=== PATIENT | female | born 1970 | race Caucasian/White ===

== ENCOUNTER 2020-07-15 14:12 | Outpatient (REF) | payer MEDICAID, SELFPAY ==
--- NOTE | ~2020-07-15 | MM_ITS ---
EXAMINATION: MM SCREENING DIGITAL BREAST TOMOSYNTHESIS, BILATERAL CLINICAL INFORMATION: Screening. Asymptomatic. The lifetime risk of breast cancer based on the Tyrer-Cuzick Model is 8%. COMPARISON: Mammography: 07/10/2019, 05/16/2018, 05/11/2017 TECHNIQUE: Digital breast tomosynthesis is performed in both the craniocaudal and mediolateral oblique views along with computer-aided detection (CAD). Synthesized 2D images are generated from the tomosynthesis. FINDINGS: There are scattered areas of fibroglandular density (ACR BI-RADS breast composition Category b). There are no significant masses, abnormal calcifications, or other abnormalities. Again, there is biopsy clip marker upper outer quadrant left breast and some stable calcifications mid upper outer quadrant right breast. The axilla and skin contours are unremarkable. MM/MM tomosynthesis screening BI IMPRESSION: No mammographic evidence of malignancy. No significant changes from prior studies. ASSESSMENT: BI-RADS 2: Benign RECOMMENDATION: Routine annual mammography screening. This patient's information was entered into a reminder system with a target due date for their next mammogram.
== END 2020-07-15 14:13 | disposition home or self-care (01) ==
LOC: HO.MAMMO 14:12
PROVIDERS: PCP Pediatrics; Visit Provider Pediatrics
DX: Z12.31 Encounter for screening mammogram for malignant neoplasm of breast (principal)
CPT/HCPCS: 77063; 77067

== ENCOUNTER 2021-01-08 15:49 | Emergency (ER) | payer MEDICAID, SELFPAY ==
--- NOTE | ~2021-01-08 | CT_ITS ---
EXAMINATION: CT ABDOMEN AND PELVIS WITHOUT CONTRAST CLINICAL INFORMATION: Back and abdominal pain COMPARISON: 09/13/2012 TECHNIQUE: Multidetector volumetric imaging was performed from the superior aspect of the liver through the pubic symphysis. Sagittal and coronal reformatted images were obtained on the technologist's workstation. This CT examination was performed using dose optimization techniques as appropriate, variously including the following: *Automated exposure control *Adjustment of mA and/or kV according to patient size (this includes techniques or standardized protocols for targeted exams where dose is matched to indication/reason for exam; i.e. extremities or head) *Use of iterative reconstruction technique DLP: 650 mGy-cm FINDINGS: LUNG BASES: The visualized lung bases are unremarkable. LIVER, GALLBLADDER, AND BILIARY TREE: Changes of diffuse hepatic steatosis. No discrete lesion on this nonenhanced study. Liver appears moderately enlarged. No biliary dilatation. Gallbladder is contracted with stones. No acute inflammatory changes. PANCREAS: Unremarkable. SPLEEN: Appears to be surgically absent or severely atrophic. ADRENAL GLANDS: Unremarkable. KIDNEYS AND URETERS: The kidneys are normal in size, shape, and attenuation. No hydronephrosis, hydroureter, or calculi seen. No perinephric stranding. BLADDER: Unremarkable. GASTROINTESTINAL TRACT: The small and large bowel are notable for scattered diverticula without acute inflammatory changes.. The appendix is unremarkable. ABDOMINAL WALL: No significant hernia is appreciated. LYMPH NODES: Normal. VASCULAR: Unremarkable. PELVIC VISCERA: Prominent uterus with poor delineation of tissue planes. Recommend elective ultrasound to exclude any endometrial lesion. OSSEOUS STRUCTURES: Unremarkable. CT/CT abdomen pelvis wo con IMPRESSION: 1. No aneurysm or evidence for any obstructive uropathy. 2. Prominent uterus which should be further assessed electively for any endometrial or myometrial abnormality. 3. Hepatomegaly changes of hepatic steatosis. 4. Contracted gallbladder with stones. No acute inflammatory changes.
[2021-01-08 16:22] VITALS: BP 116/55; PULSE 73; RESP 18; TEMP 36.6; O2SAT 97; BMI 33.6
--- NOTE | 2021-01-08 17:17 | ED_ITS ---
HPI - Back Pain/Injury General Chief Complaint: Back Pain/Injury Stated Complaint: back pain Time Seen by Provider: 01/08/21 17:05 Source: patient Mode of arrival: ambulatory Limitations: no limitations History of Present Illness HPI Narrative: This is a 50-year-old obese female who presents to the emergency department from home with 1 day of lower back pain, localized to the left lower back. She states this pain came about when she was bending over to put a lid on a trash can. She denies any heavy lifting this week, and today. She states this is not the 1st time that something like this happened to her. However today, she is having increased pain with ambulation. She states that the pain is constant and severe in nature at 10/10 and it does not radiate. She denies chest, shortness breath, changes in bowel habits, fevers, chills, nausea, vomiting, diarrhea, changes in urination. She denies any trauma to the area. Past medical history significant for ITP, and fibromyalgia. MD elicited complaint: back pain (Left lower back) Pertinent past history: prior back pain Onset (ago): day(s) (1) Timing: constant Severity: severe Pain scale (0-10): 10 Similar Symptoms Previously: Yes Quality: sharp Location: left lower back Radiation: none Exacerbating factors: movement and walking Relieving factors: none Context: bending Associated symptoms: denies other symptoms Treatments prior to arrival: NSAIDS (Without relief) Work related injury: No Related Data Home Medications Medication Instructions Recorded Confirmed ibuprofen 800 mg tablet 1 tab PO TID 09/07/20 09/07/20 Previous Rx's Medication Instructions Recorded acetaminophen 325 mg tablet 650 mg PO Q6H PRN #10 tab 01/08/21 (Tylenol) cyclobenzaprine 10 mg tablet 10 mg PO Q8H #10 tab 01/08/21 oxycodone 5 mg tablet 5 mg PO BID PRN #10 tab 01/08/21 Allergies Allergy/AdvReac Type Severity Reaction Status Date / Time melatonin [MELATONIN] Allergy Unknown FACIAL Unverified 01/09/20 17:00 REDNESS & EDEMA ASPERGILLUS Allergy Unknown HIVES Uncoded 01/09/20 17:00 Review of Systems Review of Systems: Constitutional : No trauma, No Weight loss, No Fever, No Chills, ENT/Mouth : No Hearing loss, No Ear Pain, No Nasal Congestion, No Sinus Pain, No Hoarseness, No sore throat, No Rhinorrhea, No Swallowing Difficulty Cardiovascular : No Chest Pain, No SOB Respiratory : No Cough, No Dyspnea Gastrointestinal : No Nausea, No Vomiting, No Diarrhea, No abdominal Pain, No Hematochezia, No Melena Genitourinary : No Dysuria, No Urinary Frequency, No Hematuria, No Urinary or Bowel Incontinence/retention Musculoskeletal : + Back pain, No neck pain, No joint stiffness, No joint swelling Skin : No Skin Lesions, No rash or signs of infection Neuro : No Weakness, No radiation, No Numbness, No Paresthesias, No headache, no loss of bowel or bladder incontinence, no saddle anesthesia Denies history of IV drug usage. Yes all other systems are reviewed and are negative [facility] Past Medical History Attestation statement: The following information was validated with the patient. Family History Family History Father Tonsillar cancer Hypertension Paternal Grandmother Hypertension Social History Social History Alcohol intake: never Advance Directives: No Advance Directives Information Provided: No Physical Exam Vital Signs: Vital Signs: Last Vital Signs Temp 97.9 F 01/08/21 16:22 Pulse 73 01/08/21 16:22 Resp 18 01/08/21 16:22 BP 116/55 L 01/08/21 16:22 Pulse Ox 97 01/08/21 16:22 Body Mass Index 33.6 vital signs have been reviewed as normal and appeared to be correct. Blood pressure mildly hypertensive 116/55. Heart rate normal. Respiration rate normal. Temperature normal. Oxygen saturation normal. Appearance: Alert. Oriented X3. No acute distress. Head: Normal external exam. Normocephalic. Atraumatic. Neck: Normal inspection. Neck supple. FROM. No adenopathy. Thyroid Normal. No meningeal signs. No neck mass noted. CVS: Normal heart rate and rhythm. Heart sound normal. No murmurs noted. Pulses normal throughout. Respiratory: No respiratory distress. Painless inspiration. Breath sounds normal. No wheezes/rales/rhonchi noted. Chest nontender. No accessory muscle usage noted or decreased air movement noted. Abdomen: Soft and nontender. Bowel sounds normal in all 4 quadrants. No distention noted. No organomegaly noted. No visible injury noted. Back: No CVA tenderness. + limited range of motion due to pain, No obvious deformities, or edema. + Mild para-spinal muscular tenderness from lumbar region to coccyx particularly on the left-hand side. Full ROM lower extremities. 5/5 strength hip extension/flexion, abduction, adduction. Mild Lumbar pain with hip flexion against resistance. Straight leg raise test negative on right; Straight leg raise test positive on left; Reflexes normal ankle and knee bilaterally; EHL motor strength normal bilaterally. No rashes/lesion/induration/fluctuance or signs infection noted. Skin: Skin warm and dry. Normal skin color. Normal skin turgor. No rashes/lesions/lacerations noted. Extremities: No lower extremity edema. Extremities exhibit normal range of motion. Extremities nontender. Neuro: Oriented X 3. No motor deficit. No sensory deficit. Reflexes normal. Patient has a normal steady gait. Course Course Course Narrative: This is a 50-year-old female who presents to the emergency department with atraumatic lower back pain that came on earlier today. She denies any trauma to the area, or heavy lifting. She states the pain is constant, and severe 10/10 and does not radiate. She states she has had similar episodes in the past which have resolved on her own. She has no past history of recurrent UTIs. She denies chest pain, shortness of breath, weakness, numbness, tingling, bowel/bladder incontinence. Past medical history is significant for ITP and fibromyalgia. On physical examination the patient is visibly uncomfortable, there is pain to palpation of the paraspinous muscles particularly on the left-hand side lower lumbar spine to the coccyx. Range of motion is limited due to pain, however, patient is able to ambulate with assistance but appears uncomfortable. Positive straight leg raise on the left-hand side, negative straight leg raise on the right. Physical examination and palpation of the abdomen to the lower quadrants caused exquisite pain. Pt c likely muscular pain, but could be herniated disc. Neuro exam shows no deficits. Not c/w AAA/epidural abscess/dissection.No high risk Hx (Incont, fever, immunosupp, recent surgery/LP, coag, signif trauma, wt loss, puls mass, hx/o Ca, TB, or IVDU) to warrant MRI today. Not c/w Pyelo/UTI/kidney stone/spinal fx. Not cauda equina syndrome. Due to the patient history and Physical examination a CT of the abdomen and pelvis has been ordered. Patient also being given 5 mg of Valium and 5 mg of oxycodone will re-evaluate. Reevaluation(s) Reevaluation #1: - CT scan of abdomen and pelvis without IV contrast revealed chronic changes no acute processes were noted. Therefore patient most likely muscular pain. Will DC home with symptomatic treatment instructions return if any new or worsening symptoms to follow up with primary care provider. Patient understands agrees with this plan. Time: 18:54 MDM - Back Pain/Injury Medical Records Attestation: I reviewed the patient's medical records. Lab Data Attestation: I reviewed the patient's lab results. Imaging Data CT of the abdomen and pelvis : Attestation: I personally reviewed and interpreted this imaging study as follows: Radiologist's impression: FINDINGS: LUNG BASES: The visualized lung bases are unremarkable.? LIVER, GALLBLADDER, AND BILIARY TREE: Changes of diffuse hepatic steatosis. No discrete lesion on this nonenhanced study. Liver appears moderately enlarged. No biliary dilatation. Gallbladder is contracted with stones. No acute inflammatory changes.? PANCREAS: Unremarkable.? SPLEEN: Appears to be surgically absent or severely atrophic.? ADRENAL GLANDS: Unremarkable.? KIDNEYS AND URETERS: The kidneys are normal in size, shape, and attenuation. No hydronephrosis, hydroureter, or calculi seen. No perinephric stranding. ? BLADDER: Unremarkable.? GASTROINTESTINAL TRACT: The small and large bowel are notable for scattered diverticula without acute inflammatory changes.. The appendix is unremarkable.? ABDOMINAL WALL: No significant hernia is appreciated.? LYMPH NODES: Normal. VASCULAR: Unremarkable. PELVIC VISCERA: Prominent uterus with poor delineation of tissue planes. Recommend elective ultrasound to exclude any endometrial lesion.? OSSEOUS STRUCTURES: Unremarkable.? CT/CT abdomen pelvis wo con IMPRESSION: ? 1. No aneurysm or evidence for any obstructive uropathy. 2. Prominent uterus which should be further assessed electively for any endometrial or myometrial abnormality. 3. Hepatomegaly changes of hepatic steatosis. 4. Contracted gallbladder with stones. No acute inflammatory changes. Discharge Plan Discharge Clinical Impression: Strain of lumbar region, Abdominal pain Patient Disposition: Home, Self-Care Instructions: Acute Low Back Pain (ED), Abdominal Pain (ED) Additional Instructions: Take all medications as prescribed Return to the emergency department with new or worsening symptoms or if he develops weakness, paresthesias, urinary or bowel incontinence, fevers or chills. Follow-up with your primary care provider Prescriptions: New cyclobenzaprine 10 mg tablet 10 mg PO Q8H Qty: 10 RF: 0 acetaminophen [Tylenol] 325 mg tablet 650 mg PO Q6H PRN (Reason: fever or pain) Qty: 10 RF: 0 oxycodone 5 mg tablet 5 mg PO BID PRN (Reason: pain) Qty: 10 RF: 0 No Action ibuprofen 800 mg tablet 1 tab PO TID RF: 0 Referrals: Aaron Riley MD [Primary Care Provider] - 2 days Print Language: English
[2021-01-08] MEDS: Lidocaine 4 % Patch ADH..PATCH 1 PATCH TRANSDERMA (17:40)
[2021-01-08] MEDS: diazePAM 5 MG TABLET PO (17:40)
[2021-01-08] MEDS: oxyCODONE HCl Immed Release 5 MG TABLET PO (17:40)
== END 2021-01-08 19:10 | disposition home or self-care (01) ==
PROVIDERS: Emergency Provider Emergency Medicine; PCP Internal Medicine
DX: S39.012A Strain of muscle, fascia and tendon of lower back, initial encounter (principal); R10.9 Unspecified abdominal pain; X58.XXXA Exposure to other specified factors, initial encounter; Y93.9 Activity, unspecified; Y92.9 Unspecified place or not applicable; Y99.9 Unspecified external cause status; Z79.899 Other long term (current) drug therapy
CPT/HCPCS: 74176; 99284

== ENCOUNTER 2021-07-20 15:50 | Outpatient (REF) | payer MEDICAID, SELFPAY ==
--- NOTE | ~2021-07-20 | MM_ITS ---
EXAMINATION: MM SCREENING DIGITAL BREAST TOMOSYNTHESIS, BILATERAL CLINICAL INFORMATION: Screening. Asymptomatic. The lifetime risk of breast cancer based on the Tyrer-Cuzick Model is 8%. COMPARISON: Mammography: 07/15/2020, 07/10/2019, 05/16/2018, 05/11/2017 TECHNIQUE: Digital breast tomosynthesis is performed in both the craniocaudal and mediolateral oblique views along with computer-aided detection (CAD). Synthesized 2D images are generated from the tomosynthesis. FINDINGS: There are scattered areas of fibroglandular density (ACR BI-RADS breast composition Category b). Parenchymal pattern is similar to prior exams. There is no interval mass or architectural abnormality or developing density. There is a biopsy clip marker posterior upper outer left breast. There are stable bilateral fine probable vascular calcifications in the bilateral upper outer quadrant similar to prior exams. The bilateral axilla and skin contours are unremarkable. MM/MM tomosynthesis screening BI IMPRESSION: No significant changes from prior studies. ASSESSMENT: BI-RADS 2: Benign RECOMMENDATION: Routine annual mammography screening. This patient's information was entered into a reminder system with a target due date for their next mammogram.
== END 2021-07-20 15:51 | disposition home or self-care (01) ==
LOC: HO.MAMMO 15:50
PROVIDERS: PCP Internal Medicine; Visit Provider Internal Medicine
DX: Z12.31 Encounter for screening mammogram for malignant neoplasm of breast (principal)
CPT/HCPCS: 77063; 77067

== ENCOUNTER 2022-08-22 15:26 | Outpatient (REF) | payer MEDICAID, SELFPAY ==
--- NOTE | ~2022-08-22 | MM_ITS ---
EXAMINATION: MM SCREENING DIGITAL BREAST TOMOSYNTHESIS, BILATERAL CLINICAL INFORMATION: Screening. Asymptomatic. The lifetime risk of breast cancer based on the Tyrer-Cuzick Model is 9%. COMPARISON: Mammography: 07/20/2021, 07/15/2020, 07/10/2019, 05/16/2018 TECHNIQUE: Digital breast tomosynthesis is performed in both the craniocaudal and mediolateral oblique views along with computer-aided detection (CAD). Synthesized 2D images are generated from the tomosynthesis. FINDINGS: There are scattered areas of fibroglandular density (ACR BI-RADS breast composition Category b). There is inhomogeneous fibronodular parenchymal pattern with scattered small waxing and waning nodularity similar to prior studies. There is no significant mass or architectural abnormality or developing density. There is a biopsy clip marker and upper outer left breast. Calcifications bilateral outer breasts again seen. No interval significant calcifications. The axilla and skin contours are similar to prior studies. No significant changes. MM/MM tomosynthesis screening BI IMPRESSION: No mammographic evidence of malignancy. ASSESSMENT: BI-RADS 2: Benign RECOMMENDATION: Routine annual mammography screening. This patient's information was entered into a reminder system with a target due date for their next mammogram.
== END 2022-08-22 15:27 | disposition home or self-care (01) ==
LOC: HO.MAMMO 15:26
PROVIDERS: PCP Internal Medicine; Visit Provider Internal Medicine
DX: Z12.31 Encounter for screening mammogram for malignant neoplasm of breast (principal)
CPT/HCPCS: 77063; 77067

== ENCOUNTER 2023-05-15 16:27 | Outpatient (REF) | payer MEDICAID, SELFPAY ==
[2023-05-15 20:04] LABS: Influenza A PCR NEGATIVE (Negative); Influenza B PCR NEGATIVE (Negative); Resp Syncy Virus RNA Qual PCR NEGATIVE (Negative); SARS COV2 PCR INHOUSE NEGATIVE (Negative)
== END 2023-05-15 16:28 | disposition home or self-care (01) ==
LOC: HO.CHCLNP 16:27
PROVIDERS: Visit Provider Registered Nurse
DX: B34.9 Viral infection, unspecified (principal); Z11.52 Encounter for screening for COVID-19
CPT/HCPCS: 0241U

== ENCOUNTER 2023-05-25 15:26 | Outpatient (REF) | payer MEDICAID, SELFPAY ==
--- NOTE | ~2023-05-25 | XR_ITS ---
EXAMINATION: XR SINUSES CLINICAL INFORMATION: Sinus congestion and pain of one month's duration, refractory to antibiotic therapy. COMPARISON: None available. TECHNIQUE: Main, Dela Cruz, lateral, and SMV views of the paranasal sinuses are submitted. FINDINGS: The paranasal sinuses are well aerated. There is partial opacification of the frontal sinuses. The left maxillary sinus appears opacified. There is mucosal thickening of the right maxillary sinus. The ethmoid and sphenoid sinuses show some mucosal thickening. No fracture or bone erosion is seen. The nasal septum appears midline. XR/XR sinus min 3V IMPRESSION: There is pansinusitis, most pronounced of the left maxillary sinus, which appears largely opacified.
== END 2023-05-25 15:27 | disposition home or self-care (01) ==
LOC: HO.XRAY 15:26
PROVIDERS: PCP Internal Medicine; Visit Provider Internal Medicine
DX: J32.9 Chronic sinusitis, unspecified (principal)
CPT/HCPCS: 70220

== ENCOUNTER 2023-08-28 15:20 | Outpatient (REF) | payer MEDICAID, SELFPAY ==
--- NOTE | ~2023-08-28 | MM_ITS ---
EXAMINATION: MM SCREENING DIGITAL BREAST TOMOSYNTHESIS, BILATERAL CLINICAL INFORMATION: Screening. Asymptomatic. The patient has a history of bilateral breast reduction. COMPARISON: Mammography: This study is compared with prior exams dating back to 2018. TECHNIQUE: Digital breast tomosynthesis is performed in both the craniocaudal and mediolateral oblique views along with computer-aided detection (CAD). Synthesized 2D images are generated from the tomosynthesis. FINDINGS: There are scattered areas of fibroglandular density (ACR BI-RADS breast composition Category b). There are no significant masses, abnormal calcifications, or other abnormalities. There is a biopsy tissue marker in the upper outer quadrant left breast. MM/MM tomosynthesis screening BI IMPRESSION: No mammographic evidence of malignancy. ASSESSMENT: BI-RADS BI-RADS 2 - Benign Findings RECOMMENDATION: Routine annual mammography screening. 1 year F/U This examination should not preclude the clinical evaluation of a suspicious palpable abnormality. This patient's information was entered into a reminder system with a target due date for their next mammogram.
== END 2023-08-28 15:21 | disposition home or self-care (01) ==
LOC: HO.MAMMO 15:20
PROVIDERS: PCP Internal Medicine; Visit Provider Internal Medicine
DX: Z12.31 Encounter for screening mammogram for malignant neoplasm of breast (principal)
CPT/HCPCS: 77063; 77067

== ENCOUNTER → 2023-08-28 15:30 | Outpatient (BNV) | payer MEDICAID, SELFPAY | PROVIDERS: PCP Internal Medicine; Visit Provider Radiology Diagnostic Radiology | DX: Z12.31 Encounter for screening mammogram for malignant neoplasm of breast (principal) | CPT/HCPCS: 77063; 77067 ==

== ENCOUNTER 2023-08-31 15:03 | Outpatient (REF) | payer MEDICAID, SELFPAY ==
[2023-08-31 18:15] LABS: Alanine Aminotransferase 19 U/L (0-31); Albumin Level 4.3 g/dL (3.5-5.0); Alkaline Phosphatase 108 U/L (39-117); Anion Gap 15 (12-20); Aspartate Amino Transferase 18 U/L (5-31); Bilirubin Total 0.8 mg/dL (0.0-1.0); Blood Urea Nitrogen 13 mg/dL (9-16); Calcium 9.6 mg/dL (8.4-10.2); Carbon Dioxide 24 mmol/L (22-29); Chloride 106 mmol/L (96-108); Estimated Glomerular Filt Rate > 60; Glucose Random 88 mg/dL (60-115); Potassium 3.5 mmol/L (3.3-5.1); Sodium 141 mmol/L (135-145); Total Protein 8.6 g/dL (6.5-8.0)
[2023-08-31 18:27] LABS: Basophils Absolute Auto 0.1 X10*3/uL (0.0-0.2); Basophils Percent Auto 0.7 % (0-2); Imm Gran Abs Auto 0.06 X10*3/uL (0.00-0.03); Imm Gran Pct Auto 0.4 % (0.0-0.4); MANUAL DIFF FLAG SCAN; SCAN SMEAR FLAG 1
[2023-08-31 18:28] LABS: Eosinophils Absolute Auto 0.3 X10*3/uL (0.0-0.4); Lymphocytes Absolute Auto 5.4 X10*3/uL (1.2-4.9); Lymphocytes Percent Auto 37.8 % (20-40); Mean Corpuscular HGB Conc 32.6 g/dl (31.0-35.0); Mean Corpuscular Hemoglobin 27.9 pg (27.0-33.0); Mean Corpuscular Volume 85.7 fL (80.0-98.0); Monocytes Absolute Auto 0.8 X10*3/uL (0.1-1.2); Monocytes Percent Auto 5.5 % (2-11); Neutrophils Absolute Auto 7.6 x10*3/uL (2.0-8.3); Neutrophils Percent Auto 53.6 % (45-73); PLT CLUMP 1; Red Blood Count 5.02 X10*6/uL (4.20-5.50)
[2023-08-31 18:32] LABS: TSH reflex Free T4 1.76 uIU/mL (0.32-4.0)
[2023-08-31 18:54] LABS: PLT ABN DIST 1; White Blood Count 14.2 X10*3/uL (4.8-10.8)
[2023-08-31 18:55] LABS: Platelet Count 44 X10*3/uL (160-400)
[2023-08-31 18:56] LABS: SLIDE REVIEW VERIFIED
== END 2023-08-31 15:04 | disposition home or self-care (01) ==
LOC: HO.CHCLDS 15:03
PROVIDERS: Visit Provider Internal Medicine
DX: F32.89 Other specified depressive episodes (principal); M79.7 Fibromyalgia; D69.3 Immune thrombocytopenic purpura
CPT/HCPCS: 36415; 80053; 84443; 85025

== ENCOUNTER → 2023-10-02 09:20 | Outpatient (BNV) | payer MEDICAID, SELFPAY | PROVIDERS: PCP Internal Medicine; Referring Provider Internal Medicine; Visit Provider Internal Medicine Medical Oncology | DX: D69.3 Immune thrombocytopenic purpura (principal) | CPT/HCPCS: 99213 ==

== ENCOUNTER → 2023-12-21 14:45 | Outpatient (RCR) | payer MEDICAID, SELFPAY ==
--- NOTE | 2020-09-07 13:54 | P.PNHO_ITS ---
Medical Summary - Medical Summary Date of Service: 09/07/20 Chief complaint: Follow-up for ITP. Medical Summary: DIAGNOSIS: Idiopathic Thrombocytopenic Purpura. 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 Steroids were subsequently tapered. Interval History Interval history: This is a pleasant 50 year old lady, here for a follow up visit, after a long hiatus. She has not been doing too well. She tells me that she has been feeling really tired. She feels as if her skin is burning. Even her muscles feel fatigued. Her whole body hurts. He knows to some of the effects after she took the Richard and Richard vaccine. That was a month ago. She got concerned about blood clots. She denies any easy bruising nor systemic bleeding. She denies fevers chills nor night sweats. No abdominal pain, nausea vomiting heartburn indigestion. Her bowels are moving without any gross blood in it. She enjoys a good appetite. Her weight has gone up. Her spirits are down. Rest of the review of systems is unremarkable. Previous history: Back in July,, she was seen in the E.R for migraine H.A. She has a history of fibromyalgia, she takes Motrin as needed. Her energy level has improvd, significantly. She is physically very active. She has started exercising. She walks and runs and attends [employer] classes. She is watching her diet. She is trying to lose weight. Review of Systems - Constitutional Reports no additional constitutional complaints, Reports lack of energy, Reports malaise, Reports weight gain - Eyes Reports no additional eye complaints - ENT Reports no additional ear, nose, mouth, and throat complaints - Cardiovascular Reports no additional cardiovascular complaints - Respiratory Reports no additional respiratory complaints - Gastrointestinal Reports no additional gastrointestinal complaints - Genitourinary Reports no additional female genitourinary complaints - Musculoskeletal Reports no additional musculoskeletal complaints - Integumentary/Breasts Skin/Breast: Reports no additional skin complaints - Neurologic Reports no additional neurologic complaints - Psychiatric Reports no additional psychiatric complaints - Endocrine Reports no additional endocrine complaints - Hematologic/Lymphatic Reports no additional hematologic/lymphatic complaints - Allergic/Immunologic Reports no additional allergic/immunologic complaints [facility] Family History: Family History (Last Updated 09/07/20 @ 14:07 by Melissa Vargas) Father Tonsillar cancer Hypertension Paternal Grandmother Hypertension Social History: Social History (Last Updated 09/07/20 @ 14:05 by Melissa Vargas) Alcohol History: Alcohol intake: never Alcohol History Details: Alcohol intake frequency: does not drink Tobacco History: Smoking Status: Never smoker Substance Use History: Use of substances other than those prescribed or required for medical reasons : No Oncology Screenings - ECOG Performance Status ECOG Performance Status: 1 Home Medications and Allergies Home Medications Medication Instructions Recorded Confirmed Type ibuprofen 1 tab PO TID 09/07/20 09/07/20 History Allergies Allergy/AdvReac Type Severity Reaction Status Date / Time melatonin [MELATONIN] Allergy Unknown FACIAL Unverified 01/09/20 17:00 REDNESS & EDEMA ASPERGILLUS Allergy Unknown HIVES Uncoded 01/09/20 17:00 Exam - Constitutional Present: no acute distress - Routine HEENT Exam Head: Present: normal inspection Eye: Present: normal appearance ENT: Present: mucous membranes moist - Routine Neck Exam Present: full ROM - Routine Respiratory Exam Present: CTAB - Routine Cardiovascular Exam Cardiovascular: Present: RRR, S1, S2 - Routine Abdominal Exam Present: soft, nontender - Routine Rectal Exam Patient deferred: digital exam - Routine Extremities Exam Present: nontender - Routine Back/Spine/Pelvis Exam Back/Spine: Present: full ROM - Routine Skin Exam Present: intact - Routine Neurological Exam Present: alert, oriented X3 - Routine Psychiatric Exam Present: normal affect Data - Labs CBC & Chem 7: 09/07/20 14:18 09/07/20 14:18 Progress Note: A/P (1) Chronic ITP (idiopathic thrombocytopenia) Status: Acute Assessment and plan: 50 year-old lady with history of Idiopathic Thrombocytopenic Purpura. Status post laparoscopic splenectomy in September of 2012. After the steroids were tapered off, she remained in remission. She was last seen here in December 2017. Her CBC from November of last year revealed WBC 15.4, HGB 13.8, HCT 43.2, and PLT 167. She has some other complaints, including: Fatigue joint pains and body aches. These indicate possible fibromyalgia or rheumatological disorder versus arthritis. PLAN: She follows with change control specialist, Dr. Negrita Neal from Rheumatology upstairs. She will follow-up with her. Her platelet count is low at 104 today. Not sure what her trend has been lately. Will follow it in a month. She will return then for a followup visit. She will call for any questions or problems prior to that time. Thank you, Walt Levy MD cc: Dr. Aaron Riley M.D. Dr. Tatiana MD - Time Spent With Patient Total time spent is greater than 50% in coordination of care (as documented) at patient's floor/unit and/or counseling patient: 25 - 35 minutes
[2020-09-07 14:03] VITALS: BP 121/62; PULSE 84; RESP 12; TEMP 36.8; O2SAT 93
[2020-09-07 14:22] LABS: MANUAL DIFF FLAG NO
[2020-09-07 14:34] LABS: Basophils Percent Auto 0.3 % (0-2); Eosinophils Absolute Auto 0.3 X10*3/uL (0.0-0.4); Eosinophils Percent Auto 2.7 % (0-4); Hemoglobin 12.6 g/dl (12.0-16.0); Imm Gran Abs Auto 0.04 X10*3/uL (0.00-0.03); Imm Gran Pct Auto 0.3 % (0.0-0.4); Lymphocytes Absolute Auto 4.1 X10*3/uL (1.2-4.9); Lymphocytes Percent Auto 35.6 % (20-40); Mean Corpuscular HGB Conc 31.5 g/dl (31.0-35.0); Mean Corpuscular Hemoglobin 27.1 pg (27.0-33.0); Monocytes Absolute Auto 0.6 X10*3/uL (0.1-1.2); Monocytes Percent Auto 4.9 % (2-11); Neutrophils Absolute Auto 6.5 X10*3/uL (2.0-8.3); Neutrophils Percent Auto 56.2 % (45-73); Platelet Count 104 X10*3/uL (160-400); Red Blood Count 4.65 X10*6/uL (4.20-5.50); Red Cell Distribution Width 15.3 % (11.0-16.0); White Blood Count 11.5 X10*3/uL (4.8-10.8)
[2020-09-07 15:12] LABS: Alanine Aminotransferase 25 U/L (0-31); Albumin Level 4.1 g/dL (3.5-5.0); Alkaline Phosphatase 107 U/L (39-117); Anion Gap 13 (12-20); Aspartate Amino Transferase 18 U/L (5-31); Blood Urea Nitrogen 12 mg/dL (9-16); Calcium 8.8 mg/dL (8.4-10.2); Carbon Dioxide 23 mmol/L (22-29); Chloride 112 mmol/L (96-108); Estimated Glomerular Filt Rate > 60; Glucose Random 114 mg/dL (60-115); Potassium 3.5 mmol/L (3.3-5.1); Sodium 144 mmol/L (135-145); Total Protein 7.2 g/dL (6.5-8.0)
--- NOTE | 2020-09-07 15:42 | MHC.HEMONCMA ---
Pt present to f/u on thrombocytopenia. History reviewed, labs drawn and pt to return in a yr.
== END | disposition home or self-care (01) ==
LOC: HO.ONC 09-07 13:47
PROVIDERS: PCP Internal Medicine; Visit Provider Internal Medicine Medical Oncology
DX: D69.3 Immune thrombocytopenic purpura (principal); Z90.81 Acquired absence of spleen
CPT/HCPCS: 36415; 80053; 85025; 99214

== ENCOUNTER 2024-01-02 13:28 | Outpatient (REF) | payer MEDICAID, SELFPAY ==
--- NOTE | ~2024-01-02 | XR_ITS ---
EXAMINATION: XR CHEST CLINICAL INFORMATION: Patient states cough for about 2 months COMPARISON: 11/21/2018 TECHNIQUE: 2 views of the chest were obtained. FINDINGS: There is no gross pneumothorax. Heart size is normal. Mild degenerative changes in the thoracic spine. No pleural effusion. No focal consolidation. Mild degenerative changes in the thoracic spine. XR/XR chest 2V IMPRESSION: No evidence of pneumonia. Electronically signed by: uAdrey Hollins MD 01/17/2024 01:07 PM EDT
== END 2024-01-02 13:29 | disposition home or self-care (01) ==
LOC: HO.XRAY 13:28
PROVIDERS: PCP Internal Medicine; Visit Provider Internal Medicine
DX: R05.2 Subacute cough (principal)
CPT/HCPCS: 71046

== ENCOUNTER 2024-05-27 11:09 | Outpatient (REF) | payer OTHER, SELFPAY ==
--- NOTE | ~2024-05-27 | XR_ITS ---
EXAMINATION: XR CHEST 2 VIEWS HISTORY: one month of cough, CHOPRA and weight loss COMPARISON: Comparison is made with the prior examination dated 01/02/2024. FINDINGS: PA and lateral views of the chest are submitted. The lungs are expanded and clear. There is no pleural effusion, pneumothorax, or pulmonary vascular congestion. The heart is normal in size. There is mild degenerative disc disease of the spine. XR/XR chest 2V IMPRESSION: No acute cardiopulmonary abnormality. Electronically signed by: Jered Silva MD 05/27/2024 12:34 PM JUAN C
--- OUTSIDE RECORDS SUMMARY | 2024-05-27 12:21 | XMS_ITS | Encounter Summary ---
Author Organization [employer] Address [address] [place] [address] [place] [address] Care Team Providers Care Pinion Staker Name Role Phone Aaron Riley MD Primary Care Provider [phone] Reason for Visit * Reason Onset Date Comments Nurse Triage 05/24/2024 Encounter Details Date Type Department Care Team ([facility] st Contact Info) Description 05/24/2024 Telephone [facility] [address] [place] [address] Aaron Riley MD [address] [place] [address] Nurse Triage Social History Tobacco Use Types Packs/Day Years Used Date Smoking Tobacco: Never Smokeless Tobacco: Never Depression Answer Date Recorded Patient Health Questionnaire-9 Score 21 10/03/2023 Patient Health Questionnaire-9 Score 21 10/03/2023 Last PHQ-9: Questionnaire Data Not on file 0 10/03/2023 Housing Stability Answer Date Recorded What is your housing situation today? I have deb marks 08/23/[address] you li ve. Do you have problems with any of the following? None of the above 08/23/2023 Food Insecurity Answer Date Recorded Within the past 12 months, y ou worried that your food would run out before you got money to buy more: Never True 08/23/2023 Within the past 12 months,th e food you bought just didn't last and you didn't have enough money to get more: Never True 04/2023 Transportation Answer Date Recorded In the past 12 months, has l ack of transportation kept you from medical appts, meetings, work or from getting things needed for daily living? No 08/23/2023 Utilities Answer Date Recorded In the past 12 months, has t he electric, gas, oil or water company threatened to shut off services in your home? No 08/23/2023 Depression Answer Date Recorded Patient Health Questionnaire-2 Score 6 10/03/2023 Comments No Sex and Gender Information Value Date Recorded Sex Assigned at Female 02/21/2022 10:21 AM EDT Legal Sex Female 10:21 AM EDT Gender Identity Choose not to disclose 10:21 AM EDT Sexual Orientation Choose not to disclose 2021 10:21 AM EDT documented as of this encounter Miscellaneous Notes * Telephone Encounter - Myriam Ashby LPN - 05/24/2024 11:32 AM EST Triage call returned to patient who reports feeling sick for all of April. Has now 3-4 days of cough congestion headache and weakness. Has been taking OTC Ibuprofen and headache improves and then returns. No fever at this time. Has no ear pain or sore throat. Has reported dizziness with standing or sitting for long periods of time and feels better when laying down. Fluid intake good and encouraged at time of call. Disposition reviewed and patient in agreement with plan. No PCP or Team appts available. Provided [facility] hours for tomorrow morning, Patient agrees to come to [facility] tomorrow morning. Reviewed with patient home care recommendations, reasons to call back and symptoms that require im mediate evaluation in UC or ER. Patient verbalized understanding and agrees. Multiple (2) protocols were used on this call. Disposition for Call: See in Office or Video Visit Today or Tomorrow Protocol Used: Common Cold (Adult) Protocol-Based Disposition: See in Office or Video Visit Today or Tomorrow Video visit not offered Positive Triage Question: * Patient wants to be seen * All higher-acuity triage questions were negative Care Advice Discussed: * Reasons To Call Back - Fever lasts over 3 days - Runny nose lasts over 10 days - You become short of breath - You become worse Protocol Used: Dizziness (Adult) Protocol-Based Disposition: See in Office or Video Visit within 3 Days Positive Triage Question: * Mild dizziness (e.g., walking normally) and has NOT been evaluated by physician for this (Exception: Dizziness caused by heat exposure, sudden standing, or poor fluid intake.) * All higher-acuity triage questions were negative Care Advice Discussed: * Drink Fluids * Lie Down and Rest * Reasons To Call Back - You pass out (faint) or are too weak to stand - You become worse * Telephone Encounter - Brittany Morton - 05/24/2024 11:04 AM EST Symptoms: Dizziness, Chest Congestion Outcome: Schedule an urgent appointment (within 4 hours) or talk to a nurse or provider soon Reason: Started within the past 3 days The caller accepted this outcome. Contact pt at [phone] (denied housing director) documented in this encounter Plan of Treatment Not on file documented as of this encounter Visit Diagnoses Not on filedocumented in this encounter Additional Health Concerns Assessment Noted Time PHQ-9 Depression Total Score: 21 024 1:11 PM EDT documented as of this encounter Care Teams Pinion Staker Relationship Specialty Start Date End Date Aaron Riley MD [address] [place] [id number] PCP - General Internal Medicine 04/24/18 documented as of this encounter
--- OUTSIDE RECORDS SUMMARY | 2024-05-27 12:21 | XMS_ITS | Continuity of Care Document ---
Author Organization [place] - [facility], [facility] Address [address] [place] [phone] Care Team Providers Care Device Sales Consultant Name Role Phone EDER DINH Primary Care Provider Assessment No assessment recorded. Plan of Treatment Reminders Order Date Submit Date Provider Last Modified By Organization Details Last Modified Time Details Appointments Establish ed 15 2024 08:30A M LUCINDA ROD MD Not available Not available Not available Lab None recorded. Referral None recorded. Procedures None recorded. Surgeries None recorded. Imaging XR, sinuses, paranasal , 3 or more view 2024 025 [email or web address] 4 [facility], [address] [place] [address], [phone], 04/29/2024 13:27:40 Medication Orders doxycycli ne hyclate 100 mg tablet 2024 025 [facility] #[id number], [address] [place], [address], 04/29/2024 13:24:54 fluticaso ne propionat e 50 mcg/actua tion nasal spray,raegan pension 2024 025 [facility] #[id number], [address] [place], [address], 04/29/2024 13:24:55 Patient TargetsNo targets recorded. Patient InstructionsNo instructions recorded. Reason for Referral None Reported. Results Created Date Observation Date Name Description Value Unit Range Abnormal Flag Note LastModifiedBy Organization Detail LastModifiedTime 04/29/19 25 XR, sinus es, paran koby, 3 or more view No observ ation record ed. [email or web address] [facility] [address], [phone], 04/29/2024 13:26:24 Result Notes None recorded. Problems Name Problem SNOMED Code Status Onset Date Resolution Date Notes Provider Name and Address Organization Details Recorded Time Chronic left maxillary sinusitis 8914875945873 9101 Active 2023 LUCINDA ROD MD [address] [facility], [facility] [place], [place], [address], [facility] - [facility] 4 14:01:22 Secondary immune deficiency disorder 09788202 Active 2023 LUCINDA ROD MD [address] [place] [address], [place], [phone], [facility] - [facility] [place] 4 14:04:03 Chronic sinusitis 37895009 Active 2023 LUCINDA ROD MD [address] [address], [place], [phone], [facility] - [facility] [place] 4 14:50:19 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 LUCINDA ROD MD [address] [facility],[place] [address], [place], [address], [facility] - [facility] [place] 4 14:50:44 Immunodefic iency disorder 973334124 Active 2023 LUCINDA ROD MD [address] [facility],[place] [address], [place], [address], [facility] - [facility] 4 14:51:05 Chronic rhinitis 14343193 Active 2024 LUCINDA ROD MD [address] [facility], [address] [facility] [place], [place], [address], [facility] - [facility] [place] 5 13:24:33 Problem Notes None recorded. Procedures Surgical History Date Name Laterality Status Provider Name and Address Organization Details Recorded Time 5 JMSNasal/Sinus Endoscopy completed LUCINDA SPANGLER MD [address] [place] [address], [phone], [facility] 04/29/2024 13:25:10 4 JMSNasal/Sinus Endoscopy completed LUCINDA SPANGLER MD [address] [place] [address], [phone], [facility] 09/08/2023 14:50:15 7 dilation and curettage of uterus completed LUCINAD SPANGLER MD [address] [place] [address], [phone], [facility] 09/08/2023 16:09:45 Removal of spleen total completed LUCINDA SPANGLER MD [address] [place] [address], [phone], [facility] 09/08/2023 16:07:25 Imaging Results Imaging Date Name Status LastModified by Organiz ation Details LastModified Time 04/29/2024 XR, sinuses, paranasal, 3 or more view completed [email or web address] [address], [address], 04/29/2024 13:26:24 Procedure Notes None recorded. Medical Equipment None Reported. Medications Name Sig Start Date Stop Date Status Note LastModified by Organization Details LastModified Time ibuprofen 800 mg tablet TAKE 1 TABLET BY MOUTH 3 TIMES DAILY. active Not Available Not Available No t Available fluconazole 150 mg tablet TAKE 1 TABLET BY MOUTH ONCE PER WEEK FOR 2 WEEKS active Not Available Not Available Not Available metronidazol e 0.75 % (37.5 mg/5 gram) vaginal gel INSERT ONE APPLICATORF UL NIGHTLY X 5 NIGHTS. active Not Available Not Available Not Available hydrocortiso ne 2.5 % topical cream with perineal applicator INSERT RECTALLY EVERY MORNING & AT BEDTIME NEEDED FOR HEMORRHOIDS active Not Available Not Available Not Available benzonatate 100 mg capsule TAKE 1 CAPSULE BY MOUTH IF NEEDED EVERY MORNING, AT NOON, & AT BEDTIME FOR COUGH UP TO 7 DAYS active Not Available Not Available No t Available econazole nitrate 1 % topical cream APPLY TOPICALLY ONCE PER DAY. active Not Available Not Available No t Available sertraline 25 mg tablet TAKE 1 TABLET BY MOUTH EVERY DAY IN THE MORNING active Not Available Not Available No t Available lisinopril 5 mg tablet TAKE 1 TABLET (5 MG) BY MOUTH ONCE PER DAY. active Not Available Not Available No t Available lisinopril 10 mg-hydrochlo rothiazide 12.5 mg tablet TAKE 1 TABLET BY MOUTH EVERY DAY active Not Available Not Available No t Available estradiol 0.01% (0.1 mg/gram) vaginal cream INSERT 1 GRAM INTO VAGINA IN THE MORNING X14 DAYS, THEN TWICE WEEKLY THEREAFTER ONGOING active Not Available Not Available No t Available levofloxacin 750 mg tablet TAKE 1 TABLET BY MOUTH EVERY MORNING FOR 7 DAYS active Not Available Not Available No t Available fluticasone propionate 50 mcg/actuatio n nasal spray,suspen marco [place] 2 sprays twice a day by intranasal route for 30 days. 2024 active Not Available Not Available Not Avai lable doxycycline hyclate 100 mg tablet Take 1 tablet twice a day by oral route for 20 days. active Not Available Not Available No t Available amoxicillin 875 mg-potassium clavulanate 125 mg tablet TAKE 1 TABLET BY MOUTH TWICE A DAY FOR 7 DAYS active Not Available Not Available No t Available duloxetine 20 mg capsule,pravin yed release TAKE 1 CAPSULE BY MOUTH TWICE A DAY *DO NOT CRUSH CHEW* active Not Available Not Available No t Available duloxetine 60 mg capsule,pravin yed release TAKE 1 CAPSULE (60 MG) BY MOUTH ONCE PER DAY. DO NOT CRUSH OR CHEW. active Not Available Not Available No t Available blood pressure test kit-large cuff USE TO check blood pressure EVERY DAY active Not Available Not Available No t Available Vitals None Recorded Social History Question Answer Notes LastModified by Organizat ion Details LastModified Time Tobacco Smoking Status Never Smoker Axel vera [place] - [facility] 09/08/2023 15:07:06 What Is Your Level Of Alcohol Consumption? None [email or web address] Information not available 09/08/2023 Do You Use Any Illicit Or Recreational Drugs? No [email or web address] Information not available 09/08/2023 Do You Or Have You Ever Used Any Other Forms Of Tobacco Or Nicotine? No Information not available 09/08/2023 Sex: Unknown Functional Status None recorded. Mental Status None recorded. Family History Nothing Reported. Medical History Condition Response Bleeding Disorder Y Gynecological HistoryNo gynecological history recorded. Obstetrics History GPAL:G 0 P 0 0 0 0 Past Encounters Encounter ID Performer Location Encounter Start Date Encounter Closed Date Diagnosis/Indication Diagnosis SNOMED-CT Code Diagnosis ICD10 Code Diagnosis Note [id number] LUCINDA CEBALLOS MD [facility] [address] [phone] 04/29/2024 13:01:15 04/29/2024 13:27:40 Chronic sinusitis 36139456 J32.9 Patient with history of ITP status post splenectom y presented with more than 6 months of foul-smell ing nasal discharge from the left nasal cavity. Previously , there was evidence of bulging of the left lateral nasal wall in the middle meatus. Although she still has sinus symptoms, her sinus imaging shows significan t improvemen t the right side is now clear and the left side has only mild left ethmoid and moderate maxillary sinus thickening with aeration of the sinus.Ther e is a retention cyst in the floor the left maxillary sinus. At this point I am hopeful we can improve her symptoms without surgery. I have suggested saline nasal wash twice daily followed by fluticason e nasal spray 2 sprays each nostril twice daily and another course of doxycyclin e. 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 Chronic rhinitis 4398654 6 J31.0 Health Concerns Section Related Observation LastModified by Organization Detai ls LastModified Time None Recorded Concern Status LastModified by Organization Details LastModified Time None Recorded Payers Encounter Date Sequence Insurance Name Policy Number Policy Morales Covered Member ID Morales Member ID Guarantor Name 04/29/2024 1 [facility] (MEDICAID HMO) [id number] Liz López [id number] Liz López Notes Date Note Type Note Provider Name and Address Organization Details Recorded Time 04/29/2024 text/html 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 When I last saw her over the summer her platelet count was 58,000. She reports having a normal platelet count recently in [place]. Unfortunately I do not have access to their system. She notes persistent congestion and pressure especially in the frontal region. She is followed by Dr. Walt LevyPrevious CT scan showed maxillary sinus disease with hypoplastic frontal sinusesDeclines liquor establishment manager and is able to discuss everything in [place] LUCINDA SPANGLER MD [address] [place] [address], [phone], [facility] - [facility] 04/29/2024 13:26:38 OBGyn Episode No OBEpisode recorded.
--- OUTSIDE RECORDS SUMMARY | 2024-05-27 12:21 | XMS_ITS | Clinical Summary ---
Author Organization [employer] Address [address] [place] [address] 7 [place] [address] Care Team Providers Care Supervisor Title Name Role Phone Aaron Riley MD Primary Care Provider [phone] Allergies Active Allergy Reactions Criticality Noted Date Comments Melatonin 08/27/2012 Other Reaction(s): edema of the face Medications * This document contains information received from the source organization and may not represent a complete record from that organization. estradiol (Estrace) 0.1 MG/GM vaginal cream Insert 1 g into the vagina in the morning. 1g vaginally x 14d, then twice weekly thereafter ongoing 42.5 g 2 09/28/19 23 Active metroNIDAZOLE (Metrogel) 0.75 % vaginal gel Insert one applicatorful nightly x 5 nights. 70 g 09/30/19 23 Active hydrocortisone (Anusol-HC) 2.5 % rectal creamIndications:H emorrhoids, unspecified hemorrhoid type Insert into the rectum if needed in the morning and at bedtime for hemorrhoids. 28 g 1 05/15/19 24 Active sertraline (Zoloft) 25 MG tabletIndications: Other depression Take 1 tablet (25 mg) by mouth in the morning. 30 tablet 11 05/25/19 24 Active fluticasone (Flonase) 50 MCG/ACT nasal sprayIndications:A cute bacterial rhinosinusitis ADMINISTER 1-2 SPRAYS INTO EACH NOSTRIL IF NEEDED IN THE MORNING AND AT BEDTIME FOR RHINITIS (NASAL CONGESTION). SHAKE GENTLY. BEFORE FIRST USE, PRIME PUMP. AFTER USE, CLEAN TIP AND REPLACE CAP. 48 mL 11 04/16/ 025 Active Blood Pressure kitIndications:Maryan vated BP without diagnosis of hypertension TO check the BP daily 1 kit 10/17/19 Active econazole nitrate 1 % creamIndications:I ntertrigo Apply topically Once per day. 30 g 01/02/20 24 025 Active lisinopril-hydroCH LOROthiazide 10-12.5 MG tabletIndications: Primary hypertension Take 1 tablet by mouth Once per day. 30 tablet 03/26/20 025 Active DULoxetine (Cymbalta) [address] capsuleIndications :Fibromyalgia Take 1 capsule (60 mg) by mouth Once per day. Do not crush or chew. 30 capsule 03/26/20 025 Active doxycycline (Vibra-Tabs) 100 MG tablet Take 1 tablet twice a day by oral route for 20 days. 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 Backache 10/19/2011 Female infertility 10/19/2011 Encounters Date Type Department Care Team Description 05/25/2024 11:20 AM EST Office Visit [facility] [address] [place] [address] [phone] Name, MD Russell Weight loss (Primary Dx); Subacute cough 05/25/2024 Travel 05/24/2024 Telephone [facility] [address] [place] [address] Aaron Riley MD Nurse Triage 05/07/2024 Telephone [facility] [address], [place] [phone] Aaron Riley MD No Show 03/26/2024 2:00 PM EST Office Visit [facility] [address], [place] [phone] Aaron Riley MD Primary hypertension (Primary Dx); Fibromyalgia 03/26/2024 Travel from Last 3 Months Immunizations Name Administration Dates Next Due Influenza Injectable Quadriv alant Preservative Free IIV4 MDCK 03/29/2022,02/19/2020 Influenza injectable quadriv alent IIV4 with preservative 03/23/2018,02/22/2017 Influenza injectable quadriv alent preservative free 02/15/2023,02/22/2021,06/30/2016 Antonia SARS-CoV-2 Vaccination 08/01/2020 Moderna Covid-19 Vaccine 12+ 02/22/2021 Pfizer Covid-19 Vaccine 12+ 07/12/2023 Tdap 06/30/2016 Social History Tobacco Use Types Packs/Day Years Used Date Smoking Tobacco: Never Smokeless Tobacco: Never Tobacco Cessation:Counseling Given: Not Answered Depression Answer Date Recorded Patient Health Questionnaire-9 [...] not to disclose 2021 10:21 AM EDT Last Filed Vital Signs Vital Sign Reading Time Taken Comments Blood Pressure 108/62 05/25/2024 10:43 AM EST Pulse 78 05/25/2024 10:43 AM EST Temperature 35.6 ??C (96 ??F) 05/25/2024 10: 43 AM EST Respiratory Rate 18 05/25/2024 10:4 3 AM EST Oxygen Saturation 98% 05/25/2024 10: 43 AM EST Inhaled Oxygen Concentration - - Weight 77.9 kg (171 lb 12.8 oz) 025 10:43 AM EST Height 157.5 cm (5' 2 ) 03/26/2024 2:11 PM EST Body Mass Index 31.42 03/26/2024 2:11 PM EST Plan of Treatment Health Maintenance Due Date Last Done Comments CT Colonography 1968 Colonoscopy 1968 Colorectal Cancer Screening 1968 FIT DNA/Cologuard 1968 FIT 1968 FOBT 1968 HIV Screening 1968 Lipid Panel 1968 Sigmoidoscopy 1968 Alcohol/Substance Use Screening 1980 Hepatitis C Screening 1986 Hepatitis B Vaccines (1 of 3 - 19+ 3-dose series) 07/02/1987 Pneumococcal Vaccine: 50+ Years (1 of 2 - PCV) 07/02/1987 Zoster Vaccines (1 of 2) 07/02/1987 HPV/Cotest 1998 Cervical Cancer Screening 12/16/2023 Pap Smear 12/16/2023 12/15/2020 COVID-19 Vaccine ( season) 2023 07/12/2023, 02/22/2021, 08/01/2020 Depression Monitoring (PHQ-9) 04/03/2024 10/03/2023, 10/03/2023 SDOH Screening 08/22/2024 08/23/2023 Depression Screening 10/02/2024 10/03/2023, 10/03/19 Tobacco Screening 03/26/2025 03/26/2024 Diabetes: Hemoglobin A1C 05/25/2025 05/25/2024 Mammogram 08/27/2025 08/28/2023, 05/0 04/2022, 07/20/2021, Additional history exists DTaP/Tdap/Td Vaccines (2 - Td or Tdap) 06/30/2026 06/30/2016 RSV Patients and Patients Aged 60 years or older (1 - 1-dose 75+ series) 07/02/2043 Influenza Vaccine Completed 01/23/2024, , 03/29/2022, Additional history exists HIB Vaccines Aged Out No longer eligi ble based on patient's age to complete this topic HPV Vaccines Aged Out No longer eligi ble based on patient's age to complete this topic Hepatitis A Vaccines Aged Out No long er eligible based on patient's age to complete this topic IPV Vaccines Aged Out No longer eligi ble based on patient's age to complete this topic Meningococcal Vaccine Aged Out No mera timothy eligible based on patient's age to complete this topic RSV under 20 months Aged Out No longe r eligible based on patient's age to complete this topic Rotavirus Vaccines Aged Out No longer eligible based on patient's age to complete this topic Procedures Procedure Name Priority Date/Time Associated Diagnosis Comments POCT GLYCATED HEMOGLOBIN, TOTAL Routine 05/25/2024 11:38 AM EST Weight loss POCT GLUCOSE Routine 05/25/2024 11:37 AM EST Weight loss BI MAMMOGRAM SCREENING TOMOSYNTHESIS BILATERAL Routine 08/28/2023 3:58 PM EDT PAP SMEAR Routine 12/15/2020 12:00 AM EDT from Last 3 Months or Most Recently Relevant to Health Maintenance Results * (ABNORMAL) POCT HGB A1C (05/25/2024 11:38 AM EST) Hemoglobin A1C 6.2(A) 4.0 - 6.0 % QC Media Lot # [id number] Lot# Expiration Date [id number] Swab 05/25/2024 11:3 8 AM EST Russellandrew River MD POINT OF CARE TEST ENTER/EDIT OR DERABLES Final Result * POCT Glucose (05/25/2024 11:37 AM EST) Glucose Blood, POC 108 60 - 200 mg/dL QC Media Lot # [id number] Lot# Expiration Date 025 Blood Capillary blood specimen / Unknown 05/25/2024 11:37 AM EST us Russell Name POINT OF CARE TEST ENTER/EDIT OR DERABLES Final Result * BI Mammogram Screening Tomosynthesis Bilateral (08/28/2023 3:58 PM EDT) Anatomical Region Laterality Modality Breast Bilateral Mammography 08/28/2023 3:58 PM EDT Narrative 09/28/2023 12:01 AM EDT ? [facility] ? [address] ?[place] [address] ? Mammography Report ? Signed ? Patient: Rene,Liz ?MR#: [id number] ?? 24 ? : 1970 ?Acct:[id number] ? Age/Sex: 53 / F ?ADM Date: 08/28/23 ? Loc: HO.MAMMO ? Attending Dr: Aaron Riley MD ? Ordering Physician: Aaron Riley MD ?Results: 2 ?? Benign Findings ? Date of Service: 08/28/23 ?Follow Up: 1 Year From Orig ?? inal Mammogram ? Procedure(s): MM tomosynthesis screening BI ?? Accession Number(s): [id number] ? cc: Aaron Riley MD ? EXAMINATION: ?? MM SCREENING DIGITAL BREAST TOMOSYNTHESIS, BILATERAL ? CLINICAL INFORMATION: ? Screening. Asymptomatic. ? The patient has a history of bilateral breast reduction. ? COMPARISON: ?? Mammography: This study is compared with prior exams dating back to ?? 2017. ? TECHNIQUE: ?? Digital breast tomosynthesis is performed in both the craniocaudal and ?? mediolateral oblique views along with computer-aided detection (CAD). ?? Synthesized 2D images are generated from the tomosynthesis. ? FINDINGS: ?? There are scattered areas of fibroglandular density (ACR BI-RADS breast ?? composition Category b). ? There are no significant masses, abnormal calcifications, or other ?? abnormalities. ? There is a biopsy tissue marker in the upper outer quadrant left ?? breast. ? MM/MM tomosynthesis screening BI ?? IMPRESSION: ?? No mammographic evidence of malignancy. ? ASSESSMENT: ? BI-RADS BI-RADS 2 - Benign Findings ? RECOMMENDATION: ?? Routine annual mammography screening. ? 1 year F/U ? This examination should not preclude the clinical evaluation of a ?? suspicious palpable abnormality. ? This patient's information was entered into a reminder system with a ?? target due date for their next mammogram. ? Dictated By: ?Anastasia Goddard MD ? Signed By: ?<Electronically signed by Anastasia Goddard MD in OV> ? 09/27/237 ? DD/ 1558 ? TD/TT: ? Investment Banking Associate: ? Procedure Note Estiven Olmos - 09/28/2023 Y[facility] [address] [place], [place] [address] Mammography Report Signed Patient: Belkis óLpezAnai#: [id number] 24 : 1970Acct:[id number] Age/Sex: 53 / FADM Date: 08/28/23 Loc: HO.MAMMO Attending Dr: Aaron Riley MD Ordering Physician: Aaron Riley MDResults: 2 Benign Findings Date of Service: 08/28/23Follow Up: 1 Year From Orig inal Mammogram Procedure(s): MM tomosynthesis screening BI Accession Number(s): [id number] cc: Araon Riley MD EXAMINATION: MM SCREENING DIGITAL BREAST TOMOSYNTHESIS, BILATERAL CLINICAL INFORMATION: Screening. Asymptomatic. The patient has a history of bilateral breast reduction. COMPARISON: Mammography: This study is compared with prior exams dating back to 2018. TECHNIQUE: Digital breast tomosynthesis is performed in both the craniocaudal and mediolateral oblique views along with computer-aided detection (CAD). Synthesized 2D images are generated from the tomosynthesis. FINDINGS: There are scattered areas of fibroglandular density (ACR BI-RADS breast composition Category b). There are no significant masses, abnormal calcifications, or other abnormalities. There is a biopsy tissue marker in the upper outer quadrant left breast. MM/MM tomosynthesis screening BI IMPRESSION: No mammographic evidence of malignancy. ASSESSMENT: BI-RADS BI-RADS 2 - Benign Findings RECOMMENDATION: Routine annual mammography screening. 1 year F/U This examination should not preclude the clinical evaluation of a suspicious palpable abnormality. This patient's information was entered into a reminder system with a target due date for their next mammogram. Dictated By: Anastasia Goddard MD Signed By: <Electronically signed by Anastasia Goddard MD in OV> 09/27/23 8080 DD/ 1558 TD/TT: Investment Banking Associate: us Aaron Riley MD IMG BI PROCEDURES Edited Re sult - Final * Pap Smear (12/15/2020 12:00 AM EDT) Swab us Historical Provider LAB CYTOLOGY ORDERABLES F inal Result [facility] [address] [place], [place] [phone] from Last 3 Months or Most Recently Relevant to Health Maintenance Insurance [facility] Address: [address] [address] Care Teams Supervisor Title Relationship Specialty Start Date End Date Aaron Riley MD [address] [place] [id number] PCP - General Internal Medicine 04/24/18
--- OUTSIDE RECORDS SUMMARY | 2024-05-27 12:21 | XMS_ITS | Encounter Summary ---
Author Organization [employer] Address [address] [place] [address] [facility] [place] [address] Care Team Providers Care Telephonic Rn Name Role Phone Aaron Riley MD Primary Care Provider [phone] Reason for Referral * Consultation (Urgent) - Closed Specialty Diagnoses / Procedures Referred By Contac t Referred To Contact Hematology and Oncology Diagnoses Immune thrombocytopenic purpura (CMS/HCC) Aaorn Riley MD [address] [place] [address] Phone: tel: fax: Walt Levy MD [address] [place] [address] Phone: tel:[phone] fax:[phone] Referral ID Status Reason Start Date Expiration Date V isits Requested Visits Authorized [id number] Closed Specialty Services Required 09/01/2023 08/31/2024 1 1 Encounter Details Date Type Department Care Team (Late st Contact Info) Description 09/01/2023 Orders Only [facility] [address] [place], [place] [phone] Aaron Riley MD [address] [place], [place] [phone] Immune thrombocytopenic purpura (CMS/HCC) (Primary Dx) Social History Tobacco Use Types Packs/Day Years Used Date Smoking Tobacco: Never Smokeless Tobacco: Never Depression Answer Date Recorded Patient Health Questionnaire-9 Score 14 08/30/2023 Patient Health Questionnaire-9 Score 14 08/30/2023 Last PHQ-9: Questionnaire Data Not on file 0 08/30/2023 Housing Stability Answer Date Recorded What is [...] Date Recorded Patient Health Questionnaire-2 Score 6 08/30/2023 Comments No Sex and Gender Information Value Date Recorded Sex Assigned at Female 02/21/2022 10:21 AM EDT Legal Sex Female 10:21 AM EDT Gender Identity Choose not to disclose 10:21 AM EDT Sexual Orientation Choose not to disclose 2021 10:21 AM EDT documented as of this encounter Plan of Treatment Scheduled Referrals Name Type Priority Associated Diagnoses Orde r Schedule Referral to Hematology / Oncology Outpatient Referral Urgent Immune thrombocytopenic purpura (CMS/HCC) Expected: 09/01/2023 (Approximate), Expires: 08/31/2024 documented as of this encounter Visit Diagnoses Diagnosis Immune thrombocytopenic purpura (CMS/HCC)- Primary Immune thrombocytopenic purpura documented in this encounter Additional Health Concerns Assessment Noted Time PHQ-9 Depression Total Score: 14 024 10:24 AM EDT documented as of this encounter Care Teams Telephonic Rn Relationship Specialty Start Date End Date Aaron Riley MD [address] [place] [address] [phone] PCP - General Internal Medicine 04/24/18 documented as of this encounter
--- OUTSIDE RECORDS SUMMARY | 2024-05-27 12:21 | XMS_ITS | Encounter Summary ---
Author Organization [employer] Address [address] [place] [address] Care Team Providers Care Tool Engine Lathe Set Up Operator Name Role Phone Aaron Riley MD Primary Care Provider [phone] Reason for Visit * Reason Onset Date Comments No Show 05/07/2024 Encounter Details Date Type Department Care Team ([facility] st Contact Info) Description 05/07/2024 Telephone [facility] [address] [place] [address] Aaron Riley MD [address] [place] [address] No Show Social History Tobacco Use Types Packs/Day Years [...] encounter Miscellaneous Notes * Telephone Encounter - Lucio Carpenter RN - 05/07/2024 4:45 PM EST Pt to f/u PRN. * Telephone Encounter - Adide Daigle - 05/07/2024 4:25 PM EST 05/07/24 no show for bp documented in this encounter Plan of Treatment Not on file documented as of this encounter Visit Diagnoses Not on filedocumented in this encounter Additional Health Concerns Assessment Noted Time PHQ-9 Depression Total Score: 21 024 1:11 PM EDT documented as of this encounter Care Teams Tool Engine Lathe Set Up Operator Relationship Specialty Start Date End Date Aaron Riley MD [address] [place] [phone] PCP - General Internal Medicine 04/24/18 documented as of this encounter
--- OUTSIDE RECORDS SUMMARY | 2024-05-27 12:21 | XMS_ITS | Encounter Summary ---
Author Organization [employer] Address [address] [facility] 7t [place] [address] Care Team Providers Care Head Grinder Name Role Phone Aaron Riley MD Primary Care Provider [phone] Reason for Visit * Reason Comments Generalized Body Aches Encounter Details Date Type Department Care Team ([facility] st Contact Info) Description 05/25/2024 11:20 AM EST Office Visit [facility] [address] [place] [address] [phone] NameRussell MD [address] [place] [address] [phone] Weight loss (Primary Dx); Subacute cough Social History Tobacco Use Types Packs/Day Years [...] AM EDT documented as of this encounter Last Filed Vital Signs Vital Sign Reading [...] 12.8 oz) 025 10:43 AM EST Height - - Body Mass Index 31.42 03/26/2024 2:11 PM EST documented in this encounter Progress Notes * Russell River MD - 05/25/2024 11:20 AM EST Subjective Patient ID: Liz López is a 53 y.o. adult who presents for Generalized Body Aches. Patient comes with her . She tells me for the past month she is tired, she has CHOPRA, anorexia, doris loss, dry mouth and tremulousness, occasional headaches and cough No wheezing. No smoking, no history of asthma She tells me she is getting doxy prescribed by ENT for chronic sinusitis and she feels her symptomsmight be related to the use of doxy Review of Systems Constitutional: Positive for fatigue and unexpected weight change. HENT: Negative for sinus pain. Respiratory: Positive for cough and shortness of breath. Cardiovascular: Negative for chest pain, palpitations and leg swelling. Gastrointestinal: Negative for abdominal pain. Hematological: Negative for adenopathy. Visit Vitals BP 108/62 Pulse 78 Temp 96 ??F (35.6 ??C) (Temporal) Resp 18 Wt 171 lb 12.8 oz (77.9 kg) SpO2 98% BMI 31.42 kg/m?? OB Status Postmenopausal Smoking Status Never BSA 1.85 m?? Objective Physical Exam Constitutional: Appearance: Normal appearance. Cardiovascular: Rate and Rhythm: Normal rate and regular rhythm. Heart sounds: No murmur heard. Pulmonary: Effort: Pulmonary effort is normal. No respiratory distress. Breath sounds: No wheezing, rhonchi or rales. Abdominal: Palpations: Abdomen is soft. Tenderness: There is no abdominal tenderness. Musculoskeletal: Right lower leg: No edema. Left lower leg: No edema. Neurological: Mental Status: Liz is alert. Latest Reference Range & Units 05/25/24 11:37 05/25/24 11:38 Glucose Blood, POC 60 - 200 mg/dL 108 Hemoglobin A1c 4.0 - 6.0 % 6.2 ! QC Media Lot # [id number] !: Data is abnormal Assessment/Plan Diagnoses and all orders for this visit: Weight loss Comments: HbA1c is not consistent with DM Exam is unremarkable I will add TSH to her labs She is recommended to go for the blood work ordered by her PCP and and chest X-ray She is asked to follow up with PCP Orders: - POCT Glucose - POCT HGB A1C - TSH W/Reflex to FT4; Future Subacute cough - XR Chest 2 Views; Future documented in this encounter Plan of Treatment Scheduled Orders Name Type Priority Associated Diagnoses Orde r Schedule TSH W/Reflex to FT4 Lab Routine Weight loss Expected: 05/25/2024 (Approximate), Expires: 05/25/2025 XR Chest 2 Views Imaging Routine Subacute cough Expected: 05/25/2024, Expires: 05/25/2025 documented as of this encounter Procedures Procedure Name Priority Date/Time Associated Diagnosis Comments POCT GLYCATED HEMOGLOBIN, TOTAL Routine 05/25/2024 11:38 AM EST Weight loss POCT GLUCOSE Routine 05/25/2024 11:37 AM EST Weight loss documented in this encounter Results * (ABNORMAL) POCT HGB A1C (05/25/2024 11:38 AM EST) Hemoglobin A1C 6.2(A) 4.0 - 6.0 % QC Media Lot # [id number] Lot# Expiration Date 8330,972 Swab 05/25/2024 11:3 8 AM EST us Russell River MD POINT OF CARE TEST ENTER/EDIT OR DERABLES Final Result * POCT Glucose (05/25/2024 11:37 AM EST) Glucose Blood, POC 108 60 - 200 mg/dL QC Media Lot # [id number] Lot# Expiration Date ,025 Blood Capillary blood specimen / Unknown 05/25/2024 11:37 AM EST us Russell River MD POINT OF CARE TEST ENTER/EDIT OR DERABLES Final Result documented in this encounter Visit Diagnoses Diagnosis Weight loss- Primary Loss of weight Subacute cough documented in this encounter Additional Health Concerns Assessment Noted Time PHQ-9 Depression Total Score: 21 024 1:11 PM EDT documented as of this encounter Care Teams Head Grinder Relationship Specialty Start Date End Date Aaron Riley MD [address] [place] [phone] PCP - General Internal Medicine 04/24/18 documented as of this encounter
--- OUTSIDE RECORDS SUMMARY | 2024-05-27 12:21 | XMS_ITS | Encounter Summary ---
Author Organization [employer] Address [address] [facility] 7t [place] [address] Care Team Providers Care Music Writer Name Role Phone Aaron Riley MD Primary Care Provider [phone] Encounter Details Date Type Department Care Team (Latest Contact Info) Description 05/25/2024 Travel Social History Tobacco Use Types Packs/Day Years [...] as of this encounter Plan of Treatment Not on file documented as of this encounter Visit Diagnoses Not on filedocumented in this encounter Additional Health Concerns Assessment Noted Time PHQ-9 Depression Total Score: 21 024 1:11 PM EDT documented as of this encounter Care Teams Music Writer Relationship Specialty Start Date End Date Aaron Riley MD [address] [place] [phone] PCP - General Internal Medicine 04/24/18 documented as of this encounter
--- OUTSIDE RECORDS SUMMARY | 2024-05-27 12:22 | XMS_ITS | Data Portability ---
Author Organization [place] - [facility], Allergy Address [address] [facility] [address] [place] [address] Care Team Providers Care Field Manager Name Role Phone EDER DINH Primary Care Provider Assessment No assessment recorded. Plan of Treatment Reminders Order Date Submit Date Provider Last Modified By Organization Details Last Modified Time Details Appointments Establ ished 15 2024 08:30A M LUCINDA ROD MD Not available Not available Not available Lab CBC w/ auto diff 2023 024 RAJ [facility], [address] [facility], [address], [place], [address], 12/07/2023 03:18:39 Referral None record ed. Procedures None record ed. Surgeries endosc opy, nasal/ sinus, w/ maxill jacoby antros stephanie & tissue remova l (SURG) 2023 024 [email or web address] Not available 12/06/2023 14:47:02 nasal/ sinus endosc opy, surgic al with ethmoi dectom y, total, includ ing spheno idotom y, with remova l of tissue from the spheno id sinus (SURG) 2023 024 [email or web address] Not available 12/06/2023 14:47:02 stereo tactic comput er-ass isted naviga tion (SURG) 2023 024 [email or web address] Not available 12/06/2023 14:47:02 endosc opy, nasal and sinus (SURG) 2023 024 [email or web address] Not available 12/06/2023 14:47:[address], sinuse s, w/o contra st 2023 024 [email or web address] [facility] Of [facility], [address] [place] [address], [address], 12/06/2023 14:37:36 XR, sinuse s, parana jasvir, 3 or more view 2024 025 [email or web address] [facility] Of [facility], [address] [place] [address], [address], 04/29/2024 13:27:40 Medication Orders doxycy scruggs hyclat e 100 mg tablet 2024 025 [facility]/Pharmacy #[id number], [address] [place] [address], [address], 04/29/2024 13:24:54 flutic asone propio matthew 50 mcg/ac tuatio n nasal spray, suspen marco 2024 025 [facility]/Pharmacy #[id number], [facility] [place], [address], 04/29/2024 13:24:55 Patient TargetsNo targets recorded. Patient InstructionsNo instructions recorded. Reason for Referral None Reported. Results Created Date Observation Date Name Description Value Unit Range Abnormal Flag Note LastModifiedBy Organization Detail LastModifiedTime 09/08/19 24 09/14/2023 PNEUM OCOCC AL AB (23 SEROT YPE) pneumo Ab type 1* 3.7 ug/mL >1.3 Not Available [facility] [address] [place], [address], 09/14/2023 00:47:32 09/08/19 24 09/14/2023 PNEUM OCOCC AL AB (23 SEROT YPE) pneumo Ab type 3* 0.5 ug/mL >1.3 below low normal Not Available [facility] [address] [place], [address], 09/14/2023 00:47:32 09/08/19 24 09/14/2023 PNEUM OCOCC AL AB (23 SEROT YPE) pneumo Ab type 4* 1.0 ug/mL >1.3 below low normal Not Available [facility] [place] [address] [place], [address], 09/14/2023 00:47:32 09/08/19 24 09/14/2023 PNEUM OCOCC AL AB (23 SEROT YPE) pneumo Ab type 8* 4.6 ug/mL >1.3 Not Available [facility] [place] [address] [place], [address], 09/14/2023 00:47:32 09/08/19 24 09/14/2023 PNEUM OCOCC AL AB (23 SEROT YPE) pneumo Ab type 9 (9N)* 2.2 ug/mL >1.3 Not Available [facility] [place], [address], 09/14/2023 00:47:32 09/08/19 24 09/14/2023 PNEUM OCOCC AL AB (23 SEROT YPE) pneumo Ab type 12 (12F)* <0.1 ug/mL >1.3 below low normal Not Available [facility] [place] [address] [place], [address], 09/14/2023 00:47:32 09/08/19 24 09/14/2023 PNEUM OCOCC AL AB (23 SEROT YPE) pneumo Ab type 14* 12.0 ug/mL >1.3 Not Available [facility] [address] [place], [address], 09/14/2023 00:47:32 09/08/19 24 09/14/2023 PNEUM OCOCC AL AB (23 SEROT YPE) pneumo Ab type 17 (17F)* 5.3 ug/mL >1.3 Not Available [facility] [place], [address], 09/14/2023 00:47:32 09/08/19 24 09/14/2023 PNEUM OCOCC AL AB (23 SEROT YPE) pneumo Ab type 19 (19F)* 3.0 ug/mL >1.3 Not Available [facility] [place], [address], 09/14/2023 00:47:32 09/08/19 24 09/14/2023 PNEUM OCOCC AL AB (23 SEROT YPE) pneumo Ab type 2* 10.8 ug/mL >1.3 Not Available [facility] [place], [address], 09/14/2023 00:47:32 09/08/19 24 09/14/2023 PNEUM OCOCC AL AB (23 SEROT YPE) pneumo Ab type 20* 3.0 ug/mL >1.3 Not Available [facility] [place], [address], 09/14/2023 00:47:32 09/08/19 24 09/14/2023 PNEUM OCOCC AL AB (23 SEROT YPE) pneumo Ab type 22 (22F)* 1.7 ug/mL >1.3 Not Available [facility] [place], [address], 09/14/2023 00:47:32 09/08/19 24 09/14/2023 PNEUM OCOCC AL AB (23 SEROT YPE) pneumo Ab type 23 (23F)* 3.6 ug/mL >1.3 Not Available [facility] [place], [address], 09/14/2023 00:47:32 09/08/19 24 09/14/2023 PNEUM OCOCC AL AB (23 SEROT YPE) pneumo Ab type 26 (6B)* 1.9 ug/mL >1.3 Not Available [facility] [address] [place] [address] [place], [address], 09/14/2023 00:47:32 09/08/19 24 09/14/2023 PNEUM OCOCC AL AB (23 SEROT YPE) pneumo Ab type 34 (10A)* 8.3 ug/mL >1.3 Not Available [facility] [address] [place], [address], 09/14/2023 00:47:32 09/08/19 24 09/14/2023 PNEUM OCOCC AL AB (23 SEROT YPE) pneumo Ab type 43 (11A)* 2.9 ug/mL >1.3 Not Available [facility] [address] [place], [address], 09/14/2023 00:47:32 09/08/19 24 09/14/2023 PNEUM OCOCC AL AB (23 SEROT YPE) pneumo Ab type 5* 0.6 ug/mL >1.3 below low normal Not Available [facility] [address] [place], [address], 09/14/2023 00:47:32 09/08/19 24 09/14/2023 PNEUM OCOCC AL AB (23 SEROT YPE) pneumo Ab type 51 (7F)* 4.2 ug/mL >1.3 Not Available [facility] [address] [place], [address], 09/14/2023 00:47:32 09/08/19 24 09/14/2023 PNEUM OCOCC AL AB (23 SEROT YPE) pneumo Ab type 54 (15B)* 5.9 ug/mL >1.3 Not Available [facility] [address] [place], [address], 09/14/2023 00:47:32 09/08/19 24 09/14/2023 PNEUM OCOCC AL AB (23 SEROT YPE) pneumo Ab type 56 (18C)* 2.3 ug/mL >1.3 Not Available [facility] [address] [place], [address], 09/14/2023 00:47:32 09/08/19 24 09/14/2023 PNEUM OCOCC AL AB (23 SEROT YPE) pneumo Ab type 57 (19A)* 5.1 ug/mL >1.3 Not Available [facility] [address] [place], [address], 09/14/2023 00:47:32 09/08/19 24 09/14/2023 PNEUM OCOCC AL AB (23 SEROT YPE) pneumo Ab type 68 (9V)* 1.6 ug/mL >1.3 Not Available [facility] [address] [place], [address], 09/14/2023 00:47:32 09/08/19 24 09/14/2023 PNEUM OCOCC AL AB (23 SEROT YPE) pneumo Ab type 70 (33F)* 2.0 ug/mL >1.3 *This test was neftali aparicio and its perfo rmanc e louie cteri stics deter mined by [employer] [facility]. It has not been clear ed or appro desiree by the U.S. Food and Drug Admin istra tion. FLAG Inter preta tion: A = Abnor mal, H = High, L = Low Not Available [facility] [address] [place], [address], 09/14/2023 00:47:32 12/06/19 24 12/07/2023 CBC WITH DIFFE RENTI AL/PL ATELE T WBC 14.5 x10e3 /uL 3.4-10 .8 above high normal Not Available [facility] ([facility]) [address], [place], [address], 12/07/2023 03:18:36 12/06/19 24 12/07/2023 CBC WITH DIFFE RENTI AL/PL ATELE T RBC 4.54 x10e6 /uL 3.77-5 .28 normal Not Available [facility] ([facility]) [address] [place], [address], 12/07/2023 03:18:36 12/06/19 24 12/07/2023 CBC WITH DIFFE RENTI AL/PL ATELE T hemoglobin 12.9 g/dL 11.1-1 5.9 normal Not Available [facility] ([facility]) [address] [place], [address], 12/07/2023 03:18:36 12/06/1912/07/2023 CBC WITH DIFFE RENTI AL/PL ATELE T hematocrit 39.6 % 34.0-4 6.6 normal Not Available [facility] ([facility]) [address] [place], [address], 12/07/2023 03:18:36 12/06/19 24 12/07/2023 CBC WITH DIFFE RENTI AL/PL ATELE T MCV 87 fL 79-97 normal Not Available [facility] ([facility]) [address] [place], [address], 12/07/2023 03:18:36 12/06/19 24 12/07/2023 CBC WITH DIFFE RENTI AL/PL ATELE T MCH 28.4 pg 26.6-3 3.0 normal Not Available [facility] ([facility]) [address] [place], [address], 12/07/2023 03:18:36 12/06/1912/07/2023 CBC WITH DIFFE RENTI AL/PL ATELE T MCHC 32.6 g/dL 31.5-3 5.7 normal Not Available [facility] ([facility]) [address] [place], [address], 12/07/2023 03:18:36 08/14/12/07/2023 CBC WITH DIFFE RENTI AL/PL ATELE T RDW 13.3 % 11.7-1 5.4 Not Available [facility] ([facility]) [address], [place], [address], 12/07/2023 03:18:36 12/06/19 24 12/07/2023 CBC WITH DIFFE RENTI AL/PL ATELE T platelets 58 x10e3 /uL 150-45 0 alert low Not Available [facility] ([facility]) [address], [place], [address], 12/07/2023 03:18:36 12/06/19 24 12/07/2023 CBC WITH DIFFE RENTI AL/PL ATELE T neutrophils 55 % not estab. normal Not Available [facility] ([facility]) [address], [place], [address], 12/07/2023 03:18:36 12/06/19 24 12/07/2023 CBC WITH DIFFE RENTI AL/PL ATELE T lymphs 35 % not estab. normal Not Available [facility] ([facility]) [address], [place], [address], 12/07/2023 03:18:36 12/06/19 24 12/07/2023 CBC WITH DIFFE RENTI AL/PL ATELE T monocytes 6 % not estab. normal Not Available [facility] ([facility]) [address], [place], [address], 12/07/2023 03:18:36 12/06/19 24 12/07/2023 CBC WITH DIFFE RENTI AL/PL ATELE T eos 2 % not estab. normal Not Available [facility] ([facility]) [address], [place], [address], 12/07/2023 03:18:36 12/06/19 24 12/07/2023 CBC WITH DIFFE RENTI AL/PL ATELE T basos 1 % not estab. normal Not Available [facility] ([facility]) [address], [place], [address], 12/07/2023 03:18:36 12/06/19 24 12/07/2023 CBC WITH DIFFE RENTI AL/PL ATELE T immature cells OVERHEAD FOREMAN Not Available [facility] ([facility]) [address], [place], [address], 12/07/2023 03:18:36 12/06/19 24 12/07/2023 CBC WITH DIFFE RENTI AL/PL ATELE T neutrophils (absolute) 8.0 x10e3 /uL 1.4-7. 0 above high normal Not Available [facility] ([facility]) [address], [place], [address], 12/07/2023 03:18:36 12/06/19 24 12/07/2023 CBC WITH DIFFE RENTI AL/PL ATELE T lymphs (absolute) 5.1 x10e3 /uL 0.7-3. 1 above high normal Not Available [facility] ([facility]) [address] [place], [address], 12/07/2023 03:18:36 12/06/19 24 12/07/2023 CBC WITH DIFFE RENTI AL/PL ATELE T monocytes(ab solute) 0.9 x10e3 /uL 0.1-0. 9 normal Not Available [facility] ([facility]) [address] [place], [address], 12/07/2023 03:18:36 12/06/19 24 12/07/2023 CBC WITH DIFFE RENTI AL/PL ATELE T eos (absolute) 0.3 x10e3 /uL 0.0-0. 4 normal Not Available [facility] ([facility]) [address], [place], [address], 12/07/2023 03:18:36 12/06/19 24 12/07/2023 CBC WITH DIFFE RENTI AL/PL ATELE T baso (absolute) 0.1 x10e3 /uL 0.0-0. 2 normal Not Available [facility] ([facility]) [address], [place], [address], 12/07/2023 03:18:36 12/06/19 24 12/07/2023 CBC WITH DIFFE RENTI AL/PL ATELE T immature granulocytes 1 % not estab. Not Available [facility] ([facility]) [address], [place], [address], 12/07/2023 03:18:36 12/06/19 24 12/07/2023 CBC WITH DIFFE RENTI AL/PL ATELE T immature grans (abs) 0.1 x10e3 /uL 0.0-0. 1 Not Available [facility] ([facility]) [address], [place], [address], 12/07/2023 03:18:36 12/06/19 24 12/07/2023 CBC WITH DIFFE RENTI AL/PL ATELE T NRBC OVERHEAD FOREMAN Not Available [facility] ([facility]) [address], [place], [address], 12/07/2023 03:18:36 12/06/19 24 12/07/2023 CBC WITH DIFFE RENTI AL/PL ATELE T hematology comments: Note: Verif ied by micro aubreyi c gaili philipp n. Not Available [facility] ([facility]) [address], [place], [address], 12/07/2023 03:18:36 12/06/19 CT, sinus es, w/o contr ast No observ ation record ed. arcadio En[facility] Of [address], [place], [address], 12/06/2023 14:37:32 12/07/19 24 12/06/2023 CT, sinus es, w/o contr ast No observ ation [facility] ed. [facility] [address] [address], [place], [address], 12/08/2023 08:26:47 04/29/19 25 XR, sinus es, paran koby, 3 or more view No observ ation record ed. [facility] [address] [place], [address], 04/29/2024 13:26:24 Result Notes None recorded. Problems Name Problem SNOMED Code Status Onset Date Resolution Date Notes Provider Name and Address Organization Details Recorded Time Chronic left maxillary sinusitis 6986177294398 9101 Active 2023 LUCINDA ROD MD [address] [address], [facility] [place], [address], [facility] - [facility] 4 14:01:22 Secondary immune deficiency disorder 34641596 Active 2023 LUCINDA ROD MD [address] [address], [facility] [place], [address], [place] [facility] [place] 4 14:04:03 Chronic sinusitis 35315546 Active 2023 LUCINDA ROD MD [address] [address], [facility] [place], [address], [place] [facility] [place] 4 14:50:19 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 Procedures Surgical History Date Name Laterality Status Provider Name and Address Organization Details Recorded Time 5 JMSNasal/Sinus Endoscopy completed LUCINDA SPANGLER MD [address] [place] [address], [address], [facility] - [facility] 04/29/2024 13:25:10 4 JMSNasal/Sinus Endoscopy completed LUCINDA SPANGLER MD [address] [place] [address], [address], [facility] - [facility] 09/08/2023 14:50:15 7 dilation and curettage of uterus completed LUCINDA SPANGLER MD [address] [place] [address], [address], [facility] - [facility] 09/08/2023 16:09:45 Removal of spleen total completed LUCINDA SPANGLER MD [address] [place] [address], [address], [facility] 09/08/2023 16:07:25 Imaging Results Imaging Date Name Status LastModified by Organiz ation Details LastModified Time 12/06/2023 CT, sinuses, w/o contrast [facility] [address], [address], 12/06/2023 14:37:32 12/06/2023 CT, sinuses, w/o contrast completed [email or web address] [address], [address], 12/08/2023 08:26:47 04/29/2024 XR, sinuses, paranasal, 3 or more view completed arcadio [facility] Of [address], [address], 04/29/2024 13:26:24 Procedure Notes None recorded. Medical [...] propionate 50 mcg/actuatio n nasal spray,suspen marco [place] 2 sprays twice a day by intranasal [...] vera [place] - [facility] 09/08/2023 15:07:06 What Is Your Level Of Alcohol Consumption? None [email or web address] Information not available 09/08/2023 Do You Use Any Illicit Or Recreational Drugs? No [email or web address] Information not available 09/08/2023 Do You Or Have You Ever Used Any Other Forms Of Tobacco Or Nicotine? No [email or web address] Information not available 09/08/2023 Sex: Unknown Functional Status None recorded. Mental Status None recorded. Family History Nothing Reported. Medical History Condition Response Bleeding Disorder Y Gynecological HistoryNo gynecological history recorded. Obstetrics History GPAL:G 0 P 0 0 0 0 Past Encounters Encounter ID Performer Location Encounter Start Date Encounter Closed Date Diagnosis/Indication Diagnosis SNOMED-CT Code Diagnosis ICD10 Code Diagnosis Note [id number] LUCINDA CEBALLOS MD [facility] [address] [address] 09/08/2023 14:01:25 09/08/2023 16:43:49 Chronic sinusitis 85125269 J32.9 Patient with history of ITP status post splenectom y presents with more than 6 months of foul-smell ing nasal discharge from the left nasal cavity. There is evidence of bulging of the left lateral nasal wall in the middle meatus. 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 She likely has low pneumococc al titers although she was vaccinated before her splenectom y. 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 There is evidence of bulging of the left lateral nasal wall in the middle meatus. She has persistent sinusitis on CT scan. Pneumococc al titers were adequate for most of the serotypes. We will check a CBC to verify that her platelet count is normal. I have suggested endoscopic drainage if she has had difficulty tolerating the antibiotic s. She did take the doxycyclin e for at least 3 weeks. Given the multitude of sinuses involved I think endoscopic drainage would be helpful. I gave her a sinus surgery brochure in [place]i. All questions answeredco ntinue flonase and saline spray Please contact my architect in training, Melony, at [phone] to schedule the procedure. The risks and benefits of endoscopic sinus surgery were discussed with the patient, including: bleeding, infection, anosmia (loss of sense of smell), epiphora (tearing), double vision, loss of vision, CSF leak, continued nasal obstructio n, brain injury, septal perforatio n and continued sinus infections . The patient's questions regarding surgery were discussed in detail and their concerns were addressed. The patient provided verbal informed consent and surgery will be scheduled in the near future. Immune thrombocytopenia 4176602 D69.3 Immunodefi ciency disorder 866093273 D84.9 [id number] LUCINDA CEBALLOS MD [facility] [address] [place] [address] 04/29/2024 13:01:15 04/29/2024 13:27:40 Chronic sinusitis 24441011 J32.9 Patient with history of ITP status [...] another course of doxycyclin e. Immune thrombocytopenia 1414119 D69.3 Chronic rhinitis 5334106 6 J31.0 Health Concerns Section Related Observation LastModified by Organization Detai ls LastModified Time None Recorded Concern Status LastModified by Organization Details LastModified Time None Recorded Advance Directives Directive None Recorded Payers Encounter Date Sequence Insurance Name Policy Number Policy Morales Covered Member ID Morales Member ID Guarantor Name 09/08/2023 1 [place] [facility] [place] [facility] (MEDICAID) Liz Rene [id number] Liz Rene 12/06/2023 1 [place] [facility] Liz Rene [id number] Liz Rene 04/29/2024 1 [facility] - [facility] NET PLAN (MEDICAID HMO) [id number] Liz Rene [id number] Liz Rene Notes Date Note Type Note Provider Name and Address Organization Details Recorded Time 09/08/2023 text/html Patient with his tory of splenectomy for ITP presents with greater than 6 months of left nasal congestion, sinus pressure and colored nasal discharge. She reports having a dental implant in the left maxillary region approximately 1 year ago. She had been treated with Flonase and Augmentin several months ago. She initially improved but then symptoms recurred. She notes green foul-smelling nasal discharge when bending over. Recent laboratory studies showed an elevated white count and a decreased platelet count of 44,000. LUCINDA SPANGLER MD [address] [place] [address], [place], [address], [facility] - [facility] 09/08/2023 16:10:21 12/06/2023 text/html Patient seen in follow-up for chronic sinusitis. No more pain. Still having PND last visit Patient with history of ITP status post splenectomy presents with more than 6 months of foul-smelling nasal discharge from the left nasal cavity. There is evidence of bulging of the left lateral nasal wall in the middle meatus. I suspect she has an odontogenic infection having undergone dental implant approximately 1 year ago. She likely has low pneumococcal titers although she was vaccinated before her splenectomy. I have suggested 3 weeks of doxycycline, pneumococcal titers and a CT of the sinuses in 6 to 8 weeks LUCINDA SPANGLER MD [address] [facility] [address], [place], [address], [place] - [facility] 12/06/2023 15:06:12 04/29/2024 text/html 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 When I last saw her over the summer her platelet count was 58,000. She reports having a normal platelet count recently in [place]. Unfortunately I do not have access to their system. She notes persistent congestion and pressure especially in the frontal region. She is followed by Dr. Walt LevyPrevious CT scan showed maxillary sinus disease with hypoplastic frontal sinusesDeclines credit consultant and is able to discuss everything in Italian LUCINDA SPANGLER MD [address] [facility] [address], [place], [address], [place] - [facility] 04/29/2024 13:26:38 OBGyn Episode No OBEpisode recorded.
--- OUTSIDE RECORDS SUMMARY | 2024-05-27 12:22 | XMS_ITS | Encounter Summary ---
Author Organization [employer] Address [address] [place] [address] [place] [address] Care Team Providers Care Maintenance Of Way Supervisor Name Role Phone Aaron Riley MD Primary Care Provider [phone]- [phone] Reason for Visit * Reason Onset Date Comments Nurse Triage 12/28/2022 Encounter Details Date Type Department Care Team (Late st Contact Info) Description 12/28/2022 Telephone [facility] MED & PEDS [address] [place] [address] Aaron Riley MD [address] [place] [address] Nurse Triage Social History Tobacco Use Types Packs/Day Years Used Date Smoking Tobacco: Never Smokeless Tobacco: Never Comments No Sex and Gender Information Value Date Recorded Sex Assigned at Female 02/21/2022 10:21 AM EDT Legal Sex Female 10:21 AM EDT Gender Identity Choose not to disclose 10:21 AM EDT Sexual Orientation Choose not to disclose 2021 10:21 AM EDT documented as of this encounter Miscellaneous Notes * Telephone Encounter - Loren Lr RN - 12/28/2022 1:53 PM EDT Triage call with [place] [employer] [id number] Pt reports a few days ago, bent down to garbage pick up man a beach chair and immediately had low back pain. Ptreports that ibuprofen does help this pain. Pt reports that yesterday Pt remained in bed due to thepain and had a hard time walking. Today pain is better and is able to do more of the normal activities but, it still hurts. Pt reports some numbness in toes of left foot. Apt with PCP 12/30/22 @ 345pm. Protocol Used: Back Pain (Adult) Protocol-Based Disposition: See in Office or Video Visit within 3 Days Video visit not offered Positive Triage Questions: * Moderate back pain (e.g., interferes with normal activities) and present > 3 days * Patient wants to be seen * All higher-acuity triage questions were negative Care Advice Discussed: * Reassurance and Education - Back Pain * Cold or Heat * Sleep * Activity * Pain Medicines * Pain Medicines - Extra Notes and Warnings * Reasons To Call Back - Fever occurs - Numbness or weakness occurs, or bowel/bladder problems - Pain begins to shoot into the leg - Pain persists over 2 weeks - Pain becomes worse - You become worse * Telephone Encounter - Kashmir Chase - 12/28/2022 11:54 AM EDT Symptom: Back Pain - Not From Injury Outcome: Transfer to a nurse or provider NOW! Reason: Age over 30: sudden AND severe upper back pain The caller accepted this outcome Please contact pt at [phone] Armenian Speaker documented in this encounter Plan of Treatment Not on file documented as of this encounter Visit Diagnoses Not on filedocumented in this encounter Care Teams Maintenance Of Way Supervisor Relationship Specialty Start Date End Date Aaron Riley MD [address] [place] [address] PCP - General Internal Medicine 04/24/18 documented as of this encounter
--- OUTSIDE RECORDS SUMMARY | 2024-05-27 12:22 | XMS_ITS | Encounter Summary ---
Author Organization [employer] Address [address] [place] [address] Care Team Providers Care Wet Process Technician Name Role Phone Aaron Riley MD Primary Care Provider [phone]- [phone] Reason for Visit * Reason Onset Date Comments Nurse Triage 01/10/2024 Encounter Details Date Type Department Care Team (Late st Contact Info) Description 01/10/2024 Telephone [facility] CHC MED & PEDS [address] [place] [address] Aaron Riley MD [address] [place] [address] Nurse Triage Social History Tobacco Use Types [...] Telephone Encounter - Myriam Ashby LPN - 01/10/2024 9:46 AM EDT Triage call returned to patient with [employer] Specialist [id number] Patient reports another small lesion / lump on pubic area and that she would like to see MD as this is presenting. Patient seen and cream ordered for condition last week and patient reports no improvement. No fever and no draining pus.No extreme pain and reports that this is very small at time of call. Disposition reviewed and Patien t in agreement with plan. Unable to come to [facility] this afternoon. Advised to call back later in the day today or early tomorrow morning for early SDC in [facility] availability. Patient verbalized understanding and in agreement with plan. Patient inquiring about duration of FMLA intermittent leave. Documenton file does not indicate duration of time covered as in how many months.Team tasked to follow withpatient and update document as needed. Patient aware and can be reached at listed number. Protocol Used: Skin Lump or Localized Swelling (Adult) Protocol-Based Disposition: See in Office or Video Visit within 3 Days Positive Triage Question: * Patient wants to be seen * All higher-acuity triage questions were negative Care Advice Discussed: * Reasons To Call Back - Fever occurs - Spreading redness occurs - Swelling becomes painful - Swelling lasts over 1 week - You become worse * Telephone Encounter - Cat Garcia - 01/10/2024 9:08 AM EDT Symptoms: Skin Lump Outcome: Schedule an appointment to be seen within 3 days Reason: Caller denied all higher acuity questions The caller accepted this outcome. documented in this encounter Plan of Treatment Not on file documented as of this encounter Visit Diagnoses Not on filedocumented in this encounter Additional Health Concerns Assessment Noted Time PHQ-9 Depression Total Score: 21 024 1:11 PM EDT documented as of this encounter Care Teams Wet Process Technician Relationship Specialty Start Date End Date Aaron Riley MD [address] [place] [address] PCP - General Internal Medicine 04/24/18 documented as of this encounter
[2024-05-27 13:52] LABS: Basophils Absolute Auto 0.1 X10*3/uL (0.0-0.2); Basophils Percent Auto 0.6 % (0-2); Eosinophils Absolute Auto 0.3 X10*3/uL (0.0-0.4); Hematocrit 40.2 % (37.0-47.0); Hemoglobin 12.9 g/dl (12.0-16.0); Imm Gran Abs Auto 0.02 X10*3/uL (0.00-0.03); Imm Gran Pct Auto 0.2 % (0.0-0.4); Lymphocytes Absolute Auto 3.4 X10*3/uL (1.2-4.9); Lymphocytes Percent Auto 39.1 % (20-40); MANUAL DIFF FLAG SCAN; Mean Corpuscular HGB Conc 32.1 g/dl (31.0-35.0); Mean Corpuscular Hemoglobin 25.9 pg (27.0-33.0); Mean Corpuscular Volume 80.7 fL (80.0-98.0); Monocytes Absolute Auto 0.8 X10*3/uL (0.1-1.2); Monocytes Percent Auto 9.2 % (2-11); Neutrophils Absolute Auto 4.2 x10*3/uL (2.0-8.3); Neutrophils Percent Auto 47.9 % (45-73); PLT CLUMP 1; Red Blood Count 4.98 X10*6/uL (4.20-5.50); SCAN SMEAR FLAG 1; White Blood Count 8.8 X10*3/uL (4.8-10.8)
[2024-05-27 14:25] LABS: Platelet Count 42 X10*3/uL (160-400)
[2024-05-27 15:24] LABS: SLIDE REVIEW VERIFIED
[2024-05-27 15:44] LABS: Alanine Aminotransferase 23 U/L (0-31); Albumin Level 3.9 g/dL (3.5-5.0); Alkaline Phosphatase 105 U/L (39-117); Anion Gap 12 (12-20); Aspartate Amino Transferase 24 U/L (5-31); Bilirubin Total 1.2 mg/dL (0.0-1.0); Blood Urea Nitrogen 18 mg/dL (9-16); Calcium 10.2 mg/dL (8.4-10.2); Carbon Dioxide 25 mmol/L (22-29); Chloride 109 mmol/L (96-108); Estimated Glomerular Filt Rate > 60; Glucose Random 106 mg/dL (60-115); Potassium 3.5 mmol/L (3.3-5.1); Sodium 142 mmol/L (135-145); Total Protein 8.5 g/dL (6.5-8.0)
== END 2024-05-27 11:10 | disposition home or self-care (01) ==
LOC: HO.HHCL 11:09
PROVIDERS: Visit Provider Internal Medicine Medical Oncology
DX: R05.2 Subacute cough (principal); D69.3 Immune thrombocytopenic purpura
CPT/HCPCS: 36415; 71046; 80053; 85025

== ENCOUNTER → 2024-05-27 11:26 | Outpatient (BNV) | payer OTHER, SELFPAY | PROVIDERS: Visit Provider Radiology Diagnostic Radiology | DX: R05.2 Subacute cough (principal); R63.4 Abnormal weight loss | CPT/HCPCS: 71046 ==

== ENCOUNTER 2024-05-28 14:59 | Outpatient (REF) | payer OTHER, SELFPAY ==
--- OUTSIDE RECORDS SUMMARY | 2024-05-28 15:02 | XMS_ITS | Encounter Summary ---
Author Organization [employer] Address [address] [place] [address] [place] [address] Care Team Providers Care Retail Assistant Manager Name Role Phone Aaron Riley MD Primary Care Provider [phone] Reason for Visit * Reason Onset Date Comments Nurse Triage 05/24/2024 Encounter Details Date Type Department Care Team ([facility] st Contact Info) Description 05/24/2024 Telephone [facility] CHC MED & PEDS [address] [place] [address] Aaron Riley MD [address] [place] [address] Nurse Triage Social History Tobacco Use Types [...] No PCP or Team appts available. Provided [facility] hours for tomorrow morning, Patient agrees to come to [facility] tomorrow morning. Reviewed with patient home [...] caller accepted this outcome. Contact pt at [phone] (denied court interpreter) documented in this encounter Plan of Treatment Not on file documented as of this encounter Visit Diagnoses Not on filedocumented in this encounter Additional Health Concerns Assessment Noted Time PHQ-9 Depression Total Score: 21 024 1:11 PM EDT documented as of this encounter Care Teams Retail Assistant Manager Relationship Specialty Start Date End Date Aaron Riley MD [address] [place] [address] PCP - General Internal Medicine 04/24/18 documented as of this encounter
--- OUTSIDE RECORDS SUMMARY | 2024-05-28 15:02 | XMS_ITS | Encounter Summary ---
Author Organization [employer] Address [address] [facility] [address] [place] [address] Care Team Providers Care Signaler Name Role Phone Aaron Riley MD Primary Care Provider [phone] Reason for Visit * Reason Comments Generalized Body Aches Encounter Details Date Type Department Care Team ([facility] st Contact Info) Description 05/25/2024 11:20 AM EST Office Visit [facility] [address] [place] [address] [phone] NameRussell MD [address] [place] [address] [phone] Weight loss (Primary Dx); Subacute cough Social [...] 6.2 ! QC Media Lot # [id number] !: Data is abnormal Assessment/Plan Diagnoses and [...] Weight loss Expected: 05/25/2024 (Approximate), Expires: 05/25/2025 documented as of this encounter Procedures Procedure Name Priority Date/Time Associated Diagnosis Comments XR CHEST 2 VIEWS Routine 05/27/2024 11:2 6 AM EST Subacute cough POCT GLYCATED HEMOGLOBIN, TOTAL Routine 05/25/2024 11:38 AM EST Weight loss POCT GLUCOSE Routine 05/25/2024 11:37 AM EST Weight loss documented in this encounter Results * XR Chest 2 Views (05/27/2024 11:26 AM EST) Anatomical Region Laterality Modality Chest Radiographic Domi ging 05/27/2024 11:2 6 AM EST Narrative 05/27/2024 12:37 PM EST ? [facility] ?[address] ?[place] [address] ?XRay Report ? Signed ? Patient: Rene,Liz ?MR#: [id number] ?? 24 ? : 1970 ?Acct:[id number] ? Age/Sex: 53 / F ?ADM Date: 05/27/24 ? Loc: HO.HHCL ? Attending Dr: Walt Levy MD ? Ordering Physician: Russell River MD ?? Date of Service: 05/27/24 ?? Procedure(s): XR chest 2V ?? Accession Number(s): [id number] ? cc: Russell River MD ? EXAMINATION: ??XR CHEST 2 VIEWS ? HISTORY: one month of cough, CHOPRA and weight loss ? COMPARISON: Comparison is made with the prior examination dated ?? 01/02/2024. ? FINDINGS: ??PA and lateral views of the chest are submitted. The lungs ?? are expanded and clear. ??There is no pleural effusion, pneumothorax, or ?? pulmonary vascular congestion. ??The heart is normal in size. ??There is ?? mild degenerative disc disease of the spine. ? XR/XR chest 2V ?? IMPRESSION: ?? No acute cardiopulmonary abnormality. ? Electronically signed by: ??Jered Silva MD ??05/27/2024 12:34 PM EST ?? RP ? Dictated By: ?Jered Silva MD ? Signed By: ?<Electronically signed by Jered Silva MD in OV> ?05/27/24 1234 ? DD/ 1126 ? TD/TT: 05/27/24 1155 ? Wood Handler: ? Procedure Note Estiven Olmos - 05/27/[address] [place] [address] XRay Report Signed Patient: Marycarmen López#: [id number] 24 : 1970Acct:[id number] Age/Sex: 53 / FADM Date: 05/27/24 Loc: HO.CL Attending Dr: Walt Levy MD Ordering Physician: Russell River MD Date of Service: 05/27/24 Procedure(s): XR chest 2V Accession Number(s): [id number] cc: Russell River MD EXAMINATION: XR CHEST 2 VIEWS HISTORY: one month of cough, CHOPRA and weight loss COMPARISON: Comparison is made with the prior examination dated 01/02/2024. FINDINGS: PA and lateral views of the chest are submitted. The lungs are expanded and clear. There is no pleural effusion, pneumothorax, or pulmonary vascular congestion. The heart is normal in size. There is mild degenerative disc disease of the spine. XR/XR chest 2V IMPRESSION: No acute cardiopulmonary abnormality. Electronically signed by: Jered Silva MD 05/27/2024 12:34 PM EST Dictated By: Jered Silva MD Signed By: <Electronically signed by Jered Silva MD in OV> 05/27/24 1234 DD/ 1126 TD/TT: 05/27/24 1155 Wood Handler: us Russell River MD IMG XR PROCEDURES Final Result * (ABNORMAL) POCT HGB A1C (05/25/2024 11:38 AM EST) Hemoglobin A1C 6.2(A) 4.0 - 6.0 % QC Media Lot # [id number] Lot# Expiration Date ,026 Swab 05/25/2024 11:3 8 AM EST us Russell River MD POINT OF CARE TEST ENTER/EDIT OR DERABLES Final Result * POCT Glucose (05/25/2024 11:37 AM EST) Glucose Blood, POC 108 60 - 200 mg/dL QC Media Lot # [id number] Lot# Expiration Date ,025 Blood Capillary blood specimen / Unknown 05/25/2024 11:37 AM EST Russell River MD POINT OF CARE TEST ENTER/EDIT OR DERABLES Final Result documented in this encounter Visit Diagnoses Diagnosis Weight loss- Primary Loss of weight Subacute cough documented in this encounter Additional Health Concerns Assessment Noted Time PHQ-9 Depression Total Score: 21 024 1:11 PM EDT documented as of this encounter Care Teams Signaler Relationship Specialty Start Date End Date Aaron Riley MD [address] [place] [address] PCP - General Internal Medicine 04/24/18 documented as of this encounter
--- OUTSIDE RECORDS SUMMARY | 2024-05-28 15:02 | XMS_ITS | Continuity of Care Document ---
Author Organization [place] [facility], [facility] Address [address] [place] [phone] Care Team Providers Care Chemical Dependency Nurse Name Role Phone EDER DINH Primary Care [...] view 2024 025 [email or web address] 4 [facility], [address] [place] [address], [phone], 04/29/2024 13:27:40 Medication Orders doxycycli ne hyclate 100 mg tablet 2024 025 [facility]/Ph[facility]acy #[id number], [address] [place], [address], 04/29/2024 13:24:54 fluticaso ne propionat e 50 mcg/actua tion nasal spray,raegan pension 2024 025 [facility]/Ph[facility] #[id number], [address] [place], [address], 04/29/2024 13:24:55 Patient TargetsNo targets recorded. Patient InstructionsNo instructions recorded. Reason for Referral None Reported. Results Created Date Observation Date Name Description Value Unit Range Abnormal Flag Note LastModifiedBy Organization Detail LastModifiedTime 04/29/19 25 XR, sinus es, paran koby, 3 or more view No observ ation record ed. [email or web address] [facility] Of [address], [address], 04/29/2024 13:26:24 Result Notes None recorded. Problems Name Problem SNOMED Code Status Onset Date Resolution Date Notes Provider Name and Address Organization Details Recorded Time Chronic left maxillary sinusitis 1472597748989 9101 Active 2023 LUCINDA ROD MD [address] [facility], [facility], [place], [address], [facility] - [facility] 4 14:01:22 Secondary immune deficiency disorder 25930767 Active 2023 LUCINDA ROD MD [address] [place] [address], [place], [address], [facility] - [facility] [place] 4 14:04:03 Chronic sinusitis 24853319 Active 2023 LUCINDA ROD MD [address] [address], [place], [address], [facility] - [facility] [place] 4 14:50:19 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 2023 LUCINDA ROD MD [address] [facility],[place] [address], [place], [address], [facility] - [facility] [place] 4 14:50:44 Immunodefic iency disorder 369527097 Active 2023 LUCINDA ROD MD [address] [facility],[place] [address], [place], [address], [facility] - [facility] 4 14:51:05 Chronic rhinitis 66305461 Active 2024 LUCINDA ROD MD [address] [facility], [facility], [place], [address], [facility] - [facility] [place] 5 13:24:33 Problem Notes None recorded. Procedures Surgical History Date Name Laterality Status Provider Name and Address Organization Details Recorded Time 5 JMSNasal/Sinus Endoscopy completed LUCINDA SPANGLER MD [address] [place] [address], [phone], [facility] 04/29/2024 13:25:10 4 JMSNasal/Sinus Endoscopy completed LUCINDA SPANGLER MD [address] [place] [address], [phone], [facility] 09/08/2023 14:50:15 7 dilation and curettage of uterus completed LUCINDA SPANGLER MD [address] [place] [address], [phone], [facility] 09/08/2023 16:09:45 Removal of spleen total completed LUCINDA SPANGLER MD [address] [place] [address], [phone], [facility] 09/08/2023 16:07:25 Imaging Results Imaging Date Name Status LastModified by Organiz ation Details LastModified Time 04/29/2024 XR, sinuses, paranasal, 3 or more view completed arcadio [facility] Of [address], [address], 04/29/2024 13:26:24 Procedure Notes None recorded. Medical [...] propionate 50 mcg/actuatio n nasal spray,suspen marco [place] 2 sprays twice a day by intranasal [...] vera [place] - [facility] 09/08/2023 15:07:06 What Is Your Level Of Alcohol Consumption? None [email or web address] Information not available 09/08/2023 Do You Use Any Illicit Or Recreational Drugs? No [email or web address] Information not available 09/08/2023 Do You Or Have You Ever Used Any Other Forms Of Tobacco Or Nicotine? No [email or web address] Information not available 09/08/2023 Sex: Unknown Functional Status None recorded. Mental Status None recorded. Family History Nothing Reported. Medical History Condition Response Bleeding Disorder Y Gynecological HistoryNo gynecological history recorded. Obstetrics History GPAL:G 0 P 0 0 0 0 Past Encounters Encounter ID Performer Location Encounter Start Date Encounter Closed Date Diagnosis/Indication Diagnosis SNOMED-CT Code Diagnosis ICD10 Code Diagnosis Note [id number] LUCINDA CEBALLOS MD [facility] [address] [address] 04/29/2024 13:01:15 04/29/2024 13:27:40 Chronic sinusitis 51336368 J32.9 Patient with history of ITP status [...] another course of doxycyclin e. Immune thrombocytopenia 2441388 D69.3 Chronic rhinitis 7656200 6 J31.0 Health Concerns Section Related Observation LastModified by Organization Detai ls LastModified Time None Recorded Concern Status LastModified by Organization Details LastModified Time None Recorded Payers Encounter Date Sequence Insurance Name Policy Number Policy Morales Covered Member ID Morales Member ID Guarantor Name 04/29/2024 1 [facility] NET PLAN (MEDICAID HMO) [id number] Liz López [id number] Liz López Notes Date Note Type Note Provider Name and Address Organization Details Recorded Time 04/29/2024 text/html 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 When I last saw her over the summer her platelet count was 58,000. She reports having a normal platelet count recently in [place]. Unfortunately I do not have access to their system. She notes persistent congestion and pressure especially in the frontal region. She is followed by Dr. Walt LevyPrevious CT scan showed maxillary sinus disease with hypoplastic frontal sinusesDeclines clinical project coordinator and is able to discuss everything in [place] LUCINDA SPANGLER MD [address] [place] [address], [phone], [facility] - [facility] 04/29/2024 13:26:38 OBGyn Episode No OBEpisode recorded.
--- OUTSIDE RECORDS SUMMARY | 2024-05-28 15:02 | XMS_ITS | Clinical Summary ---
Author Organization [employer] Address [address] [place] [address] 7 [place] [address] Care Team Providers Care Patient Registrar Name Role Phone Aaron Riley MD Primary Care Provider +1- [phone] Allergies Active Allergy Reactions Criticality Noted Date [...] Encounters Date Type Department Care Team Description 05/28/2024 Telephone [facility] MED & PEDS [address] [place] [address] Aaron Riley MD Results 05/25/2024 11:20 AM EST Office Visit [facility] [address] [place] [address] Name, MD Russell Weight loss (Primary Dx); Subacute cough 05/25/2024 Travel 05/24/2024 Telephone [facility] MED & PEDS [address] [place] [address] Aaron Riley MD Nurse Triage 05/07/2024 Telephone [facility] MED & PEDS [address] [place] [address] Aaron Riley MD No Show 03/26/2024 2:00 PM EST Office Visit [facility] MED & PEDS [address] [place] [address] Aaron Riley MD Primary hypertension (Primary Dx); [...] Recently Relevant to Health Maintenance Results * XR Chest 2 Views (05/27/2024 11:26 AM EST) Anatomical Region Laterality Modality Chest Radiographic Domi ging 05/27/2024 11:2 6 AM EST Narrative 05/27/2024 12:37 PM EST ? [facility] ?[address] ?[place] [address] ?XRay Report ? Signed ? Patient: Rene,Liz ?MR#: [id number] ?? 24 ? : 1970 ?Acct:[id number] ? Age/Sex: 53 / F ?ADM Date: 05/27/24 ? Loc: HO.HHCL ? Attending Dr: Walt Levy MD ? Ordering Physician: Russell River MD ?? Date of Service: 05/27/24 ?? Procedure(s): XR chest 2V ?? Accession Number(s): [id number] ? cc: Russell River MD ? EXAMINATION: [...] DD/ 1126 ? TD/TT: 05/27/24 1155 ? Foreign Exchange Position Clerk: ? Procedure Note Nickolas, Image - 05/27/[address] [address] XRay Report Signed Patient: Marycarmen López#: [id number] 24 : 1970Acct:[id number] Age/Sex: 53 / FADM Date: 05/27/24 Loc: HO.HHCL Attending Dr: Walt Levy MD Ordering Physician: Russell River MD Date of Service: 05/27/24 Procedure(s): XR chest 2V Accession Number(s): [id number] cc: Russell River MD EXAMINATION: XR CHEST [...] 05/27/24 1234 DD/ 1126 TD/TT: 05/27/24 1155 Foreign Exchange Position Clerk: us Russell River MD IMG XR PROCEDURES Final Result * (ABNORMAL) POCT HGB A1C (05/25/2024 11:38 AM EST) Hemoglobin A1C 6.2(A) 4.0 - 6.0 % QC Media Lot # [id number] Lot# Expiration Date 8, Swab 05/25/2024 11:3 8 AM EST us Russell River MD POINT OF CARE TEST ENTER/EDIT OR DERABLES Final Result * POCT Glucose (05/25/2024 11:37 AM EST) Glucose Blood, POC 108 60 - 200 mg/dL QC Media Lot # [id number] Lot# Expiration Date 6,025 Blood Capillary blood specimen / Unknown 05/25/2024 11:37 AM EST us Russell River MD POINT OF CARE TEST ENTER/EDIT OR DERABLES Final Result * BI Mammogram Screening Tomosynthesis Bilateral (08/28/2023 3:58 PM EDT) Anatomical Region Laterality Modality Breast Bilateral Mammography 08/28/2023 3:58 PM EDT Narrative 09/28/2023 12:01 AM EDT ? [facility] ? [address] ?[place] [address] ? Mammography Report ? Signed ? Patient: Rene,Liz ?MR#: [id number] ?? 24 ? : 1970 ?Acct:[id number] ? Age/Sex: 53 / F ?ADM Date: 08/28/23 ? Loc: HO.MAMMO ? Attending Dr: Aaron Riley MD ? Ordering Physician: Aaron Riley MD ?Results: 2 ?? Benign Findings ? Date of Service: 08/28/23 ?Follow Up: 1 Year From Orig ?? inal Mammogram ? Procedure(s): MM tomosynthesis screening BI ?? Accession Number(s): [id number] ? cc: Aaron Riley MD ? EXAMINATION: [...] by Anastasia Goddard MD in OV> ? 06/05/24 2357 ? DD/ 1558 ? TD/TT: ? Foreign Exchange Position Clerk: ? Procedure Note Estiven Olmos - 09/28/2023 [place] [facility] [address] [place] [address] Mammography Report Signed Patient: Marycarmen López#: [id number] : 1970Acct:[id number] Age/Sex: 53 / FADM Date: 08/28/23 Loc: HO.ZOEYO Attending Dr: Aaron Riley MD Ordering Physician: Aaron Riley MDResults: 2 Benign Findings Date of Service: 08/28/23Follow Up: 1 Year From Orig inal Mammogram Procedure(s): MM tomosynthesis screening BI Accession Number(s): [id number] cc: Aaron Riley MD EXAMINATION: MM SCREENING DIGITAL BREAST [...] by Anastasia Goddard MD in OV> 09/27/23 6398 DD/ 1558 TD/TT: Foreign Exchange Position Clerk: us Aaron Riley MD IMG BI PROCEDURES Edited Re sult - Final * Pap Smear (12/15/2020 12:00 AM EDT) Swab us Historical Provider LAB CYTOLOGY ORDERABLES F inal Result [facility] [address] [place] [address] from Last 3 Months or Most Recently Relevant to Health Maintenance Insurance [facility] Care Teams Patient Registrar Relationship Specialty Start Date End Date Aaron Riley MD [address] [place] [address] PCP - General Internal Medicine 04/24/18
--- OUTSIDE RECORDS SUMMARY | 2024-05-28 15:02 | XMS_ITS | Data Portability ---
Author Organization [place] - [facility], Allergy Address [address] [facility] [address] [place] [address] Care Team Providers Care Return To Service Inspector Name Role Phone EDER DINH Primary Care Provider Assessment No assessment recorded. Plan of Treatment Reminders Order Date Submit Date Provider Last Modified By Organization Details Last Modified Time Details Appointments Establ ished 15 2024 08:30A M LUCINDA ROD MD Not available Not available Not available Lab CBC w/ auto diff 2023 024 RAJ [facility], [address] [facility], [address], [place], [address], 12/07/2023 03:18:39 Referral None record ed. Procedures [...] contra st 2023 024 arcadio [facility], [address] [place] [address], [address], 12/06/2023 14:37:36 XR, sinuse s, parana jasvir, 3 or more view 2024 025 [facility], [address] [place] [address], [address], 04/29/2024 13:27:40 Medication Orders doxycy scruggs hyclat e 100 mg tablet 2024 025 [facility] #[id number], [address] [place] [address], [address], 04/29/2024 13:24:54 flutic asone propio matthew 50 mcg/ac tuatio n nasal spray, suspen marco 2024 025 [facility] #[id number], [facility] [place], [address], 04/29/2024 13:24:55 Patient TargetsNo targets recorded. Patient InstructionsNo instructions recorded. Reason for Referral None Reported. Results Created Date Observation Date Name Description Value Unit Range Abnormal Flag Note LastModifiedBy Organization Detail LastModifiedTime 09/08/19 24 09/14/2023 PNEUM OCOCC AL AB (23 SEROT YPE) pneumo Ab type 1* 3.7 ug/mL >1.3 Not Available [facility] [address] [place], [address], 09/14/2023 00:47:32 09/08/19 24 09/14/2023 PNEUM OCOCC AL AB (23 SEROT YPE) pneumo Ab type 3* 0.5 ug/mL >1.3 below low normal Not Available [facility] [address] [place], [address], 09/14/2023 00:47:32 09/08/19 24 09/14/2023 PNEUM OCOCC AL AB (23 SEROT YPE) pneumo Ab type 4* 1.0 ug/mL >1.3 below low normal Not Available [facility] [address] [place], [address], 09/14/2023 00:47:32 09/08/19 24 09/14/2023 PNEUM OCOCC AL AB (23 SEROT YPE) pneumo Ab type 8* 4.6 ug/mL >1.3 Not Available [facility] [address] [place], [address], 09/14/2023 00:47:32 09/08/19 24 09/14/2023 PNEUM OCOCC AL AB (23 SEROT YPE) pneumo Ab type 9 (9N)* 2.2 ug/mL >1.3 Not Available [facility] [address] [place], [address], 09/14/2023 00:47:32 09/08/19 24 09/14/2023 PNEUM OCOCC AL AB (23 SEROT YPE) pneumo Ab type 12 (12F)* <0.1 ug/mL >1.3 below low normal Not Available [facility] [place], [address], 09/14/2023 00:47:32 09/08/19 24 09/14/2023 PNEUM OCOCC AL AB (23 SEROT YPE) pneumo Ab type 14* 12.0 ug/mL >1.3 Not Available [facility] [address] [place], [address], 09/14/2023 00:47:32 09/08/19 24 09/14/2023 PNEUM OCOCC AL AB (23 SEROT YPE) pneumo Ab type 17 (17F)* 5.3 ug/mL >1.3 Not Available [facility] [address] [place], [address], 09/14/2023 00:47:32 09/08/19 24 09/14/2023 PNEUM OCOCC AL AB (23 SEROT YPE) pneumo Ab type 19 (19F)* 3.0 ug/mL >1.3 Not Available [facility] [place], [address], 09/14/2023 00:47:32 09/08/19 24 09/14/2023 PNEUM OCOCC AL AB (23 SEROT YPE) pneumo Ab type 2* 10.8 ug/mL >1.3 Not Available [facility] [place], [address], 09/14/2023 00:47:32 09/08/19 24 09/14/2023 PNEUM OCOCC AL AB (23 SEROT YPE) pneumo Ab type 20* 3.0 ug/mL >1.3 Not Available [facility] [place], [address], 09/14/2023 00:47:32 09/08/19 24 09/14/2023 PNEUM OCOCC AL AB (23 SEROT YPE) pneumo Ab type 22 (22F)* 1.7 ug/mL >1.3 Not Available [facility] [address] [place], [address], 09/14/2023 00:47:32 09/08/19 24 09/14/2023 PNEUM OCOCC AL AB (23 SEROT YPE) pneumo Ab type 23 (23F)* 3.6 ug/mL >1.3 Not Available [facility] [place], [address], 09/14/2023 00:47:32 09/08/19 24 09/14/2023 PNEUM OCOCC AL AB (23 SEROT YPE) pneumo Ab type 26 (6B)* 1.9 ug/mL >1.3 Not Available [facility] [address] [place] [address] [place], [address], 09/14/2023 00:47:32 09/08/19 24 09/14/2023 PNEUM OCOCC AL AB (23 SEROT YPE) pneumo Ab type 34 (10A)* 8.3 ug/mL >1.3 Not Available [facility] [address] [place], [address], 09/14/2023 00:47:32 09/08/19 24 09/14/2023 PNEUM OCOCC AL AB (23 SEROT YPE) pneumo Ab type 43 (11A)* 2.9 ug/mL >1.3 Not Available [facility] [address] [place], [address], 09/14/2023 00:47:32 09/08/19 24 09/14/2023 PNEUM OCOCC AL AB (23 SEROT YPE) pneumo Ab type 5* 0.6 ug/mL >1.3 below low normal Not Available [facility] [address] [place], [address], 09/14/2023 00:47:32 09/08/19 24 09/14/2023 PNEUM OCOCC AL AB (23 SEROT YPE) pneumo Ab type 51 (7F)* 4.2 ug/mL >1.3 Not Available [facility] [address] [place], [address], 09/14/2023 00:47:32 09/08/19 24 09/14/2023 PNEUM OCOCC AL AB (23 SEROT YPE) pneumo Ab type 54 (15B)* 5.9 ug/mL >1.3 Not Available [facility] [address] [place], [address], 09/14/2023 00:47:32 09/08/19 24 09/14/2023 PNEUM OCOCC AL AB (23 SEROT YPE) pneumo Ab type 56 (18C)* 2.3 ug/mL >1.3 Not Available [facility] [address] [place], [address], 09/14/2023 00:47:32 09/08/19 24 09/14/2023 PNEUM OCOCC AL AB (23 SEROT YPE) pneumo Ab type 57 (19A)* 5.1 ug/mL >1.3 Not Available [facility] [address] [place], [address], 09/14/2023 00:47:32 09/08/19 24 09/14/2023 PNEUM OCOCC AL AB (23 SEROT YPE) pneumo Ab type 68 (9V)* 1.6 ug/mL >1.3 Not Available [facility] [address] [place], [address], 09/14/2023 00:47:32 09/08/19 24 09/14/2023 PNEUM OCOCC [...] Laboratories [address] [place], [address], 09/14/2023 00:47:32 12/06/19 24 12/07/2023 CBC WITH DIFFE RENTI AL/PL ATELE T WBC 14.5 x10e3 /uL 3.4-10 .8 above high normal Not Available [facility] ([facility]) [address] [facility], [place], [address], 12/07/2023 03:18:36 12/06/19 24 12/07/2023 CBC WITH DIFFE RENTI AL/PL ATELE T RBC 4.54 x10e6 /uL 3.77-5 .28 normal Not Available [facility] ([facility]) [address] [place], [address], 12/07/2023 03:18:36 12/06/19 24 12/07/2023 CBC WITH DIFFE RENTI AL/PL ATELE T hemoglobin 12.9 g/dL 11.1-1 5.9 normal Not Available [facility] ([facility]) [address] [place], [address], 12/07/2023 03:18:36 12/06/1912/07/2023 CBC WITH DIFFE RENTI AL/PL ATELE T hematocrit 39.6 % 34.0-4 6.6 normal Not Available [facility] ([facility]) [address] [place], [address], 12/07/2023 03:18:36 12/06/19 24 12/07/2023 CBC WITH DIFFE RENTI AL/PL ATELE T MCV 87 fL 79-97 normal Not Available [facility] ([facility]) [address] [place], [address], 12/07/2023 03:18:36 12/06/19 24 12/07/2023 CBC WITH DIFFE RENTI AL/PL ATELE T MCH 28.4 pg 26.6-3 3.0 normal Not Available [facility] ([facility]) [address] [place], [address], 12/07/2023 03:18:36 12/06/1912/07/2023 CBC WITH DIFFE RENTI AL/PL ATELE T MCHC 32.6 g/dL 31.5-3 5.7 normal Not Available [facility] ([facility]) [address] [place], [address], 12/07/2023 03:18:36 08/14/12/07/2023 CBC WITH DIFFE RENTI AL/PL ATELE T RDW 13.3 % 11.7-1 5.4 Not Available [facility] ([facility]) [address] [facility], [place], [address], 12/07/2023 03:18:36 12/06/19 24 12/07/2023 CBC WITH DIFFE RENTI AL/PL ATELE T platelets 58 x10e3 /uL 150-45 0 alert low Not Available [facility] ([facility]) [address] [facility], [place], [address], 12/07/2023 03:18:36 12/06/19 24 12/07/2023 CBC WITH DIFFE RENTI AL/PL ATELE T neutrophils 55 % not estab. normal Not Available [facility] ([facility]) [address] [facility], [place], [address], 12/07/2023 03:18:36 12/06/19 24 12/07/2023 CBC WITH DIFFE RENTI AL/PL ATELE T lymphs 35 % not estab. normal Not Available [facility] ([facility]) [address] [facility], [place], [address], 12/07/2023 03:18:36 12/06/19 24 12/07/2023 CBC WITH DIFFE RENTI AL/PL ATELE T monocytes 6 % not estab. normal Not Available [facility] ([facility]) [address] [facility], [place], [address], 12/07/2023 03:18:36 12/06/19 24 12/07/2023 CBC WITH DIFFE RENTI AL/PL ATELE T eos 2 % not estab. normal Not Available [facility] ([facility]) [address] [facility], [place], [address], 12/07/2023 03:18:36 12/06/19 24 12/07/2023 CBC WITH DIFFE RENTI AL/PL ATELE T basos 1 % not estab. normal Not Available [facility] ([facility]) [address] [facility], [place], [address], 12/07/2023 03:18:36 12/06/19 24 12/07/2023 CBC WITH DIFFE RENTI AL/PL ATELE T immature cells TENTMAKER Not Available [facility] ([facility]) [address] [facility], [place], [address], 12/07/2023 03:18:36 12/06/19 24 12/07/2023 CBC WITH DIFFE RENTI AL/PL ATELE T neutrophils (absolute) 8.0 x10e3 /uL 1.4-7. 0 above high normal Not Available [facility] ([facility]) [address] [facility], [place], [address], 12/07/2023 03:18:36 12/06/19 24 12/07/2023 CBC WITH DIFFE RENTI AL/PL ATELE T lymphs (absolute) 5.1 x10e3 /uL 0.7-3. 1 above high normal Not Available [facility] ([facility]) [address] [place], [address], 12/07/2023 03:18:36 12/06/19 24 12/07/2023 CBC WITH DIFFE RENTI AL/PL ATELE T monocytes(ab solute) 0.9 x10e3 /uL 0.1-0. 9 normal Not Available [facility] ([facility]) [address] [place], [address], 12/07/2023 03:18:36 12/06/19 24 12/07/2023 CBC WITH DIFFE RENTI AL/PL ATELE T eos (absolute) 0.3 x10e3 /uL 0.0-0. 4 normal Not Available [facility] ([facility]) [address] [facility], [place], [address], 12/07/2023 03:18:36 12/06/19 24 12/07/2023 CBC WITH DIFFE RENTI AL/PL ATELE T baso (absolute) 0.1 x10e3 /uL 0.0-0. 2 normal Not Available [facility] ([facility]) [address] [facility], [place], [address], 12/07/2023 03:18:36 12/06/19 24 12/07/2023 CBC WITH DIFFE RENTI AL/PL ATELE T immature granulocytes 1 % not estab. Not Available [facility] ([facility]) [address] [facility], [place], [address], 12/07/2023 03:18:36 12/06/19 24 12/07/2023 CBC WITH DIFFE RENTI AL/PL ATELE T immature grans (abs) 0.1 x10e3 /uL 0.0-0. 1 Not Available [facility] ([facility]) [address] [facility], [place], [address], 12/07/2023 03:18:36 12/06/19 24 12/07/2023 CBC WITH DIFFE RENTI AL/PL ATELE T NRBC TENTMAKER Not Available [facility] ([facility]) [address] [facility], [place], [address], 12/07/2023 03:18:36 12/06/19 24 12/07/2023 CBC WITH DIFFE RENTI AL/PL ATELE T hematology comments: Note: Verif ied by micro aubreyi c gaili philipp n. Not Available [facility] ([facility]) [address] [facility], [place], [address], 12/07/2023 03:18:36 12/06/19 CT, sinus es, w/o contr ast No observ ation record ed. arcadio [facility] Of [address], [place], [address], 12/06/2023 14:37:32 12/07/19 24 12/06/2023 CT, sinus es, w/o contr ast No observ ation record ed. [facility] [address] [address], [place], [address], 12/08/2023 08:26:47 04/29/19 25 XR, sinus es, paran koby, 3 or more view No observ ation record ed. [facility] [place] [facility] [address] [place], [address], 04/29/2024 13:26:24 Result Notes None recorded. Problems Name Problem SNOMED Code Status Onset Date Resolution Date Notes Provider Name and Address Organization Details Recorded Time Chronic left maxillary sinusitis 8203151123615 9101 Active 2023 LUCINDA ROD MD [address] [address], [place], [address], [facility] - [facility] 4 14:01:22 Secondary immune deficiency disorder 39101718 Active 2023 LUCINDA ROD MD [address] [address], [place], [address], [place] [facility] [place] 4 14:04:03 Chronic sinusitis 68067709 Active 2023 LUCINDA ROD MD [address] [address], [place], [address], [place] [facility] [place] 4 14:50:19 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 Procedures Surgical History Date Name Laterality Status Provider Name and Address Organization Details Recorded Time 5 JMSNasal/Sinus Endoscopy completed LUCINDA SPANGLER MD [address] [place] [address], [address], [facility] - [facility] 04/29/2024 13:25:10 4 JMSNasal/Sinus Endoscopy completed LUCINDA SPANGLER MD [address] [place] [address], [address], [facility] - [facility] 09/08/2023 14:50:15 7 dilation and curettage of uterus completed LUCINDA SPANGLER MD [address] [place] [address], [address], [facility] - [facility] 09/08/2023 16:09:45 Removal of spleen total completed LUCINDA SPANGLER MD [address] [place] [address], [address], [facility] 09/08/2023 16:07:25 Imaging Results Imaging Date Name Status LastModified by Organiz ation Details LastModified Time 12/06/2023 CT, sinuses, w/o contrast completed [facility] Of [address], [address], 12/06/2023 14:37:32 12/06/2023 CT, sinuses, w/o contrast completed [facility] [place] [facility] Of [address], [address], 12/08/2023 08:26:47 04/29/2024 XR, sinuses, paranasal, 3 or more view completed arcadio [facility] Of [address], [address], 04/29/2024 13:26:24 Procedure Notes None recorded. Medical [...] propionate 50 mcg/actuatio n nasal spray,suspen marco [place] 2 sprays twice a day by intranasal [...] vera [place] - [facility] 09/08/2023 15:07:06 What Is Your Level Of Alcohol Consumption? None [email or web address] Information not available 09/08/2023 Do You Use Any Illicit Or Recreational Drugs? No [email or web address] Information not available 09/08/2023 Do You Or Have You Ever Used Any Other Forms Of Tobacco Or Nicotine? No [email or web address] Information not available 09/08/2023 Sex: Unknown Functional [...] Note 717 LUCINDA CEBALLOS MD [facility] [address] [address] 09/08/2023 14:01:25 09/08/2023 16:43:49 Chronic sinusitis 28250980 J32.9 Patient with history of ITP status [...] in 6 to 8 weeks Immune thrombocytopenia 0505679 D69.3 Immunodefi ciency disorder 333857945 D84.9 34494 LUCINDA CEBALLOS MD [facility] [address] [place] [address] 12/06/2023 13:51:06 12/06/2023 14:39:48 Chronic sinusitis 92630761 J32.9 Patient with history of ITP status [...] gave her a sinus surgery brochure in Hungarian. All questions answeredco ntinue flonase and saline spray Please contact my surgical training specialist, Melony, at to schedule the procedure. The risks and [...] scheduled in the near future. Immune thrombocytopenia 0117138 D69.3 Immunodefi ciency disorder 181160382 D84.9 70188 LUCINDA CEBALLOS MD [facility] [address] [place] [address] 04/29/2024 13:01:15 04/29/2024 13:27:40 Chronic sinusitis 16675216 J32.9 Patient with history of ITP status [...] another course of doxycyclin e. Immune thrombocytopenia 5536334 D69.3 Chronic rhinitis 5442355 6 J31.0 Health Concerns Section Related Observation LastModified by Organization Detai ls LastModified Time None Recorded Concern Status LastModified by Organization Details LastModified Time None Recorded Advance Directives Directive None Recorded Payers Encounter Date Sequence Insurance Name Policy Number Policy Morales Covered Member ID Morales Member ID Guarantor Name 09/08/2023 1 [place] [facility]ICA[facility] Liz Rene [id number] Liz Rene 12/06/2023 1 [place] [facility] Liz Rene [id number] Liz Rene 04/29/2024 1 [facility] - HEALTH NET PLAN (MEDICAID HMO) [id number] Liz Rene [id number] Liz Rene Notes Date Note Type Note [...] platelet count of 44,000. LUCINDA SPANGLER MD [address] [place] [address], [place], [address], [facility] - [facility] 09/08/2023 16:10:21 12/06/2023 text/html Patient seen [...] to 8 weeks LUCINDA SPANGLER MD [address] [facility],[address] [address], [place], [address], [place] - [facility] 12/06/2023 15:06:12 04/29/2024 text/html 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 When I last saw her over the summer her platelet count was 58,000. She reports having a normal platelet count recently in [place]. Unfortunately I do not have access to their system. She notes persistent congestion and pressure especially in the frontal region. She is followed by Dr. Walt LevyPrevious CT scan showed maxillary sinus disease with hypoplastic frontal sinusesDeclines equipment operator warehouse and is able to discuss everything in Turkish LUCINDA SPANGLER MD [address] [facility] [address], [place], [address], [place] - [facility] 04/29/2024 13:26:38 OBGyn Episode No OBEpisode recorded.
--- OUTSIDE RECORDS SUMMARY | 2024-05-28 15:02 | XMS_ITS | Encounter Summary ---
Author Organization [email or web address] Address [address] [place] [address] Care Team Providers Care Belt Cutter Name Role Phone Aaron Riley MD Primary Care Provider [phone] Reason for Visit * Reason Onset Date Comments No Show 05/07/2024 Encounter Details Date Type Department Care Team ([facility] st Contact Info) Description 05/07/2024 Telephone [facility] [address] [place] [address] Aaron Riley MD [address] [place] [address] No Show Social History Tobacco Use Types [...] to f/u PRN. * Telephone Encounter - Addie Daigle - 05/07/2024 4:25 PM EST 05/07/24 no show for bp documented in this encounter Plan of Treatment Not on file documented as of this encounter Visit Diagnoses Not on filedocumented in this encounter Additional Health Concerns Assessment Noted Time PHQ-9 Depression Total Score: 21 024 1:11 PM EDT documented as of this encounter Care Teams Belt Cutter Relationship Specialty Start Date End Date Aaron Riley MD [address] [place] [address] PCP - General Internal Medicine 04/24/18 documented as of this encounter
--- OUTSIDE RECORDS SUMMARY | 2024-05-28 15:02 | XMS_ITS | Encounter Summary ---
Author Organization [employer] Address [address] [place] [address] [facility] [place] [address] Care Team Providers Care Field Radio Technician Name Role Phone Aaron Riley MD Primary Care Provider [phone] Reason for Referral * Consultation (Urgent) - Closed Specialty Diagnoses / Procedures Referred By Contac t Referred To Contact Hematology and Oncology Diagnoses Immune thrombocytopenic purpura (CMS/HCC) Aaron Riley MD [address] [place] [address] Phone: tel: fax: Walt Levy MD [address] [place] [address] Phone: tel:[phone] fax: Referral ID Status Reason Start Date Expiration Date V isits Requested Visits Authorized [id number] Closed Specialty Services Required 09/01/2023 08/31/2024 1 1 Encounter Details Date Type Department Care Team (Late st Contact Info) Description 09/01/2023 Orders Only [facility] [address] [place], [place] [phone] Aaron Riley MD [address] [place], [place] [phone] Immune thrombocytopenic purpura (CMS/HCC) (Primary Dx) Social [...] documented as of this encounter Care Teams Field Radio Technician Relationship Specialty Start Date End Date Aaron Riley MD [address] [place] [phone] PCP - General Internal Medicine 04/24/18 documented as of this encounter
--- OUTSIDE RECORDS SUMMARY | 2024-05-28 15:02 | XMS_ITS | Encounter Summary ---
Author Organization [employer] Address [address] [facility] 7t [place] [address] Care Team Providers Care Poultry Vaccinator Name Role Phone Aaron Riley MD Primary Care Provider [phone] Encounter Details Date Type Department Care Team [...] documented as of this encounter Care Teams Poultry Vaccinator Relationship Specialty Start Date End Date Aaron Riley MD [address] [place] [address] PCP - General Internal Medicine 04/24/18 documented as of this encounter
--- OUTSIDE RECORDS SUMMARY | 2024-05-28 15:03 | XMS_ITS | Encounter Summary ---
Author Organization [employer] Address [address] [place] [address] Care Team Providers Care Supervisor Riprap Placing Name Role Phone Aaron Riley MD Primary Care Provider [phone] Reason for Visit * Reason Onset Date Comments Nurse Triage 01/10/2024 Encounter Details Date Type Department Care Team (Late st Contact Info) Description 01/10/[address] [facility] [address] [place] [address] Aaron Riley MD [address] [place] [address] Nurse Triage Social History Tobacco Use Types [...] EDT Triage call returned to patient with Brackney Sawmill Relief Worker [id number] Patient reports another small lesion / lump [...] documented as of this encounter Care Teams Supervisor Riprap Placing Relationship Specialty Start Date End Date Aaron Riley MD [address] [place] [address] PCP - General Internal Medicine 04/24/18 documented as of this encounter
--- OUTSIDE RECORDS SUMMARY | 2024-05-28 15:03 | XMS_ITS | Encounter Summary ---
Author Organization [employer] Address [address] [place] [address] [place] [address] Care Team Providers Care Manager User Interface Name Role Phone Aaron Riley MD Primary Care Provider [phone] Reason for Visit * Reason Onset Date Comments Nurse Triage 12/28/2022 Encounter Details Date Type Department Care Team (Late st Contact Info) Description 12/28/2022 Telephone [facility] MED & PEDS [address] [place] [address] Aaron Riley MD [address] [place] [address] Nurse Triage Social History Tobacco Use Types [...] 12/28/2022 1:53 PM EDT Triage call with [place] Scraper Operator ID [id number] Pt reports a few days ago, bent down to curing pickling packer a beach chair and immediately had low [...] accepted this outcome Please contact pt at [phone] Macedonian Speaker documented in this encounter Plan of Treatment Not on file documented as of this encounter Visit Diagnoses Not on filedocumented in this encounter Care Teams Manager User Interface Relationship Specialty Start Date End Date Aaron Riley MD [address] [place] [id number] PCP - General Internal Medicine 04/24/18 documented as of this encounter
--- OUTSIDE RECORDS SUMMARY | 2024-05-28 15:03 | XMS_ITS | Encounter Summary ---
Author Organization [employer] Address [address] [place] [address] Care Team Providers Care Inspector Heating And Refrigeration Name Role Phone Aaron Riley MD Primary Care Provider [phone] Reason for Visit * Reason Onset Date Comments Results 05/28/2024 Encounter Details Date Type Department Care Team ([facility] st Contact Info) Description 05/28/2024 Telephone [facility] CHC MED & PEDS [address] [place], [place] [phone] Aaron Riley MD [address] [place] [address] Results Social History Tobacco Use Types Packs/Day Years [...] encounter Miscellaneous Notes * Telephone Encounter - Tanna Mcrae RN - 05/28/2024 12:12 PM EST T/C to pt via BLS Hazardous Materials Tanker Driver #[id number] to advise CXR wnl and lab for tsh still needs to be collected.No answer, v/m left to return call to Blue team nurses. * Telephone Encounter - Jair Frias - 05/28/2024 11:40 AM EST Pt returning call * Telephone Encounter - Tanna Mcrae RN - 05/28/2024 11:14 AM EST CXR wnl, Tsh has yet to be collected. T/C to pt via BLS Haz[employer]ous [employer] Tanker Driver to advise. No answer, v/m left to return call to Blue team nurses. * Telephone Encounter - Marylou Card - 05/28/2024 10:22 AM EST Pt requesting call from nurse stated had xray done last weekend and labs requesting if resuts were in. Pt aware to wait for call from nurse documented in this encounter Plan of Treatment Not on file documented as of this encounter Visit Diagnoses Not on filedocumented in this encounter Additional Health Concerns Assessment Noted Time PHQ-9 Depression Total Score: 21 024 1:11 PM EDT documented as of this encounter Care Teams Inspector Heating And Refrigeration Relationship Specialty Start Date End Date Aaron Riley MD [address] [place] [id number] PCP - General Internal Medicine 04/24/18 documented as of this encounter
[2024-05-28 16:24] LABS: MANUAL DIFF FLAG NO
[2024-05-28 16:47] LABS: Basophils Absolute Auto 0.1 X10*3/uL (0.0-0.2); Basophils Percent Auto 0.5 % (0-2); Eosinophils Absolute Auto 0.4 X10*3/uL (0.0-0.4); Eosinophils Percent Auto 3.9 % (0-4); Hemoglobin 12.7 g/dl (12.0-16.0); Imm Gran Abs Auto 0.04 X10*3/uL (0.00-0.03); Imm Gran Pct Auto 0.4 % (0.0-0.4); Lymphocytes Absolute Auto 4.2 X10*3/uL (1.2-4.9); Mean Corpuscular HGB Conc 32.6 g/dl (31.0-35.0); Mean Corpuscular Hemoglobin 25.8 pg (27.0-33.0); Mean Corpuscular Volume 79.3 fL (80.0-98.0); Monocytes Absolute Auto 0.8 X10*3/uL (0.1-1.2); Monocytes Percent Auto 7.3 % (2-11); Neutrophils Absolute Auto 5.3 x10*3/uL (2.0-8.3); Neutrophils Percent Auto 48.9 % (45-73); PLT CLUMP 1; Red Blood Count 4.92 X10*6/uL (4.20-5.50); Red Cell Distribution Width 14.1 % (11.0-16.0); SCAN SMEAR FLAG 1
[2024-05-28 16:49] LABS: Platelet Count 37 X10*3/uL (160-400); White Blood Count 10.7 X10*3/uL (4.8-10.8)
[2024-05-28 16:54] LABS: Alanine Aminotransferase 23 U/L (0-31); Albumin Level 3.9 g/dL (3.5-5.0); Alkaline Phosphatase 107 U/L (39-117); Anion Gap 19 (12-20); Aspartate Amino Transferase 24 U/L (5-31); Bilirubin Total 0.8 mg/dL (0.0-1.0); Blood Urea Nitrogen 18 mg/dL (9-16); Calcium 9.8 mg/dL (8.4-10.2); Carbon Dioxide 25 mmol/L (22-29); Chloride 103 mmol/L (96-108); Cholesterol 145 mg/dL (<200); Estimated Glomerular Filt Rate > 60; Glucose Random 96 mg/dL (60-115); HDL Cholesterol 23 mg/dL (>40); LDL Cholesterol Calculated 92 mg/dL (<100); Potassium 3.5 mmol/L (3.3-5.1); Sodium 143 mmol/L (135-145); Total Protein 8.5 g/dL (6.5-8.0); Triglycerides 154 mg/dL (<150)
[2024-05-28 17:10] LABS: TSH reflex Free T4 < 0.01 uIU/mL (0.32-4.0)
[2024-05-28 18:12] LABS: Free T4 (Free Thyroxine) 2.26 ng/dL (0.71-1.85)
== END 2024-05-28 15:00 | disposition home or self-care (01) ==
LOC: HO.HHCL 14:59
PROVIDERS: Internal Medicine; Visit Provider Internal Medicine Geriatric Medicine
DX: D69.3 Immune thrombocytopenic purpura (principal); I10 Essential (primary) hypertension; R63.4 Abnormal weight loss
CPT/HCPCS: 36415; 80053; 80061; 84439; 84443; 85025

== ENCOUNTER 2024-06-01 09:08 | Emergency (ER) | payer OTHER, SELFPAY ==
--- NOTE | ~2024-06-01 | CT_ITS ---
CLINICAL HISTORY: left sided CP, elevated d-dimer CTA chest with 3-D postprocessing Comparison: CR/SR - XR CHEST 2V - 05/27/24 11:50 EST Findings: Study quality is adequate for the diagnosis of pulmonary embolism. No pulmonary embolism. Heart size within normal limits. RV/LV ratio is normal. No calcified coronary artery disease. No aortic dissection or aneurysm. No calcified atherosclerotic disease. No mediastinal or hilar lymphadenopathy. Lymphadenopathy in the bilateral axilla measures up to 1.5 cm in short axis. Prominent thymic tissue measuring 2.8 cm in anterior-posterior dimension with convex margins. Left lower lobe subsegmental atelectasis versus linear scarring. No pneumothorax or pleural effusion. No acute osseous or soft tissue abnormality. No acute pathology in the imaged portion of the upper abdomen. Cholelithiasis. No gallbladder wall thickening or pericholecystic fluid. Status post splenectomy. Colonic diverticulosis. Impression: No pulmonary embolism. Enlarged thymus could be secondary to thymic hyperplasia and can be further evaluated with nonemergent chest MR. Axillary lymphadenopathy of uncertain etiology. This document has been electronically signed by: Elinor Bermudez MD on 06/01/2024 13:25:03
--- NOTE | 2024-06-01 09:09 | ECG_ITS ---
Test Reason : CP Blood Pressure : */* mmHG Vent. Rate : 83 BPM Atrial Rate : 83 BPM P-R Int : 164 ms QRS Dur : 86 ms QT Int : 378 ms P-R-T Axes : 73 92 76 degrees QTcB Int : 444 ms Normal sinus rhythm Rightward axis Borderline ECG No previous ECGs available Referred By: Generic ED Physician Electronically Signed By: Edgar Sena
[2024-06-01 09:18] VITALS: BP 121/46; PULSE 83; RESP 16; TEMP 36.8; O2SAT 96; BMI 31.1
--- NOTE | 2024-06-01 09:54 | ED.GENADULT ---
HPI - General Adult General Chief complaint: Weakness Stated complaint: chest pressure w/ multiple symptoms Time Seen by Provider: 06/01/24 09:54 History of Present Illness ED Provider: Stephen CARRILLO narrative: The patient is a 53-year-old woman who presents with multiple complaints over the last several weeks. She has had a cough, she has had left-sided chest pain, she says she has passed out a couple of times. She has been feeling weak. She has had a poor appetite. She has had weight loss. She has had body aches. She has had vision changes. She has had tremors. She thinks she might have had a fever a couple of times over the last few weeks but she did not check her temperature. She was prescribed doxycycline by her ENT doctor a month ago for sinusitis but she was later told to stop the antibiotics by her pallet stone positioner. She sees a pallet stone positioner because of a history of chronic idiopathic thrombocytopenia. She also says that she is constipated and has trouble passing stools. The patient is on duloxetine. She was prescribed this about 2 months ago for pains related to fibromyalgia. She reports having been taking a lot of ibuprofen before the duloxetine. So far she does not feel that the duloxetine has been providing any relief. Related Data Home Medications ?Medication ?Instructions ?Recorded ?Confirmed ibuprofen 800 mg tablet 1 tab PO TID 09/07/20 05/28/24 duloxetine 20 mg capsule,delayed 20 mg PO DAILY 09/14/23 05/28/24 release sertraline 25 mg tablet 25 mg PO QAM 09/14/23 05/28/24 Previous Rx's ?Medication ?Instructions ?Recorded acetaminophen 325 mg tablet 650 mg (2 x 325 mg) PO Q6H PRN 01/08/21 (Tylenol) fever or pain #10 tabs duloxetine 20 mg capsule,delayed 20 mg PO BID #60 caps 10/02/23 release polyethylene glycol 3350 17 gram 17 g PO DAILY #14 ea 06/01/24 oral powder packet (Miralax) Allergies Allergy/AdvReac Type Severity Reaction Status Date / Time melatonin [MELATONIN] Allergy Unknown FACIAL Verified 06/01/24 09:29 REDNESS & EDEMA ASPERGILLUS Allergy Unknown HIVES Uncoded 11/20/23 10:07 Review of Systems Review of Systems: Yes all other systems are reviewed and are negative [facility] Past Medical History Medical History (Updated 06/01/24 @ 13:43 by Cayetano Mitchell MD) Fibromyalgia Depression Family History Family History Father Tonsillar cancer Hypertension Paternal Grandmother Hypertension Social History Social History Household Members: Spouse and Family Alcohol intake: never Patient Tobacco Use Status: Never used Tobacco service: No Current occupational status: employed Physical Exam ED Vital Signs: Vital Signs - 24 hr 06/01/24 09:18 06/01/24 11:51 06/01/24 13:50 Temperature 98.2 F Pulse Rate 83 82 78 Respiratory Rate 16 16 16 Blood Pressure 121/46 L 137/62 138/66 Pulse Oximetry 96 96 96 Oxygen Delivery Method Room Air Room Air Room Air 06/01/24 14:09 Temperature 98.0 F Pulse Rate 78 Respiratory Rate 16 Blood Pressure 138/66 Pulse Oximetry 96 Oxygen Delivery Method Room Air BMI result Body Mass Index 31.1 Const Other: The patient is awake and alert. She does not appear in acute distress. HENMT Other: Face is symmetrical. Mucous membranes moist. Eyes General: appearance normal, both eyes and all related structures Neck Neck: Yes full ROM and Yes no lymphadenopathy Chest Other: Possibly some left chest reproducible tenderness. Resp Effort & Inspection: normal respiratory effort Auscultation: clear to auscultation bilaterally Cardio Rate: regular rate Rhythm: regular rhythm Heart sounds: S1 normal heart sound present and S2 normal heart sound present GI Other: Abdomen is soft and not markedly tender. Skin Other: Skin is dry and unremarkable Neuro Other: The patient is awake and alert with a normal mental status. Cranial nerves are intact. She moves her extremities symmetrically and seems grossly neurologically intact. Extrem Other: No calf swelling or tenderness. No peripheral edema. No asymmetry. Medications Administered Discontinued Medications Generic Name Dose Route Start Last Admin Trade Name Freq PRN Reason Stop Dose Admin Sodium Chloride 1,000 mls @ 999 mls/hr 06/01/24 11:45 06/01/24 13:44 Ns IV 06/01/24 12:45 Infused .Q1H1M PABLO Infusion Iohexol 65 ml 06/01/24 12:19 06/01/24 12:20 Iohexol 350 Mg/Ml 100 Ml Infus..Btl IV 06/01/24 12:20 65 ml ONCE ONE Administration Ketorolac Tromethamine 10 mg 06/01/24 13:33 06/01/24 13:46 Ketorolac Tromethamine 15 Mg/Ml Vial IVPUSH 06/01/24 13:34 10 mg ONCE ONE Administration Polyethylene Glycol 17 gm 06/01/24 13:33 06/01/24 13:46 Polyethylene Glycol 3350 17 Gm Powd.Pack PO 06/01/24 13:34 17 gm ONCE ONE Administration Medical Decision Making Medical Decision Making [facility] Narrative: The patient is a 53-year-old female who presents with a multiple complaints today. These complaints seemed to have been present over the last several weeks. She was recently seen at her PCP's office and found to have an undetectable TSH. She was referred to endocrinology. Clinically the patient did not look obviously acutely ill in her vital signs were unremarkable. Multiple blood tests were sent including a D-dimer. The D-dimer was sent because of her complaint of left-sided chest pain. Her D-dimer came back elevated and a CT pulmonary angiogram of the chest was done. This does not show any pulmonary embolism. With regard to the lungs (the patient has been complaining of a persistent cough among other things) there is some left lower lobe subsegmental atelectasis versus linear scarring but no other acute pulmonary findings. Within the chest however there is prominent thymic tissue with a recommendation for possible nonemergent chest MR. There was also a finding of axillary lymphadenopathy of uncertain etiology. No mediastinal or hilar lymphadenopathy however. The patient's workup was otherwise largely unremarkable. Her TSH is still undetectable. Given that she has findings of thymus enlargement it certainly seems this patient needs to see an title i director. I do not know what to make of the axillary adenopathy. It is clear the patient will require further evaluation but I am not finding anything that indicates hospitalization today or any other process which I think requires further investigation in the emergency room today. The patient was therefore discharged. She has been complaining of constipation. She was given a prescription for MiraLax. Lab Data 06/01/24 10:49 06/01/24 10:49 Labs: Lab Results 06/01/24 06/01/24 Range/Units 10:45 10:49 WBC 11.0 H (4.8-10.8) X10*3/uL RBC 4.62 (4.20-5.50) X10*6/uL Hgb 11.9 L (12.0-16.0) g/dl Hct 36.8 L (37.0-47.0) % MCV 79.7 L (80.0-98.0) fL MCH 25.8 L (27.0-33.0) pg MCHC 32.3 (31.0-35.0) g/dl RDW 13.9 (11.0-16.0) % Plt Count 34 L (160-400) X10*3/uL MPV Not Reportable Immature Gran % (Auto) 0.3 (0.0-0.4) % Neut % (Auto) 50.2 (45-73) % Lymph % (Auto) 37.2 (20-40) % [place] % (Auto) 8.2 (2-11) % Eos % (Auto) 3.6 (0-4) % Baso % (Auto) 0.5 (0-2) % Lymph # (Auto) 4.1 (1.2-4.9) X10*3/uL [place] # (Auto) 0.9 (0.1-1.2) X10*3/uL Eos # (Auto) 0.4 (0.0-0.4) X10*3/uL Baso # (Auto) 0.1 (0.0-0.2) X10*3/uL Abs Immat Gran (auto) 0.03 (0.00-0.03) X10*3/uL Absolute Neuts (auto) 5.5 (2.0-8.3) x10*3/uL Absolute Nucleated RBC 0.000 (0.0-0.012) X10*3/uL Nucleated RBC % (auto) 0.0 (0.0-0.2) /100WBC D-Dimer High Sensitivty 297 NG/ML Sodium 143 (135-145) mmol/L Potassium 3.6 (3.3-5.1) mmol/L Chloride 112 H (96-108) mmol/L Carbon Dioxide 23 (22-29) mmol/L Anion Gap 12 (12-20) BUN 13 (9-16) mg/dL Creatinine 0.47 L (0.5-1.4) mg/dL Estim Creat Clear Calc 130.0 Estimated GFR > 60 Random Glucose 97 (60-115) mg/dL Calcium 9.8 (8.4-10.2) mg/dL Magnesium 1.9 (1.6-2.6) mg/dL Total Bilirubin 0.8 (0.0-1.0) mg/dL Direct Bilirubin 0.3 (0.0-0.5) mg/dL AST 22 (5-31) U/L ALT 24 (0-31) U/L Alkaline Phosphatase 102 (39-117) U/L Troponin I High Sens < 2.7 (<3.5-17.0) ng/L C-Reactive Protein 1.32 H (< or = 0.50) mg/dL B-Natriuretic Peptide 286 H (<100) pg/mL Total Protein 8.0 (6.5-8.0) g/dL Albumin 3.7 (3.5-5.0) g/dL TSH < 0.01 L (0.32-4.0) uIU/mL Urine Color Yellow Urine Appearance Clear Urine pH 5.5 (5.0-9.0) Ur Specific [place] 1.025 (1.005-1.025) Urine Protein Trace (Neg-Trace) mg/dL Urine Glucose (UA) Negative (Negative) mg/dL Urine Ketones Trace (Negative) mg/dL Urine Blood Negative (Negative) Urine Nitrite Negative (Negative) Ur Leukocyte Esterase Negative (Negative) Influenza Type A (PCR) NEGATIVE (Negative) Influenza Type B (PCR) NEGATIVE (Negative) RSV RNA Qual (PCR) NEGATIVE (Negative) SARS-CoV-2 RNA (RT-PCR) NEGATIVE (Negative) Independent Interpretation I performed an independent interpretation of an: EKG Interpretation: EKG at 09:16 shows normal sinus rhythm at 83 beats per minute. There is a rightward axis. No definite acute findings. No old EKGs available for comparison. Discharge Plan Discharge Clinical Impression: Chest pain, Weakness, Generalized body aches, Low TSH level, Axillary adenopathy, Large thymus, Constipation Patient Disposition: Home, Self-Care Additional Instructions: Your testing today shows an enlargement of a gland in your chest called the thymus. It also shows that you have some swollen lymph nodes in your armpits. Given your low thyroid stimulating hormone level and be enlargement of the thymus on your CT scan it is very important that you follow up with the endocrinology office. Please contact the office on Monday and explained that in addition to your thyroid problems you also seemed to have an enlarged thymus. Perhaps this will help get you an earlier appointment. For your sense of being constipated I have sent a prescription for MiraLax powder to your pharmacy. Take this daily until you feel you are relieved of any constipation symptoms. Please stay in touch with your primary care doctor regarding your symptoms and any difficulty in arranging follow up. Return to the emergency room if significantly worse. Prescriptions: New polyethylene glycol 3350 [Miralax] 17 gram powder in packet 17 g PO DAILY Qty: 14 0RF No Action ibuprofen 800 mg tablet 1 tab PO TID acetaminophen [Tylenol] 325 mg tablet 650 mg PO Q6H PRN (Reason: fever or pain) Qty: 10 0RF sertraline 25 mg tablet 25 mg PO QAM duloxetine 20 mg capsule,delayed release(DR/EC) 20 mg PO DAILY duloxetine 20 mg Capsule,Delayed Release(Dr/Ec) 20 mg PO BID Qty: 60 3RF Referrals: [facility] Endocrinology [Provider Group] (Undetectable TSH, enlarged thymus on CT, bilateral axillary adenopathy) Aaron Riley MD [Primary Care Provider] - (Body pains, low TSH, enlarged thymus, axillary adenopathy) Interventions: ED Discharge Assessment Last Done: 06/01/24 14:09 Discharge Date/Time: 06/01/24 14:10 Print Language: Lao
--- OUTSIDE RECORDS SUMMARY | 2024-06-01 10:05 | XMS_ITS | Encounter Summary ---
Author Organization [employer] Address [address] [facility] [address] [place] [address] Care Team Providers Care Liquor Grinding Mill Operator Name Role Phone Aaron Riley MD Primary Care Provider [phone] Encounter Details Date Type Department Care Team ([facility] st Contact Info) Description 05/28/2024 Orders Only [facility] MEDICINE [address] [place], [place] [phone] Name, MD [place] [address] [place] [address] Social History Tobacco Use Types Packs/Day Years [...] as of this encounter Plan of Treatment Upcoming Encounters Date Type Department Care Team (Late st Contact Info) Description 08/07/2024 10:30 AM EDT Office Visit [facility] [address] [place], [place] [phone] Aaron Riley MD [address] [place], [place] [phone] documented as of this encounter Procedures Procedure Name Priority Date/Time Associated Diagnosis Comments T4, FREE Routine 05/28/2024 3:02 PM EST documented in this encounter Results * (ABNORMAL) T4, Free (05/28/2024 3:02 PM EST) Free T4 (Free Thyroxine) 2.26(H) 0.71 - 1.85 ng/dL [facility] LABS 05/28/2024 3:02 PM EST 05/28/2024 4:21 PM EST us Russell Name LAB BLOOD ORDERABLES Final Resul t [facility] [address] [place] [phone] documented in this encounter Visit Diagnoses Not on filedocumented in this encounter Additional Health Concerns Assessment Noted Time PHQ-9 Depression Total Score: 21 024 1:11 PM EDT documented as of this encounter Care Teams Liquor Grinding Mill Operator Relationship Specialty Start Date End Date Aaron Riley MD [address] [place] [phone] PCP - General Internal Medicine 04/24/18 documented as of this encounter
--- OUTSIDE RECORDS SUMMARY | 2024-06-01 10:05 | XMS_ITS | Encounter Summary ---
Author Organization [employer] Address [address] [place] [address] [place] [address] Care Team Providers Care Chief Service Dispatcher Name Role Phone Aaron Riley MD Primary Care Provider [phone] Reason for Visit * Reason Onset Date Comments Nurse Triage 12/28/2022 Encounter Details Date Type Department Care Team (Late st Contact Info) Description 12/28/2022 Telephone [facility] CHC MED & PEDS [address] [place] [address] Aaron Riley MD [address] [place] [address] Nurse Triage Social History Tobacco Use Types [...] 12/28/2022 1:53 PM EDT Triage call with [place] Pallet Stone Positioner ID [id number] Pt reports a few days ago, 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 and immediately had low [...] accepted this outcome Please contact pt at [phone] Portuguese Speaker documented in this encounter Plan of Treatment Upcoming Encounters Date Type Department Care Team (Late st Contact Info) Description 08/07/2024 10:30 AM EDT Office Visit [facility] MED & PEDS [address] [place] [address] Aaron Riley MD [address] [place] [address] documented as of this encounter Visit Diagnoses Not on filedocumented in this encounter Care Teams Chief Service Dispatcher Relationship Specialty Start Date End Date Aaron Riley MD [address] [place] [address] PCP - General Internal Medicine 04/24/18 documented as of this encounter
--- OUTSIDE RECORDS SUMMARY | 2024-06-01 10:05 | XMS_ITS | Data Portability ---
Author Organization [place] - [facility], Allergy Address [address] [facility] [address] [place] [address] Care Team Providers Care Wood Drill Operator Name Role Phone EDER DINH Primary Care Provider Assessment No assessment recorded. Plan of Treatment Reminders Order Date Submit Date Provider Last Modified By Organization Details Last Modified Time Details Appointments Establ ished 15 2024 08:30A M LUCINDA ROD MD Not available Not available Not available Lab CBC w/ auto diff 2023 024 RA[facility], [address] [facility], [address], [place], [address], 12/07/2023 03:18:39 Referral None record ed. Procedures [...] contra st 2023 024 arcadio [facility], [address] [place] [address], [address], 12/06/2023 14:37:36 XR, sinuse s, parana jasvir, 3 or more view 2024 025 [facility], [address] [place] [address], [address], 04/29/2024 13:27:40 Medication Orders doxycy scruggs hyclat e 100 mg tablet 2024 025 [facility] #[id number], [address] [place] [address], [address], 04/29/2024 13:24:54 flutic asone propio matthew 50 mcg/ac tuatio n nasal spray, suspen marco 2024 025 [facility][id number], [facility] [place], [address], 04/29/2024 13:24:55 Patient TargetsNo targets recorded. Patient InstructionsNo instructions recorded. Reason for Referral None Reported. Results Created Date Observation Date Name Description Value Unit Range Abnormal Flag Note LastModifiedBy Organization Detail LastModifiedTime 09/08/19 24 09/14/2023 PNEUM OCOCC AL AB (23 SEROT YPE) pneumo Ab type 1* 3.7 ug/mL >1.3 Not Available [facility] [address] [place], [address], 09/14/2023 00:47:32 09/08/19 24 09/14/2023 PNEUM OCOCC AL AB (23 SEROT YPE) pneumo Ab type 3* 0.5 ug/mL >1.3 below low normal Not Available [facility] [address] [place], [address], 09/14/2023 00:47:32 09/08/19 24 09/14/2023 PNEUM OCOCC AL AB (23 SEROT YPE) pneumo Ab type 4* 1.0 ug/mL >1.3 below low normal Not Available [facility] [place] [address] [place], [address], 09/14/2023 00:47:32 09/08/19 24 09/14/2023 PNEUM OCOCC AL AB (23 SEROT YPE) pneumo Ab type 8* 4.6 ug/mL >1.3 Not Available [facility] [place] [address] [place], [address], 09/14/2023 00:47:32 09/08/19 24 09/14/2023 PNEUM OCOCC AL AB (23 SEROT YPE) pneumo Ab type 9 (9N)* 2.2 ug/mL >1.3 Not Available [facility] [place] [address] [place], [address], 09/14/2023 00:47:32 09/08/19 24 09/14/2023 PNEUM OCOCC AL AB (23 SEROT YPE) pneumo Ab type 12 (12F)* <0.1 ug/mL >1.3 below low normal Not Available [facility] [place] [address] [place], [address], 09/14/2023 00:47:32 09/08/19 24 09/14/2023 PNEUM OCOCC AL AB (23 SEROT YPE) pneumo Ab type 14* 12.0 ug/mL >1.3 Not Available [facility] [place] [address] [place], [address], 09/14/2023 00:47:32 09/08/19 24 09/14/2023 PNEUM OCOCC AL AB (23 SEROT YPE) pneumo Ab type 17 (17F)* 5.3 ug/mL >1.3 Not Available [facility] [place] [address] [place], [address], 09/14/2023 00:47:32 09/08/19 24 09/14/2023 PNEUM OCOCC AL AB (23 SEROT YPE) pneumo Ab type 19 (19F)* 3.0 ug/mL >1.3 Not Available [facility] [place] [address] [place], [address], 09/14/2023 00:47:32 09/08/19 24 09/14/2023 PNEUM OCOCC AL AB (23 SEROT YPE) pneumo Ab type 2* 10.8 ug/mL >1.3 Not Available [facility] [place], [address], 09/14/2023 00:47:32 09/08/19 24 09/14/2023 PNEUM OCOCC AL AB (23 SEROT YPE) pneumo Ab type 20* 3.0 ug/mL >1.3 Not Available [facility] [place], [address], 09/14/2023 00:47:32 09/08/19 24 09/14/2023 PNEUM OCOCC AL AB (23 SEROT YPE) pneumo Ab type 22 (22F)* 1.7 ug/mL >1.3 Not Available [facility] [place], [address], 09/14/2023 00:47:32 09/08/19 24 09/14/2023 PNEUM OCOCC AL AB (23 SEROT YPE) pneumo Ab type 23 (23F)* 3.6 ug/mL >1.3 Not Available [facility] [place], [address], 09/14/2023 00:47:32 09/08/19 24 09/14/2023 PNEUM OCOCC AL AB (23 SEROT YPE) pneumo Ab type 26 (6B)* 1.9 ug/mL >1.3 Not Available [facility] [address] [place] [address] [place], [address], 09/14/2023 00:47:32 09/08/19 24 09/14/2023 PNEUM OCOCC AL AB (23 SEROT YPE) pneumo Ab type 34 (10A)* 8.3 ug/mL >1.3 Not Available [facility] [address] [place], [address], 09/14/2023 00:47:32 09/08/19 24 09/14/2023 PNEUM OCOCC AL AB (23 SEROT YPE) pneumo Ab type 43 (11A)* 2.9 ug/mL >1.3 Not Available [facility] [address] [place], [address], 09/14/2023 00:47:32 09/08/19 24 09/14/2023 PNEUM OCOCC AL AB (23 SEROT YPE) pneumo Ab type 5* 0.6 ug/mL >1.3 below low normal Not Available [facility] [address] [place], [address], 09/14/2023 00:47:32 09/08/19 24 09/14/2023 PNEUM OCOCC AL AB (23 SEROT YPE) pneumo Ab type 51 (7F)* 4.2 ug/mL >1.3 Not Available [facility] [address] [place], [address], 09/14/2023 00:47:32 09/08/19 24 09/14/2023 PNEUM OCOCC AL AB (23 SEROT YPE) pneumo Ab type 54 (15B)* 5.9 ug/mL >1.3 Not Available [facility] [address] [place], [address], 09/14/2023 00:47:32 09/08/19 24 09/14/2023 PNEUM OCOCC AL AB (23 SEROT YPE) pneumo Ab type 56 (18C)* 2.3 ug/mL >1.3 Not Available [facility] [address] [place], [address], 09/14/2023 00:47:32 09/08/19 24 09/14/2023 PNEUM OCOCC AL AB (23 SEROT YPE) pneumo Ab type 57 (19A)* 5.1 ug/mL >1.3 Not Available [facility] [address] [place], [address], 09/14/2023 00:47:32 09/08/19 24 09/14/2023 PNEUM OCOCC AL AB (23 SEROT YPE) pneumo Ab type 68 (9V)* 1.6 ug/mL >1.3 Not Available [facility] [address] [place], [address], 09/14/2023 00:47:32 09/08/19 24 09/14/2023 PNEUM OCOCC [...] Laboratories [address] [place], [address], 09/14/2023 00:47:32 12/06/19 24 12/07/2023 CBC WITH DIFFE RENTI AL/PL ATELE T WBC 14.5 x10e3 /uL 3.4-10 .8 above high normal Not Available [facility] [place] [facility] [address] [facility], [place], [address], 12/07/2023 03:18:36 12/06/19 24 12/07/2023 CBC WITH DIFFE RENTI AL/PL ATELE T RBC 4.54 x10e6 /uL 3.77-5 .28 normal Not Available [facility] ([facility] [place] [facility] [address] [place], [address], 12/07/2023 03:18:36 12/06/19 24 12/07/2023 CBC WITH DIFFE RENTI AL/PL ATELE T hemoglobin 12.9 g/dL 11.1-1 5.9 normal Not Available [facility] ([facility] [place] [facility] [address] [place], [address], 12/07/2023 03:18:36 12/06/1912/07/2023 CBC WITH DIFFE RENTI AL/PL ATELE T hematocrit 39.6 % 34.0-4 6.6 normal Not Available [facility] ([facility] [place] [facility] [address] [place], [address], 12/07/2023 03:18:36 12/06/19 24 12/07/2023 CBC WITH DIFFE RENTI AL/PL ATELE T MCV 87 fL 79-97 normal Not Available [facility] ([facility] [place] [facility]) [address] [place], [address], 12/07/2023 03:18:36 12/06/19 24 12/07/2023 CBC WITH DIFFE RENTI AL/PL ATELE T MCH 28.4 pg 26.6-3 3.0 normal Not Available [facility] ([facility] [place] [facility]) [address] [place], [address], 12/07/2023 03:18:36 12/06/1912/07/2023 CBC WITH DIFFE RENTI AL/PL ATELE T MCHC 32.6 g/dL 31.5-3 5.7 normal Not Available [facility] ([facility] [place] [facility]) [address] [place], [address], 12/07/2023 03:18:36 08/14/12/07/2023 CBC WITH DIFFE RENTI AL/PL ATELE T RDW 13.3 % 11.7-1 5.4 Not Available [facility] ([facility] [place] [facility]) [address] [facility], [place], [address], 12/07/2023 03:18:36 12/06/19 24 12/07/2023 CBC WITH DIFFE RENTI AL/PL ATELE T platelets 58 x10e3 /uL 150-45 0 alert low Not Available [facility] ([facility] [place] [facility]) [address] [facility], [place], [address], 12/07/2023 03:18:36 12/06/19 24 12/07/2023 CBC WITH DIFFE RENTI AL/PL ATELE T neutrophils 55 % not estab. normal Not Available [facility] ([facility] [place] [facility] [address] [facility], [place], [address], 12/07/2023 03:18:36 12/06/19 24 12/07/2023 CBC WITH DIFFE RENTI AL/PL ATELE T lymphs 35 % not estab. normal Not Available [facility] ([facility] [place] [facility] [address] [facility], [place], [address], 12/07/2023 03:18:36 12/06/19 24 12/07/2023 CBC WITH DIFFE RENTI AL/PL ATELE T monocytes 6 % not estab. normal Not Available [facility] ([facility] [place] [facility] [address] [facility], [place], [address], 12/07/2023 03:18:36 12/06/19 24 12/07/2023 CBC WITH DIFFE RENTI AL/PL ATELE T eos 2 % not estab. normal Not Available [facility] ([facility] [place] [facility] [address] [facility], [place], [address], 12/07/2023 03:18:36 12/06/19 24 12/07/2023 CBC WITH DIFFE RENTI AL/PL ATELE T basos 1 % not estab. normal Not Available [facility] ([facility] [place] [place] [facility] [address] [facility], [place], [address], 12/07/2023 03:18:36 12/06/19 24 12/07/2023 CBC WITH DIFFE RENTI AL/PL ATELE T immature cells ELECTRICIAN SUPERVISOR Not Available [facility] ([facility] [place] [facility] [address] [facility], [place], [address], 12/07/2023 03:18:36 12/06/19 24 12/07/2023 CBC WITH DIFFE RENTI AL/PL ATELE T neutrophils (absolute) 8.0 x10e3 /uL 1.4-7. 0 above high normal Not Available [facility] ([facility] [place] [facility] [address] [facility], [place], [address], 12/07/2023 03:18:36 12/06/19 24 12/07/2023 CBC WITH DIFFE RENTI AL/PL ATELE T lymphs (absolute) 5.1 x10e3 /uL 0.7-3. 1 above high normal Not Available [facility] ([facility] [place] [facility]) [address] [place], [address], 12/07/2023 03:18:36 12/06/19 24 12/07/2023 CBC WITH DIFFE RENTI AL/PL ATELE T monocytes(ab solute) 0.9 x10e3 /uL 0.1-0. 9 normal Not Available [facility] ([facility] [address] [place], [address], 12/07/2023 03:18:36 12/06/19 24 12/07/2023 CBC WITH DIFFE RENTI AL/PL ATELE T eos (absolute) 0.3 x10e3 /uL 0.0-0. 4 normal Not Available [facility] ([facility] [place] [facility] [address] [facility], [place], [address], 12/07/2023 03:18:36 12/06/19 24 12/07/2023 CBC WITH DIFFE RENTI AL/PL ATELE T baso (absolute) 0.1 x10e3 /uL 0.0-0. 2 normal Not Available [facility] ([facility] [place] [facility] [address] [facility], [place], [address], 12/07/2023 03:18:36 12/06/19 24 12/07/2023 CBC WITH DIFFE RENTI AL/PL ATELE T immature granulocytes 1 % not estab. Not Available [facility] ([facility] [place] [facility] [address] [facility], [place], [address], 12/07/2023 03:18:36 12/06/19 24 12/07/2023 CBC WITH DIFFE RENTI AL/PL ATELE T immature grans (abs) 0.1 x10e3 /uL 0.0-0. 1 Not Available [facility] ([facility] [place] [facility] [address] [facility], [place], [address], 12/07/2023 03:18:36 12/06/19 24 12/07/2023 CBC WITH DIFFE RENTI AL/PL ATELE T NRBC ELECTRICIAN SUPERVISOR Not Available [facility] ([facility] [place] [facility] [address] [facility], [place], [address], 12/07/2023 03:18:36 12/06/19 24 12/07/2023 CBC WITH DIFFE RENTI AL/PL ATELE T hematology comments: Note: Verif ied by micro aubreyi c gaili philipp n. Not Available [facility] ([facility] [address] [facility], [place], [address], 12/07/2023 03:18:36 12/06/19 CT, sinus es, w/o contr ast No observ ation record ed. arcadio [facility] Of [address], [place], [address], 12/06/2023 14:37:32 12/07/19 24 12/06/2023 CT, sinus es, w/o contr ast No observ ation record ed. [facility] [address] [address], [place], [address], 12/08/2023 08:26:47 04/29/19 25 XR, sinus es, paran koby, 3 or more view No observ ation record ed. [facility] [address] [place], [address], 04/29/2024 13:26:24 Result Notes None recorded. Problems Name Problem SNOMED Code Status Onset Date Resolution Date Notes Provider Name and Address Organization Details Recorded Time Chronic left maxillary sinusitis 8132225881044 9101 Active 2023 LUCINDA ROD MD [address] [address], [place], [address], [facility] - [facility] 4 14:01:22 Secondary immune deficiency disorder 84506490 Active 2023 LUCINDA ROD MD [address] [address], [place], [address], [place] - [facility] [place] 4 14:04:03 Chronic sinusitis 37507918 Active 2023 LUCINDA ROD MD [address] [address], [place], [address], [place] - [facility] [place] 4 14:50:19 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 Procedures Surgical History Date Name Laterality Status Provider Name and Address Organization Details Recorded Time 5 JMSNasal/Sinus Endoscopy completed LUCINDA SPANGLER MD [address] [place] [address], [address], [facility] - [facility] 04/29/2024 13:25:10 4 JMSNasal/Sinus Endoscopy completed LUCINDA SPANGLER MD [address] [place] [address], [address], [facility] - [facility] 09/08/2023 14:50:15 7 dilation and curettage of uterus completed LUCINDA SPANGLER MD [address] [place] [address], [address], [facility] - [facility] 09/08/2023 16:09:45 Removal of spleen total completed LUCINDA SPANGLER MD [address] [place] [address], [address], [facility] 09/08/2023 16:07:25 Imaging Results Imaging Date Name Status LastModified by Organiz ation Details LastModified Time 12/06/2023 CT, sinuses, w/o contrast [facility] [address], [address], 12/06/2023 14:37:32 12/06/2023 CT, sinuses, w/o contrast completed [facility] Of [address], [address], 12/08/2023 08:26:47 04/29/2024 XR, sinuses, paranasal, 3 or more view completed arcadio [facility] Of [address], [address], 04/29/2024 13:26:24 Procedure Notes None recorded. Medical [...] propionate 50 mcg/actuatio n nasal spray,suspen marco [place] 2 sprays twice a day by intranasal [...] vera [place] - [facility] 09/08/2023 15:07:06 What Is Your Level Of Alcohol Consumption? None [email or web address] Information not available 09/08/2023 Do You Use Any Illicit Or Recreational Drugs? No [email or web address] Information not available 09/08/2023 Do You Or Have You Ever Used Any Other Forms Of Tobacco Or Nicotine? No [email or web address] Information not available 09/08/2023 Sex: Unknown Functional [...] Note 717 LUCINDA CEBALLOS MD [facility] [address] [address] 09/08/2023 14:01:25 09/08/2023 16:43:49 Chronic sinusitis 77790596 J32.9 Patient with history of ITP status [...] in 6 to 8 weeks Immune thrombocytopenia 3170408 D69.3 Immunodefi ciency disorder 114432662 D84.9 57914 LUCINDA CEBALLOS MD [facility] [address] [place] [address] 12/06/2023 13:51:06 12/06/2023 14:39:48 Chronic sinusitis 22126338 J32.9 Patient with history of ITP status [...] gave her a sinus surgery brochure in Turkish. All questions answeredco ntinue flonase and saline spray Please contact my enterprise business architect, Melony, at to schedule the procedure. The [...] scheduled in the near future. Immune thrombocytopenia 4301648 D69.3 Immunodefi ciency disorder 114912572 D84.9 [address] LUCINDA CEBALLOS MD [facility] [address] [place] [address] 04/29/2024 13:01:15 04/29/2024 13:27:40 Chronic sinusitis 96219128 J32.9 Patient with history of ITP status [...] another course of doxycyclin e. Immune thrombocytopenia 8463721 D69.3 Chronic rhinitis 1083637 6 J31.0 Health Concerns Section Related Observation LastModified by Organization Detai ls LastModified Time None Recorded Concern Status LastModified by Organization Details LastModified Time None Recorded Advance Directives Directive None Recorded Payers Encounter Date Sequence Insurance Name Policy Number Policy Morales Covered Member ID Morales Member ID Guarantor Name 09/08/2023 1 [place] [facility] [facility] (MEDICAID) Liz Rene [id number] Liz Rene 12/06/2023 1 [place] [facility] Liz Rene [id number] Liz Rene 04/29/2024 1 [facility] NET PLAN (MEDICAID HMO) [id number] Liz Rene [id number] Liz Rene Notes Date Note Type Note [...] platelet count of 44,000. LUCINDA SPANGLER MD [address] [place] [address], [place], [address], [facility] - [facility] 09/08/2023 16:10:21 12/06/2023 text/html Patient seen [...] to 8 weeks LUCINDA SPANGLER MD [address] [facility],[address] [address], [place], [address], [place] - [facility] 12/06/2023 15:06:12 04/29/2024 text/html 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 When I last saw her over the summer her platelet count was 58,000. She reports having a normal platelet count recently in [place]. Unfortunately I do not have access to their system. She notes persistent congestion and pressure especially in the frontal region. She is followed by Dr. Walt LevyPrevious CT scan showed maxillary sinus disease with hypoplastic frontal sinusesDeclines interpreter and translator and is able to discuss everything in Serbian LUCINDA SPANGLER MD [address] [facility] [address], [place], [address], [place] - [facility] 04/29/2024 13:26:38 OBGyn Episode No OBEpisode recorded.
--- OUTSIDE RECORDS SUMMARY | 2024-06-01 10:05 | XMS_ITS | Encounter Summary ---
Author Organization [employer] Address [address] [place] [address] Care Team Providers Care Die Engraver Name Role Phone Aaron Riley MD Primary Care Provider [phone] Reason for Visit * Reason Onset Date Comments No Show 05/07/2024 Encounter Details Date Type Department Care Team ([facility] st Contact Info) Description 05/07/2024 Telephone [facility] [address] [place] [address] Aaron Riley MD [address] [place] [address] No Show Social History Tobacco Use Types [...] Description 08/07/2024 10:30 AM EDT Office Visit [facility] [address] [place] [address] Aaron Riley MD [address] [place] [address] documented as of this encounter Visit Diagnoses Not on filedocumented in this encounter Additional Health Concerns Assessment Noted Time PHQ-9 Depression Total Score: 21 024 1:11 PM EDT documented as of this encounter Care Teams Die Engraver Relationship Specialty Start Date End Date Aaron Riley MD [address] [place] [address] PCP - General Internal Medicine 04/24/18 documented as of this encounter
--- OUTSIDE RECORDS SUMMARY | 2024-06-01 10:05 | XMS_ITS | Encounter Summary ---
Author Organization [employer] Address [address] [place] [address] [address], [place] [address] Care Team Providers Care Hammer Fitter Name Role Phone Aaron Riley MD Primary Care Provider [phone] Reason for Referral * Imaging (Routine) - Authorized Specialty Diagnoses / Procedures Referred By Contac t Referred To Contact Radiology Diagnoses Other thyrotoxicosis without thyrotoxic crisis or storm Procedures NM Thyroid Uptake Aaron Riley MD [address] [place] [address] Phone: tel: fax: [address] Phone: tel: fax: Referral ID Status Reason Start Date Expiration Date V isits Requested Visits Authorized [id number] Authorized 05/29/2024 05/29/2025 3 3 * Consultation (Routine) - Authorized Specialty Diagnoses / Procedures Referred By Contac t Referred To Contact Endocrinology Diagnoses Other thyrotoxicosis without thyrotoxic crisis or storm Aaron Riley MD [address] [place] [address] Phone: tel: fax: [facility] Endocrinology [address] [place] [address] Phone: tel: fax: Referral ID Status Reason Start Date Expiration Date Visits Requested Visits Authorized [id number] Authorized Specialty Services Required 05/29/2024 05/29/2025 1 1 Encounter Details Date Type Department Care Team (Late st Contact Info) Description 05/29/2024 Orders Only [facility]EDS [address] [place] [address] Aaron Riley MD [address] [place] [address] 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) Social History Tobacco Use Types [...] Description 08/07/2024 10:30 AM EDT Office Visit [facility] [address] [place] [address] Aaron Riley MD [address] [place] [address] Scheduled Orders Name Type Priority Associated Diagnoses Orde r Schedule NM Thyroid Uptake Imaging Routine Other thyrotoxicosis without thyrotoxic crisis or storm Expected: 05/29/2024, Expires: 05/29/2025 Scheduled Referrals Name Type Priority Associated Diagnoses Orde r Schedule Referral to Endocrinology Outpatient Referral Routine Other thyrotoxicosis without thyrotoxic crisis or storm Expected: 05/29/2024 (Approximate), Expires: 05/29/2025 documented as of this encounter Visit Diagnoses Diagnosis Other thyrotoxicosis without thyrotoxic crisis or storm- Primary documented in this encounter Additional Health Concerns Assessment Noted Time PHQ-9 Depression Total Score: 21 024 1:11 PM EDT documented as of this encounter Care Teams Hammer Fitter Relationship Specialty Start Date End Date Aaron Riley MD [address] [place] [address] PCP - General Internal Medicine 04/24/18 documented as of this encounter
--- OUTSIDE RECORDS SUMMARY | 2024-06-01 10:05 | XMS_ITS | Encounter Summary ---
Author Organization [employer] Address [address] [facility] 7t [place] [address] Care Team Providers Care Grip Wrapper Name Role Phone Aaron Riley MD Primary Care Provider +1 [phone] Reason for Visit * Reason Comments Generalized Body Aches Encounter Details Date Type Department Care Team ([facility] st Contact Info) Description 05/25/2024 11:20 AM EST Office Visit [facility] [address] [place] [address] [phone] NameRussell MD [address] [place] [address] [phone] Weight loss (Primary Dx); Subacute cough Social [...] 6.2 ! QC Media Lot # [id number] !: Data is abnormal Assessment/Plan Diagnoses and [...] cough - XR Chest 2 Views; Future * Tanna Perry RN - 05/25/2024 11:20 AM EST TC to patient to via english and reading instructor. Reviewed lab results and recommendations. Patient verbally stated understanding and agrees with the plan. All questions and concerns were addresses. documented in this encounter Plan of Treatment Upcoming Encounters Date Type Department Care Team (Late st Contact Info) Description 08/07/2024 10:30 AM EDT Office Visit [facility] [address] [place] [address] Aaron Riley MD [address] [place] [address] documented as of this encounter Procedures Procedure Name Priority Date/Time Associated Diagnosis Comments TSH W/REFLEX TO FT4 Routine 05/28/2024 3 :02 PM EST Weight loss XR CHEST 2 VIEWS Routine 05/27/2024 11:2 6 AM EST Subacute cough POCT GLYCATED HEMOGLOBIN, TOTAL Routine 05/25/2024 11:38 AM EST Weight loss POCT GLUCOSE Routine 05/25/2024 11:37 AM EST Weight loss documented in this encounter Results * (ABNORMAL) TSH W/Reflex to FT4 (05/28/2024 3:02 PM EST) TSH reflex Free T4 <0.01(L) 0.32 - 4.0 uIU/mL [facility] Blood Venous blood specimen / Unknown 05/28/2024 3:02 PM EST 05/28/2024 4:21 PM EST us Russell River MD LAB BLOOD ORDERABLES Final Resul t [facility] [address] [place] [address] [phone] * XR Chest 2 Views (05/27/2024 11:26 AM EST) Anatomical Region Laterality Modality Chest Radiographic Domi ging 05/27/2024 11:2 6 AM EST Narrative 05/27/2024 12:37 PM EST ? [facility] ?[address] ?[place] [address] ?XRay Report ? Signed ? Patient: Rene,Liz ?MR#: [id number] ?? 24 ? : 1970 ?Acct:[id number] ? Age/Sex: 53 / F ?ADM Date: 05/27/ ? Loc: HO.HHCL ? Attending Dr: Walt Levy MD ? Ordering Physician: Russell River MD ?? Date of Service: 05/27/24 ?? Procedure(s): XR chest 2V ?? Accession Number(s): [id number] ? cc: Aleta,Russell DODGE ? EXAMINATION: ??XR CHEST 2 VIEWS ? [...] ??Jered Silva MD ??05/27/2024 12:34 PM EST ? Dictated By: ?Jered Silva MD ? Signed By: ?<Electronically signed by Jered Silva MD in OV> ?05/27/24 1234 ? DD/ 1126 ? TD/TT: 05/27/24 1155 ? Drug Abuse Program Coordinator: ? Procedure Note Nickolas, Image - 05/27/2024 [place] [address] XRay Report Signed Patient: Marycarmen López#: [id number] 24 : 1970Acct:[id number] Age/Sex: 53 / FADM Date: 05/27/24 Loc: HO.HHCL Attending Dr: Walt Levy MD Ordering Physician: Russell River MD Date of Service: 05/27/24 Procedure(s): XR chest 2V Accession Number(s): [id number] cc: Russell River MD EXAMINATION: XR CHEST [...] 05/27/24 1234 DD/ 1126 TD/TT: 05/27/24 1155 Drug Abuse Program Coordinator: us Russell River MD IMG XR PROCEDURES Final Result * (ABNORMAL) POCT HGB A1C (05/25/2024 11:38 AM EST) Hemoglobin A1C 6.2(A) 4.0 - 6.0 % QC Media Lot # [id number] Lot# Expiration Date [id number] Swab 05/25/2024 11:3 8 AM EST us Russell River MD POINT OF CARE TEST ENTER/EDIT OR DERABLES Final Result * POCT Glucose (05/25/2024 11:37 AM EST) Glucose Blood, POC 108 60 - 200 mg/dL QC Media Lot # [id number] Lot# Expiration Date [id number] Blood Capillary blood specimen / Unknown 05/25/2024 [...] documented as of this encounter Care Teams Grip Wrapper Relationship Specialty Start Date End Date Aaron Riley MD [address] [place] [phone] PCP - General Internal Medicine 04/24/18 documented as of this encounter
--- OUTSIDE RECORDS SUMMARY | 2024-06-01 10:05 | XMS_ITS | Encounter Summary ---
Author Organization [employer] Address [address] [place] [address] Care Team Providers Care Digital Marketing Manager Name Role Phone Aaron Riley MD Primary Care Provider [phone]- [phone] Reason for Visit * Reason Onset Date Comments Results 05/28/2024 Encounter Details Date Type Department Care Team ([facility] st Contact Info) Description 05/28/2024 Telephone [facility] [address] [place], [place] [phone] Aaron Riley MD [address] [place] [address] Results Social History Tobacco Use Types Packs/Day [...] encounter Miscellaneous Notes * Telephone Encounter - Brittany Morton - 05/31/2024 2:57 PM EST Tc from pt requesting to speak with PCP regarding results. Car Mover advise pt of referrals and provided contact number to endocrinology . Pt expressed concerns. Denied triage. Pt only wants to speak toPCP. Car Mover advise will send a message. Contact pt at [phone] (burundian) * Telephone Encounter - Maureen Whitaker RN - 05/29/2024 4:40 PM EST TC placed to pt via m[employer]ASH language interpreter (Vanda ID#[id number]) per provider message, She has hyperthyroidism. I already informed her PCP. He already put referrals to thyroid uptake scan and endocrinology for her. Please let her know. Pt reports she was already told by a nurse about her lab results and that a referral was placed for endocrinology. Pt denies any questions or concerns at this time. * Telephone Encounter - Russell River MD - 05/29/2024 4:32 PM EST She has hyperthyroidism. I already informed her PCP. He already put referrals to thyroid uptake scan and endocrinology for her. Please let her know. * Telephone Encounter - Jair Frias - 05/29/2024 3:27 PM EST Pt returning call . TSH results in system * Telephone Encounter - Tanna Mcrae RN - 05/28/2024 12:12 PM EST T/C to pt via BLS Government Affairs Manager #[id number] to advise CXR wnl and lab for tsh still needs to be collected.No answer, v/m left to return call to Blue team nurses. * Telephone Encounter - Jair Frias - 05/28/2024 11:40 AM EST Pt returning call * Telephone Encounter - Tanna Mcrae RN - 05/28/2024 11:14 AM EST CXR wnl, Tsh has yet to be collected. T/C to pt via BLS Government Affairs Manager to advise. No answer, v/m left to [...] Description 08/07/2024 10:30 AM EDT Office Visit [facility] [address] [place], [place] [phone] Aaron Riley MD [address] [place] [address] documented as of this encounter Visit Diagnoses Not on filedocumented in this encounter Additional Health Concerns Assessment Noted Time PHQ-9 Depression Total Score: 21 024 1:11 PM EDT documented as of this encounter Care Teams Digital Marketing Manager Relationship Specialty Start Date End Date Aaron Riley MD [address] [place] [address] PCP - General Internal Medicine 04/24/18 documented as of this encounter
--- OUTSIDE RECORDS SUMMARY | 2024-06-01 10:05 | XMS_ITS | Clinical Summary ---
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) 05/28/2024 Orders Only [facility] [address] [place] [address] NameRussell MD 05/28/2024 Telephone [facility] [address] [place] [address] Aaron Riley MD Results 05/25/2024 11:20 AM EST Office Visit [facility] [address] [place] [address] [phone] NameRussell MD Weight loss (Primary Dx); Subacute cough 05/25/2024 Travel 05/24/2024 Telephone [facility] [address] [place] [address] Aaron Riley MD Nurse Triage 05/07/2024 Telephone [facility] [address] [facility] [place] [address] Aaron Riley MD No Show 03/26/2024 2:00 PM EST Office Visit [facility] [address] [facility] [place] [address] Aaron Riley MD Primary hypertension (Primary Dx); [...] 03/26/2024 2:11 PM EST Plan of Treatment Upcoming Encounters Date Type Department Care Team ([facility] st Contact Info) Description 08/07/2024 10:30 AM EDT Office Visit [facility] [address] [place] [address] Aaron Riley MD [address] [place] [address] Health Maintenance Due Date Last Done Comments CT Colonography 1970 Colonoscopy 1970 Colorectal Cancer Screening 1970 FIT DNA/Cologuard 1968 FIT 1970 FOBT 1970 HIV Screening 1970 Sigmoidoscopy 1970 Alcohol/Substance Use Screening 1980 [...] (2 - Td or Tdap) 06/30/2026 06/30/2016 Lipid Panel 05/28/2029 05/28/2024 RSV Patients and Patients Aged 60 years [...] T4, FREE Routine 05/28/2024 3:02 PM EST TSH W/REFLEX TO FT4 Routine 05/28/2024 3 :02 PM EST Weight loss LIPID PANEL, STANDARD Routine 05/28/2024 3:02 PM EST Primary hypertension COMPREHENSIVE METABOLIC PANEL Routine 05/28/2024 3:02 PM EST Primary hypertension CBC WITH AUTO DIFFERENTIAL Routine 05/28/2024 3:02 PM EST Primary hypertension XR CHEST 2 VIEWS Routine 05/27/2024 11:2 6 AM EST Subacute cough POCT GLYCATED HEMOGLOBIN, TOTAL Routine 05/25/2024 11:38 AM EST Weight loss POCT GLUCOSE Routine 05/25/2024 11:37 AM EST Weight loss BI MAMMOGRAM SCREENING TOMOSYNTHESIS BILATERAL Routine 08/28/2023 3:58 PM EDT PAP SMEAR Routine 12/15/2020 12:00 AM EDT from Last 3 Months or Most Recently Relevant to Health Maintenance Results * (ABNORMAL) TSH W/Reflex to FT4 (05/28/2024 3:02 PM EST) TSH reflex Free T4 <0.01(L) 0.32 - 4.0 uIU/mL [facility] Blood Venous blood specimen / Unknown 05/28/2024 3:02 PM EST 05/28/2024 4:21 PM EST us Russell River MD LAB BLOOD ORDERABLES Final Resul t [facility] [address] [place] [phone] * (ABNORMAL) CBC auto differential (05/28/2024 3:02 PM EST) White Blood Count 10.7 4.8 - 10.8 X10*3/uL [facility] Red Blood Count 4.92 4.20 - 5.50 X10*6/uL [facility] Hemoglobin 12.7 12.0 - 16.0 g/dl [facility] Hematocrit 39.0 37.0 - 47.0 % [facility] Mean Corpuscular Volume 79.3(L) 80.0 - 98.0 fL [facility] Mean Corpuscular Hemoglobin 25.8(L) 27.0 - 33.0 pg [facility] Mean Corpuscular HGB Conc 32.6 31.0 - 35.0 g/dl [facility] Red Cell Distribution Width 14.1 11.0 - 16.0 % [facility] Platelet Count 37(L) 160 - 400 X10*3/uL [facility] Neutrophils Percent Auto 48.9 45 - 73 % [facility] Imm Gran Pct Auto 0.4 0.0 - 0.4 % [facility] Lymphocytes Percent Auto 39.0 20 - 40 % [facility] Monocytes Percent Auto 7.3 2 - 11 % [facility] Eosinophils Percent Auto 3.9 0 - 4 % [facility] Basophils Percent Auto 0.5 0 - 2 % [facility] NRBC Pct Auto 0.0 0.0 - 0.2 /100WBC [facility] Neutrophils Absolute Auto 5.3 2.0 - 8.3 x10*3/uL [facility] Imm Gran Abs Auto 0.04(H) 0.00 - 0.03 X10*3/uL [facility] Lymphocytes Absolute Auto 4.2 1.2 - 4.9 X10*3/uL [facility] Monocytes Absolute Auto 0.8 0.1 - 1.2 X10*3/uL [facility] Eosinophils Absolute Auto 0.4 0.0 - 0.4 X10*3/uL [facility] Basophils Absolute Auto 0.1 0.0 - 0.2 X10*3/uL [facility] NRBC Abs Auto 0.000 0.0 - 0.012 X10*3/uL [facility] Blood Venous blood specimen / Unknown 05/28/2024 3:02 PM EST 05/28/2024 4:21 PM EST us Aaron Riley MD LAB BLOOD ORDERABLES Final Result Performing Organization Address [facility]/ZIP Co de Phone Number [facility] [address] [place] [phone] * (ABNORMAL) T4, Free (05/28/2024 3:02 PM EST) Free T4 (Free Thyroxine) 2.26(H) 0.71 - 1.85 ng/dL [facility] 05/28/2024 3:02 PM EST 05/28/2024 4:21 PM EST Russell River MD LAB BLOOD ORDERABLES Final Resul t Performing Organization Address City/[facility]/ZIP Co de Phone Number [facility] [address] [place] [phone] * (ABNORMAL) Lipid Panel, Standard (05/28/2024 3:02 PM EST) Triglycerides 154(H) <150 mg/dL [facility] Comment:Desirable Triglyceri de: less than 150 mg/dLBorderline High Triglyceride 150-199 mg/dLHigh Triglyceride: 200-499 mg/dLVery High Triglyceride: greater than or equal to 5OO mg/dL Cholesterol 145 <200 mg/dL [facility] Comment:Desirable Cholestero l: less than 200 mg/dLBorderline High Cholesterol: 200-239 mg/dLHigh Cholesterol: greater than 239 mg/dL LDL Cholesterol Calculated 92 <100 mg/dL [facility] Comment:Desirable LDL: less than 100 mg/dLNear Optimal/Above Optimal LDL: 110- 129 mg/dLBorderline High LDL: 130-159 mg/dLHigh LDL: 160-189 mg/dLVery High LDL: greater than or equal to 190 mg/dL HDL Cholesterol 23(L) >40 mg/dL [facility] Comment:Desirable HDL: great er than 40 mg/dL Note: This HDL assay may give artificially low results in patients with liver disease. Blood Venous blood specimen / Unknown 05/28/2024 3:02 PM EST 05/28/2024 4:21 PM EST us Aaron Riley MD LAB BLOOD ORDERABLES Final Result [facility] [address] [place] [address] [phone] * (ABNORMAL) Comprehensive Metabolic Panel (05/28/2024 3:02 PM EST) Sodium 143 135 - 145 mmol/L [facility] Potassium 3.5 3.3 - 5.1 mmol/L [facility] Chloride 103 96 - 108 mmol/L [facility] Carbon Dioxide 25 22 - 29 mmol/L [facility] Anion Gap 19 12 - 20 [facility] Urea Nitrogen (BUN) 18(H) 9 - 16 mg/dL [facility] Creatinine, Serum 0.67 0.5 - 1.4 mg/dL [facility] Estimated Glomerular Filt Rate >60 [facility] Comment:Chronic Kidney Disea se: Estimated GFR < 60 mL/min/[id number] Kidney Disease: Estimated GFR < 15 mL/min/1.73m2 Glucose 96 60 - 115 mg/dL [facility] Calcium 9.8 8.4 - 10.2 mg/dL [facility] Bilirubin, Total 0.8 0.0 - 1.0 mg/dL [facility] Aspartate Amino Transferase 24 5 - 31 U/L [facility] Alanine Aminotransferase 23 0 - 31 U/L [facility] Total Protein 8.5(H) 6.5 - 8.0 g/dL [facility] Albumin Level 3.9 3.5 - 5.0 g/dL [facility] Alkaline Phosphatase 107 39 - 117 U/L [facility] Blood Venous blood specimen / Unknown 05/28/2024 3:02 PM EST 05/28/2024 4:21 PM EST us Aaron Riley MD LAB BLOOD ORDERABLES Final Result [facility] [address] [facility] [place] [address] [phone] * XR Chest 2 Views (05/27/2024 11:26 AM EST) Anatomical Region Laterality Modality Chest Radiographic Domi ging 05/27/2024 11:2 6 AM EST Narrative 05/27/2024 12:37 PM EST ? [facility] ?[address] ?[place] [address] ?XRay Report ? Signed ? Patient: Rene,Liz ?MR#: [id number] ?? 24 ? : 1970 ?Acct:[id number] ? Age/Sex: 53 / F ?ADM Date: 05/27/24 ? Loc: HO.HHCL ? Attending Dr: Walt Levy MD ? Ordering Physician: Russell River MD ?? Date of Service: 05/27/24 ?? Procedure(s): XR chest 2V ?? Accession Number(s): [id number] ? cc: Russell River MD ? EXAMINATION: [...] DD/ 1126 ? TD/TT: 05/27/24 1155 ? Rn Lactation Consultant: ? Procedure Note Donotuseinterpreter, Image - 05/27/[address] [address] XRay Report Signed Patient: Marycarmen López#: [id number] 24 : 1970Acct:[id number] Age/Sex: 53 / FADM Date: 05/27/24 Loc: HO.HHCL Attending Dr: Walt Levy MD Ordering Physician: Russell River MD Date of Service: 05/27/24 Procedure(s): XR chest 2V Accession Number(s): [id number] cc: Russell River MD EXAMINATION: XR CHEST [...] 05/27/24 1234 DD/ 1126 TD/TT: 05/27/24 1155 Rn Lactation Consultant: us Russell River MD IMG XR PROCEDURES Final Result * (ABNORMAL) POCT HGB A1C (05/25/2024 11:38 AM EST) Hemoglobin A1C 6.2(A) 4.0 - 6.0 % QC Media Lot # [id number] Lot# Expiration Date [id number] Swab 05/25/2024 11:3 8 AM EST us [...] EDT Narrative 09/28/2023 12:01 AM EDT ? [facility] [place] ? [address] ?[place] [address] ? Mammography Report ? Signed ? Patient: Rene,Liz ?MR#: [id number] ?? 24 ? : 1970 ?Acct:[id number] ? Age/Sex: 53 / F ?ADM Date: 08/28/23 ? Loc: HO.MAMMO ? Attending Dr: Aaron Tsai Beauzilottie MD ? Ordering Physician: Osvaldo,Thevenin C MD ?Results: 2 ?? Benign Findings ? Date of Service: 08/27/ ?Follow Up: 1 Year From Orig ?? inal Mammogram ? Procedure(s): MM tomosynthesis screening BI ?? Accession Number(s): [id number] ? cc: Aaron Riley MD ? EXAMINATION: [...] for their next mammogram. ? Dictated By: ?Moskos,Anastasia MD ? Signed By: ?<Electronically signed by Anastasia Goddard MD in OV> ? 09/27/237 ? DD/ 1558 ? TD/TT: ? Rn Lactation Consultant: ? Procedure Note Estiven Olmos - 09/28/2023 Y[facility] [address] [place], [place] [address] Mammography Report Signed Patient: Marycarmen López#: [id number] 24 : 1970Acct:[id number] Age/Sex: 53 / FADM Date: 08/28/23 Loc: HO.MAMMO Attending Dr: Aaron Riley MD Ordering Physician: Aaron Riley MDResults: 2 Benign Findings Date of Service: 08/28/23Follow Up: 1 Year From Orig inal Mammogram Procedure(s): MM tomosynthesis screening BI Accession Number(s): [id number] cc: Aaron Riley MD EXAMINATION: MM SCREENING [...] by Anastasia Goddard MD in OV> 09/27/23 8369 DD/ 1558 TD/TT: Rn Lactation Consultant: us Aaron Riley MD IMG BI PROCEDURES Edited Re sult - Final * Pap Smear (12/15/2020 12:00 AM EDT) Swab us Historical Provider LAB CYTOLOGY ORDERABLES F inal Result [facility] [address] [place] [address] from Last 3 Months or Most Recently Relevant to Health Maintenance Insurance [employer] [facility] [employer] Care Teams Charcoal Unloader Relationship Specialty Start Date End Date Aaron Riley MD [address] [place] [address] PCP - General Internal Medicine 04/24/18
--- OUTSIDE RECORDS SUMMARY | 2024-06-01 10:05 | XMS_ITS | Encounter Summary ---
Author Organization [email or web address] Address [address] [facility] 7t [place] [address] Care Team Providers Care Weld Technician Name Role Phone Aaron Riley MD Primary Care Provider [phone] Encounter Details Date Type Department Care Team [...] Upcoming Encounters Date Type Department Care Team ([facility] st Contact Info) Description 08/07/2024 10:30 AM EDT Office Visit [facility] [address] [place] [address] Aaron Riley MD [address] [place] [address] documented as of this encounter Visit Diagnoses Not on filedocumented in this encounter Additional Health Concerns Assessment Noted Time PHQ-9 Depression Total Score: 21 10/02/2 024 1:11 PM EDT documented as of this encounter Care Teams Weld Technician Relationship Specialty Start Date End Date Aaron Riley MD [address] [place] [address] PCP - General Internal Medicine 04/24/18 documented as of this encounter
--- OUTSIDE RECORDS SUMMARY | 2024-06-01 10:05 | XMS_ITS | Encounter Summary ---
Author Organization [employer] Address [address] [place] [address] [facility] [place] [address] Care Team Providers Care Automatic Spinning Lathe Operator Name Role Phone Aaron Riley MD Primary Care Provider [phone]- [phone] Reason for Referral * Consultation (Urgent) - Closed Specialty Diagnoses / Procedures Referred By Contac t Referred To Contact Hematology and Oncology Diagnoses Immune thrombocytopenic purpura (CMS/HCC) Aaron Riley MD [address] [place] [address] Phone: tel: fax: Walt Levy MD [address] [place] [address] Phone: tel:[phone] fax:[phone] Referral ID Status Reason Start Date Expiration Date V isits Requested Visits Authorized [id number] Closed Specialty Services Required 09/01/2023 08/31/2024 1 1 Encounter Details Date Type Department Care Team (Late st Contact Info) Description 09/01/2023 Orders Only [facility] [address] [place], [place] [phone] Aaron Riley MD [address] [place], [place] [phone] Immune thrombocytopenic purpura (CMS/HCC) (Primary Dx) Social [...] Upcoming Encounters Date Type Department Care Team ([facility] st Contact Info) Description 08/07/2024 10:30 AM EDT Office Visit [facility] [address] [place] [address] Aaron Riley MD [address] [place] [address] Scheduled Referrals Name Type Priority Associated Diagnoses [...] documented as of this encounter Care Teams Automatic Spinning Lathe Operator Relationship Specialty Start Date End Date Aaron Riley MD [address] [place] [address] PCP - General Internal Medicine 04/24/18 documented as of this encounter
--- OUTSIDE RECORDS SUMMARY | 2024-06-01 10:05 | XMS_ITS | Encounter Summary ---
Author Organization [employer] Address [address] [place] [address] Care Team Providers Care Fitness Specialist Name Role Phone Aaron Riley MD Primary Care Provider [phone]- [phone] Reason for Visit * Reason Onset Date Comments Nurse Triage 05/24/2024 Encounter Details Date Type Department Care Team ([facility] st Contact Info) Description 05/24/2024 Telephone [facility] [address] [place] [address] Aaron Riley MD [address] [place] [address] Nurse Triage Social History Tobacco Use Types [...] No PCP or Team appts available. Provided [facility] hours for tomorrow morning, Patient agrees to come to [facility] tomorrow morning. Reviewed with patient home care [...] caller accepted this outcome. 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) documented in this encounter Plan of Treatment Upcoming Encounters Date Type Department Care Team (Late st Contact Info) Description 08/07/2024 10:30 AM EDT Office Visit [facility] [address] [place] [address] Aaron Riley MD [address] [place] [address] documented as of this encounter Visit Diagnoses Not on filedocumented in this encounter Additional Health Concerns Assessment Noted Time PHQ-9 Depression Total Score: 21 024 1:11 PM EDT documented as of this encounter Care Teams Fitness Specialist Relationship Specialty Start Date End Date Aaron Riley MD [address] [place], [place] [phone] PCP - General Internal Medicine 04/24/18 documented as of this encounter
--- OUTSIDE RECORDS SUMMARY | 2024-06-01 10:05 | XMS_ITS | Encounter Summary ---
Author Organization [id number] Address [address] [place] [address] Care Team Providers Care Code Enforcement Officer Name Role Phone Aaron Riley MD Primary Care Provider [phone]- [phone] Reason for Visit * Reason Onset Date Comments Nurse Triage 01/10/2024 Encounter Details Date Type Department Care Team (Late st Contact Info) Description 01/10/2024 Telephone [facility] [address] [place] [address] Aaron Riley MD [address] [place] [address] Nurse Triage Social History Tobacco Use Types [...] EDT Triage call returned to patient with [place] Senior Site Manager [phone] Patient reports another small lesion / lump [...] Description 08/07/2024 10:30 AM EDT Office Visit [facility] [address] [place] [address] Aaron Riley MD [address] [place] [address] documented as of this encounter Visit Diagnoses Not on filedocumented in this encounter Additional Health Concerns Assessment Noted Time PHQ-9 Depression Total Score: 21 024 1:11 PM EDT documented as of this encounter Care Teams Code Enforcement Officer Relationship Specialty Start Date End Date Aaron Riley MD [address] [place] [address] PCP - General Internal Medicine 04/24/18 documented as of this encounter
[2024-06-01 10:59] LABS: MANUAL DIFF FLAG NO
[2024-06-01 11:03] LABS: Basophils Absolute Auto 0.1 X10*3/uL (0.0-0.2); Basophils Percent Auto 0.5 % (0-2); Eosinophils Absolute Auto 0.4 X10*3/uL (0.0-0.4); Eosinophils Percent Auto 3.6 % (0-4); Hematocrit 36.8 % (37.0-47.0); Hemoglobin 11.9 g/dl (12.0-16.0); Imm Gran Abs Auto 0.03 X10*3/uL (0.00-0.03); Imm Gran Pct Auto 0.3 % (0.0-0.4); Lymphocytes Absolute Auto 4.1 X10*3/uL (1.2-4.9); Lymphocytes Percent Auto 37.2 % (20-40); Mean Corpuscular HGB Conc 32.3 g/dl (31.0-35.0); Mean Corpuscular Hemoglobin 25.8 pg (27.0-33.0); Mean Corpuscular Volume 79.7 fL (80.0-98.0); Monocytes Absolute Auto 0.9 X10*3/uL (0.1-1.2); Monocytes Percent Auto 8.2 % (2-11); Neutrophils Absolute Auto 5.5 x10*3/uL (2.0-8.3); Neutrophils Percent Auto 50.2 % (45-73); Platelet Count 34 X10*3/uL (160-400); Red Blood Count 4.62 X10*6/uL (4.20-5.50); Red Cell Distribution Width 13.9 % (11.0-16.0)
--- NOTE | 2024-06-01 11:06 | PC.NURSE ---
Assumed care of this patient at 1100, apparently some issue regarding UA & lack of an order. Order was placed at 1101, Called lab, spoke to Claire, confirmed w/ Claire order in place - will run specimen.
[2024-06-01 11:10] LABS: Appearance Urine Clear; Color Urine Yellow; Glucose Urine UA Negative (Negative); Leukocyte Esterase Urine Negative (Negative); Nitrite Urine Negative (Negative); PH 5.5 (5.0-9.0); Specific Gravity - Urine 1.025 (1.005-1.025); Urine Blood Negative (Negative); Urine Ketones Trace mg/dL (Negative); Urine Protein Trace mg/dL (Neg-Trace)
[2024-06-01 11:11] LABS: D Dimer High Sensitivity 297 NG/ML
[2024-06-01 11:24] LABS: B Type Natriuretic Peptide 286 pg/mL (<100)
[2024-06-01 11:26] LABS: Alanine Aminotransferase 24 U/L (0-31); Albumin Level 3.7 g/dL (3.5-5.0); Alkaline Phosphatase 102 U/L (39-117); Anion Gap 12 (12-20); Aspartate Amino Transferase 22 U/L (5-31); Bilirubin Direct 0.3 mg/dL (0.0-0.5); Bilirubin Total 0.8 mg/dL (0.0-1.0); Blood Urea Nitrogen 13 mg/dL (9-16); C Reactive Protein 1.32 mg/dL (< or = 0.50); Calcium 9.8 mg/dL (8.4-10.2); Carbon Dioxide 23 mmol/L (22-29); Chloride 112 mmol/L (96-108); Estimated Glomerular Filt Rate > 60; Glucose Random 97 mg/dL (60-115); Magnesium 1.9 mg/dL (1.6-2.6); Potassium 3.6 mmol/L (3.3-5.1); Sodium 143 mmol/L (135-145)
[2024-06-01 11:29] LABS: Troponin-I High Sensitivity < 2.7 ng/L (<3.5-17.0)
[2024-06-01 11:37] LABS: Influenza A PCR NEGATIVE (Negative); Influenza B PCR NEGATIVE (Negative); Resp Syncy Virus RNA Qual PCR NEGATIVE (Negative); SARS COV2 PCR INHOUSE NEGATIVE (Negative)
[2024-06-01 11:49] LABS: Thyroid Stimulating Hormone < 0.01 uIU/mL (0.32-4.0)
[2024-06-01 11:51] VITALS: BP 137/62; PULSE 82; RESP 16; O2SAT 96
[2024-06-01] MEDS: 0.9 % Sodium Chloride 1,000 ML 999 ML IV (11:51)
[2024-06-01] MEDS: iohexoL 350 MG/ML 100 ML INFUS..BTL 65 ML IV (12:20)
[2024-06-01] MEDS: polyethylene glycoL 3350 17 GM POWD.PACK PO (13:46)
[2024-06-01] MEDS: Ketorolac Tromethamine 15 MG/ML VIAL 10 MG IVPUSH (13:46)
[2024-06-01 13:50] VITALS: BP 138/66; PULSE 78; RESP 16; O2SAT 96
[2024-06-01 14:09] VITALS: BP 138/66; PULSE 78; RESP 16; TEMP 36.7; O2SAT 96
== END 2024-06-01 14:10 | disposition home or self-care (01) ==
PROVIDERS: Emergency Provider Emergency Medicine; PCP Internal Medicine
DX: R07.9 Chest pain, unspecified (principal); R53.1 Weakness; R53.81 Other malaise; R59.0 Localized enlarged lymph nodes; E32.0 Persistent hyperplasia of thymus; R94.6 Abnormal results of thyroid function studies; R05.9 Cough, unspecified; K59.00 Constipation, unspecified; Z03.818 Encounter for observation for suspected exposure to other biological agents ruled out; Z79.899 Other long term (current) drug therapy
CPT/HCPCS: 0241U; 36415; 71275; 80048; 80076; 81003; 83735; 83880; 84443; 84484; 85025; 85379; 86140; 93005; 96361; 96374; 99284; 99285; J1885; Q9967

== ENCOUNTER → 2024-06-01 09:09 | Outpatient (BNV) | payer OTHER, SELFPAY | PROVIDERS: Emergency Provider Emergency Medicine; PCP Internal Medicine; Visit Provider Internal Medicine Cardiovascular Disease | DX: R07.9 Chest pain, unspecified (principal) | CPT/HCPCS: 93010 ==

== ENCOUNTER → 2024-06-01 11:38 | Outpatient (BNV) | payer OTHER, SELFPAY | PROVIDERS: Emergency Provider Emergency Medicine; PCP Internal Medicine; Visit Provider Radiology Diagnostic Radiology | DX: E32.0 Persistent hyperplasia of thymus (principal); R59.9 Enlarged lymph nodes, unspecified | CPT/HCPCS: 71275 ==

== ENCOUNTER → 2024-06-27 10:24 | Outpatient (REF) | payer OTHER, SELFPAY ==
--- NOTE | ~2024-06-27 | NM_ITS ---
EXAMINATION: NM THYROID UPTAKE AND SCAN CLINICAL INFORMATION: Thyrotoxicosis COMPARISON: None available. TECHNIQUE: Following the oral administration of 204 microcuries of I-123 sodium iodide, thyroid uptake was performed and expressed as a percentage of the administrated dose. Gamma scintillation camera images of the thyroid in the anterior and right and left anterior oblique views were obtained using a pinhole collimator following the administration of 8.2 mCi Tc-99m pertechnetate. FINDINGS: No hot or cold defects are seen on the thyroid scans. The uptake is 20.33% at 4 hours and 48.69% at 24 hours. NM/NM thyroid w uptake IMPRESSION: Elevated 24 hour uptake, suggestive of Graves' disease or early Alexandre's thyroiditis. Electronically signed by: Jered Silva MD 07/01/2024 03:09 PM EDT
--- OUTSIDE RECORDS SUMMARY | 2024-06-27 12:19 | XMS_ITS | Encounter Summary ---
Author Organization [employer] Address [address] [place] [address] [facility] [place] [address] Care Team Providers Care Supervisor Model Making Name Role Phone Aaron Riley MD Primary Care Provider [phone] Reason for Referral * Consultation (Urgent) - Closed Specialty Diagnoses / Procedures Referred By Contac t Referred To Contact Hematology and Oncology Diagnoses Immune thrombocytopenic purpura (CMS/HCC) Aaron Riley MD [address] [place] [address] Phone: tel: fax: Walt Levy MD [address] [place] [address] Phone: tel:[phone] fax:[phone] Referral ID Status Reason Start Date Expiration Date V isits Requested Visits Authorized [id number] Closed Specialty Services Required 09/01/2023 08/31/2024 1 1 Encounter Details Date Type Department Care Team (Late st Contact Info) Description 09/01/2023 Orders Only [facility] [address] [place], [place] [phone] Aaron Riley MD [address] [place], [place] [phone] Immune thrombocytopenic purpura (CMS/HCC) (Primary Dx) Social [...] Upcoming Encounters Date Type Department Care Team ([facility] st Contact Info) Description 08/07/2024 10:30 AM EDT Office Visit [facility] [address] [place] [address] Aaron Riley MD [address] [place] [address] Scheduled Referrals Name Type Priority Associated Diagnoses [...] as of this encounter Care Teams Supervisor Model Making Relationship Specialty Start Date End Date Aaron Riley MD [address] [place] [address] PCP - General Internal Medicine 04/24/18 documented as of this encounter
--- OUTSIDE RECORDS SUMMARY | 2024-06-27 12:20 | XMS_ITS | Data Portability ---
Author Organization [place] [facility], All[facility] Address [address] [place] [address] [place] [phone] Care Team Providers Care Puppet Maker Name Role Phone EDER DINH Primary Care Provider [phone] Assessment No assessment recorded. Plan of Treatment Reminders Order Date Submit Date Provider Last Modified By Organization Details Last Modified Time Details Appointments FOLLOW UP 30 2024 01:30P M LUCINDA ROD MD Not available Not available Not available Lab CBC w/ auto diff 2023 024 RAJ [facility] (Centralized Electronic Ordering - All Locations), Patient Can Go To The Location Of Their Choice, [address] 12/07/2023 03:18:39 Referral None record ed. Procedures [...] 024 [email or web address] Not available 12/06/2023 14:47:03 Imaging XR, sinuse s, parana jasvir, 3 or more view 2024 025 [email or web address] [facility], [address] [place] [address], [address], 04/29/2024 13:27:40 CT, sinuse s, w/o contra st 2023 024 [email or web address] [facility], [address] [place] [address], [phone], 12/06/2023 14:37:36 Medication Orders doxycy scruggs hyclat e 100 mg tablet 2024 025 [id number], [address] [place] [address], [address], 04/29/2024 13:24:54 flutic asone propio matthew 50 mcg/ac tuatio n nasal spray, suspen marco 2024 025 [facility][id number], [address] [place] [address], [address], 04/29/2024 13:24:55 Patient TargetsNo targets recorded. Patient InstructionsNo instructions recorded. Reason for Referral None Reported. Results Created Date Observation Date Name Description Value Unit Range Abnormal Flag Note LastModifiedBy Organization Detail LastModifiedTime 09/08/19 24 09/14/2023 PNEUM OCOCC AL AB (23 SEROT YPE) pneumo Ab type 1* 3.7 ug/mL >1.3 Not Available [facility] [address] [place], [address], 09/14/2023 00:47:32 09/08/19 24 09/14/2023 PNEUM OCOCC AL AB (23 SEROT YPE) pneumo Ab type 3* 0.5 ug/mL >1.3 below low normal Not Available [facility] [address] [place], [address], 09/14/2023 00:47:32 09/08/19 24 09/14/2023 PNEUM OCOCC AL AB (23 SEROT YPE) pneumo Ab type 4* 1.0 ug/mL >1.3 below low normal Not Available [facility] [address] [place], [address], 09/14/2023 00:47:32 09/08/19 24 09/14/2023 PNEUM OCOCC AL AB (23 SEROT YPE) pneumo Ab type 8* 4.6 ug/mL >1.3 Not Available [facility] [address] [place], [address], 09/14/2023 00:47:32 09/08/19 24 09/14/2023 PNEUM OCOCC AL AB (23 SEROT YPE) pneumo Ab type 9 (9N)* 2.2 ug/mL >1.3 Not Available [facility] [address] [place], [address], 09/14/2023 00:47:32 09/08/19 24 09/14/2023 PNEUM OCOCC AL AB (23 SEROT YPE) pneumo Ab type 12 (12F)* <0.1 ug/mL >1.3 below low normal Not Available [facility] [address] [place] [address] [place], [address], 09/14/2023 00:47:32 09/08/19 24 09/14/2023 PNEUM OCOCC AL AB (23 SEROT YPE) pneumo Ab type 14* 12.0 ug/mL >1.3 Not Available [facility] [address] [place], [address], 09/14/2023 00:47:32 09/08/19 24 09/14/2023 PNEUM OCOCC AL AB (23 SEROT YPE) pneumo Ab type 17 (17F)* 5.3 ug/mL >1.3 Not Available [facility] [address] [place] [address] [place], [address], 09/14/2023 00:47:32 09/08/19 24 09/14/2023 PNEUM OCOCC AL AB (23 SEROT YPE) pneumo Ab type 19 (19F)* 3.0 ug/mL >1.3 Not Available [facility] [address] [place], [address], 09/14/2023 00:47:32 09/08/19 24 09/14/2023 PNEUM OCOCC AL AB (23 SEROT YPE) pneumo Ab type 2* 10.8 ug/mL >1.3 Not Available [facility] [address] [place], [address], 09/14/2023 00:47:32 09/08/19 24 09/14/2023 PNEUM OCOCC AL AB (23 SEROT YPE) pneumo Ab type 20* 3.0 ug/mL >1.3 Not Available [facility] [address] [place], [address], 09/14/2023 00:47:32 09/08/19 24 09/14/2023 PNEUM OCOCC AL AB (23 SEROT YPE) pneumo Ab type 22 (22F)* 1.7 ug/mL >1.3 Not Available [facility] [place], [address], 09/14/2023 00:47:32 09/08/19 24 09/14/2023 PNEUM OCOCC AL AB (23 SEROT YPE) pneumo Ab type 23 (23F)* 3.6 ug/mL >1.3 Not Available [facility] [address] [place], [address], 09/14/2023 00:47:32 09/08/19 24 09/14/2023 PNEUM OCOCC AL AB (23 SEROT YPE) pneumo Ab type 26 (6B)* 1.9 ug/mL >1.3 Not Available [facility] [address] [place], [address], 09/14/2023 00:47:32 09/08/19 24 09/14/2023 PNEUM OCOCC AL AB (23 SEROT YPE) pneumo Ab type 34 (10A)* 8.3 ug/mL >1.3 Not Available [facility] [address] [place] [address] [place], [address], 09/14/2023 00:47:32 09/08/19 24 09/14/2023 PNEUM OCOCC AL AB (23 SEROT YPE) pneumo Ab type 43 (11A)* 2.9 ug/mL >1.3 Not Available [facility] [address] [place] [address] [place], [address], 09/14/2023 00:47:32 09/08/19 24 09/14/2023 PNEUM OCOCC AL AB (23 SEROT YPE) pneumo Ab type 5* 0.6 ug/mL >1.3 below low normal Not Available [facility] [address] [place] [address] [place], [address], 09/14/2023 00:47:32 09/08/19 24 09/14/2023 PNEUM OCOCC AL AB (23 SEROT YPE) pneumo Ab type 51 (7F)* 4.2 ug/mL >1.3 Not Available [facility] [address] [place] [address] [place], [address], 09/14/2023 00:47:32 09/08/19 24 09/14/2023 PNEUM OCOCC AL AB (23 SEROT YPE) pneumo Ab type 54 (15B)* 5.9 ug/mL >1.3 Not Available [facility] [address] [place] [address] [place], [address], 09/14/2023 00:47:32 09/08/19 24 09/14/2023 PNEUM OCOCC AL AB (23 SEROT YPE) pneumo Ab type 56 (18C)* 2.3 ug/mL >1.3 Not Available [facility] [address] [place], [address], 09/14/2023 00:47:32 09/08/19 24 09/14/2023 PNEUM OCOCC AL AB (23 SEROT YPE) pneumo Ab type 57 (19A)* 5.1 ug/mL >1.3 Not Available [facility] [address] [place], [address], 09/14/2023 00:47:32 09/08/19 24 09/14/2023 PNEUM OCOCC AL AB (23 SEROT YPE) pneumo Ab type 68 (9V)* 1.6 ug/mL >1.3 Not Available [facility] [address] [place], [address], 09/14/2023 00:47:32 09/08/19 24 09/14/2023 PNEUM OCOCC AL AB (23 SEROT YPE) pneumo Ab type 70 (33F)* 2.0 ug/mL >1.3 *This test was devsonya aparicio and its perfo rmanc e louie cteri stics deter mined by [employer] [facility]. It has not been clear ed or appro desiree by the U.S. Food and Drug Admin istra tion. FLAG Inter preta tion: A = Abnor mal, H = High, L = Low Not Available [facility] [address] [place], [address], 09/14/2023 00:47:32 12/06/19 24 12/07/2023 CBC WITH DIFFE RENTI AL/PL ATELE T WBC 14.5 x10e3 /uL 3.4-10 .8 above high normal Not Available [facility] ([facility]) [address] [facility], [place], [address], 12/07/2023 03:18:36 12/06/19 24 12/07/2023 CBC WITH DIFFE RENTI AL/PL ATELE T RBC 4.54 x10e6 /uL 3.77-5 .28 normal Not Available [facility] ([facility]) [address] [place], [address], 12/07/2023 03:18:36 12/06/19 24 12/07/2023 CBC WITH DIFFE RENTI AL/PL ATELE T hemoglobin 12.9 g/dL 11.1-1 5.9 normal Not Available [facility] ([facility]) [address] [place], [address], 12/07/2023 03:18:36 12/06/1912/07/2023 CBC WITH DIFFE RENTI AL/PL ATELE T hematocrit 39.6 % 34.0-4 6.6 normal Not Available [facility] ([facility]) [address] [place], [address], 12/07/2023 03:18:36 12/06/19 24 12/07/2023 CBC WITH DIFFE RENTI AL/PL ATELE T MCV 87 fL 79-97 normal Not Available [facility] ([facility]) [address] [place], [address], 12/07/2023 03:18:36 12/06/19 24 12/07/2023 CBC WITH DIFFE RENTI AL/PL ATELE T MCH 28.4 pg 26.6-3 3.0 normal Not Available [facility] ([facility]) [address] [place], [address], 12/07/2023 03:18:36 12/06/1912/07/2023 CBC WITH DIFFE RENTI AL/PL ATELE T MCHC 32.6 g/dL 31.5-3 5.7 normal Not Available [facility] ([facility]) [address] [place], [address], 12/07/2023 03:18:36 12/06/19 24 12/07/2023 CBC WITH DIFFE RENTI AL/PL ATELE T RDW 13.3 % 11.7-1 5.4 Not Available [facility] ([facility]) [address] [facility], [place], [address], 12/07/2023 03:18:36 12/06/19 24 12/07/2023 CBC WITH DIFFE RENTI AL/PL ATELE T platelets 58 x10e3 /uL 150-45 0 alert low Not Available [facility] ([facility]) [address] [facility], [place], [address], 12/07/2023 03:18:36 12/06/19 24 12/07/2023 CBC WITH DIFFE RENTI AL/PL ATELE T neutrophils 55 % not estab. normal Not Available [facility] ([facility]) [address] [facility], [place], [address], 12/07/2023 03:18:36 12/06/19 24 12/07/2023 CBC WITH DIFFE RENTI AL/PL ATELE T lymphs 35 % not estab. normal Not Available [facility] ([facility]) [address] [facility], [place], [address], 12/07/2023 03:18:36 12/06/19 24 12/07/2023 CBC WITH DIFFE RENTI AL/PL ATELE T monocytes 6 % not estab. normal Not Available [facility] ([facility]) [address] [facility], [place], [address], 12/07/2023 03:18:36 12/06/19 24 12/07/2023 CBC WITH DIFFE RENTI AL/PL ATELE T eos 2 % not estab. normal Not Available [facility] ([facility]) [address] [facility], [place], [address], 12/07/2023 03:18:36 12/06/19 24 12/07/2023 CBC WITH DIFFE RENTI AL/PL ATELE T basos 1 % not estab. 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 0 above high normal Not Available [facility] ([facility]) [address] [facility], [place], [address], 12/07/2023 03:18:36 12/06/19 24 12/07/2023 CBC WITH DIFFE RENTI AL/PL ATELE T lymphs (absolute) 5.1 x10e3 /uL 0.7-3. 1 above high normal Not Available [facility]) [address] [facility], [place], [address], 12/07/2023 03:18:36 12/06/19 24 12/07/2023 CBC WITH DIFFE RENTI AL/PL ATELE T monocytes(ab solute) 0.9 x10e3 /uL 0.1-0. 9 normal Not Available [facility] ([facility] [address] [place], [address], 12/07/2023 03:18:36 12/06/19 24 12/07/2023 CBC WITH DIFFE RENTI AL/PL ATELE T eos (absolute) 0.3 x10e3 /uL 0.0-0. 4 normal Not Available [facility] ([facility]) [address] [place], [address], 12/07/2023 03:18:36 12/06/19 24 12/07/2023 CBC WITH DIFFE RENTI AL/PL ATELE T baso (absolute) 0.1 x10e3 /uL 0.0-0. 2 normal Not Available [facility]) [address] [facility], [place], [address], 12/07/2023 03:18:36 12/06/19 24 12/07/2023 CBC WITH DIFFE RENTI AL/PL ATELE T immature granulocytes 1 % not estab. Not Available [facility]) [address] [facility], [place], [address], 12/07/2023 03:18:36 12/06/19 24 12/07/2023 CBC WITH DIFFE RENTI AL/PL ATELE T immature grans (abs) 0.1 x10e3 /uL 0.0-0. 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 Not Available [facility] ([facility]) [address] [facility], [place], [address], 12/07/2023 03:18:36 12/06/19 CT, sinus es, w/o contr ast No observ ation record ed. arcadio [facility] [address], [place], [address], 12/06/2023 14:37:32 12/07/19 24 12/06/2023 CT, sinus es, w/o contr ast No observ ation record ed. [facility], [place], [address], 12/08/2023 08:26:47 04/29/19 25 XR, sinus es, paran koby, 3 or more view No observ ation record ed. [facility] [address] [place], [address], 04/29/2024 13:26:24 Result Notes None recorded. Problems Name Problem SNOMED Code Status Onset Date Resolution Date Notes Provider Name and Address Organization Details Recorded Time Chronic left maxillary sinusitis 8039934374315 9101 Active 2023 LUCINDA ROD MD [address] [address], [place], [address], [place] [facility] [place] 4 14:01:22 Secondary immune deficiency disorder 00983362 Active 2023 LUCINDA ROD MD [address] [address], [place], [address], [place] [facility] [place] 4 14:04:03 Chronic sinusitis 20340990 Active 2023 LUCINDA ROD MD [address] [address], [place], [address], [place] [facility] 4 14:50:19 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 Procedures Surgical History Date Name Laterality Status Provider Name and Address Organization Details Recorded Time 5 JMSNasal/Sinus Endoscopy completed LUCINDA SPANGLER MD [address] [place] [address], [address], [place] - [facility] 04/29/2024 13:25:10 4 JMSNasal/Sinus Endoscopy completed LUCINDA SPANGLER MD [address] [place] [address], [address], [facility] - [facility] 09/08/2023 14:50:15 7 dilation and curettage of uterus completed LUCINDA SPANGLER MD [address] [place] [address], [address], [facility] - [facility] 09/08/2023 16:09:45 Removal of spleen total completed LUCINDA SPANGLER MD [address] [place] [address], [address], [facility] - [facility] 09/08/2023 16:07:25 Imaging Results Imaging Date Name Status LastModified by Organiz ation Details LastModified Time 12/06/2023 CT, sinuses, w/o contrast completed [email or web address] [address], [address], 12/06/2023 14:37:32 12/06/2023 CT, sinuses, w/o contrast completed [facility] [address], [address], 12/08/2023 08:26:47 04/29/2024 XR, sinuses, paranasal, 3 or more view completed arcadio [facility] Of [address], [address], 04/29/2024 13:26:24 Procedure Notes None recorded. Medical [...] propionate 50 mcg/actuatio n nasal spray,suspen marco [place] 2 sprays twice a day by intranasal [...] vera [place] - [facility] 09/08/2023 15:07:06 What Is Your Level Of Alcohol Consumption? None [email or web address] Information not available 09/08/2023 Do You Use Any Illicit Or Recreational Drugs? No [email or web address] Information not available 09/08/2023 Do You Or Have You Ever Used Any Other Forms Of Tobacco Or Nicotine? No [email or web address] Information not available 09/08/2023 Sex: Unknown Functional [...] Note 717 LUCINDA CEBALLOS MD [facility] [address] [address] 09/08/2023 14:01:25 09/08/2023 16:43:49 Chronic sinusitis 77758329 J32.9 Patient with history of ITP status [...] in 6 to 8 weeks Immune thrombocytopenia 4096589 D69.3 Immunodefi ciency disorder 202166712 D84.9 49700 LUCINDA CEBALLOS MD [facility] [address] [place] [address] 12/06/2023 13:51:06 12/06/2023 14:39:48 Chronic sinusitis 85777277 J32.9 Patient with history of ITP status [...] gave her a sinus surgery brochure in [place]. All questions answeredco ntinue flonase and saline spray Please contact my neurosurgical nurse practitioner, Melony, at to schedule the procedure. The [...] scheduled in the near future. Immune thrombocytopenia 3596350 D69.3 Immunodefi ciency disorder 347409478 D84.9 48536 LUCINDA CEBALLOS MD [facility] [address] [place] [address] 04/29/2024 13:01:15 04/29/2024 13:27:40 Chronic sinusitis 04065839 J32.9 Patient with history of ITP status [...] another course of doxycyclin e. Immune thrombocytopenia 6596628 D69.3 Chronic rhinitis 9587558 6 J31.0 Health Concerns Section Related Observation LastModified by Organization Detai ls LastModified Time None Recorded Concern Status LastModified by Organization Details LastModified Time None Recorded Advance Directives Directive None Recorded Payers Encounter Date Sequence Insurance Name Policy Number Policy Morales Covered Member ID Morales Member ID Guarantor Name 09/08/2023 1 [place] [facility] (MEDICAID) Liz Mosesenzo [id number] Liz Rene 12/06/2023 1 [place] [facility] Liz Rene [id number] Liz Rene 04/29/2024 1 [facility]ICAID H[facility]) [id number] Liz Rene [id number] Liz Rene Notes Date Note Type Note [...] platelet count of 44,000. 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 When I last saw her over the summer her platelet count was 58,000. She reports having a normal platelet count recently in [place]. Unfortunately I do not have access to their system. She notes persistent congestion and pressure especially in the frontal region. She is followed by Dr. Walt LevyPrevious CT scan showed maxillary sinus disease with hypoplastic frontal sinusesDeclines regional climate change analyst and is able to discuss everything in [place] LUCINDA SPANGLER MD [address] [facility] [address], [place], [address], [place] - [facility] 04/29/2024 13:26:38 OBGyn Episode No OBEpisode recorded.
--- OUTSIDE RECORDS SUMMARY | 2024-06-27 12:20 | XMS_ITS | Encounter Summary ---
Author Organization [employer] Address [address] [facility] [address] [place] [address] Care Team Providers Care Equine Pharmacology Technician Name Role Phone Aaron Riley MD Primary Care Provider [phone] Encounter Details Date Type Department Care Team ([facility] st Contact Info) Description 05/28/2024 Orders Only [facility] [address] [place], [place] [phone] Name, MD Russell [address] [place] [address] Social History Tobacco Use Types Packs/Day Years [...] 10:30 AM EDT Office Visit [facility] [address] [place], [place] [phone] Aaron Riley MD [address] [place], [place] [phone] documented as of this encounter Procedures Procedure [...] [facility] [address] [place] [phone] documented in this encounter Visit Diagnoses Not on filedocumented in this encounter Additional Health Concerns Assessment Noted Time PHQ-9 Depression Total Score: 21 024 1:11 PM EDT documented as of this encounter Care Teams Equine Pharmacology Technician Relationship Specialty Start Date End Date Aaron Riley MD [address] [place] [address] PCP - General Internal Medicine 04/24/18 documented as of this encounter
--- OUTSIDE RECORDS SUMMARY | 2024-06-27 12:20 | XMS_ITS | Encounter Summary ---
Author Organization [employer] Address [address] [place] [address] Care Team Providers Care Brush Clearer Surveying Name Role Phone Aaron Riley MD Primary Care Provider [phone] Reason for Referral * Imaging (Routine) - Authorized Specialty Diagnoses / Procedures Referred By Contac t Referred To Contact Radiology Diagnoses Low TSH level Procedures NM THYROID W UPTAKE AND SCAN Aaron Riley MD [address] [place] [address] Phone: tel: fax: [address] Phone: tel: fax: Referral ID Status Reason Start Date Expiration Date V isits Requested Visits Authorized [id number] Authorized 06/27/2024 06/27/2025 3 3 Encounter Details Date Type Department Care Team (Late st Contact Info) Description 06/27/2024 Orders Only [facility] MEDICINE [address] [place] [address] Aaron Riley MD [address] [place], [place] [phone] Low TSH level (Primary Dx) Social History Tobacco Use Types [...] Upcoming Encounters Date Type Department Care Team ([facility] st Contact Info) Description 08/07/2024 10:30 AM EDT Office Visit [facility] CHC MED & PEDS [address] [place] [address] Aaron Riley MD [address] [place] [address] Scheduled Orders Name Type Priority Associated Diagnoses Orde r Schedule NM THYROID W UPTAKE AND SCAN Imaging Routine Low TSH level Expected: 06/27/2024, Expires: 06/27/2025 documented as of this encounter Visit Diagnoses Diagnosis Low TSH level- Primary documented in this encounter Additional Health Concerns Assessment Noted Time PHQ-9 Depression Total Score: 21 024 1:11 PM EDT documented as of this encounter Care Teams Brush Clearer Surveying Relationship Specialty Start Date End Date Aaron Riley MD [address] [place] [phone] PCP - General Internal Medicine 04/24/18 documented as of this encounter
--- OUTSIDE RECORDS SUMMARY | 2024-06-27 12:20 | XMS_ITS | Encounter Summary ---
Author Organization [employer] Address [address] [facility] 7t [place] [address] Care Team Providers Care Harbor Engineer Name Role Phone Aaron Riley MD Primary Care Provider [phone] Encounter Details Date Type Department Care Team (Late st Contact Info) Description 06/01/2024 Orders Only GENERIC EXTERNAL DATA DEPARTMENT Provider, Generic External Data Social History Tobacco Use Types Packs/Day Years [...] Description 08/07/2024 10:30 AM EDT Office Visit [facility] CHC MED & PEDS [address] [place] [address] Aaron Riley MD [address] [place] [address] documented as of this encounter Procedures Procedure Name Priority Date/Time Associated Diagnosis Comments CTA CHEST PE PROTOCAL Routine 06/01/2024 1:25 PM EST D DIMER HIGH SENSITIVITY Routine 06/01/2024 10:49 AM EST HIGH SENSITIVITY TROPONIN I Routine 06/01/2024 10:49 AM EST SARS COV2/INFLUENZA A/B AND RSV RNA QL NAAT Routine 06/01/2024 10:49 AM EST CBC WITH AUTO DIFFERENTIAL Routine 06/01/2024 10:49 AM EST C-REACTIVE PROTEIN Routine 06/01/2024 10 :49 AM EST TSH Routine 06/01/2024 10:49 AM EST B TYPE NATRIURETIC PEPTIDE (BNP) Routine 06/01/2024 10:49 AM EST MAGNESIUM Routine 06/01/2024 10:49 AM EST HEPATIC FUNCTION PANEL Routine 06/01/2024 10:49 AM EST BASIC METABOLIC PANEL Routine 06/01/2024 10:49 AM EST URINALYSIS WITH REFLEX MICROSCOPIC Routine 06/01/2024 10:45 AM EST documented in this encounter Results * CTA Chest PE Protocal (06/01/2024 1:25 PM EST) Anatomical Region Laterality Modality Body, Chest Computed Tomogra phy 06/01/2024 1:25 PM EST Narrative 06/01/2024 1:26 PM EST ? [facility] ?[address] ?[place] [address] ? CT Scan Report ? Signed ? Patient: Liz López ?MR#: [id number] ?? 24 ? : 1970 ?Acct:[id number] ? Age/Sex: 53 / F ?ADM Date: 06/01/24 ? Loc: HO.ED ? Attending Dr: ? Ordering Physician: Cayetano Mitchell MD ?? Date of Service: 06/01/24 ?? Procedure(s): CT angio chest PE protocol ?? Accession Number(s): [id number] ? cc: Aaron Riley MD; Cayetano Mitchell MD ? Report Number: ?? [id number]: Total DLP = ??271.00 mGy-cm ? CLINICAL HISTORY: left sided CP, elevated d-dimer ? CTA chest with 3-D postprocessing ? Comparison: CR/SR - XR CHEST - 05/27/24 11:50 EST ? Findings: ?? Study quality is adequate for the diagnosis of pulmonary embolism. ?? No pulmonary embolism. ?? Heart size within normal limits. RV/LV ratio is normal. No calcified ?? coronary artery disease. ?? No aortic dissection or aneurysm. No calcified atherosclerotic disease. ? No mediastinal or hilar lymphadenopathy. Lymphadenopathy in the bilateral ?? axilla measures up to 1.5 cm in short axis. Prominent thymic tissue ?? measuring 2.8 cm in anterior-posterior dimension with convex margins. ?? Left lower lobe subsegmental atelectasis versus linear scarring. ?? No pneumothorax or pleural effusion. ? No acute osseous or soft tissue abnormality. ?? No acute pathology in the imaged portion of the upper abdomen. ?? Cholelithiasis. No gallbladder wall thickening or pericholecystic fluid. ?? Status post splenectomy. Colonic diverticulosis. ? Impression: ?? No pulmonary embolism. ?? Enlarged thymus could be secondary to thymic hyperplasia and can be ?? further evaluated with nonemergent chest MR. ?? Axillary lymphadenopathy of uncertain etiology. ? This document has been electronically signed by: Elinor Bermudez MD ?? on 06/01/2024 13:25:03 ? Dictated By: ?Elinor Aguayo MD ? Signed By: ?<Electronically signed by Elinor Aguayo MD in OV> ? 06/01/24 1326 ? DD/ 1325 ? TD/TT: 06/01/24 1325 ? Cultural Centre Manager: ? Procedure Note Donotuseinterpreter, Image - 06/01/[address] [place] [address] [address] Scan Report Signed Patient: Marycarmen López#: [id number] 24 : 1970Acct:[id number] Age/Sex: 53 / FADM Date: 06/01/24 Loc: HO.ED Attending Dr: Ordering Physician: Cayetano Mitchell MD Date of Service: 06/01/24 Procedure(s): CT angio chest PE protocol Accession Number(s): [id number] cc: Aaron Riley MD; Cayetano Mitchell MD Report Number: [id number]: Total DLP = 271.00 mGy-cm CLINICAL HISTORY: left sided CP, elevated d-dimer CTA chest with 3-D postprocessing Comparison: CR/SR - XR CHEST 2V - 05/27/24 11:50 EST Findings: Study quality is adequate for the diagnosis of pulmonary embolism. No pulmonary embolism. Heart size within normal limits. RV/LV ratio is normal. No calcified coronary artery disease. No aortic dissection or aneurysm. No calcified atherosclerotic disease. No mediastinal or hilar lymphadenopathy. Lymphadenopathy in the bilateral axilla measures up to 1.5 cm in short axis. Prominent thymic tissue measuring 2.8 cm in anterior-posterior dimension with convex margins. Left lower lobe subsegmental atelectasis versus linear scarring. No pneumothorax or pleural effusion. No acute osseous or soft tissue abnormality. No acute pathology in the imaged portion of the upper abdomen. Cholelithiasis. No gallbladder wall thickening or pericholecystic fluid. Status post splenectomy. Colonic diverticulosis. Impression: No pulmonary embolism. Enlarged thymus could be secondary to thymic hyperplasia and can be further evaluated with nonemergent chest MR. Axillary lymphadenopathy of uncertain etiology. This document has been electronically signed by: Elinor Bermudez MD on 06/01/2024 13:25:03 Dictated By: Elinor Aguaoy MD Signed By: <Electronically signed by Elinor Aguayo MD in OV> 06/01/24 1326 DD/ 1325 TD/TT: 06/01/24 1325 Cultural Centre Manager: [facility] External Provider IMG CT PROCEDURES Edited Result - Final * (ABNORMAL) TSH (06/01/2024 10:49 AM EST) Thyroid Stimulating Hormone <0.01(L) 0.32 - 4.0 uIU/mL [facility] Comment:TSH 3rd Generation ( [facility]) 06/01/2024 10:4 9 AM EST 06/01/2024 10:58 AM EST Generic External Data Provider LAB BLOOD ORDERAB LES Final Result [facility] [address] [place] [phone] * SARS-CoV-2 RNA, Influenza A/B, and RSV RNA, Ql NAAT (06/01/2024 10:49 AM EST) Influenza A PCR NEGATIVE Negative [facility] Influenza B PCR NEGATIVE Negative [facility] Resp Syncy Virus RNA Qual PCR NEGATIVE Negative [facility] SARS COV2 PCR NEGATIVE Negative [facility] Comment:All test results mus t be correlated with clinical findings.Negative results do not preclude SARS-CoV2, influenza Avirus, influenza B virus and/or RSV infectionand should not be used as the sole basis for treatment orother patient management decisions. Negative results must becombined with clinical observations, patient history, andepidemiological information.This test has not been evaluated for monitoring treatment ofinfection.This test has been authorized by the FDA under an EmergencyUse Authorization (EUA) for use by authorized laboratories.Testing performed on the [employer] GeneXpert utilizingreal-time RT-PCR.All SARS CoV2 and positive influenza A/B results arereported to [facility]. 06/01/2024 10:4 9 AM EST 06/01/2024 10:58 AM EST Generic External Data Provider LAB MICROBIOLOGY - GENERAL ORDERABLES Final Result Performing Organization Address [facility] Phone Number [facility] [address] [place] [phone] * High Sensitivity Troponin I (06/01/2024 10:49 AM EST) TROPONIN I HIGH SENSITIVITY <2.7 <3.5 - 17.0 ng/L [facility] Comment:The [employer] high sens itivity Troponin-I results should beused in conjunction with other diagnostic information suchas ECG, clinical observations and information, and patientsymptoms to aid in the diagnosis of DC. 06/01/2024 10:4 9 AM EST 06/01/2024 10:58 AM EST Generic External Data Provider LAB BLOOD ORDERAB LES Final Result Performing Organization Address [facility] de Phone Number [facility] [address] [place] [phone] * (ABNORMAL) C-reactive Protein (06/01/2024 10:49 AM EST) C Reactive Protein 1.32(H) < or = 0.50 mg/dL [facility] 06/01/2024 10:4 9 AM EST 06/01/2024 10:58 AM EST Generic External Data Provider LAB BLOOD ORDERAB LES Final Result Performing Organization Address [facility]/ZIP Co de Phone Number [facility] [address] [place] [phone] * Magnesium (06/01/2024 10:49 AM EST) Magnesium 1.9 1.6 - 2.6 mg/dL [facility] 06/01/2024 10:4 9 AM EST 06/01/2024 10:58 AM EST us Generic External Data Provider LAB BLOOD ORDERAB LES Final Result [facility] [address] [place] [phone] [phone] * (ABNORMAL) Basic Metabolic Panel (06/01/2024 10:49 AM EST) Sodium 143 135 - 145 mmol/L [facility] Potassium 3.6 3.3 - 5.1 mmol/L [facility] Chloride 112(H) 96 - 108 mmol/L [facility] Carbon Dioxide 23 22 - 29 mmol/L [facility] Anion Gap 12 12 - 20 [facility] Urea Nitrogen (BUN) 13 9 - 16 mg/dL [facility] Creatinine, Serum 0.47(L) 0.5 - 1.4 mg/dL [facility] Creatinine Clr Calc Pharmacy 130.0 [facility] Comment:Provided height and weight: 157.48 cm,77.111 kg.eGFR (calculated from the MDRD study equation) and eCrCl(calculated from the Cockcroft-Gault equation) are based ondifferent parameters and may not yield comparable results.If eCrCl result is absurd, please check patient'sheight/weight. Estimated Glomerular Filt Rate >60 [facility] Comment:Chronic Kidney Disea se: Estimated GFR < 60 mL/min/1.84b7Amjtvq Kidney Disease: Estimated GFR < 15 mL/min/1.73m2 Glucose 97 60 - 115 mg/dL [facility] Calcium 9.8 8.4 - 10.2 mg/dL [facility] 06/01/2024 10:4 9 AM EST 06/01/2024 10:58 AM EST Generic External Data Provider LAB BLOOD ORDERAB LES Final Result Performing Organization Address [facility] Phone Number [facility] [address] [place] [phone] * Hepatic Function Panel (06/01/2024 10:49 AM EST) Bilirubin, Total 0.8 0.0 - 1.0 mg/dL [facility] Bilirubin, Direct 0.3 0.0 - 0.5 mg/dL [facility] Aspartate Amino Transferase 22 5 - 31 U/L [facility] Alanine Aminotransferase 24 0 - 31 U/L [facility] Total Protein 8.0 6.5 - 8.0 g/dL [facility] Albumin Level 3.7 3.5 - 5.0 g/dL [facility] Alkaline Phosphatase 102 39 - 117 U/L [facility] 06/01/2024 10:4 9 AM EST 06/01/2024 10:58 AM EST [employer] External Data Provider LAB BLOOD ORDERAB LES Final Result Performing Organization Address [facility] Phone Number [facility] [address] [place] [phone] * (ABNORMAL) B Type Natriuretic Peptide (BNP) (06/01/2024 10:49 AM EST) B Type Natriuretic Peptide 286(H) <100 pg/mL [facility] Comment:For those patients w ho are being treated with Natrecor(nesiritide, recombinant BNP), BNP testing should beperformed at least two hours post treatment in order toensure that only endogenous levels of BNP are detected. 06/01/2024 10:4 9 AM EST 06/01/2024 10:58 AM EST us Generic External Data Provider LAB BLOOD ORDERAB LES Final Result Performing Organization Address [facility] de Phone Number [facility] [address] [place] [phone] * D Dimer High Sensitivity (06/01/2024 10:49 AM EST) [facility] D Dimer High Sensitivity 297 NG/ML [facility] Comment:D-DIMER HS REFERENCE RANGENote: Our assay reports D-Dimer Units (D- DU).The cut-off value for venous thromboembolic (VTE) disease is230 ng/mL. This value has a very high negative predictivevalue when the patient has a low to moderate clinicalprobability of VTE.The upper limit of normal is 243 ng/mL. 06/01/2024 10:4 9 AM EST 06/01/2024 10:58 AM EST [employer] External Data Provider LAB BLOOD ORDERAB LES Final Result Performing Organization Address [facility] Co de Phone Number [facility] [address] [place] [phone] * (ABNORMAL) CBC auto differential (06/01/2024 10:49 AM EST) [facility] White Blood Count 11.0(H) 4.8 - 10.8 X10*3/uL [facility] Red Blood Count 4.62 4.20 - 5.50 X10*6/uL [facility] Hemoglobin 11.9(L) 12.0 - 16.0 g/dl [facility] Hematocrit 36.8(L) 37.0 - 47.0 % [facility] Mean Corpuscular Volume 79.7(L) 80.0 - 98.0 fL [facility] Mean Corpuscular Hemoglobin 25.8(L) 27.0 - 33.0 pg [facility] Mean Corpuscular HGB Conc 32.3 31.0 - 35.0 g/dl [facility] Red Cell Distribution Width 13.9 11.0 - 16.0 % [facility] Platelet Count 34(L) 160 - 400 X10*3/uL [facility] Neutrophils Percent Auto 50.2 45 - 73 % [facility] Imm Gran Pct Auto 0.3 0.0 - 0.4 % [facility] Lymphocytes Percent Auto 37.2 20 - 40 % [facility] Monocytes Percent Auto 8.2 2 - 11 % [facility] Eosinophils Percent Auto 3.6 0 - 4 % [facility] Basophils Percent Auto 0.5 0 - 2 % [facility] NRBC Pct Auto 0.0 0.0 - 0.2 /100WBC [facility] Neutrophils Absolute Auto 5.5 2.0 - 8.3 x10*3/uL [facility] Imm Gran Abs Auto 0.03 0.00 - 0.03 X10*3/uL [facility] Lymphocytes Absolute Auto 4.1 1.2 - 4.9 X10*3/uL [facility] Monocytes Absolute Auto 0.9 0.1 - 1.2 X10*3/uL [facility] Eosinophils Absolute Auto 0.4 0.0 - 0.4 X10*3/uL [facility] Basophils Absolute Auto 0.1 0.0 - 0.2 X10*3/uL [facility] NRBC Abs Auto 0.000 0.0 - 0.012 X10*3/uL [facility] 06/01/2024 10:4 9 AM EST 06/01/2024 10:58 AM EST us Generic External Data Provider LAB BLOOD ORDERAB LES Final Result [facility] [address] [place] [phone] * Urinalysis w/reflex microscopic (06/01/2024 10:45 AM EST) Color Urine Yellow [facility] Appearance Urine Clear [facility] PH 5.5 5.0 - 9.0 [facility] Glucose Urine UA Negative Negative mg/dL [facility] Urine Blood Negative Negative [facility] Specific [place] - Urine 1.025 1.005 - 1.025 [facility] Urine Protein Trace Neg-Trace mg/dL [facility] Urine Ketones Trace Negative mg/dL [facility] Nitrite Urine Negative Negative [facility] Leukocyte Esterase Urine Negative Negative [facility] 06/01/2024 10:4 5 AM EST 06/01/2024 11:08 AM EST Narrative [facility] - 06/01/2024 11:23 AM EST Urine, Clean Catch us Generic External Data Provider LAB URINE ORDERAB LES Final Result [facility] [address] [place] [phone] documented in this encounter Visit Diagnoses Not on filedocumented in this encounter Additional Health Concerns Assessment Noted Time PHQ-9 Depression Total Score: 21 10/02/2 024 1:11 PM EDT documented as of this encounter Care Teams Harbor Engineer Relationship Specialty Start Date End Date Aaron Riley MD [address] [place] [phone] PCP - General Internal Medicine 04/24/18 documented as of this encounter
--- OUTSIDE RECORDS SUMMARY | 2024-06-27 12:20 | XMS_ITS | Encounter Summary ---
Author Organization [employer] Address [address] [place] [address] Care Team Providers Care Concert Singer Name Role Phone Aaron Riley MD Primary Care Provider [phone] Reason for Referral * Imaging (Routine) - Authorized Specialty Diagnoses / Procedures Referred By Contac t Referred To Contact Radiology Diagnoses Other thyrotoxicosis without thyrotoxic crisis or storm Procedures NM Thyroid Uptake Aaron Riley MD [address] [place] [address] Phone: tel: fax: [address] Phone: tel: fax: Referral ID Status Reason Start Date Expiration Date V isits Requested Visits Authorized [id number] Authorized 05/29/2024 05/29/2025 3 3 * Consultation (Routine) - Authorized Specialty Diagnoses / Procedures Referred By Contac t Referred To Contact Endocrinology Diagnoses Other thyrotoxicosis without thyrotoxic crisis or storm Aaron Riley MD [address] [place] [address] Phone: tel: fax: [facility] [address] [place] [address] Phone: tel: fax: Referral ID Status Reason Start Date Expiration Date Visits Requested Visits Authorized [id number] Authorized Specialty Services Required 05/29/2024 05/29/2025 1 1 Encounter Details Date Type Department Care Team ([facility] st Contact Info) Description 05/29/2024 Orders Only 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 CHC MED & PEDS [address] [place] [address] Aaron Riley MD [address] [place] [address] Scheduled Orders Name Type Priority Associated Diagnoses Orde r Schedule NM Thyroid Uptake Imaging Routine Other thyrotoxicosis without thyrotoxic crisis or storm Expected: 05/29/2024, Expires: 05/29/2025 Acetylcholine Receptor Blocking Antibody Lab Routine Thymus hyperplasia (CMS/HCC) Expected: 06/05/2024 (Approximate), Expires: 06/05/2025 Scheduled Referrals Name Type Priority Associated Diagnoses Orde r Schedule Referral to Endocrinology Outpatient Referral Routine Other thyrotoxicosis without thyrotoxic crisis or storm Expected: 05/29/2024 (Approximate), Expires: 05/29/2025 documented as of this encounter Visit Diagnoses Diagnosis 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
--- OUTSIDE RECORDS SUMMARY | 2024-06-27 12:20 | XMS_ITS | Encounter Summary ---
Author Organization [employer] Address [address] [facility] 7[address] [place] [address] Care Team Providers Care Oracle Obiee Developer Name Role Phone Aaron Riley MD Primary Care Provider [phone] Reason for Visit * Reason Comments Generalized Body Aches Encounter Details Date Type Department Care Team ([facility] st Contact Info) Description 05/25/2024 11:20 AM EST Office Visit [facility] [address] [place] [address] [phone] NameRussell MD [address] [place] [address] [phone] Weight loss (Primary Dx); Subacute cough Social [...] 6.2 ! QC Media Lot # [id number] !: Data is abnormal Assessment/Plan Diagnoses and [...] AM EST TC to patient to via hat sizer. Reviewed lab results and recommendations. Patient verbally stated understanding and agrees with the plan. All questions and concerns were addresses. documented in this encounter Plan of Treatment Upcoming Encounters Date Type Department Care Team (Late st Contact Info) Description 08/07/2024 10:30 AM EDT Office Visit [facility] MED & PEDS [address] [place] [address] Aaron Riley MD [address] [place] [address] documented as of this encounter Procedures Procedure [...] Free T4 <0.01(L) 0.32 - 4.0 uIU/mL [facility] Blood Venous blood specimen / Unknown 05/28/2024 3:02 PM EST 05/28/2024 4:21 PM EST us Russell River MD LAB BLOOD ORDERABLES Final Resul t [facility] [address] [place] [address] [phone] * XR Chest 2 Views (05/27/2024 11:26 AM EST) Anatomical Region Laterality Modality Chest Radiographic Domi ging 05/27/2024 11:2 6 AM EST Narrative 05/27/2024 12:37 PM EST ? [facility] ?[address] ?[place] [address] ?XRay Report ? Signed ? Patient: Rene,Liz ?MR#: [id number] ?? 24 ? : 1970 ?Acct:[id number] ? Age/Sex: 53 / F ?ADM Date: 05/27/ ? Loc: HO.HHCL ? Attending Dr: Walt Levy MD ? Ordering Physician: Russell River MD ?? Date of Service: 05/27/24 ?? Procedure(s): XR chest 2V ?? Accession Number(s): [id number] ? cc: Aleta,Russell DODGE ? EXAMINATION: ??XR [...] DD/ 1126 ? TD/TT: 05/27/24 1155 ? Hospital Receiving Clerk: ? Procedure Note Nickolas, Image - 05/27/2024 [place] [address] XRay Report Signed Patient: Marycarmen López#: [id number] 24 : 1970Acct:[id number] Age/Sex: 53 / FADM Date: 05/27/24 Loc: HO.HHCL Attending Dr: Walt Levy MD Ordering Physician: Russell River MD Date of Service: 05/27/24 Procedure(s): XR chest 2V Accession Number(s): [id number] cc: Russell River MD EXAMINATION: XR CHEST [...] 05/27/24 1234 DD/ 1126 TD/TT: 05/27/24 1155 Hospital Receiving Clerk: us Russell River MD IMG XR PROCEDURES Final Result * (ABNORMAL) POCT HGB A1C (05/25/2024 11:38 AM EST) Hemoglobin A1C 6.2(A) 4.0 - 6.0 % QC Media Lot # [id number] Lot# Expiration Date [id number] Swab 05/25/2024 11:3 8 AM EST us [...] documented as of this encounter Care Teams Oracle Obiee Developer Relationship Specialty Start Date End Date Aaron Riley MD [address] [place] [phone] PCP - General Internal Medicine 04/24/18 documented as of this encounter
--- OUTSIDE RECORDS SUMMARY | 2024-06-27 12:20 | XMS_ITS | Encounter Summary ---
Author Organization [employer] Address [address] [place] [address] Care Team Providers Care Automatic Engraver Name Role Phone Aaron Riley MD Primary Care Provider [phone] Encounter Details Date Type Department Care Team (Latest Contact Info) Description 06/04/2024 Travel Social History Tobacco Use Types Packs/Day [...] Upcoming Encounters Date Type Department Care Team ([facility] st Contact Info) Description 08/07/2024 10:30 AM EDT Office Visit [facility] [address] [place] [address] Aaron Riley MD [address] [place] [address] documented as of this encounter Visit Diagnoses Not on filedocumented in this encounter Additional Health Concerns Assessment Noted Time PHQ-9 Depression Total Score: 21 10/02/2 024 1:11 PM EDT documented as of this encounter Care Teams Automatic Engraver Relationship Specialty Start Date End Date Aaron Riley MD [address] [place] [address] PCP - General Internal Medicine 04/24/18 documented as of this encounter
--- OUTSIDE RECORDS SUMMARY | 2024-06-27 12:20 | XMS_ITS | Clinical Summary ---
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 [address] [place] [address] Aaron Riley MD Low TSH level (Primary Dx) 06/04/2024 Travel 06/01/2024 Orders Only GENERIC EXTERNAL DATA DEPARTMENT Provider, Generic External Data 05/29/2024 Orders Only [facility] [address] [place], [place] [phone] Aaron Riley MD 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); Thymus hyperplasia (CMS/HCC) 05/28/[address] [facility] [address] [place] [address] Name, MD Russell 05/28/[address] [facility] [address] [place] [address] Aaron Riley MD Results 05/25/2024 11:20 AM EST Office Visit [facility] [address], [place] [phone] Name, MD Russell Weight loss (Primary Dx); Subacute cough 05/25/2024 Travel 05/24/2024 Telephone [facility] [address] [place] [address] Aaron Riley MD Nurse Triage 05/07/2024 Telephone [facility] [address] [place] [address] Aaron Riley MD No Show from Last 3 Months Immunizations Name Administration [...] your housing situation today? I have deb sing 08/23/[address] you li [...] 10:30 AM EDT Office Visit [facility] [address] [place] [address] Aaron Riley MD [address] [place] [address] Health Maintenance Due Date Last Done Comments [...] PE PROTOCAL Routine 06/01/2024 1:25 PM EST TSH Routine 06/01/2024 10:49 AM EST HIGH SENSITIVITY TROPONIN I Routine 06/01/2024 10:49 AM EST C-REACTIVE PROTEIN Routine 06/01/2024 10 :49 AM EST MAGNESIUM Routine 06/01/2024 10:49 AM EST BASIC METABOLIC PANEL Routine 06/01/2024 10:49 AM EST HEPATIC FUNCTION PANEL Routine 06/01/2024 10:49 AM EST B TYPE NATRIURETIC PEPTIDE (BNP) Routine 06/01/2024 10:49 AM EST D DIMER HIGH SENSITIVITY Routine 06/01/2024 10:49 AM EST CBC WITH AUTO DIFFERENTIAL Routine 06/01/2024 10:49 AM EST SARS COV2/INFLUENZA A/B AND RSV RNA QL NAAT Routine 06/01/2024 10:49 AM EST URINALYSIS WITH REFLEX MICROSCOPIC Routine 06/01/2024 10:45 AM EST T4, FREE Routine 05/28/2024 3:02 PM EST [...] Recently Relevant to Health Maintenance Results * CTA Chest PE Protocal (06/01/2024 1:25 PM EST) Anatomical Region Laterality Modality Body, Chest Computed Tomogra phy 06/01/2024 1:25 PM EST Narrative 06/01/2024 1:26 PM EST ? [facility] ?[address] ?[place] [address] ? CT Scan Report ? Signed ? Patient: Liz López ?MR#: [id number] ?? 24 ? : 1970 ?Acct:[id number] ? Age/Sex: 53 / F ?ADM Date: 06/01/24 ? Loc: HO.ED ? Attending Dr: ? Ordering Physician: Cayetano Mitchell MD ?? Date of Service: 06/01/24 ?? Procedure(s): CT angio chest PE protocol ?? Accession Number(s): [id number] ? cc: Aaron Riley MD; Cayetano Mitchell MD ? Report Number: ?? [id number]: Total DLP = ??271.00 mGy-cm ? CLINICAL HISTORY: left sided CP, elevated d-dimer ? CTA chest with 3-D postprocessing ? Comparison: CR/SR - XR CHEST 2V - 05/27/24 11:50 EST ? Findings: ?? [...] DD/ 1325 ? TD/TT: 06/01/24 1325 ? Business Division Chair: ? Procedure Note Nickolas, Image - 06/01/[address] [place] [address] [address] Scan Report Signed Patient: Marycarmen López#: [id number] [birth year] : 1970Acct:[id number] Age/Sex: 53 / FADM Date: 06/01/24 Loc: .ED Attending Dr: Ordering Physician: Cayetano Mitchell MD Date of Service: 06/01/24 Procedure(s): CT angio chest PE protocol Accession Number(s): [id number] cc: Aaron Riley MD; Cayetano Mitchell MD Report Number: [id number]: Total DLP = 271.00 mGy-cm CLINICAL HISTORY: [...] MD on 06/01/2024 13:25:03 Dictated By: Elinor Aguayo MD Signed By: <Electronically signed by Elinor Aguayo MD in OV> 06/01/24 1326 DD/ 1325 TD/TT: 06/01/24 1325 Business Division Chair: [facility] External Provider IMG CT PROCEDURES Edited Result - Final * D Dimer High Sensitivity (06/01/2024 10:49 AM EST) D Dimer High Sensitivity 297 NG/ML [facility] Comment:D-DIMER HS REFERENCE RANGENote: Our [...] Provider LAB BLOOD ORDERAB LES Final Result [facility] [address] [place] [phone] * High Sensitivity Troponin I (06/01/2024 10:49 AM EST) TROPONIN I HIGH SENSITIVITY <2.7 <3.5 - 17.0 ng/L [facility] Comment:The [facility] high sens itivity Troponin-I results should beused in conjunction with other diagnostic information suchas ECG, clinical observations and information, and patientsymptoms to aid in the diagnosis of [place]. 06/01/2024 10:4 9 AM EST 06/01/2024 10:58 AM EST Generic External Data Provider LAB BLOOD ORDERAB LES Final Result Performing Organization Address City/[facility] Co de Phone Number [facility] [address] [place] [phone] * SARS-CoV-2 RNA, Influenza A/B, and RSV RNA, Ql NAAT (06/01/2024 10:49 AM EST) Pathologist [facility] Influenza A PCR NEGATIVE Negative [facility] Influenza B PCR NEGATIVE Negative [facility] Resp Syncy Virus RNA Qual PCR NEGATIVE Negative [facility] SARS COV2 PCR NEGATIVE Negative [facility] Comment:All test results mus t [...] use by authorized laboratories.Testing performed on the [employer] GeneXpert utilizingreal-time RT-PCR.All SARS CoV2 and positive influenza A/B results arereported to [facility]. 06/01/2024 10:4 9 AM EST 06/01/2024 10:58 AM EST us Generic External Data Provider LAB MICROBIOLOGY - GENERAL ORDERABLES Final Result [facility] [address] [place] [address] [phone] * (ABNORMAL) CBC auto differential (06/01/2024 10:49 AM EST) Only the most recent of2 resultswithin the time period is included. White Blood Count 11.0(H) 4.8 - 10.8 X10*3/uL [facility] Red Blood Count 4.62 4.20 - 5.50 X10*6/uL [facility] Hemoglobin 11.9(L) 12.0 - 16.0 g/dl [facility] Hematocrit 36.8(L) 37.0 - 47.0 % [facility] Mean Corpuscular Volume 79.7(L) 80.0 - 98.0 fL [facility] Mean Corpuscular Hemoglobin 25.8(L) 27.0 - 33.0 pg [facility] Mean Corpuscular HGB Conc 32.3 31.0 - 35.0 g/dl [facility] Red Cell Distribution Width 13.9 11.0 - 16.0 % [facility] Platelet Count 34(L) 160 - 400 X10*3/uL [facility] Neutrophils Percent Auto 50.2 45 - 73 % [facility] Imm Gran Pct Auto 0.3 0.0 - 0.4 % [facility] Lymphocytes Percent Auto 37.2 20 - 40 % [facility] Monocytes Percent Auto 8.2 2 - 11 % [facility] Eosinophils Percent Auto 3.6 0 - 4 % [facility] Basophils Percent Auto 0.5 0 - 2 % [facility] NRBC Pct Auto 0.0 0.0 - 0.2 /100WBC [facility] Neutrophils Absolute Auto 5.5 2.0 - 8.3 x10*3/uL [facility] Imm Gran Abs Auto 0.03 0.00 - 0.03 X10*3/uL [facility] Lymphocytes Absolute Auto 4.1 1.2 - 4.9 X10*3/uL [facility] Monocytes Absolute Auto 0.9 0.1 - 1.2 X10*3/uL [facility] Eosinophils Absolute Auto 0.4 0.0 - 0.4 X10*3/uL [facility] Basophils Absolute Auto 0.1 0.0 - 0.2 X10*3/uL [facility] NRBC Abs Auto 0.000 0.0 - 0.012 X10*3/uL [facility] 06/01/2024 10:4 9 AM EST 06/01/2024 10:58 AM EST us Generic External Data Provider LAB BLOOD ORDERAB LES Final Result Performing Organization Address [facility] Phone Number [facility] [address] [place] [phone] * (ABNORMAL) C-reactive Protein (06/01/2024 10:49 AM EST) C Reactive Protein 1.32(H) < or = 0.50 mg/dL [facility] 06/01/2024 10:4 9 AM EST 06/01/2024 10:58 AM EST Generic External Data Provider LAB BLOOD ORDERAB LES Final Result Performing Organization Address [facility] Phone Number [facility] [address] [place] [phone] * (ABNORMAL) TSH (06/01/2024 10:49 AM EST) Thyroid Stimulating Hormone <0.01(L) 0.32 - 4.0 uIU/mL [facility] Comment:TSH 3rd Generation ( [facility]) 06/01/2024 10:4 9 AM EST 06/01/2024 10:58 AM EST us Generic External Data Provider LAB BLOOD ORDERAB LES Final Result Performing Organization Address [facility] Co de Phone Number [facility] [address] [place] [phone] * (ABNORMAL) B Type Natriuretic Peptide (BNP) (06/01/2024 10:49 AM EST) [facility] B Type Natriuretic Peptide 286(H) <100 pg/mL [facility] Comment:For those patients w ho are being treated with Natrecor(nesiritide, recombinant BNP), BNP testing should beperformed at least two hours post treatment in order toensure that only endogenous levels of BNP are detected. 06/01/2024 10:4 9 AM EST 06/01/2024 10:58 AM EST us Generic External Data Provider LAB BLOOD ORDERAB LES Final Result [facility] [address] [place] [phone] * Magnesium (06/01/2024 10:49 AM EST) [facility] Magnesium 1.9 1.6 - 2.6 mg/dL [facility] 06/01/2024 10:4 9 AM EST 06/01/2024 10:58 AM EST us Generic External Data Provider LAB BLOOD ORDERAB LES Final Result Performing Organization Address City/[facility]/ZIP Co de Phone Number [facility] [address] [place] [phone] * Hepatic Function Panel (06/01/2024 10:49 AM EST) [facility] Bilirubin, Total 0.8 0.0 - 1.0 mg/dL [facility] Bilirubin, Direct 0.3 0.0 - 0.5 mg/dL [facility] Aspartate Amino Transferase 22 5 - 31 U/L [facility] Alanine Aminotransferase 24 0 - 31 U/L [facility] Total Protein 8.0 6.5 - 8.0 g/dL [facility] Albumin Level 3.7 3.5 - 5.0 g/dL [facility] Alkaline Phosphatase 102 39 - 117 U/L [facility] 06/01/2024 10:4 9 AM EST 06/01/2024 10:58 AM EST us Generic External Data Provider LAB BLOOD ORDERAB LES Final Result [facility] [address] [place] [phone] [phone] * (ABNORMAL) Basic Metabolic Panel (06/01/2024 10:49 AM EST) Sodium 143 135 - 145 mmol/L [facility] Potassium 3.6 3.3 - 5.1 mmol/L [facility] Chloride 112(H) 96 - 108 mmol/L [facility] Carbon Dioxide 23 22 - 29 mmol/L [facility] Anion Gap 12 12 - 20 [facility] Urea Nitrogen (BUN) 13 9 - 16 mg/dL [facility] Creatinine, Serum 0.47(L) 0.5 - 1.4 mg/dL [facility] Creatinine Clr Calc Pharmacy 130.0 [facility] Comment:Provided height and weight: 157.48 cm,77.111 kg.eGFR (calculated from the MDRD study equation) and eCrCl(calculated from the Cockcroft-Gault equation) are based ondifferent parameters and may not yield comparable results.If eCrCl result is absurd, please check patient'sheight/weight. Estimated Glomerular Filt Rate >60 [facility] Comment:Chronic Kidney Disea se: Estimated GFR < 60 mL/min/1.52u3Yuclbs Kidney Disease: Estimated GFR < 15 mL/min/1.73m2 Glucose 97 60 - 115 mg/dL [facility] Calcium 9.8 8.4 - 10.2 mg/dL [facility] 06/01/2024 10:4 9 AM EST 06/01/2024 10:58 AM EST us Generic External Data Provider LAB BLOOD ORDERAB LES Final Result Performing Organization Address [facility] Co de Phone Number [facility] [address] [place] [phone] * Urinalysis w/reflex microscopic (06/01/2024 10:45 AM EST) Color Urine Yellow [facility] Appearance Urine Clear [facility] PH 5.5 5.0 - 9.0 [facility] Glucose Urine UA Negative Negative mg/dL [facility] Urine Blood Negative Negative [facility] Specific [place] - Urine 1.025 1.005 - 1.025 [facility] Urine Protein Trace Neg-Trace mg/dL [facility] Urine Ketones Trace Negative mg/dL [facility] Nitrite Urine Negative Negative [facility] Leukocyte Esterase Urine Negative Negative [facility] 06/01/2024 10:4 5 AM EST 06/01/2024 11:08 AM EST Narrative [facility] - 06/01/2024 11:23 AM EST Urine, Clean [employer] External Data Provider LAB URINE ORDERAB LES Final Result Performing Organization Address [facility] de Phone Number [facility] [address] [place] [phone] * (ABNORMAL) TSH W/Reflex to FT4 (05/28/2024 3:02 PM EST) TSH reflex Free T4 <0.01(L) 0.32 - 4.0 uIU/mL [facility] Blood Venous blood specimen / Unknown 05/28/2024 3:02 PM EST 05/28/2024 4:21 PM EST us Russell River MD LAB BLOOD ORDERABLES Final Resul t Performing Organization Address [facility] Co de Phone Number [facility] [address] [place] [phone] * (ABNORMAL) T4, Free (05/28/2024 3:02 PM EST) Free T4 (Free Thyroxine) 2.26(H) 0.71 - 1.85 ng/dL [facility] 05/28/2024 3:02 PM EST 05/28/2024 4:21 PM EST Russell River MD LAB BLOOD ORDERABLES Final Resul t Performing Organization Address City/[facility]/ZIP Co de Phone Number [facility] [address] [place] [address] [phone] * (ABNORMAL) Lipid Panel, Standard (05/28/2024 3:02 PM EST) Triglycerides 154(H) <150 mg/dL [facility] Comment:Desirable Triglyceri de: less than 150 mg/dLBorderline High Triglyceride 150-199 mg/dLHigh Triglyceride: 200-499 mg/dLVery High Triglyceride: greater than or equal to 5OO mg/dL Cholesterol 145 <200 mg/dL [facility] Comment:Desirable Cholestero l: less than 200 mg/dLBorderline High Cholesterol: 200-239 mg/dLHigh Cholesterol: greater than 239 mg/dL LDL Cholesterol Calculated 92 <100 mg/dL [facility] Comment:Desirable LDL: less than 100 mg/dLNear Optimal/Above Optimal LDL: 110- 129 mg/dLBorderline High LDL: 130-159 mg/dLHigh LDL: 160-189 mg/dLVery High LDL: greater than or equal to 190 mg/dL HDL Cholesterol 23(L) >40 mg/dL [facility] Comment:Desirable HDL: great er than 40 mg/dL Note: This HDL assay may give artificially low results in patients with liver disease. Blood Venous blood specimen / Unknown 05/28/2024 3:02 PM EST 05/28/2024 4:21 PM EST us Aaron Riley MD LAB BLOOD ORDERABLES Final Result [facility] [address] [place] [phone] [phone] * (ABNORMAL) Comprehensive Metabolic Panel (05/28/2024 3:02 PM EST) Sodium 143 135 - 145 mmol/L [facility] Potassium 3.5 3.3 - 5.1 mmol/L [facility] Chloride 103 96 - 108 mmol/L [facility] Carbon Dioxide 25 22 - 29 mmol/L [facility] Anion Gap 19 12 - 20 [facility] Urea Nitrogen (BUN) 18(H) 9 - 16 mg/dL [facility] Creatinine, Serum 0.67 0.5 - 1.4 mg/dL [facility] Estimated Glomerular Filt Rate >60 [facility] Comment:Chronic Kidney Disea se: Estimated GFR < 60 mL/min/1.47o1Vjpkcc Kidney Disease: Estimated GFR < 15 mL/min/1.73m2 Glucose 96 60 - 115 mg/dL [facility] Calcium 9.8 8.4 - 10.2 mg/dL [facility] Bilirubin, Total 0.8 0.0 - 1.0 mg/dL [facility] Aspartate Amino Transferase 24 5 - 31 U/L [facility] Alanine Aminotransferase 23 0 - 31 U/L [facility] Total Protein 8.5(H) 6.5 - 8.0 g/dL [facility] Albumin Level 3.9 3.5 - 5.0 g/dL [facility] Alkaline Phosphatase 107 39 - 117 U/L [facility] Blood Venous blood specimen / Unknown 05/28/2024 3:02 PM EST 05/28/2024 4:21 PM EST us Aaron Riley MD LAB BLOOD ORDERABLES Final Result [facility] [address] [place] [address] [phone] * XR Chest 2 Views (05/27/2024 11:26 AM EST) Anatomical Region Laterality Modality Chest Radiographic Domi ging 05/27/2024 11:2 6 AM EST Narrative 05/27/2024 12:37 PM EST ? [facility] ?[address] ?[place] [address] ?XRay Report ? Signed ? Patient: Rene,Liz ?MR#: [id number] ?? 24 ? : 1970 ?Acct:[id number] ? Age/Sex: 53 / F ?ADM Date: 05/27/24 ? Loc: HO.HHCL ? Attending Dr: Walt Levy MD ? Ordering Physician: Russell River MD ?? Date of Service: 05/27/24 ?? Procedure(s): XR chest 2V ?? Accession Number(s): [id number] ? cc: Russell River MD ? EXAMINATION: [...] DD/ 1126 ? TD/TT: 05/27/24 1155 ? Business Division Chair: ? Procedure Note Estiven Olmos - 05/27/[address] [address] XRay Report Signed Patient: Marycarmen López#: [id number] [birth year] : 1970Acct:[id number] Age/Sex: 53 / FADM Date: 05/27/24 Loc: HO.HHCL Attending Dr: Walt Lvey MD Ordering Physician: Russell River MD Date of Service: 05/27/24 Procedure(s): XR chest 2V Accession Number(s): [id number] cc: Russell River MD EXAMINATION: XR CHEST [...] 05/27/24 1234 DD/ 1126 TD/TT: 05/27/24 1155 Business Division Chair: us Russell River MD IMG XR PROCEDURES Final Result * (ABNORMAL) POCT HGB A1C (05/25/2024 11:38 AM EST) Hemoglobin A1C 6.2(A) 4.0 - 6.0 % QC Media Lot # [id number] Lot# Expiration Date , Swab 05/25/2024 11:3 8 AM EST us Russell River MD POINT OF CARE TEST ENTER/EDIT OR DERABLES Final Result * POCT Glucose (05/25/2024 11:37 AM EST) Glucose Blood, POC 108 60 - 200 mg/dL QC Media Lot # [id number] Lot# Expiration Date 6172,025 Blood Capillary blood specimen / Unknown 05/25/2024 11:37 AM EST us Russell Name MD POINT OF CARE TEST ENTER/EDIT OR DERABLES Final Result * BI Mammogram Screening Tomosynthesis Bilateral (08/28/2023 3:58 PM EDT) Anatomical Region Laterality Modality Breast Bilateral Mammography 08/28/2023 3:58 PM EDT Narrative 09/28/2023 12:01 AM EDT ? [facility] ? [address] ?[place] [address] ? Mammography Report ? Signed ? Patient: Rene,Liz ?MR#: [id number] ?? 24 ? : 1970 ?Acct:[id number] ? Age/Sex: 53 / F ?ADM Date: 08/28/23 ? Loc: HO.MAMMO ? Attending Dr: Aaron Riley MD ? Ordering Physician: Aaron Riley MD ?Results: 2 ?? Benign Findings ? Date of Service: 08/28/23 ?Follow Up: 1 Year From Orig ?? inal Mammogram ? Procedure(s): MM tomosynthesis screening BI ?? Accession Number(s): [id number] ? cc: Aaron Riley MD ? EXAMINATION: ?? MM SCREENING DIGITAL BREAST TOMOSYNTHESIS, BILATERAL ? CLINICAL INFORMATION: ? Screening. Asymptomatic. ? The patient has a history of bilateral breast reduction. ? COMPARISON: ?? Mammography: This study is compared with prior exams dating back to ?? 2018. ? TECHNIQUE: ?? Digital breast tomosynthesis is [...] by Anastasia Goddard MD in OV> ? 09/27/23 2357 ? DD/ 1558 ? TD/TT: ? Business Division Chair: ? Procedure Note Nickolas, Image - 09/28/2023 [facility] [address] [place] [address] Mammography Report Signed Patient: Marycarmen López#: [id number] 24 : 1970Acct:[id number] Age/Sex: 53 / FADM Date: 08/28/23 Loc: SATYA Attending Dr: Aaron Riley MD Ordering Physician: Aaron Riley MDResults: 2 Benign Findings Date of Service: 08/28/23Follow Up: 1 Year From Orig inal Mammogram Procedure(s): MM tomosynthesis screening BI Accession Number(s): [id number] cc: Aaron Riley MD EXAMINATION: MM SCREENING [...] by Anastasia Goddard MD in OV> 09/27/23 8327 DD/ 1558 TD/TT: Business Division Chair: Aaron Riley MD IMG BI PROCEDURES Edited Re sult - Final * Pap Smear (12/15/2020 12:00 AM EDT) Swab us Historical Provider LAB CYTOLOGY ORDERABLES F inal Result [facility] [address] [place] [address] from Last 3 Months or Most Recently Relevant to Health Maintenance Insurance [facility] Care Teams Agricultural Equipment Operator Relationship Specialty Start Date End Date Aaron Riley MD [address] [place] [phone] PCP - General Internal Medicine 04/24/18
--- OUTSIDE RECORDS SUMMARY | 2024-06-27 12:21 | XMS_ITS | Encounter Summary ---
Author Organization [employer] Address [address] [place] [id number] Care Team Providers Care Conservation Planner Name Role Phone Aaron Riley MD Primary Care Provider [phone]- [phone] Reason for Visit * Reason Onset Date Comments Results 05/28/2024 Encounter Details Date Type Department Care Team ([facility] st Contact Info) Description 05/28/2024 Telephone [facility] MED [facility] PEDS [address], [place] [phone] Aaron Riley MD [address] [place] [address] Results Social History Tobacco Use Types Packs/Day [...] encounter Miscellaneous Notes * Telephone Encounter - Carri Haley RN - 06/06/2024 12:44 PM EST TC to pt to inform her of appt. Pt states that she spoke to someone in office and is aware of this appt. Advised pt to return call with any concerns prior to this appt, pt agrees to plan. * Telephone Encounter - Livier Varner RN - 06/03/2024 12:30 PM EST Telephone call returned to patient in regards to below message. Patient went to ED on Monday and was found to have enlarge thymus. Patient was told to call endo office for sooner appointment. They will not answer, she has left voicemail. Patient requesting for PCP to make stat referral/appointment based of ED notes in chart. Patient verbalized understanding and denied having any further questions or concerns at this time. Patient to follow up as needed. * Telephone Encounter - Brittany Morton - 05/31/2024 2:57 PM EST Tc from pt requesting to speak with PCP regarding results. Program Director/Morning Show Host advise pt of referrals and provided contact number to endocrinology . Pt expressed concerns. Denied triage. Pt only wants to speak toPCP. Program Director/Morning Show Host advise will send a message. Contact pt at [phone] (latvian) * Telephone Encounter - Maureen Whitaker RN - 05/29/2024 4:40 PM EST TC placed to pt via BLS park interpreter (Vanda ID#[id number]) per provider message, She has hyperthyroidism. I [...] PM EST T/C to pt via BLS Financial Accountant #[id number] to advise CXR wnl and lab for tsh still needs to be collected.No answer, v/m left to return call to Blue team nurses. * Telephone Encounter - Jair Frias - 05/28/2024 11:40 AM EST Pt returning call * Telephone Encounter - Tanna Mcrae RN - 05/28/2024 11:14 AM EST CXR wnl, Tsh has yet to be collected. T/C to pt via S Financial Accountant to advise. No answer, v/m left to return call to [place] team nurses. * Telephone Encounter - Marylou [...] Description 08/07/2024 10:30 AM EDT Office Visit [facility] PEDS [address] [place] [address] Aaron Riley MD [address] [place] [address] documented as of this encounter Visit Diagnoses Not on filedocumented in this encounter Additional Health Concerns Assessment Noted Time PHQ-9 Depression Total Score: 21 024 1:11 PM EDT documented as of this encounter Care Teams Conservation Planner Relationship Specialty Start Date End Date Aaron Riley MD [address] [place] [address] PCP - General Internal Medicine 04/24/18 documented as of this encounter
--- OUTSIDE RECORDS SUMMARY | 2024-06-27 12:21 | XMS_ITS | Encounter Summary ---
Author Organization [employer] Address [address] [place] [address] [place] [address] Care Team Providers Care Eye Specialist Name Role Phone Aaron Riley MD Primary Care Provider [phone]- [phone] Reason for Visit * Reason Onset Date Comments Nurse Triage 12/28/2022 Encounter Details Date Type Department Care Team (Late st Contact Info) Description 12/28/2022 Telephone [facility] MED & PEDS [address] [place] [address] Aaron Riley MD [address] [place] [address] Nurse Triage Social History Tobacco Use Types [...] 12/28/2022 1:53 PM EDT Triage call with [place] [employer] [place] [id number] Pt reports a few days ago, bent down to seed cone picker a beach chair and immediately had low [...] accepted this outcome Please contact pt at [phone] Yoruba Speaker documented in this encounter Plan of Treatment Upcoming Encounters Date Type Department Care Team (Late st Contact Info) Description 08/07/2024 10:30 AM EDT Office Visit [facility] MED & PEDS [address] [place] [address] Aaron Riley MD [address] [place] [address] documented as of this encounter Visit Diagnoses Not on filedocumented in this encounter Care Teams Eye Specialist Relationship Specialty Start Date End Date Aaron Riley MD [address] [place] [address] PCP - General Internal Medicine 04/24/18 documented as of this encounter
--- OUTSIDE RECORDS SUMMARY | 2024-06-27 12:21 | XMS_ITS | Encounter Summary ---
Author Organization [employer] Address [address] [place] [address] Care Team Providers Care Prepress Technician Name Role Phone Aaron Riley MD Primary Care Provider [phone]- [phone] Reason for Visit * Reason Onset Date Comments Nurse Triage 01/10/2024 Encounter Details Date Type Department Care Team (Late st Contact Info) Description 01/10/2024 Telephone [facility]C MED & PEDS [address] [place] [address] Aaron Riley MD [address] [place] [address] Nurse Triage Social History Tobacco Use Types [...] EDT Triage call returned to patient with [place] Steamtable Worker [id number] Patient reports another small lesion / lump [...] 08/07/2024 10:30 AM EDT Office Visit [facility] MED & PEDS [address] [place] [address] Aaron Riley MD [address] [place] [address] documented as of this encounter Visit Diagnoses Not on filedocumented in this encounter Additional Health Concerns Assessment Noted Time PHQ-9 Depression Total Score: 21 024 1:11 PM EDT documented as of this encounter Care Teams Prepress Technician Relationship Specialty Start Date End Date Aaron Riley MD [address] [place] [address] PCP - General Internal Medicine 04/24/18 documented as of this encounter
== END ==
LOC: HO.NUCMED 10:24
PROVIDERS: PCP Internal Medicine; Visit Provider Internal Medicine
DX: E05.80 Other thyrotoxicosis without thyrotoxic crisis or storm (principal); R79.89 Other specified abnormal findings of blood chemistry
CPT/HCPCS: 78014; A9512; A9516

== ENCOUNTER → 2024-06-27 10:26 | Outpatient (BNV) | payer OTHER, SELFPAY | PROVIDERS: PCP Internal Medicine; Visit Provider Radiology Diagnostic Radiology | DX: E05.90 Thyrotoxicosis, unspecified without thyrotoxic crisis or storm (principal) | CPT/HCPCS: 78014 ==

== ENCOUNTER 2024-07-12 09:59 | Outpatient (AMB) | payer OTHER, SELFPAY ==
[2024-07-12 10:15] VITALS: BP 104/54; PULSE 80; O2SAT 97; BMI 32.1
--- NOTE | 2024-07-12 10:15 | MHC.OFFVIS ---
Vital Signs 07/12/24 10:15 Height 5 ft 2 in Weight 175 lb 7.807 oz BMI 32.1 BP 104/54 L Blood Pressure Location Lt brachial Position Sitting Pulse 80 Pulse Source Pulse Oximeter Pulse Oximetry (%) 97 Oxygen Delivery Method Room Air Intake Visit Reasons: Thyrotoxicosis Intake Note: New patient present today for Thyrotoxicosis office visit. Recordings Librarian Required: Yes Recordings Librarian Language: Weather Reporter Services: Recordings Librarian Offered & Declined Information Interpreted: non-clinical & clinical Accompanied by: Spouse Allergies melatonin [MELATONIN] Allergy (Unknown, Verified 07/12/24 10:16) FACIAL REDNESS & EDEMA ASPERGILLUS Allergy (Unknown, Uncoded 07/12/24 10:16) HIVES Medication List - Last Reconciled 07/12/24 by Barbara Neal MD acetaminophen (Tylenol) 650 mg (2 x 325 mg) PO Q6H PRN duloxetine 20 mg PO DAILY duloxetine 20 mg PO BID ibuprofen 1 tab PO TID lisinopril-hydrochlorothiazide 10-12.5 mg tabs PO DAILY omeprazole 20 mg PO DAILY omeprazole magnesium (Prilosec OTC) 20 mg PO DAILY polyethylene glycol 3350 (Miralax) 17 grams PO DAILY prednisone 10 mg PO DAILY prednisone 50 mg PO DAILY prednisone 40 mg (2 x 20 mg) PO DAILY sertraline 25 mg PO QAM HPI Comments Details: 54-year-old female here today for initial evaluation of hyperthyroidism. 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 Labs from May 2024 showed suppressed TSH with elevated free T4 of 2.26. Thyroid uptake and scan done 06/27/2024 showed elevated diffuse uptake consistent with Graves disease. No antibody levels done. Reports palpitations, tremors for the past month. Lost 15 lbs in May and then gained it back in June 2024 Feels tired Bowel movements are regular now , just two days ago had some loose stools and vomiting Reports heat intolerance, and excessive diaphoresis Reports excessive anxiety and hair loss Post menopausal since age 51 Blurry vision since 1 month, saw eye doctor 2 months ago no issues No exophthalmos, no dryness or teariness, no painful eye movements Denies preceding viral illness. Had CT scan of the chest the same day the labs were done not perceding it Patient denies any difficulty swallowing, pain on swallowing or voice changes or difficulty breathing. Patient denies any history of childhood neck radiation. Denies having ever used lithium, amiodarone or biotin supplements. Patient denies any family history of thyroid cancer or thyroid disease. Physical exam General: sitting comfortably in no acute distress HEENT: normocephalic/atraumatic, EOM intact, moist oral mucosa, no lid lag Neck: supple, symmetrical, no thyromegaly , Cardiac: normal heart sounds Pulm: normal breath sounds B/L, no added breath sounds Abd: not distended, no tenderness Extremities: no edema, no signs of myxedema, does have fine tremors Laboratory Tests 08/31/23 05/28/24 06/01/24 15:03 15:02 10:49 TSH 1.76 < 0.01 L < 0.01 L Free T4 2.26 H EXAMINATION: NM THYROID UPTAKE AND SCAN 06/27/24 CLINICAL INFORMATION: Thyrotoxicosis COMPARISON: None available. TECHNIQUE: Following the oral administration of 204 microcuries of I-123 sodium iodide, thyroid uptake was performed and expressed as a percentage of the administrated dose. Gamma scintillation camera images of the thyroid in the anterior and right and left anterior oblique views were obtained using a pinhole collimator following the administration of 8.2 mCi Tc-99m pertechnetate. FINDINGS: No hot or cold defects are seen on the thyroid scans. The uptake is 20.33% at 4 hours and 48.69% at 24 hours. NM/NM thyroid w uptake IMPRESSION: Elevated 24 hour uptake, suggestive of Graves' disease or early Alexandre's thyroiditis. Electronically signed by: Jered Silva MD 07/01/2024 03:09 PM EDT [facility] Medical History (Updated 07/12/24 @ 10:21 by Barbara Neal MD) Hyperthyroidism Fibromyalgia Depression Surgical History (Updated 07/12/24 @ 10:19 by MARC Rocha) History of surgery Family History Father Tonsillar cancer Hypertension Paternal Grandmother Hypertension Social History Household Members: Spouse and Family Alcohol intake: never Patient Tobacco Use Status: Never used Tobacco service: No Current occupational status: employed Assessment & Plan Assessment & Plan (1) Hyperthyroidism: Code(s): E05.90 - Thyrotoxicosis, unspecified without thyrotoxic crisis or storm Category: Medical Plan: 54-year-old female here today for initial evaluation of hyperthyroidism. Labs from May 2024 showed suppressed TSH with elevated free T4 of 2.26. Patient has been symptomatic for about a month. Thyroid uptake and scan done 06/27/2024 showed elevated diffuse uptake consistent with Graves disease. No antibody levels done. given labs and thyroid uptake and scan are consistent with Graves disease. I would like to start her on low-dose methimazole 5 mg daily. I will also obtain thyroid blood work and antibodies today. Thyroid uptake and scan showed diffuse increased uptake which ruled out toxic nodular disease or toxic adenoma. Patient did not have a preceding viral infection and given findings on the uptake and scan, unlikely thyroiditis. The following were discussed as potential side effects of methimazole: - Serious skin rashes - nausea, vomiting, or severe hepatic injury - Agranulocytosis: a rare side effect of methimazole involves a severe decrease in the production of white blood cells. This condition is extremely serious, but affects only one out of every 200 to 500 people who take an antithyroid drug. Agranulocytosis more commonly occurs within the first three months of starting treatment with an antithyroid drug, but can occur at any time. If patient develops a fever (temperature above 100.5F), or other signs or symptoms of infection, she should stop taking the tapazole and immediately have a complete blood count (CBC) done. Serious and potentially life threatening infections, or even , can occur before agranulocytosis resolves. However, once the antithyroid drug is stopped, agranulocytosis usually resolves within a week. - Arthralgias, myalgias - Renal: Nephritis - Fever Patient will stop medication and call our office if these occur. Discussed with patient that about 30% of the patients have remission after 12-18 months of treatment with methimazole. More recent data has shown longer periods of treatment resulting in better remission rates as well. At this time we will plan to continue treatment with methimazole and continue adjusting the dose as needed. In the long run if she does not have remission, we also briefly discussed definitive therapy options of radioactive iodine ablation and total thyroidectomy and the need for requiring long-term levothyroxine therapy after those procedures. Plan: -do TFTs, TSI, TSH receptor and TPO antibodies today -start methimazole 5 mg daily -repeat blood work in 6 weeks -follow up in 8 weeks Plan I spent 45 minutes in reviewing the record, seeing the patient and documenting in the medical record. Orders: Orders Thyroid Stimulating Immunoglob Today E05.90 - Thyrotoxicosis, unspecified without thyrotoxic crisis or storm Thyrotropin Receptor Antibody Today E05.90 - Thyrotoxicosis, unspecified without thyrotoxic crisis or storm Thyroid Peroxidase Antibodies Today E05.90 - Thyrotoxicosis, unspecified without thyrotoxic crisis or storm Thyroid Stimulating Hormone Today E05.90 - Thyrotoxicosis, unspecified without thyrotoxic crisis or storm Free T4 (Free Thyroxine) Today E05.90 - Thyrotoxicosis, unspecified without thyrotoxic crisis or storm Triiodothyronine T3 Total Today E05.90 - Thyrotoxicosis, unspecified without thyrotoxic crisis or storm Medications: New methimazole 5 mg PO DAILY 30 tabs 4RF Patient Instructions: Do blood work today Start methimazole 5 mg daily Repeat another set of blood work in 6 weeks Follow up in 8 weeks Realice an?manuel larry. Comience con metimazol 5 mg al d?a. Repita otra serie de an?manuel peñaloza en 6 semanas. Visita de seguimiento en 8 semanas. The following were discussed as potential side effects of methimazole: - Serious skin rashes - nausea, vomiting, or severe hepatic injury - Agranulocytosis: a rare side effect of methimazole involves a severe decrease in the production of white blood cells. This condition is extremely serious, but affects only one out of every 200 to 500 people who take an antithyroid drug. Agranulocytosis more commonly occurs within the first three months of starting treatment with an antithyroid drug, but can occur at any time. If patient develops a fever (temperature above 100.5F), or other signs or symptoms of infection, she should stop taking the tapazole and immediately have a complete blood count (CBC) done. Serious and potentially life threatening infections, or even , can occur before agranulocytosis resolves. However, once the antithyroid drug is stopped, agranulocytosis usually resolves within a week. - Arthralgias, myalgias - Renal: Nephritis - Fever Patient will stop medication and call our office if these occur. Coding Level of Care Code New Pt Level 4 (06481) Diagnoses Hyperthyroidism E05.90 Time Spent (min) 45
--- OUTSIDE RECORDS SUMMARY | 2024-07-12 11:44 | XMS_ITS | Data Portability ---
Author Organization [place] - [facility], Allergy Address [address] [place] [address] [place] [phone] Care Team Providers Care Tyre Finisher And Examiner Name Role Phone PILO DINH Primary Care Provider Assessment No assessment recorded. Plan of Treatment Reminders Order Date Submit Date Provider Last Modified By Organization Details Last Modified Time Details Appointments FOLLOW UP 30 2024 03:00P M LUCINDA ROD MD Not available Not available Not available Lab CBC w/ auto diff 2023 024 RAJ [facility] (Centralized Electronic Ordering - All Locations), Patient Can Go To The Location Of Their Choice, [address] 12/07/2023 03:18:39 Referral None record ed. Procedures [...] [email or web address], 3 or more view 2024 025 [email or web address] [facility], [address] [place] [address], [phone], 04/29/2024 13:27:40 CT, sinuse s, w/o contra st 2023 024 arcadio [facility], [address] [place] [address], [phone], 12/06/2023 14:37:36 Medication Orders doxycy scruggs hyclat e 100 mg tablet 2024 025 [facility][id number], [address] [place] [address], [address], 04/29/2024 13:24:54 flutic asone propio matthew 50 mcg/ac tuatio n nasal spray, suspen marco 2024 025 [facility][id number], [address] [place] [address], [address], 04/29/2024 13:24:55 Patient TargetsNo targets recorded. Patient InstructionsNo instructions recorded. Reason for Referral None Reported. Results Created Date Observation Date Name Description Value Unit Range Abnormal Flag Note LastModifiedBy Organization Detail LastModifiedTime 09/08/19 24 09/14/2023 PNEUM OCOCC AL AB (23 SEROT YPE) pneumo Ab type 1* 3.7 ug/mL >1.3 Not Available [facility] [address] [place], [address], 09/14/2023 00:47:32 09/08/19 24 09/14/2023 PNEUM OCOCC AL AB (23 SEROT YPE) pneumo Ab type 3* 0.5 ug/mL >1.3 below low normal Not Available [facility] [address] [place], [address], 09/14/2023 00:47:32 05/17/20 24 09/14/2023 PNEUM OCOCC AL AB (23 SEROT YPE) pneumo Ab type 4* 1.0 ug/mL >1.3 below low normal Not Available [facility] [place] [address] [place], [address], 09/14/2023 00:47:32 09/08/19 24 09/14/2023 PNEUM OCOCC AL AB (23 SEROT YPE) pneumo Ab type 8* 4.6 ug/mL >1.3 Not Available [facility] [place] [address] [place], [address], 09/14/2023 00:47:32 09/08/19 24 09/14/2023 PNEUM OCOCC AL AB (23 SEROT YPE) pneumo Ab type 9 (9N)* 2.2 ug/mL >1.3 Not Available [facility] [place] [address] [place], [address], 09/14/2023 00:47:32 09/08/19 24 09/14/2023 PNEUM OCOCC AL AB (23 SEROT YPE) pneumo Ab type 12 (12F)* <0.1 ug/mL >1.3 below low normal Not Available [facility] [place] [address] [place], [address], 09/14/2023 00:47:32 09/08/19 24 09/14/2023 PNEUM OCOCC AL AB (23 SEROT YPE) pneumo Ab type 14* 12.0 ug/mL >1.3 Not Available [facility] [address] [place], [address], 09/14/2023 00:47:32 09/08/19 24 09/14/2023 PNEUM OCOCC AL AB (23 SEROT YPE) pneumo Ab type 17 (17F)* 5.3 ug/mL >1.3 Not Available [facility] [place] [address] [place], [address], 09/14/2023 00:47:32 09/08/19 24 09/14/2023 PNEUM OCOCC AL AB (23 SEROT YPE) pneumo Ab type 19 (19F)* 3.0 ug/mL >1.3 Not Available [facility] [place], [address], 09/14/2023 00:47:32 09/08/19 24 09/14/2023 PNEUM OCOCC AL AB (23 SEROT YPE) pneumo Ab type 2* 10.8 ug/mL >1.3 Not Available [facility] [place] [address] [place], [address], 09/14/2023 00:47:32 09/08/19 24 09/14/2023 PNEUM OCOCC AL AB (23 SEROT YPE) pneumo Ab type 20* 3.0 ug/mL >1.3 Not Available [facility] [place] [address] [place], [address], 09/14/2023 00:47:32 09/08/19 24 09/14/2023 PNEUM OCOCC AL AB (23 SEROT YPE) pneumo Ab type 22 (22F)* 1.7 ug/mL >1.3 Not Available [facility] [place] [address] [place], [address], 09/14/2023 00:47:32 09/08/19 24 09/14/2023 PNEUM OCOCC AL AB (23 SEROT YPE) pneumo Ab type 23 (23F)* 3.6 ug/mL >1.3 Not Available [facility] [place] [address] [place], [address], 09/14/2023 00:47:32 09/08/19 24 09/14/2023 PNEUM OCOCC AL AB (23 SEROT YPE) pneumo Ab type 26 (6B)* 1.9 ug/mL >1.3 Not Available [facility] [place] [address] [place], [address], 09/14/2023 00:47:32 09/08/19 24 09/14/2023 PNEUM OCOCC AL AB (23 SEROT YPE) pneumo Ab type 34 (10A)* 8.3 ug/mL >1.3 Not Available [facility] [address] [place] [address] [place], [address], 09/14/2023 00:47:32 09/08/19 24 09/14/2023 PNEUM OCOCC AL AB (23 SEROT YPE) pneumo Ab type 43 (11A)* 2.9 ug/mL >1.3 Not Available [facility] [address] [place] [address] [place], [address], 09/14/2023 00:47:32 09/08/19 24 09/14/2023 PNEUM OCOCC AL AB (23 SEROT YPE) pneumo Ab type 5* 0.6 ug/mL >1.3 below low normal Not Available [facility] [address] [place], [address], 09/14/2023 00:47:32 09/08/19 24 09/14/2023 PNEUM OCOCC AL AB (23 SEROT YPE) pneumo Ab type 51 (7F)* 4.2 ug/mL >1.3 Not Available [facility] [address] [place], [address], 09/14/2023 00:47:32 09/08/19 24 09/14/2023 PNEUM OCOCC AL AB (23 SEROT YPE) pneumo Ab type 54 (15B)* 5.9 ug/mL >1.3 Not Available [facility] [address] [place] [address] [place], [address], 09/14/2023 00:47:32 09/08/19 24 09/14/2023 PNEUM OCOCC AL AB (23 SEROT YPE) pneumo Ab type 56 (18C)* 2.3 ug/mL >1.3 Not Available [facility] [address] [place], [address], 09/14/2023 00:47:32 09/08/19 24 09/14/2023 PNEUM OCOCC AL AB (23 SEROT YPE) pneumo Ab type 57 (19A)* 5.1 ug/mL >1.3 Not Available [facility] [address] [place], [address], 09/14/2023 00:47:32 09/08/19 24 09/14/2023 PNEUM OCOCC AL AB (23 SEROT YPE) pneumo Ab type 68 (9V)* 1.6 ug/mL >1.3 Not Available [facility] [address] [place], [address], 09/14/2023 00:47:32 09/08/19 24 09/14/2023 PNEUM OCOCC AL AB (23 SEROT YPE) pneumo Ab type 70 (33F)* 2.0 ug/mL >1.3 *This test was devel oped and its perfo rmanc e louie cteri stics deter mined by [employer] [facility]. It has not been clear ed or appro desiree by the U.S. Food and Drug Admin istra tion. FLAG Inter preta tion: A = Abnor mal, H = High, L = Low Not Available [facility] [address] [place], [address], 09/14/2023 00:47:32 12/06/19 24 12/07/2023 CBC WITH DIFFE RENTI AL/PL ATELE T WBC 14.5 x10e3 /uL 3.4-10 .8 above high normal Not Available [facility] ([facility]) [address] [facility], [place], [address], 12/07/2023 03:18:36 12/06/19 24 12/07/2023 CBC WITH DIFFE RENTI AL/PL ATELE T RBC 4.54 x10e6 /uL 3.77-5 .28 normal Not Available [facility] ([facility]) [address] [place], [address], 12/07/2023 03:18:36 12/06/19 24 12/07/2023 CBC WITH DIFFE RENTI AL/PL ATELE T hemoglobin 12.9 g/dL 11.1-1 5.9 normal Not Available [facility] ([facility]) [address] [place], [address], 12/07/2023 03:18:36 12/06/1912/07/2023 CBC WITH DIFFE RENTI AL/PL ATELE T hematocrit 39.6 % 34.0-4 6.6 normal Not Available [facility] ([facility]) [address] [place], [address], 12/07/2023 03:18:36 12/06/1912/07/2023 CBC WITH DIFFE RENTI AL/PL ATELE T MCV 87 fL 79-97 normal Not Available [facility] ([facility]) [address] [place], [address], 12/07/2023 03:18:36 12/06/1912/07/2023 CBC WITH DIFFE RENTI AL/PL ATELE T MCH 28.4 pg 26.6-3 3.0 normal Not Available [facility] ([facility]) [address] [place], [address], 12/07/2023 03:18:36 12/06/1912/07/2023 CBC WITH DIFFE RENTI AL/PL ATELE T MCHC 32.6 g/dL 31.5-3 5.7 normal Not Available [facility] ([facility]) [address] [place], [address], 12/07/2023 03:18:36 12/06/1912/07/2023 CBC WITH DIFFE RENTI AL/PL ATELE T RDW 13.3 % 11.7-1 5.4 Not Available [facility] ([facility]) [address] [facility], [place], [address], 12/07/2023 03:18:36 12/06/19 24 12/07/2023 CBC WITH DIFFE RENTI AL/PL ATELE T platelets 58 x10e3 /uL 150-45 0 alert low Not Available [facility] ([facility]) [address] [facility], [place], [address], 12/07/2023 03:18:36 12/06/19 24 12/07/2023 CBC WITH DIFFE RENTI AL/PL ATELE T neutrophils 55 % not estab. normal Not Available [facility] ([facility]) [address] [facility], [place], [address], 12/07/2023 03:18:36 12/06/19 24 12/07/2023 CBC WITH DIFFE RENTI AL/PL ATELE T lymphs 35 % not estab. normal Not Available [facility] ([facility]) [address] [facility], [place], [address], 12/07/2023 03:18:36 12/06/19 24 12/07/2023 CBC WITH DIFFE RENTI AL/PL ATELE T monocytes 6 % not estab. normal Not Available [facility] ([facility]) [address] [facility], [place], [address], 12/07/2023 03:18:36 12/06/19 24 12/07/2023 CBC WITH DIFFE RENTI AL/PL ATELE T eos 2 % not estab. normal Not Available [facility] ([facility]) [address] [facility], [place], [address], 12/07/2023 03:18:36 12/06/19 24 12/07/2023 CBC WITH DIFFE RENTI AL/PL ATELE T basos 1 % not estab. normal Not Available [facility] ([facility]) [address] [facility], [place], [address], 12/07/2023 03:18:36 12/06/19 24 12/07/2023 CBC WITH DIFFE RENTI AL/PL ATELE T immature cells CAN HANDLER Not Available [facility] ([facility]) [address] [facility], [place], [address], 12/07/2023 03:18:36 12/06/19 24 12/07/2023 CBC WITH DIFFE RENTI AL/PL ATELE T neutrophils (absolute) 8.0 x10e3 /uL 1.4-7. 0 above high normal Not Available [facility] ([facility]) [address] [facility], [place], [address], 12/07/2023 03:18:36 12/06/19 24 12/07/2023 CBC WITH DIFFE RENTI AL/PL ATELE T lymphs (absolute) 5.1 x10e3 /uL 0.7-3. 1 above high normal Not Available [facility] ([facility]) [address] [facility], [place], [address], 12/07/2023 03:18:36 12/06/19 24 12/07/2023 CBC WITH DIFFE RENTI AL/PL ATELE T monocytes(ab solute) 0.9 x10e3 /uL 0.1-0. 9 normal Not Available [facility] ([facility]) [address] [place], [address], 12/07/2023 03:18:36 12/06/19 24 12/07/2023 CBC WITH DIFFE RENTI AL/PL ATELE T eos (absolute) 0.3 x10e3 /uL 0.0-0. 4 normal Not Available [facility] ([facility]) [address] [facility], [place], [address], 12/07/2023 03:18:36 12/06/19 24 12/07/2023 CBC WITH DIFFE RENTI AL/PL ATELE T baso (absolute) 0.1 x10e3 /uL 0.0-0. 2 normal Not Available [facility] ([facility]) [address] [facility], [place], [address], 12/07/2023 03:18:36 12/06/19 24 12/07/2023 CBC WITH DIFFE RENTI AL/PL ATELE T immature granulocytes 1 % not estab. Not Available [facility] ([facility]) [address] [facility], [place], [address], 12/07/2023 03:18:36 12/06/19 24 12/07/2023 CBC WITH DIFFE RENTI AL/PL ATELE T immature grans (abs) 0.1 x10e3 /uL 0.0-0. 1 Not Available [facility] ([facility]) [address] [facility], [place], [address], 12/07/2023 03:18:36 12/06/19 24 12/07/2023 CBC WITH DIFFE RENTI AL/PL ATELE T NRBC CAN HANDLER Not Available [facility] ([facility]) [address] [facility], [place], [address], 12/07/2023 03:18:36 12/06/19 24 12/07/2023 CBC WITH DIFFE RENTI AL/PL ATELE T hematology comments: Note: Verif ied by ehrnan segal nDerrick Not Available [facility] ([facility]) [address] [facility], [place], [address], 12/07/2023 03:18:36 12/06/19 CT, sinus es, w/o contr ast No observ ation record ed. arcadio [facility] Of [address], [place], [address], 12/06/2023 14:37:32 12/07/19 24 12/06/2023 CT, sinus es, w/o contr ast No observ ation [facility]. [email or web address] [address] [address], [place], [address], 12/08/2023 08:26:47 04/29/19 25 XR, sinus es, paran koby, 3 or more view No observ ation record ed. [facility] [address] [place], [address], 04/29/2024 13:26:24 Result Notes None recorded. Problems Name Problem SNOMED Code Status Onset Date Resolution Date Notes Provider Name and Address Organization Details Recorded Time Chronic left maxillary sinusitis 7410347416571 9101 Active 2023 LUCINDA ROD MD [address] [address], [facility] [place], [address], [facility] [place] 14:01:22 Secondary immune deficiency disorder 87469734 Active 2023 LUCINDA ROD MD [address] [address], [facility] [place], [address], [place] [facility] [place] 4 14:04:03 Chronic sinusitis 96526019 Active 2023 LUCINDA ROD MD [address] [address], [facility] [place], [address], [place] [facility] [place] 14:50:19 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 Procedures Surgical History Date Name Laterality Status Provider Name and Address Organization Details Recorded Time 5 JMSNasal/Sinus Endoscopy completed LUCINDA SPANGLER MD [address] [place] [address], [address], [facility] - [facility] 04/29/2024 13:25:10 4 JMSNasal/Sinus Endoscopy completed LUCINDA SPANGLER MD [address] [place] [address], [address], [facility] - [facility] 09/08/2023 14:50:15 7 dilation and curettage of uterus completed LUCINDA SPANGLER MD [address] [place] [address], [address], [facility] - [facility] 09/08/2023 16:09:45 Removal of spleen total completed LUCINDA SPANGLER MD [address] [place] [address], [address], [facility] - [facility] 09/08/2023 16:07:25 Imaging Results Imaging Date Name Status LastModified by Organiz ation Details LastModified Time 12/06/2023 CT, sinuses, w/o contrast completed arcadio [facility] Of [address], [address], 12/06/2023 14:37:32 12/06/2023 CT, sinuses, w/o contrast completed arcadio [facility] [address], [address], 12/08/2023 08:26:47 04/29/2024 XR, sinuses, paranasal, 3 or more view completed arcadio [facility] Of [address], [address], 04/29/2024 13:26:24 Procedure Notes None recorded. Medical Equipment None Reported. Medications Name Sig Start Date Stop Date Status Note LastModified by Organization Details LastModified Time prednisone 10 mg tablet TAKE 1 TABLET BY MOUTH EVERY DAY WITH 50 MG TABS active Not Available Not Available No t Available ibuprofen 800 mg tablet TAKE 1 TABLET [...] active Not Available Not Available Not Available prednisone 20 mg tablet TAKE 2 TABLETS BY MOUTH EVERY DAY active Not Available Not Available No t Available hydrocortiso ne 2.5 % topical cream [...] Not Available Not Available No t Available prednisone 50 mg tablet TAKE 1 TABLET BY MOUTH EVERY DAY active Not Available Not Available No t Available sertraline 25 mg tablet TAKE 1 TABLET BY MOUTH EVERY DAY IN THE MORNING active Not Available Not Available No t Available omeprazole 20 mg capsule,pravin yed release TAKE 1 CAPSULE BY MOUTH EVERY DAY active Not Available [...] propionate 50 mcg/actuatio n nasal spray,suspen marco Garrison 2 sprays twice a day by intranasal [...] vera [place] - [facility] 09/08/2023 15:07:06 What Is Your Level Of Alcohol Consumption? None [email or web address] Information not available 09/08/2023 Do You Use Any Illicit Or Recreational Drugs? No [email or web address] Information not available 09/08/2023 Do You Or Have You Ever Used Any Other Forms Of Tobacco Or Nicotine? No [email or web address] Information not available 09/08/2023 Sex: Unknown Functional [...] Note 717 LUCINDA CEBALLOS MD [facility] [address] [place] [address] 09/08/2023 14:01:25 09/08/2023 16:43:49 Chronic sinusitis 66237953 J32.9 Patient with history of ITP status [...] in 6 to 8 weeks Immune thrombocytopenia 3530977 D69.3 Immunodefi ciency disorder 930928995 D84.9 10232 LUCINDA CEBALLOS MD [facility] [address] [address] 12/06/2023 13:51:06 12/06/2023 14:39:48 Chronic sinusitis 68836582 J32.9 Patient with history of ITP status [...] gave her a sinus surgery brochure in [place]. All questions answeredco ntinue flonase and saline spray Please contact my surgical services assistant, Melony, at to schedule the procedure. The [...] scheduled in the near future. Immune thrombocytopenia 8255057 D69.3 Immunodefi ciency disorder 077736798 D84.9 51136 LUCINDA CEBALLOS MD [facility] [address] [place] [address] 04/29/2024 13:01:15 04/29/2024 13:27:40 Chronic sinusitis 81407682 J32.9 Patient with history of ITP status [...] another course of doxycyclin e. Immune thrombocytopenia 8929602 D69.3 Chronic rhinitis 7462733 6 J31.0 Health Concerns Section Related Observation LastModified by Organization Detai ls LastModified Time None Recorded Concern Status LastModified by Organization Details LastModified Time None Recorded Advance Directives Directive None Recorded Payers Encounter Date Sequence Insurance Name Policy Number Policy Morales Covered Member ID Morales Member ID Guarantor Name 09/08/2023 1 [place] [facility] (MEDICAID) Liz López [id number] Liz López 12/06/2023 1 [place] [facility] Liz López [id number] Liz López 04/29/2024 1 [facility] (MEDICAID HMO) [id number] Liz López [id number] Liz Lópze Notes Date Note Type Note Provider Name [...] platelet count of 44,000. LUCINDA SPANGLER MD [address] [place] [address], [address], [place] - [facility] [place] 09/08/2023 16:10:21 12/06/2023 text/html Patient seen in [...] to 8 weeks LUCINDA SPANGLER MD [address] 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 When I last saw her over the summer her platelet count was 58,000. She reports having a normal platelet count recently in [place]. Unfortunately I do not have access to their system. She notes persistent congestion and pressure especially in the frontal region. She is followed by Dr. Walt LevyPrevious CT scan showed maxillary sinus disease with hypoplastic frontal sinusesDeclines account financial manager and is able to discuss everything in [place] LUCINDA SPANGLER MD [address] [facility],[place] [address], [place], [address], [place] - [facility] 04/29/2024 13:26:38 OBGyn Episode No OBEpisode recorded.
== END 2024-07-12 10:50 | disposition home or self-care (01) ==
LOC: HO.ENCR 10:00
PROVIDERS: PCP Internal Medicine; Visit Provider Student in an Organized Health Care Education/Training Program
DX: E05.90 Thyrotoxicosis, unspecified without thyrotoxic crisis or storm (principal)
CPT/HCPCS: 99204

== ENCOUNTER → 2024-07-12 09:59 | Outpatient (BNVA) | payer OTHER, SELFPAY | PROVIDERS: PCP Internal Medicine; Visit Provider Student in an Organized Health Care Education/Training Program | DX: E05.90 Thyrotoxicosis, unspecified without thyrotoxic crisis or storm (principal) | CPT/HCPCS: 99202 ==

== ENCOUNTER 2024-07-12 10:58 | Outpatient (REF) | payer OTHER, SELFPAY ==
[2024-07-12 14:11] LABS: Free T4 (Free Thyroxine) 1.46 ng/dL (0.71-1.85); Thyroid Stimulating Hormone < 0.01 uIU/mL (0.32-4.0)
[2024-07-13 05:48] LABS: Triiodothyronine T3 Total 141 ng/dL (76-181)
[2024-07-17 08:08] LABS: Thyrotropin Receptor Antibody 6.41 IU/L (<=2.00)
[2024-07-17 17:18] LABS: Thyroid Stimulating Immunoglob 393 % baseline (<140)
== END 2024-07-12 10:59 | disposition home or self-care (01) ==
LOC: HO.10HDL 10:58
PROVIDERS: Visit Provider Student in an Organized Health Care Education/Training Program
DX: E05.90 Thyrotoxicosis, unspecified without thyrotoxic crisis or storm (principal)
CPT/HCPCS: 36415; 83520; 84439; 84443; 84445; 84480; 86376

== ENCOUNTER 2024-08-15 11:17 | Outpatient (REF) | payer OTHER, SELFPAY ==
[2024-08-15 12:34] LABS: Free T4 (Free Thyroxine) 1.08 ng/dL (0.71-1.85); Thyroid Stimulating Hormone < 0.01 uIU/mL (0.32-4.0)
--- OUTSIDE RECORDS SUMMARY | 2024-08-15 13:29 | XMS_ITS | Encounter Summary ---
Author Organization [employer] Address [address] [place] [address] Care Team Providers Care Senior Financial Analyst Name Role Phone Aaron Riley MD Primary Care Provider [phone] Reason for Referral * Imaging (Routine) - Closed Specialty Diagnoses / Procedures Referred By Contac t Referred To Contact Radiology Diagnoses Low TSH level Procedures NM THYROID W UPTAKE AND SCAN Aaron Riley MD [address] [place] [address] Phone: tel: fax: [address] Phone: tel: fax: Referral ID Status Reason Start Date Expiration Date Visits Re quested Visits Authorized [id number] Closed 06/27/2024 06/27/2025 3 3 Encounter Details Date Type Department Care Team (Late st Contact Info) Description 06/27/2024 Orders Only [facility] [address] [place] [address] Aaron Riley MD [address] [place], [place] [phone] Low TSH level (Primary Dx) Social History [...] Upcoming Encounters Date Type Department Care Team ([facility] st Contact Info) Description 11/18/2024 1:45 PM EDT Office Visit [facility] [address] [place] [address] Aaron Riley MD [address] [place] [address] Scheduled Orders Name Type Priority Associated Diagnoses Orde r Schedule NM THYROID W UPTAKE AND SCAN Imaging Routine Low TSH level Expected: 06/27/2024, Expires: 06/27/2025 documented as of this encounter Visit Diagnoses Diagnosis Low TSH level- Primary documented in this encounter Additional Health Concerns Assessment Noted Time PHQ-9 Depression Total Score: 21 024 1:11 PM EDT documented as of this encounter Care Teams Senior Financial Analyst Relationship Specialty Start Date End Date Aaron Riley MD [address] [place] [address] PCP - General Internal Medicine 04/24/18 documented as of this encounter
--- OUTSIDE RECORDS SUMMARY | 2024-08-15 13:29 | XMS_ITS | Encounter Summary ---
Author Organization [employer] Address [address] [place] [address] Care Team Providers Care Distribution Center Associate Name Role Phone Aaron Riley MD Primary Care Provider [phone] Reason for Visit * Reason Onset Date Comments Nurse Triage 01/10/2024 Encounter Details Date Type Department Care Team (Late st Contact Info) Description 01/10/2024 Telephone [facility] [address] [place] [address] Aaron Riley MD [address] [place] [address] Nurse Triage Social History Tobacco Use Types [...] EDT Triage call returned to patient with [place] Framework Developer [id number] Patient reports another small lesion / lump [...] Care Team (Late st Contact Info) Description 11/18/2024 1:45 PM EDT Office Visit [facility] [address] [place] [address] Aaron Riley MD [address] [place] [address] documented as of this encounter Visit Diagnoses Not on filedocumented in this encounter Additional Health Concerns Assessment Noted Time PHQ-9 Depression Total Score: 21 024 1:11 PM EDT documented as of this encounter Care Teams Distribution Center Associate Relationship Specialty Start Date End Date Aaron Riley MD [address] [place] [address] PCP - General Internal Medicine 04/24/18 documented as of this encounter
--- OUTSIDE RECORDS SUMMARY | 2024-08-15 13:29 | XMS_ITS | Encounter Summary ---
Author Organization [employer] Address [address] [place] [address] [facility] [place] [address] Care Team Providers Care Primary School Teacher Name Role Phone Aaron Riley MD Primary Care Provider [phone] Reason for Referral * Consultation (Urgent) - Closed Specialty Diagnoses / Procedures Referred By Contac t Referred To Contact Hematology and Oncology Diagnoses Immune thrombocytopenic purpura (CMS/HCC) Aaron Riley MD [address] [place] [address] Phone: tel: fax: Walt Levy MD [address] [place] [address] Phone: tel:[phone] fax:[phone] Referral ID Status Reason Start Date Expiration Date V isits Requested Visits Authorized [id number] Closed Specialty Services Required 09/01/2023 08/31/2024 1 1 Encounter Details Date Type Department Care Team (Late st Contact Info) Description 09/01/2023 Orders Only [facility] [address] [place], [place] [phone] Aaron Riley MD [address] [place], [place] [phone] Immune thrombocytopenic purpura (CMS/HCC) (Primary Dx) Social [...] Upcoming Encounters Date Type Department Care Team ([facility] st Contact Info) Description 11/18/2024 1:45 PM EDT Office Visit [facility] [address] [place] [address] Aaron Riley MD [address] [place] [address] Scheduled Referrals Name Type Priority Associated Diagnoses [...] documented as of this encounter Care Teams Primary School Teacher Relationship Specialty Start Date End Date Aaron Riley MD [address] [place] [address] PCP - General Internal Medicine 04/24/18 documented as of this encounter
--- OUTSIDE RECORDS SUMMARY | 2024-08-15 13:29 | XMS_ITS | Encounter Summary ---
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 Role Phone Aaron Riley MD Primary Care Provider [phone] Reason for Referral * Imaging (Routine) - Closed Specialty Diagnoses / Procedures Referred By Reji stearns Referred To Contact Radiology Diagnoses Other thyrotoxicosis without thyrotoxic crisis or storm Procedures NM Thyroid Uptake Aaron Riley MD [address] [place] [address] Phone: tel: fax: [address] Phone: tel: fax: Referral ID Status Reason Start Date Expiration Date Visits Re quested Visits Authorized [id number] Closed 05/29/2024 05/29/2025 3 3 * Consultation (Routine) - Closed Specialty Diagnoses / Procedures Referred By Contgretel t Referred To Contact Endocrinology Diagnoses Other thyrotoxicosis without thyrotoxic crisis or storm Aaron Riley MD [address] [place] [address] Phone: tel: fax: [facility] Endocrinology [address] [place], [place] Phone: tel: fax: Referral ID Status Reason Start Date Expiration Date V isits Requested Visits Authorized [id number] Closed Specialty Services Required 05/29/2024 05/29/2025 1 1 Encounter Details Date Type Department Care Team ([facility] st Contact Info) Description 05/29/2024 Orders Only [facility] [address] [place] [address] Aaron Riley MD [address] [place] [address] Other thyrotoxicosis without thyrotoxic crisis or storm [...] EDT Gender Identity Choose not to disclose 10/31/202 2 10:21 AM EDT Sexual Orientation Choose not to disclose 2021 10:21 AM EDT documented as of this encounter Plan of Treatment Upcoming Encounters Date Type Department Care Team (Late st Contact Info) Description 11/18/2024 1:45 PM EDT Office Visit [facility] [address] [facility] [place] [address] Aaron Riley MD [address] [place] [address] Scheduled Orders Name Type Priority Associated Diagnoses Orde r Schedule Acetylcholine Receptor Blocking Antibody Lab Routine Thymus hyperplasia (CMS/HCC) Expected: 06/05/2024 (Approximate), Expires: 06/05/2025 Scheduled Referrals Name Type Priority Associated Diagnoses Orde r Schedule Referral to Endocrinology Outpatient Referral Routine Other thyrotoxicosis without thyrotoxic crisis or storm Expected: 05/29/2024 (Approximate), Expires: 05/29/2025 documented as of this encounter Procedures Procedure Name Priority Date/Time Associated Diagnosis Comments NM THYROID UPTAKE Routine 06/27/2024 10: 26 AM EST Other thyrotoxicosis without thyrotoxic crisis or storm documented in this encounter Results * NM Thyroid Uptake (06/27/2024 10:26 AM EST) Anatomical Region Laterality Modality Head and Neck Nuclear Medicine 06/27/2024 10:2 6 AM EST Narrative 2024 3:12 PM EDT ? [facility] ?[address] ?[place] [address] ?Nuclear Medicine Report ? Signed ? Patient: Rene,Liz ?MR#: [id number] ?? 22 ? : 1970 ?Acct:[id number] ? Age/Sex: 53 / F ?ADM Date: 03/06/25 ? Loc: HO.NUCMED ? Attending : Aaron Riley MD ? Ordering Physician: Aaron Riley MD ?? Date of Service: 06/27/24 ?? Procedure(s): NM thyroid w uptake ?? Accession Number(s): [id number] ? cc: Aaron Riley MD ? EXAMINATION: ??NM THYROID UPTAKE AND SCAN ? CLINICAL INFORMATION: ??Thyrotoxicosis ? COMPARISON: ??None available. ? TECHNIQUE: ?? Following the oral administration of 204 microcuries of I-123 sodium ?? iodide, thyroid uptake was performed and expressed as a percentage of ?? the administrated dose. Gamma scintillation camera images of the ?? thyroid in the anterior and right and left anterior oblique views were ?? obtained using a pinhole collimator following the administration of 8.2 ?? mCi Tc-99m pertechnetate. ? FINDINGS: ??No hot or cold defects are seen on the thyroid scans. The ?? uptake is 20.33% at 4 hours and 48.69% at 24 hours. ? NM/NM thyroid w uptake ?? IMPRESSION: ?? Elevated 24 hour uptake, suggestive of Graves' disease or early ?? Alexandre's thyroiditis. ? Electronically signed by: ??Jered Silva MD ??2024 03:09 PM EDT ? Dictated By: ?Jered Silva MD ? Signed By: ?<Electronically signed by Jered Silva MD in OV> ?07/01/24 1509 ? DD/ 1026 ? TD/TT: 06/28/24 1305 ? Fly Fishing Guide: ? Procedure Note Estiven Olmos - [address] [place] [address] Nuclear Medicine Report Signed Patient: Marycarmen López#: [id number] 24 : 1970Acct:[id number] Age/Sex: 53 / FADM Date: 06/27/24 Loc: [facility] Attending Dr: Aaron Riley MD Ordering Physician: Aaron Riley MD Date of Service: 06/27/24 Procedure(s): NM thyroid w uptake Accession Number(s): [id number] cc: Aaron Riley MD EXAMINATION: NM THYROID UPTAKE AND SCAN CLINICAL INFORMATION: Thyrotoxicosis COMPARISON: None available. TECHNIQUE: Following the oral administration of 204 microcuries of I-123 sodium iodide, thyroid uptake was performed and expressed as a percentage of the administrated dose. Gamma scintillation camera images of the thyroid in the anterior and right and left anterior oblique views were obtained using a pinhole collimator following the administration of 8.2 mCi Tc-99m pertechnetate. FINDINGS: No hot or cold defects are seen on the thyroid scans. The uptake is 20.33% at 4 hours and 48.69% at 24 hours. NM/NM thyroid w uptake IMPRESSION: Elevated 24 hour uptake, suggestive of Graves' disease or early Alexandre's thyroiditis. 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
--- OUTSIDE RECORDS SUMMARY | 2024-08-15 13:29 | XMS_ITS | Clinical Summary ---
Author Organization [employer] Address [address] [place] [address] 7 [place] [address] Care Team Providers Care Delivery Tech Name Role Phone Aaron Riley MD Primary Care Provider [phone] Allergies Active Allergy Reactions Criticality Noted Date [...] TIP AND REPLACE CAP. 48 mL 11 08/08/19 24 Active Blood Pressure kitIndications:Maryan vated BP without diagnosis of hypertension TO check the BP daily 1 kit 10/17/19 24 Active econazole nitrate 1 % creamIndications:I ntertrigo Apply topically Once per day. 30 g 01/02/20 24 025 Active lisinopril-hydroCH LOROthiazide 10-12.5 MG tabletIndications: Primary hypertension Take 1 tablet by mouth Once per day. 30 tablet 03/26/20 24 025 Active DULoxetine (Cymbalta) [address] capsuleIndications :Fibromyalgia Take 1 capsule (60 mg) by mouth Once per day. Do not crush or chew. 30 capsule 03/26/20 24 025 Active doxycycline (Vibra-Tabs) 100 MG tablet Take 1 tablet twice a day by oral route for 20 days. 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 Backache 10/19/2011 Female infertility 10/19/2011 Encounters Date Type Department Care Team Description 08/15/2024 Orders Only GENERIC EXTERNAL DATA DEPARTMENT Provider, Generic External Data 08/07/2024 10:30 AM EDT Office Visit [facility] [address] [place] [address] Aaron Riley MD Primary hypertension (Primary Dx); Fibromyalgia; Immune thrombocytopenic purpura (CMS/HCC) 08/07/2024 Travel 07/31/2024 Patient Outreach [facility] [address] [place] [phone] Aaron Riley MD Pre-visit Planning (SDOH screening negative and Tobacco screening negative) 07/03/2024 Telephone [facility] [address] [place] [address] Aaron Riley MD CHW - Health Screening (Call to pt for a foster form to be filled out by . 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); Thymus hyperplasia (CMS/HCC) 05/28/2024 Orders Only [facility] [address] [place] [phone] NameRussell MD 05/28/2024 Telephone [facility] [address] [place] [address] Aaron Riley MD Results 05/25/2024 11:20 AM EST Office Visit [facility] [address] [place] [address] [phone] Russell River MD Weight loss (Primary Dx); Subacute cough 05/25/2024 Travel 05/24/2024 Telephone [facility] [address] [place] [address] Aaron Riley MD Nurse Triage from Last 3 Months Immunizations Name Administration [...] Recorded Patient Health Questionnaire-2 Score 6 10/03/2023 Internet Access Answer Date Recorded Internet Access Q1 Yes 07/31/2024 Internet Access Q2 Not on file 07/31/2024 Comments No Sex and Gender Information Value Date Recorded Sex Assigned at Female 02/21/2022 10:21 AM EDT Legal Sex Female 10:21 AM EDT Gender Identity Choose not to disclose 10:21 AM EDT Sexual Orientation Choose not to disclose 2021 10:21 AM EDT Last Filed Vital Signs Vital Sign Reading Time Taken Comments Blood Pressure 130/86 08/07/2024 11:24 AM EDT Pulse 101 08/07/2024 11:24 AM EDT Temperature 37 ??C (98.6 ??F) 08/07/2024 10:49 AM EDT Respiratory Rate 16 08/07/2024 10:49 AM EDT Oxygen Saturation 98% 08/07/2024 10:49 AM EDT Inhaled Oxygen Concentration - - Weight 77.6 kg (171 lb) 08/07/2024 10:49 AM EDT Height 157.5 cm (5' 2 ) 08/07/2024 10:49 AM EDT Body Mass Index 31.28 08/07/2024 10:49 AM EDT Plan of Treatment Upcoming Encounters Date Type Department Care Team ([facility] st Contact Info) Description 11/18/2024 1:45 PM EDT Office Visit [facility] [address] [place] [address] Aaron Riley MD [address] [place] [address] Health Maintenance Due Date Last Done Comments [...] season) 2023 07/12/2023, 02/22/2021, 08/01/2020 Depression Monitoring 04/03/2024 10/03/2023, 024 Depression Screening 10/02/2024 10/03/2023, 10/03/19 24 Tobacco Screening 03/26/2025 03/26/2024 Diabetes: Hemoglobin A1C 05/25/2025 05/25/2024 SDOH Screening 07/31/2025 07/31/2024 Mammogram 08/27/2025 08/28/2023, 05/0 04/2022, 07/20/2021, Additional [...] Name Priority Date/Time Associated Diagnosis Comments TSH Routine 08/15/2024 11:46 AM EDT T4, FREE Routine 08/15/2024 11:46 AM EDT NM THYROID UPTAKE Routine 06/27/2024 10: 26 AM EST Other thyrotoxicosis without thyrotoxic crisis or storm CTA CHEST PE PROTOCAL Routine 06/01/2024 1:25 [...] to Health Maintenance Results * (ABNORMAL) TSH (08/15/2024 11:46 AM EDT) Only the most recent of2 resultswithin the time period is included. Thyroid Stimulating Hormone <0.01(L) 0.32 - 4.0 uIU/mL [facility] Comment:TSH 3rd Generation ( [facility]) 08/15/2024 11:4 6 AM EDT 08/15/2024 11:46 AM EDT Generic External Data Provider LAB BLOOD ORDERAB LES Final Result Performing Organization Address [facility] de Phone Number [facility] [address] [place] [phone] * T4, Free (08/15/2024 11:46 AM EDT) Only the most recent of2 resultswithin the time period is included. Free T4 (Free Thyroxine) 1.08 0.71 - 1.85 ng/dL [facility] 08/15/2024 11:4 6 AM EDT 08/15/2024 11:46 AM EDT Generic External Data Provider LAB BLOOD ORDERAB LES Final Result Performing Organization Address [facility] de Phone Number [facility] [address] [place] [phone] * NM Thyroid Uptake (06/27/2024 10:26 AM EST) Anatomical Region Laterality Modality Head and Neck Nuclear Medicine 06/27/2024 10:2 6 AM EST Narrative 2024 3:12 PM EDT ? [facility] ?[address] ?[place] [address] ?Nuclear Medicine Report ? Signed ? Patient: Rene,Liz ?MR#: [id number] ?? 24 ? : 1970 ?Acct:[id number] ? Age/Sex: 53 / F ?ADM Date: 03/06/25 ? Loc: HO.NUCMED ? Attending Dr: Aaron Riley MD ? Ordering Physician: Aaron Riley MD ?? Date of Service: 06/27/24 ?? Procedure(s): NM thyroid w uptake ?? Accession Number(s): [id number] ? cc: Aaron Riley MD ? EXAMINATION: [...] DD/ 1026 ? TD/TT: 06/28/24 1305 ? Designer Writer: ? Procedure Note Nickolas, Image - [address] [address] Nuclear Medicine Report Signed Patient: Marycarmen López#: [id number] 24 : 1970Acct:[id number] Age/Sex: 53 / FADM Date: 06/27/24 Loc: [facility] Attending Dr: Aaron Riley MD Ordering Physician: Aaron Riley MD Date of Service: 06/27/24 Procedure(s): NM thyroid w uptake Accession Number(s): [id number] cc: Aaron Riley MD EXAMINATION: NM THYROID [...] Jered Silva MD 2024 03:09 PM EDT Dictated By: Jered Silva MD Signed By: <Electronically signed by Jered Silva MD in OV> 07/01/24 1509 DD/ 1026 TD/TT: 06/28/24 1305 Designer Writer: us Aaron Riley MD IMG NM PROCEDURES Final Res ult * CTA Chest PE Protocal (06/01/2024 1:25 PM EST) Anatomical Region Laterality Modality Body, Chest Computed Tomogra phy 06/01/2024 1:25 PM EST Narrative 06/01/2024 1:26 PM EST ? [facility] ?[address] ?[place] [address] ? CT Scan Report ? Signed ? Patient: Rene,Liz ?MR#: [id number] ?? 24 ? : 1970 ?Acct:[id number] ? Age/Sex: 53 / F ?ADM Date: 02/08/25 ? Loc: HO.ED ? Attending Dr: ? Ordering Physician: Cayetano Mitchell MD ?? Date of Service: 06/01/24 ?? Procedure(s): CT angio chest PE protocol ?? Accession Number(s): [id number] ? cc: Aaron Riley MD; Cayetano Mitchell MD ? Report Number: ?? [id number]: Total DLP = ??271.00 mGy-cm ? CLINICAL [...] DD/ 1325 ? TD/TT: 06/01/24 1325 ? Designer Writer: ? Procedure Note Estiven Olmos - 06/01/[address] [address] [address] Scan Report Signed Patient: Marycarmen López#: [id number] 24 : 1970Acct:[id number] Age/Sex: 53 / FADM Date: 06/01/24 Loc: HO.ED Attending Dr: Ordering Physician: Cayetano Mitchell MD Date of Service: 06/01/24 Procedure(s): CT angio chest PE protocol Accession Number(s): [id number] cc: Aaron Riley MD; Cayetano Mitchell MD Report Number: [id number]: Total DLP = 271.00 mGy-cm CLINICAL HISTORY: [...] 06/01/24 1326 DD/ 1325 TD/TT: 06/01/24 1325 Designer Writer: [facility] External Provider IMG CT PROCEDURES Edited Result - Final * D Dimer High Sensitivity (06/01/2024 10:49 AM EST) D Dimer High Sensitivity 297 NG/ML [facility] Comment:D-DIMER HS REFERENCE RANGENote: Our [...] ORDERAB LES Final Result Performing Organization Address [facility] Co de Phone Number [facility] [address] [place] [phone] * High Sensitivity Troponin I (06/01/2024 10:49 AM EST) TROPONIN I HIGH SENSITIVITY <2.7 <3.5 - 17.0 ng/L [facility] Comment:The [facility] high sens itivity Troponin-I results should beused in conjunction with other diagnostic information suchas ECG, clinical observations and information, and patientsymptoms to aid in the diagnosis of CA. 06/01/2024 10:4 9 AM EST 06/01/2024 10:58 AM EST Generic External Data Provider LAB BLOOD ORDERAB LES Final Result Performing Organization Address [facility] Co de Phone Number [facility] [address] [place] [phone] * SARS-CoV-2 RNA, Influenza A/B, and RSV RNA, Ql NAAT (06/01/2024 10:49 AM EST) Pathologist [facility] Influenza A PCR NEGATIVE Negative [facility] Influenza B PCR NEGATIVE Negative [facility] Resp Syncy Virus RNA Qual PCR NEGATIVE Negative [facility] SARS COV2 PCR NEGATIVE Negative [facility] Comment:All test results mus t [...] use by authorized laboratories.Testing performed on the [employer] GeneXpert utilizingreal-time RT-PCR.All SARS CoV2 and positive influenza A/B results arereported to [facility]. 06/01/2024 10:4 9 AM EST 06/01/2024 10:58 AM EST us Generic External Data Provider LAB MICROBIOLOGY - GENERAL ORDERABLES Final Result [facility] [address] [place] [phone] * (ABNORMAL) CBC auto differential (06/01/2024 10:49 AM EST) Only the most recent of2 resultswithin the time period is included. White Blood Count 11.0(H) 4.8 - 10.8 X10*3/uL [facility] Red Blood Count 4.62 4.20 - 5.50 X10*6/uL [facility] Hemoglobin 11.9(L) 12.0 - 16.0 g/dl [facility] Hematocrit 36.8(L) 37.0 - 47.0 % [facility] Mean Corpuscular Volume 79.7(L) 80.0 - 98.0 fL [facility] Mean Corpuscular Hemoglobin 25.8(L) 27.0 - 33.0 pg [facility] Mean Corpuscular HGB Conc 32.3 31.0 - 35.0 g/dl [facility] Red Cell Distribution Width 13.9 11.0 - 16.0 % [facility] Platelet Count 34(L) 160 - 400 X10*3/uL [facility] Neutrophils Percent Auto 50.2 45 - 73 % [facility] Imm Gran Pct Auto 0.3 0.0 - 0.4 % [facility] Lymphocytes Percent Auto 37.2 20 - 40 % [facility] Monocytes Percent Auto 8.2 2 - 11 % [facility] Eosinophils Percent Auto 3.6 0 - 4 % [facility] Basophils Percent Auto 0.5 0 - 2 % [facility] NRBC Pct Auto 0.0 0.0 - 0.2 /100WBC [facility] Neutrophils Absolute Auto 5.5 2.0 - 8.3 x10*3/uL [facility] Imm Gran Abs Auto 0.03 0.00 - 0.03 X10*3/uL [facility] Lymphocytes Absolute Auto 4.1 1.2 - 4.9 X10*3/uL [facility] Monocytes Absolute Auto 0.9 0.1 - 1.2 X10*3/uL [facility] Eosinophils Absolute Auto 0.4 0.0 - 0.4 X10*3/uL [facility] Basophils Absolute Auto 0.1 0.0 - 0.2 X10*3/uL [facility] NRBC Abs Auto 0.000 0.0 - 0.012 X10*3/uL [facility] 06/01/2024 10:4 9 AM EST 06/01/2024 10:58 AM EST us Generic External Data Provider LAB BLOOD ORDERAB LES Final Result Performing Organization Address City/[facility]/ZIP Co de Phone Number [facility] [address] [place] [phone] * (ABNORMAL) C-reactive Protein (06/01/2024 10:49 AM EST) [facility] C Reactive Protein 1.32(H) < or = 0.50 mg/dL [facility] 06/01/2024 10:4 9 AM EST 06/01/2024 10:58 AM EST Generic External Data Provider LAB BLOOD ORDERAB LES Final Result Performing Organization Address City/[facility]/ZIP Co de Phone Number [facility] [address] [place] [phone] * (ABNORMAL) B Type Natriuretic Peptide (BNP) (06/01/2024 10:49 AM EST) Pathologist [facility] B Type Natriuretic Peptide 286(H) <100 pg/mL [facility] Comment:For those patients w ho are being treated with Natrecor(nesiritide, recombinant BNP), BNP testing should beperformed at least two hours post treatment in order toensure that only endogenous levels of BNP are detected. 06/01/2024 10:4 9 AM EST 06/01/2024 10:58 AM EST Generic External Data Provider LAB BLOOD ORDERAB LES Final Result Performing Organization Address [facility]/ZIP Co de Phone Number [facility] [address] [place] [phone] * Magnesium (06/01/2024 10:49 AM EST) Pathologist [facility] Magnesium 1.9 1.6 - 2.6 mg/dL [facility] 06/01/2024 10:4 9 AM EST 06/01/2024 10:58 AM EST Generic External Data Provider LAB BLOOD ORDERAB LES Final Result Performing Organization Address [facility] Co de Phone Number [facility] [address] [place] [phone] * Hepatic Function Panel (06/01/2024 10:49 AM EST) Pathologist [facility] Bilirubin, Total 0.8 0.0 - 1.0 mg/dL [facility] Bilirubin, Direct 0.3 0.0 - 0.5 mg/dL [facility] Aspartate Amino Transferase 22 5 - 31 U/L [facility] Alanine Aminotransferase 24 0 - 31 U/L [facility] Total Protein 8.0 6.5 - 8.0 g/dL [facility] Albumin Level 3.7 3.5 - 5.0 g/dL [facility] Alkaline Phosphatase 102 39 - 117 U/L [facility] 06/01/2024 10:4 9 AM EST 06/01/2024 10:58 AM EST us Generic External Data Provider LAB BLOOD ORDERAB LES Final Result Performing Organization Address City/[facility]/ZIP Co de Phone Number [facility] [address] [place] [phone] * (ABNORMAL) Basic Metabolic Panel (06/01/2024 10:49 AM EST) Sodium 143 135 - 145 mmol/L [facility] Potassium 3.6 3.3 - 5.1 mmol/L [facility] Chloride 112(H) 96 - 108 mmol/L [facility] Carbon Dioxide 23 22 - 29 mmol/L [facility] Anion Gap 12 12 - 20 [facility] Urea Nitrogen (BUN) 13 9 - 16 mg/dL [facility] Creatinine, Serum 0.47(L) 0.5 - 1.4 mg/dL [facility] Creatinine Clr Calc Pharmacy 130.0 [facility] Comment:Provided height and weight: 157.48 cm,77.111 kg.eGFR (calculated from the MDRD study equation) and eCrCl(calculated from the Cockcroft-Gault equation) are based ondifferent parameters and may not yield comparable results.If eCrCl result is absurd, please check patient'sheight/weight. Estimated Glomerular Filt Rate >60 [facility] Comment:Chronic Kidney Disea se: Estimated GFR < 60 mL/min/1.96d0Jdurty Kidney Disease: Estimated GFR < 15 mL/min/1.73m2 Glucose 97 60 - 115 mg/dL [facility] Calcium 9.8 8.4 - 10.2 mg/dL [facility] 06/01/2024 10:4 9 AM EST 06/01/2024 10:58 AM EST us Generic External Data Provider LAB BLOOD ORDERAB LES Final Result Performing Organization Address City/[facility]/ZIP Co de Phone Number [facility] [address] [place] [phone] * Urinalysis w/reflex microscopic (06/01/2024 10:45 AM EST) Color Urine Yellow [facility] Appearance Urine Clear [facility] PH 5.5 5.0 - 9.0 [facility] Glucose Urine UA Negative Negative mg/dL [facility] Urine Blood Negative Negative [facility] Specific [place] - Urine 1.025 1.005 - 1.025 [facility] Urine Protein Trace Neg-Trace mg/dL [facility] Urine Ketones Trace Negative mg/dL [facility] Nitrite Urine Negative Negative [facility] Leukocyte Esterase Urine Negative Negative [facility] 06/01/2024 10:4 5 AM EST 06/01/2024 11:08 AM EST Narrative [facility] - 06/01/2024 11:23 AM EST Urine, Clean Catch us Generic External Data Provider LAB URINE ORDERAB LES Final Result Performing Organization Address City/[facility]/ZIP Co de Phone Number [facility] [address] [place] [phone] * (ABNORMAL) TSH W/Reflex to FT4 (05/28/2024 3:02 PM EST) Pathologist [facility] TSH reflex Free T4 <0.01(L) 0.32 - 4.0 uIU/mL [facility] Blood Venous blood specimen / Unknown 05/28/2024 3:02 PM EST 05/28/2024 4:21 PM EST us Russell River MD LAB BLOOD ORDERABLES Final Resul t Performing Organization Address City/[facility]/ZIP Co de Phone Number [facility] [address] [place] [phone] * (ABNORMAL) Lipid Panel, Standard (05/28/2024 3:02 PM EST) Triglycerides 154(H) <150 mg/dL [facility] Comment:Desirable Triglyceri de: less than 150 mg/dLBorderline High Triglyceride 150-199 mg/dLHigh Triglyceride: 200-499 mg/dLVery High Triglyceride: greater than or equal to 5OO mg/dL Cholesterol 145 <200 mg/dL [facility] Comment:Desirable Cholestero l: less than 200 mg/dLBorderline High Cholesterol: 200-239 mg/dLHigh Cholesterol: greater than 239 mg/dL LDL Cholesterol Calculated 92 <100 mg/dL [facility] Comment:Desirable LDL: less than 100 mg/dLNear Optimal/Above Optimal LDL: 110- 129 mg/dLBorderline High LDL: 130-159 mg/dLHigh LDL: 160-189 mg/dLVery High LDL: greater than or equal to 190 mg/dL HDL Cholesterol 23(L) >40 mg/dL [facility] Comment:Desirable HDL: great er than 40 mg/dL Note: This HDL assay may give artificially low results in patients with liver disease. Blood Venous blood specimen / Unknown 05/28/2024 3:02 PM EST 05/28/2024 4:21 PM EST us Aaron Riley MD LAB BLOOD ORDERABLES Final Result [facility] [address] [place] [phone] * (ABNORMAL) Comprehensive Metabolic Panel (05/28/2024 3:02 PM EST) Sodium 143 135 - 145 mmol/L [facility] Potassium 3.5 3.3 - 5.1 mmol/L [facility] Chloride 103 96 - 108 mmol/L [facility] Carbon Dioxide 25 22 - 29 mmol/L [facility] Anion Gap 19 12 - 20 [facility] Urea Nitrogen (BUN) 18(H) 9 - 16 mg/dL [facility] Creatinine, Serum 0.67 0.5 - 1.4 mg/dL [facility] Estimated Glomerular Filt Rate >60 [facility] Comment:Chronic Kidney Disea se: Estimated GFR < 60 mL/min/1.80h1Kyxnru Kidney Disease: Estimated GFR < 15 mL/min/1.73m2 Glucose 96 60 - 115 mg/dL [facility] Calcium 9.8 8.4 - 10.2 mg/dL [facility] Bilirubin, Total 0.8 0.0 - 1.0 mg/dL [facility] Aspartate Amino Transferase 24 5 - 31 U/L [facility] Alanine Aminotransferase 23 0 - 31 U/L [facility] Total Protein 8.5(H) 6.5 - 8.0 g/dL [facility] Albumin Level 3.9 3.5 - 5.0 g/dL [facility] Alkaline Phosphatase 107 39 - 117 U/L [facility] Blood Venous blood specimen / Unknown 05/28/2024 3:02 PM EST 05/28/2024 4:21 PM EST Aaron Riley MD LAB BLOOD ORDERABLES Final Result [facility] [address] [place] [phone] * XR Chest 2 Views (05/27/2024 11:26 AM EST) Anatomical Region Laterality Modality Chest Radiographic Domi ging 05/27/2024 11:2 6 AM EST Narrative 05/27/2024 12:37 PM EST ? [facility] ?[address] ?[place] [address] ?XRay Report ? Signed ? Patient: Rene,Liz ?MR#: [id number] ?? 24 ? : 1970 ?Acct:[id number] ? Age/Sex: 53 / F ?ADM Date: 02/03/25 ? Loc: HO.HHCL ? Attending : Walt Levy MD ? Ordering Physician: Name,Russell DODGE ?? Date of Service: 05/27/24 ?? Procedure(s): XR chest 2V ?? Accession Number(s): [id number] ? cc: Russell River MD ? EXAMINATION: [...] DD/ 1126 ? TD/TT: 05/27/24 1155 ? Designer Writer: ? Procedure Note Dondanelle, Image - 05/27/[address] [address] XRay Report Signed Patient: Marycarmen López#: [id number] 24 : 1970Acct:[id number] Age/Sex: 53 / FADM Date: 05/27/24 Loc: .HHCL Attending Dr: Walt Levy MD Ordering Physician: Russell River MD Date of Service: 05/27/24 Procedure(s): XR chest 2V Accession Number(s): [id number] cc: Russell River MD EXAMINATION: XR CHEST [...] 05/27/24 1234 DD/ 1126 TD/TT: 05/27/24 1155 Designer Writer: us Russell River MD IMG XR PROCEDURES Final Result * (ABNORMAL) POCT HGB A1C (05/25/2024 11:38 AM EST) Hemoglobin A1C 6.2(A) 4.0 - 6.0 % QC Media Lot # [id number] Lot# Expiration Date 8,026 Swab 05/25/2024 11:3 8 AM EST us Russell River MD POINT OF CARE TEST ENTER/EDIT OR DERABLES Final Result * POCT Glucose (05/25/2024 11:37 AM EST) Glucose Blood, POC 108 60 - 200 mg/dL [employer] Lot # [id number] Lot# Expiration Date 172,025 Blood Capillary blood specimen / Unknown 05/25/2024 11:37 AM EST us Russell River MD POINT OF CARE TEST ENTER/EDIT OR DERABLES Final Result * BI Mammogram Screening Tomosynthesis Bilateral (08/28/2023 3:58 PM EDT) Anatomical Region Laterality Modality Breast Bilateral Mammography 08/28/2023 3:58 PM EDT Narrative 09/28/2023 12:01 AM EDT ? [facility] ? [address] ?[place] [address] ? Mammography Report ? Signed ? Patient: Rene,Liz ?MR#: [id number] ?? 24 ? : 1970 ?Acct:[id number] ? Age/Sex: 53 / F ?ADM Date: 05/06/24 ? Loc: HO.MAMMO ? Attending Dr: Aaron Riley MD ? Ordering Physician: Aaron Riley MD ?Results: 2 ?? Benign Findings ? Date of Service: 08/28/23 ?Follow Up: 1 Year From Orig ?? inal Mammogram ? Procedure(s): MM tomosynthesis screening BI ?? Accession Number(s): [id number] ? cc: Aaron Riley MD ? EXAMINATION: [...] 09/27/237 ? DD/ 1558 ? TD/TT: ? Designer Writer: ? Procedure Note Nickolas, Image - 09/28/2023 Y[facility] [address] [place], [place] [address] Mammography Report Signed Patient: Marycarmen López#: [id number] 24 : 1970Acct:[id number] Age/Sex: 53 / FADM Date: 08/28/23 Loc: HO.MAMMO Attending Dr: Aaron Riley MD Ordering Physician: Aaron Riley MDResults: 2 Benign Findings Date of Service: 08/28/23Follow Up: 1 Year From Orig ina Mammogram Procedure(s): MM tomosynthesis screening BI Accession Number(s): [id number] cc: Aaron Riley MD EXAMINATION: MM SCREENING [...] by Anastasia Goddard MD in OV> 09/27/23 6997 DD/ 1558 TD/TT: Designer Writer: us Aaron Riley MD IMG BI PROCEDURES Edited Re sult - Final * Pap Smear (12/15/2020 12:00 AM EDT) Swab us Historical Provider LAB CYTOLOGY ORDERABLES F inal Result [facility] [address] [place] [address] from Last 3 Months or Most Recently Relevant to Health Maintenance Insurance [place] [address] [employer] Care Teams Delivery Tech Relationship Specialty Start Date End Date Aaron Riley MD [address] [place] [id number] PCP - General Internal Medicine 04/24/18
--- OUTSIDE RECORDS SUMMARY | 2024-08-15 13:29 | XMS_ITS | Encounter Summary ---
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 Name Role Phone Aaron Riley MD Primary Care Provider [phone] Encounter Details Date Type Department Care Team (Late st Contact Info) Description 08/15/2024 Orders Only GENERIC EXTERNAL DATA [...] Description 11/18/2024 1:45 PM EDT Office Visit [facility] [address] [place] [address] Aaron Riley MD [address] [place] [address] documented as of this encounter Procedures Procedure Name Priority Date/Time Associated Diagnosis Comments TSH Routine 08/15/2024 11:46 AM EDT T4, FREE Routine 08/15/2024 11:46 AM EDT documented in this encounter Results * (ABNORMAL) TSH (08/15/2024 11:46 AM EDT) Thyroid Stimulating Hormone <0.01(L) 0.32 - 4.0 uIU/mL [facility] Comment:TSH 3rd Generation ( [facility]) 08/15/2024 11:4 6 AM EDT 08/15/2024 11:46 AM EDT us Generic External Data Provider LAB BLOOD ORDERAB LES Final Result [facility] [address] [place] [address] [phone] * T4, Free (08/15/2024 11:46 AM EDT) Free T4 (Free Thyroxine) 1.08 0.71 - 1.85 ng/dL [facility] 08/15/2024 11:4 6 AM EDT 08/15/2024 11:46 AM EDT us Generic External Data Provider LAB BLOOD ORDERAB LES Final Result [facility] [address] [place] [address] [phone] documented in this encounter Visit Diagnoses Not on filedocumented in this encounter Additional Health Concerns Assessment Noted Time PHQ-9 Depression Total Score: 21 024 1:11 PM EDT documented as of this encounter Care Teams 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
--- OUTSIDE RECORDS SUMMARY | 2024-08-15 13:29 | XMS_ITS | Encounter Summary ---
Author Organization [employer] Address [address] [place] [address] [place] [address] Care Team Providers Care Last Pattern Grader Name Role Phone Aaron Riley MD Primary Care Provider [phone] Reason for Visit * Reason Onset Date Comments Nurse Triage 12/28/2022 Encounter Details Date Type Department Care Team (Late st Contact Info) Description 12/28/2022 Telephone [facility] [address] [place] [address] Aaron Riley MD [address] [place] [address] Nurse Triage Social History Tobacco Use Types [...] 12/28/2022 1:53 PM EDT Triage call with [place] Pig Caster [place] [id number] Pt reports a few days ago, 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 and immediately had low [...] accepted this outcome Please contact pt at [phone] Chinese Speaker documented in this encounter Plan of Treatment Upcoming Encounters Date Type Department Care Team (Late st Contact Info) Description 11/18/2024 1:45 PM EDT Office Visit [facility] [address] [place] [address] Aaron Riley MD [address] [place] [address] documented as of this encounter Visit Diagnoses Not on filedocumented in this encounter Care Teams Last Pattern Grader Relationship Specialty Start Date End Date Aaron Riley MD [address] [place] [address] PCP - General Internal Medicine 04/24/18 documented as of this encounter
[2024-08-16 04:13] LABS: Triiodothyronine T3 Total 88 ng/dL (76-181)
== END 2024-08-15 11:18 | disposition home or self-care (01) ==
LOC: HO.LAB 11:17
PROVIDERS: Student in an Organized Health Care Education/Training Program; Absent Provider Internal Medicine Medical Oncology; PCP Internal Medicine; Visit Provider Student in an Organized Health Care Education/Training Program
DX: E05.90 Thyrotoxicosis, unspecified without thyrotoxic crisis or storm (principal); D69.3 Immune thrombocytopenic purpura
CPT/HCPCS: 36415; 84439; 84443; 84480

== ENCOUNTER 2024-08-23 09:59 | Outpatient (AMB) | payer OTHER, SELFPAY ==
[2024-08-23 10:03] VITALS: BP 107/76; PULSE 78; O2SAT 96; BMI 31.8
--- NOTE | 2024-08-23 10:03 | A.OFFVIS_ITS ---
Vital Signs 08/23/24 10:03 Height 5 ft 2 in Weight 173 lb 15.115 oz BMI 31.8 BP 107/76 Blood Pressure Location Lt brachial Position Sitting Pulse 78 Pulse Source Pulse Oximeter Pulse Oximetry (%) 96 Oxygen Delivery Method Room Air Intake Visit Reasons: Thyrotoxicosis Intake Note: Patient present today for Thyrotoxicosis office visit. 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 Required: No Accompanied by: Spouse Allergies melatonin [MELATONIN] Allergy (Unknown, Verified 08/23/24 10:08) FACIAL REDNESS & EDEMA ASPERGILLUS Allergy (Unknown, Uncoded 08/23/24 10:08) HIVES Medication List - Last Reconciled 08/23/24 by Barbara Neal MD acetaminophen (Tylenol) 650 mg (2 x 325 mg) PO Q6H PRN duloxetine 20 mg PO DAILY duloxetine 20 mg PO BID ibuprofen 1 tab PO TID lisinopril-hydrochlorothiazide 10-12.5 mg tabs PO DAILY omeprazole 20 mg PO DAILY omeprazole magnesium (Prilosec OTC) 20 mg PO DAILY polyethylene glycol 3350 (Miralax) 17 grams PO DAILY prednisone 10 mg PO DAILY prednisone 50 mg PO DAILY prednisone 40 mg (2 x 20 mg) PO DAILY sertraline 25 mg PO QAM HPI Comments Details: 54-year-old female here today for follow up of hyperthyroidism secondary to Graves disease. 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 HPI Labs from May 2024 showed suppressed TSH with elevated free T4 of 2.26. Thyroid uptake and scan done 06/27/2024 showed elevated diffuse uptake consistent with Graves disease. No antibody levels done. Reports palpitations, tremors for the past month. Lost 15 lbs in May and then gained it back in June 2024 Feels tired Bowel movements are regular now , just two days ago had some loose stools and vomiting Reports heat intolerance, and excessive diaphoresis Reports excessive anxiety and hair loss Post menopausal since age 51 Blurry vision since 1 month, saw eye doctor 2 months ago no issues No exophthalmos, no dryness or teariness, no painful eye movements Denies preceding viral illness. Had CT scan of the chest the same day the labs were done not perceding it Patient denies any difficulty swallowing, pain on swallowing or voice changes or difficulty breathing. Patient denies any history of childhood neck radiation. Denies having ever used lithium, amiodarone or biotin supplements. Patient denies any family history of thyroid cancer or thyroid disease. Interval history 07/12/2024: TSH less than 0.01, free T4 1.46, total T3 141, TSI antibodies elevated at 393, TSH receptor antibodies elevated at 6.41 We had initially planned to start methimazole 5 mg daily but looking at how her free T4 improved without medication, did not proceed with starting the medication. 08/15/2024: TSH less than 0.01, free T4 improved even more to 1.08, total T3 88 Palpitations and tremors improved Denies loose stools , heat intolerance, mild anxiety, overall feeling better and weight is stable No history of CAD, no fractures Physical exam General: sitting comfortably in no acute distress HEENT: normocephalic/atraumatic, moist oral mucosa, no lid lag Neck: supple, symmetrical, no thyromegaly , Cardiac: normal heart sounds Pulm: normal breath sounds B/L, no added breath sounds Abd: not distended, no tenderness Extremities: no edema, no signs of myxedema, does have fine tremors very mild though Laboratory Tests 08/31/23 05/28/24 06/01/24 15:03 15:02 10:49 TSH 1.76 < 0.01 L < 0.01 L Free T4 2.26 H Laboratory Tests 07/12/24 08/15/24 11:05 11:46 TSH < 0.01 L < 0.01 L Free T4 1.46 1.08 Total T3 141 88 Thyroid Stim Immunoglob 393 H TSH Receptor Ab 6.41 H EXAMINATION: NM THYROID UPTAKE AND SCAN 06/27/24 CLINICAL INFORMATION: Thyrotoxicosis COMPARISON: None available. TECHNIQUE: Following the oral administration of 204 microcuries of I-123 sodium iodide, thyroid uptake was performed and expressed as a percentage of the administrated dose. Gamma scintillation camera images of the thyroid in the anterior and right and left anterior oblique views were obtained using a pinhole collimator following the administration of 8.2 mCi Tc-99m pertechnetate. FINDINGS: No hot or cold defects are seen on the thyroid scans. The uptake is 20.33% at 4 hours and 48.69% at 24 hours. NM/NM thyroid w uptake IMPRESSION: Elevated 24 hour uptake, suggestive of Graves' disease or early Alexandre's thyroiditis. Electronically signed by: Jered Silva MD 07/01/2024 03:09 PM EDT [facility] Medical History (Updated 07/18/24 @ 09:27 by Kylah Estrella NP) Hyperthyroidism Fibromyalgia Depression Surgical History (Updated 07/18/24 @ 09:27 by Kylah Estrella NP) History of surgery Family History Father Tonsillar cancer Hypertension Paternal Grandmother Hypertension Social History Household Members: Spouse and Family Alcohol intake: never Patient Tobacco Use Status: Never used Tobacco service: No Current occupational status: employed Assessment & Plan Assessment & Plan (1) Hyperthyroidism: Code(s): E05.90 - Thyrotoxicosis, unspecified without thyrotoxic crisis or storm Category: Medical Plan: 54-year-old female here today for follow up of hyperthyroidism secondary to Graves disease. Labs from May 2024 showed suppressed TSH with elevated free T4 of 2.26. Patient had been symptomatic for about a month. Thyroid uptake and scan done 06/27/2024 showed elevated diffuse uptake consistent with Graves disease. Labs repeated in June 2024 showed improved free T4 levels without any medication with TSH continues to be suppressed. Antibody levels of both TSI and TSH receptor elevated consistent with Graves disease. Given history of ITP she is also at risk of developing other autoimmune diseases. I had initially plan to start her on methimazole 5 mg daily however improvement in labs noted without any medication. Repeat labs done most recently on 08/12/2024 again showed improvement in free T4 and total T3 levels. TSH remains suppressed. Overall she has improved a lot symptomatically, heart rate is normal today. At this time I discussed that given she does not have history of heart disease, no history of osteoporosis, she is less than age 65, she counts as low risk and given her symptoms are improved and she is overall feeling better we can continue to monitor her labs for now. I discussed with her signs and symptoms of hyperthyroidism and to reach out sooner if those occur but for now we will plan to repeat labs prior to her 3 months appointment.. Plan: -do blood work with TSH, free T4, total T3 a week prior to appointment in 3 months. -follow up in 3 months Plan see above Orders: Orders Thyroid Stimulating Hormone 11 Weeks E0 - Thyrotoxicosis, unspecified without thyrotoxic crisis or storm Free T4 (Free Thyroxine) 11 Weeks E0. - Thyrotoxicosis, unspecified without thyrotoxic crisis or storm Triiodothyronine T3 Total 11 Weeks E0 - Thyrotoxicosis, unspecified without thyrotoxic crisis or storm Patient Instructions: Do blood work in 11 weeks prior to follow up in 12 weeks If you start having worsening palpitations, tremors, rapid weight loss, diarrhea, severe anxiety, you can reach out sooner for blood work to be done sooner Coding Level of Care Code Est Pt Level 3 (84065) Diagnoses Hyperthyroidism E0
--- OUTSIDE RECORDS SUMMARY | 2024-08-23 10:58 | XMS_ITS | Data Portability ---
Author Organization [place] [facility], Allergy Address [address] [place] [address] [place] [address] Care Team Providers Care Rn Mds Coordinator Name Role Phone PILO DINH Primary Care [...] Go To The Location Of Their Choice, [address] 12/07/2023 03:18:39 Referral None record ed. Procedures [...] or more view 2024 025 [facility], [address] [place] [address], [phone], 04/29/2024 13:27:40 CT, sinuse s, w/o contra st 2023 024 arcadio [facility], [address] [place] [address], [phone], 12/06/2023 14:37:36 Medication Orders doxycy scruggs hyclat e 100 mg tablet 2024 025 [id number], [address] [place] [address], [address], 04/29/2024 13:24:54 flutic asone propio matthew 50 mcg/ac tuatio n nasal spray, suspen marco 2024 025 [id number], [address] [place] [address], [address], 04/29/2024 13:24:55 Patient TargetsNo targets recorded. Patient InstructionsNo instructions recorded. Reason for Referral None Reported. Results Created Date Observation Date Name Description Value Unit Range Abnormal Flag Note LastModifiedBy Organization Detail LastModifiedTime 09/08/19 24 09/14/2023 PNEUM OCOCC AL AB (23 SEROT YPE) pneumo Ab type 1* 3.7 ug/mL >1.3 Not Available [facility] [address] [place], [address], 09/14/2023 00:47:32 09/08/19 24 09/14/2023 PNEUM OCOCC AL AB (23 SEROT YPE) pneumo Ab type 3* 0.5 ug/mL >1.3 below low normal Not Available [facility] [address] [place], [address], 09/14/2023 00:47:32 05/17/20 24 09/14/2023 PNEUM OCOCC AL AB (23 SEROT YPE) pneumo Ab type 4* 1.0 ug/mL >1.3 below low normal Not Available [facility] [place] [address] [place], [address], 09/14/2023 00:47:32 09/08/19 24 09/14/2023 PNEUM OCOCC AL AB (23 SEROT YPE) pneumo Ab type 8* 4.6 ug/mL >1.3 Not Available [facility] [address] [place], [address], 09/14/2023 00:47:32 09/08/19 24 09/14/2023 PNEUM OCOCC AL AB (23 SEROT YPE) pneumo Ab type 9 (9N)* 2.2 ug/mL >1.3 Not Available [facility] [address] [place], [address], 09/14/2023 00:47:32 09/08/19 24 09/14/2023 PNEUM OCOCC AL AB (23 SEROT YPE) pneumo Ab type 12 (12F)* <0.1 ug/mL >1.3 below low normal Not Available [facility] [address] [place], [address], 09/14/2023 00:47:32 09/08/19 24 09/14/2023 PNEUM OCOCC AL AB (23 SEROT YPE) pneumo Ab type 14* 12.0 ug/mL >1.3 Not Available [facility] [address] [place], [address], 09/14/2023 00:47:32 09/08/19 24 09/14/2023 PNEUM OCOCC AL AB (23 SEROT YPE) pneumo Ab type 17 (17F)* 5.3 ug/mL >1.3 Not Available [facility] [address] [place], [address], 09/14/2023 00:47:32 09/08/19 24 09/14/2023 PNEUM OCOCC AL AB (23 SEROT YPE) pneumo Ab type 19 (19F)* 3.0 ug/mL >1.3 Not Available [facility] [address] [place], [address], 09/14/2023 00:47:32 09/08/19 24 09/14/2023 PNEUM OCOCC AL AB (23 SEROT YPE) pneumo Ab type 2* 10.8 ug/mL >1.3 Not Available [facility] [place], [address], 09/14/2023 00:47:32 09/08/19 24 09/14/2023 PNEUM OCOCC AL AB (23 SEROT YPE) pneumo Ab type 20* 3.0 ug/mL >1.3 Not Available [facility] [address] [place], [address], 09/14/2023 00:47:32 09/08/19 24 09/14/2023 PNEUM OCOCC AL AB (23 SEROT YPE) pneumo Ab type 22 (22F)* 1.7 ug/mL >1.3 Not Available [facility] [place], [address], 09/14/2023 00:47:32 09/08/19 24 09/14/2023 PNEUM OCOCC AL AB (23 SEROT YPE) pneumo Ab type 23 (23F)* 3.6 ug/mL >1.3 Not Available [facility] [place], [address], 09/14/2023 00:47:32 09/08/19 24 09/14/2023 PNEUM OCOCC AL AB (23 SEROT YPE) pneumo Ab type 26 (6B)* 1.9 ug/mL >1.3 Not Available [facility] [address] [place], [address], 09/14/2023 00:47:32 09/08/19 24 09/14/2023 PNEUM OCOCC AL AB (23 SEROT YPE) pneumo Ab type 34 (10A)* 8.3 ug/mL >1.3 Not Available [facility] [address] [place] [address] [place], [address], 09/14/2023 00:47:32 09/08/19 24 09/14/2023 PNEUM OCOCC AL AB (23 SEROT YPE) pneumo Ab type 43 (11A)* 2.9 ug/mL >1.3 Not Available [facility] [address] [place] [address] [place], [address], 09/14/2023 00:47:32 09/08/19 24 09/14/2023 PNEUM OCOCC AL AB (23 SEROT YPE) pneumo Ab type 5* 0.6 ug/mL >1.3 below low normal Not Available [facility] [address] [place], [address], 09/14/2023 00:47:32 09/08/19 24 09/14/2023 PNEUM OCOCC AL AB (23 SEROT YPE) pneumo Ab type 51 (7F)* 4.2 ug/mL >1.3 Not Available [facility] [address] [place], [address], 09/14/2023 00:47:32 09/08/19 24 09/14/2023 PNEUM OCOCC AL AB (23 SEROT YPE) pneumo Ab type 54 (15B)* 5.9 ug/mL >1.3 Not Available [facility] [address] [place] [address] [place], [address], 09/14/2023 00:47:32 09/08/19 24 09/14/2023 PNEUM OCOCC AL AB (23 SEROT YPE) pneumo Ab type 56 (18C)* 2.3 ug/mL >1.3 Not Available [facility] [address] [place], [address], 09/14/2023 00:47:32 09/08/19 24 09/14/2023 PNEUM OCOCC AL AB (23 SEROT YPE) pneumo Ab type 57 (19A)* 5.1 ug/mL >1.3 Not Available [facility] [address] [place], [address], 09/14/2023 00:47:32 09/08/19 24 09/14/2023 PNEUM OCOCC AL AB (23 SEROT YPE) pneumo Ab type 68 (9V)* 1.6 ug/mL >1.3 Not Available [facility] [address] [place], [address], 09/14/2023 00:47:32 09/08/19 24 09/14/2023 PNEUM OCOCC [...] Laboratories [address] [place], [address], 09/14/2023 00:47:32 12/06/19 24 12/07/2023 CBC WITH DIFFE RENTI AL/PL ATELE T WBC 14.5 x10e3 /uL 3.4-10 .8 above high normal Not Available [facility] ([facility]) [address] [facility], [place], [address], 12/07/2023 03:18:36 12/06/19 24 12/07/2023 CBC WITH DIFFE RENTI AL/PL ATELE T RBC 4.54 x10e6 /uL 3.77-5 .28 normal Not Available [facility] ([facility]) [address] [place], [address], 12/07/2023 03:18:36 12/06/19 24 12/07/2023 CBC WITH DIFFE RENTI AL/PL ATELE T hemoglobin 12.9 g/dL 11.1-1 5.9 normal Not Available [facility] ([facility]) [address] [place], [address], 12/07/2023 03:18:36 12/06/1912/07/2023 CBC WITH DIFFE RENTI AL/PL ATELE T hematocrit 39.6 % 34.0-4 6.6 normal Not Available [facility] ([facility]) [address] [place], [address], 12/07/2023 03:18:36 12/06/1912/07/2023 CBC WITH DIFFE RENTI AL/PL ATELE T MCV 87 fL 79-97 normal Not Available [facility] ([facility]) [address] [place], [address], 12/07/2023 03:18:36 12/06/1912/07/2023 CBC WITH DIFFE RENTI AL/PL ATELE T MCH 28.4 pg 26.6-3 3.0 normal Not Available [facility] ([facility]) [address] [place], [address], 12/07/2023 03:18:36 12/06/1912/07/2023 CBC WITH DIFFE RENTI AL/PL ATELE T MCHC 32.6 g/dL 31.5-3 5.7 normal Not Available [facility] ([facility]) [address] [place], [address], 12/07/2023 03:18:36 12/06/1912/07/2023 CBC WITH DIFFE RENTI AL/PL ATELE T RDW 13.3 % 11.7-1 5.4 Not Available [facility] ([facility]) [address] [facility], [place], [address], 12/07/2023 03:18:36 12/06/19 24 12/07/2023 CBC WITH DIFFE RENTI AL/PL ATELE T platelets 58 x10e3 /uL 150-45 0 alert low Not Available [facility] ([facility]) [address] [facility], [place], [address], 12/07/2023 03:18:36 12/06/19 24 12/07/2023 CBC WITH DIFFE RENTI AL/PL ATELE T neutrophils 55 % not estab. normal Not Available [facility] ([facility]) [address] [facility], [place], [address], 12/07/2023 03:18:36 12/06/19 24 12/07/2023 CBC WITH DIFFE RENTI AL/PL ATELE T lymphs 35 % not estab. normal Not Available [facility] ([facility]) [address] [facility], [place], [address], 12/07/2023 03:18:36 12/06/19 24 12/07/2023 CBC WITH DIFFE RENTI AL/PL ATELE T monocytes 6 % not estab. normal Not Available [facility] ([facility]) [address] [facility], [place], [address], 12/07/2023 03:18:36 12/06/19 24 12/07/2023 CBC WITH DIFFE RENTI AL/PL ATELE T eos 2 % not estab. normal Not Available [facility] ([facility]) [address] [facility], [place], [address], 12/07/2023 03:18:36 12/06/19 24 12/07/2023 CBC WITH DIFFE RENTI AL/PL ATELE T basos 1 % not estab. normal Not Available [facility] ([facility]) [address] [facility], [place], [address], 12/07/2023 03:18:36 12/06/19 24 12/07/2023 CBC WITH DIFFE RENTI AL/PL ATELE T immature cells REWRITE EDITOR Not Available [facility] ([facility]) [address] [facility], [place], [address], 12/07/2023 03:18:36 12/06/19 24 12/07/2023 CBC WITH DIFFE RENTI AL/PL ATELE T neutrophils (absolute) 8.0 x10e3 /uL 1.4-7. 0 above high normal Not Available [facility] ([facility]) [address] [facility], [place], [address], 12/07/2023 03:18:36 12/06/19 24 12/07/2023 CBC WITH DIFFE RENTI AL/PL ATELE T lymphs (absolute) 5.1 x10e3 /uL 0.7-3. 1 above high normal Not Available [facility] ([facility]) [address] [facility], [place], [address], 12/07/2023 03:18:36 12/06/19 24 12/07/2023 CBC WITH DIFFE RENTI AL/PL ATELE T monocytes(ab solute) 0.9 x10e3 /uL 0.1-0. 9 normal Not Available [facility] ([facility]) [address] [place], [address], 12/07/2023 03:18:36 12/06/19 24 12/07/2023 CBC WITH DIFFE RENTI AL/PL ATELE T eos (absolute) 0.3 x10e3 /uL 0.0-0. 4 normal Not Available [facility] ([facility]) [address] [facility], [place], [address], 12/07/2023 03:18:36 12/06/19 24 12/07/2023 CBC WITH DIFFE RENTI AL/PL ATELE T baso (absolute) 0.1 x10e3 /uL 0.0-0. 2 normal Not Available [facility] ([facility]) [address] [facility], [place], [address], 12/07/2023 03:18:36 12/06/19 24 12/07/2023 CBC WITH DIFFE RENTI AL/PL ATELE T immature granulocytes 1 % not estab. Not Available [facility] ([facility]) [address] [facility], [place], [address], 12/07/2023 03:18:36 12/06/19 24 12/07/2023 CBC WITH DIFFE RENTI AL/PL ATELE T immature grans (abs) 0.1 x10e3 /uL 0.0-0. 1 Not Available [facility] ([facility]) [address] [facility], [place], [address], 12/07/2023 03:18:36 12/06/19 24 12/07/2023 CBC WITH DIFFE RENTI AL/PL ATELE T NRBC REWRITE EDITOR Not Available [facility] ([facility]) [address] [facility], [place], [address], 12/07/2023 03:18:36 12/06/19 24 12/07/2023 CBC WITH DIFFE RENTI AL/PL ATELE T hematology comments: Note: Verif ied by hernan segal nDerrick Not Available [facility] ([facility]) [address] [facility], [place], [address], 12/07/2023 03:18:36 12/06/19 CT, sinus es, w/o contr ast No observ ation record ed. arcadio [facility] Of [address], [place], [address], 12/06/2023 14:37:32 12/07/19 24 12/06/2023 CT, sinus es, w/o contr ast No observ ation [facility]. [email or web address] [place] [facility] [address] [address], [place], [address], 12/08/2023 08:26:47 04/29/19 25 XR, sinus es, paran koby, 3 or more view No observ ation record ed. [email or web address] [address] [place], [address], 04/29/2024 13:26:24 Result Notes None recorded. Problems Name Problem SNOMED Code Status Onset Date Resolution Date Notes Provider Name and Address Organization Details Recorded Time Chronic left maxillary sinusitis 5684092466929 9101 Active 2023 LUCINDA ROD MD [address] [address], [facility] [place], [address], [facility] [place] 14:01:22 Secondary immune deficiency disorder 29677827 Active 2023 LUCINDA ROD MD [address] [address], [facility] [place], [address], [place] [facility] 4 14:04:03 Chronic sinusitis 24217705 Active 2023 LUCINDA ROD MD [address] [address], [facility] [place], [address], [place] [facility] 14:50:19 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 Procedures Surgical History Date Name Laterality Status Provider Name and Address Organization Details Recorded Time 5 JMSNasal/Sinus Endoscopy completed LUCINDA SPANGLER MD [address] [place] [address], [address], [facility] - [facility] 04/29/2024 13:25:10 4 JMSNasal/Sinus Endoscopy completed LUCINDA SPANGLER MD [address] [place] [address], [address], [facility] - [facility] 09/08/2023 14:50:15 7 dilation and curettage of uterus completed LUCINDA SPANGLER MD [address] [place] [address], [address], [facility] - [facility] 09/08/2023 16:09:45 Removal of spleen total completed LUCINDA SPANGLER MD [address] [place] [address], [address], [facility] - [facility] 09/08/2023 16:07:25 Imaging Results Imaging Date Name Status LastModified by Organiz ation Details LastModified Time 12/06/2023 CT, sinuses, w/o contrast completed arcadio [facility] Of [address], [address], 12/06/2023 14:37:32 12/06/2023 CT, sinuses, w/o contrast completed arcadio [facility] [address], [address], 12/08/2023 08:26:47 04/29/2024 XR, sinuses, paranasal, 3 or more view completed arcadio [facility] Of [address], [address], 04/29/2024 13:26:24 Procedure Notes None recorded. Medical [...] propionate 50 mcg/actuatio n nasal spray,suspen marco [place] 2 sprays twice a day by intranasal [...] - [facility] 09/08/2023 15:07:06 What Is Your Level Of Alcohol Consumption? None [email or web address] Information not available 09/08/2023 Do You Use Any Illicit Or Recreational Drugs? No [email or web address] Information not available 09/08/2023 Do You Or Have You Ever Used Any Other Forms Of Tobacco Or Nicotine? No [email or web address] Information not available 09/08/2023 Sex: Unknown Functional [...] Note 717 LUCINDA CEBALLOS MD [facility] [address] [place] [address] 09/08/2023 14:01:25 09/08/2023 16:43:49 Chronic sinusitis 65842470 J32.9 Patient with history of ITP status [...] in 6 to 8 weeks Immune thrombocytopenia 8722363 D69.3 Immunodefi ciency disorder 310554202 D84.9 39651 LUCINDA CEBALLOS MD [facility] [address] [address] 12/06/2023 13:51:06 12/06/2023 14:39:48 Chronic sinusitis 66604742 J32.9 Patient with history of ITP status [...] gave her a sinus surgery brochure in Togolese. All questions answeredco ntinue flonase and saline spray Please contact my surgical aides teacher, Melony, at to schedule the procedure. The [...] scheduled in the near future. Immune thrombocytopenia 9119386 D69.3 Immunodefi ciency disorder 782184136 D84.9 45214 LUCINDA CEBALLOS MD [facility] [address] [place] [address] 04/29/2024 13:01:15 04/29/2024 13:27:40 Chronic sinusitis 88774671 J32.9 Patient with history of ITP status [...] another course of doxycyclin e. Immune thrombocytopenia 8172211 D69.3 Chronic rhinitis 1684977 6 J31.0 Health Concerns Section Related Observation LastModified by Organization Detai ls LastModified Time None Recorded Concern Status LastModified by Organization Details LastModified Time None Recorded Advance Directives Directive None Recorded Payers Encounter Date Sequence Insurance Name Policy Number Policy Morales Covered Member ID Morales Member ID Guarantor Name 09/08/2023 1 [place] [facility] (MEDICAID) Liz López [id number] Liz López 12/06/2023 1 [place] [facility] Liz López [id number] Liz López 04/29/2024 1 [facility] (MEDICAID HMO) [id number] Liz López [id number] Liz López Notes Date Note Type Note [...] platelet count of 44,000. LUCINDA SPANGLER MD [address] [place] [address], [address], [place] [facility] 09/08/2023 16:10:21 12/06/2023 text/html Patient seen in [...] to 8 weeks LUCINDA SPANGLER MD 100 [facility] [address], [place], [address], [facility] - [facility] 12/06/2023 15:06:12 04/29/2024 text/html 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 When I last saw her over the summer her platelet count was 58,000. She reports having a normal platelet count recently in [place]. Unfortunately I do not have access to their system. She notes persistent congestion and pressure especially in the frontal region. She is followed by Dr. Walt LevyPrevious CT scan showed maxillary sinus disease with hypoplastic frontal sinusesDeclines home health provider and is able to discuss everything in [place] LUCINDA SPANGLER MD [address] [facility] [address], [place], [address], [place] [facility] 04/29/2024 13:26:38 OBGyn Episode No OBEpisode recorded.
--- OUTSIDE RECORDS SUMMARY | 2024-08-23 10:58 | XMS_ITS | Encounter Summary ---
Author Organization [email or web address] Address [address] [place] [address] Care Team Providers Care Manager Life Sciences Name Role Phone Aaron Riley MD Primary Care Provider [phone] Reason for Referral * Imaging (Routine) - Closed Specialty Diagnoses / Procedures Referred By Contac t Referred To Contact Radiology Diagnoses Low TSH level Procedures NM THYROID W UPTAKE AND SCAN Aaron Riley MD [address] [place] [address] Phone: tel: fax: [address] Phone: tel: fax: Referral ID Status Reason Start Date Expiration Date Visits Re quested Visits Authorized [id number] Closed 06/27/2024 06/27/2025 3 3 Encounter Details Date Type Department Care Team (Late st Contact Info) Description 06/27/2024 Orders Only [facility] [address] [place] [address] Aaron Riley MD [address] [place], [place] [phone] Low TSH level (Primary Dx) Social History [...] Upcoming Encounters Date Type Department Care Team ([facility] st Contact Info) Description 11/18/2024 1:45 PM EDT Office Visit [facility] [address] [place] [address] Aaron Riley MD [address] [place] [address] Scheduled Orders Name Type Priority Associated Diagnoses Orde r Schedule NM THYROID W UPTAKE AND SCAN Imaging Routine Low TSH level Expected: 06/27/2024, Expires: 06/27/2025 documented as of this encounter Visit Diagnoses Diagnosis Low TSH level- Primary documented in this encounter Additional Health Concerns Assessment Noted Time PHQ-9 Depression Total Score: 21 024 1:11 PM EDT documented as of this encounter Care Teams Manager Life Sciences Relationship Specialty Start Date End Date Aaron Riley MD [address] [place] [address] PCP - General Internal Medicine 04/24/18 documented as of this encounter
--- OUTSIDE RECORDS SUMMARY | 2024-08-23 10:58 | XMS_ITS | Encounter Summary ---
Author Organization [employer] Address [address] [place] [address] Care Team Providers Care Home Therapy Teacher Name Role Phone Aaron Riley MD Primary Care Provider [phone] Reason for Referral * Imaging (Routine) - Closed Specialty Diagnoses / Procedures Referred By Reji stearns Referred To Contact Radiology Diagnoses Other thyrotoxicosis without thyrotoxic crisis or storm Procedures NM Thyroid Uptake Aaron Riley MD [address] [place] [address] Phone: tel: fax: [address] Phone: tel: fax: Referral ID Status Reason Start Date Expiration Date Visits Re quested Visits Authorized [id number] Closed 05/29/2024 05/29/2025 3 3 * Consultation (Routine) - Closed Specialty Diagnoses / Procedures Referred By Contgretel t Referred To Contact Endocrinology Diagnoses Other thyrotoxicosis without thyrotoxic crisis or storm Aaron Riley MD [address] [place] [address] Phone: tel: fax: [facility] End[facility] [address] [place], [place] Phone: tel: fax: Referral ID Status Reason Start Date Expiration Date V isits Requested Visits Authorized [id number] Closed Specialty Services Required 05/29/2024 05/29/2025 1 1 Encounter Details Date Type Department Care Team ([facility] st Contact Info) Description 05/29/2024 Orders Only [facility]EDS [address] [place] [address] Aaron Riley MD [address] [place] [address] Other thyrotoxicosis 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 [facility] ?[address] ?[place] [address] ?Nuclear Medicine Report ? Signed ? Patient: Rene,Liz ?MR#: [id number] ?? 22 ? : 1970 ?Acct:[id number] ? Age/Sex: 53 / F ?ADM Date: 03/06/25 ? Loc: HO.NUCMED ? Attending : Aaron Riley MD ? Ordering Physician: Aaron Riley MD ?? Date of Service: 06/27/24 ?? Procedure(s): NM thyroid w uptake ?? Accession Number(s): [id number] ? cc: Aaron Riley MD ? EXAMINATION: [...] DD/ 1026 ? TD/TT: 06/28/24 1305 ? Auger Machine Offbearer: ? 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
--- OUTSIDE RECORDS SUMMARY | 2024-08-23 10:58 | XMS_ITS | Encounter Summary ---
Author Organization [employer] Address [address] [place] [address] [place] [address] Care Team Providers Care Severity Of Illness Coordinator Name Role Phone Aaron Riley MD Primary Care Provider [phone] Reason for Visit * Reason Onset Date Comments Nurse Triage 12/28/2022 Encounter Details Date Type Department Care Team (Late st Contact Info) Description 12/28/2022 Telephone [facility] MED [facility] PEDS [address] [place] [address] Aaron Riley MD [address] [place] [address] Nurse Triage Social History Tobacco Use Types [...] 12/28/2022 1:53 PM EDT Triage call with Paoli Button [place] [id number] Pt reports a few days ago, bent down to picker feeder a beach chair and immediately had low [...] accepted this outcome Please contact pt at [phone] Icelandic Speaker documented in this encounter Plan of Treatment Upcoming Encounters Date Type Department Care Team (Late st Contact Info) Description 11/18/2024 1:45 PM EDT Office Visit [facility] MED & PEDS [address] [place] [address] Aaron Riley MD [address] [place] [address] documented as of this encounter Visit Diagnoses Not on filedocumented in this encounter Care Teams Severity Of Illness Coordinator Relationship Specialty Start Date End Date Aaron Riley MD [address] [place] [address] PCP - General Internal Medicine 04/24/18 documented as of this encounter
--- OUTSIDE RECORDS SUMMARY | 2024-08-23 10:58 | XMS_ITS | Encounter Summary ---
Author Organization [employer] Address [address] [place] [address] [place] [address] Care Team Providers Care Stitch Separator Name Role Phone Aaron Riley MD Primary Care Provider [phone] Reason for Visit * Reason Onset Date Comments Nurse Triage 01/10/2024 Encounter Details Date Type Department Care Team (Late st Contact Info) Description 01/10/2024 Telephone [facility] MED [facility] PEDS [address] [place] [address] Aaron Riley MD [address] [place] [address] Nurse Triage Social History Tobacco Use Types [...] EDT Triage call returned to patient with [place] Buckle Stapler [id number] Patient reports another small lesion / lump [...] [facility] [address] [place] [address] Aaron Riley MD [address] [place] [address] documented as of this encounter Visit Diagnoses Not on filedocumented in this encounter Additional Health Concerns Assessment Noted Time PHQ-9 Depression Total Score: 21 024 1:11 PM EDT documented as of this encounter Care Teams Stitch Separator Relationship Specialty Start Date End Date Aaron Riley MD [address] [place] [address] PCP - General Internal Medicine 04/24/18 documented as of this encounter
--- OUTSIDE RECORDS SUMMARY | 2024-08-23 10:58 | XMS_ITS | Clinical Summary ---
Author Organization [employer] Address [address] [place] [address] 7 [place] [address] Care Team Providers Care Strapper Operator Name Role Phone Aaron Riley MD Primary Care Provider [phone] Allergies Active Allergy Reactions Criticality Noted Date [...] Data 08/07/2024 10:30 AM EDT Office Visit [facility] [address] [place] [address] Aaron Riley MD Primary hypertension (Primary Dx); Fibromyalgia; Immune thrombocytopenic purpura (CMS/HCC) 08/07/2024 Travel 07/31/2024 Patient Outreach [facility] [address] [place] [phone] Aaron Riley MD Pre-visit Planning (SDOH screening negative and Tobacco screening negative) 07/03/2024 Telephone [facility] [address] [place] [address] Aaron Riley MD CHW - Health Screening (Call to pt for a foster form to be filled out by . 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); Thymus hyperplasia (CMS/HCC) 05/28/2024 Orders Only [address] [address] Name, MD Russell 05/28/2024 Telephone [facility] [address] [place], [place] [phone] Aaron Riley MD Results from Last 3 Months Immunizations Name Administration [...] Description 11/18/2024 1:45 PM EDT Office Visit [facility] [address] [place] [address] Aaron Riley MD [address] [place] [address] Health Maintenance Due Date Last Done Comments [...] ( season) 2023 07/12/2023, 02/22/2021, 08/01/2020 Depression Screening 10/02/2024 10/03/2023, 10/03/19 Tobacco Screening [...] Procedure Name Priority Date/Time Associated Diagnosis Comments T3, TOTAL Routine 08/15/2024 11:46 AM EDT TSH Routine 08/15/2024 11:46 AM EDT T4, [...] Routine 05/25/2024 11:38 AM EST Weight loss BI MAMMOGRAM SCREENING TOMOSYNTHESIS BILATERAL Routine 08/28/2023 3:58 PM EDT PAP SMEAR Routine 12/15/2020 12:00 AM EDT from Last 3 Months or Most Recently Relevant to Health Maintenance Results * T3, Total (08/15/2024 11:46 AM EDT) T3, Total 88 76 - 181 ng/dL [facility] Comment:THIS TEST WAS PERFOR MED AT:[facility] [place] [address], [place] [address]LYHCGHOLLIS RODRIGUEZ MD 08/15/2024 11:4 6 AM EDT 08/15/2024 11:46 AM EDT us Generic External Data Provider LAB BLOOD ORDERAB LES Final Result [facility] [address] [place] [address] [phone] * (ABNORMAL) TSH (08/15/2024 11:46 AM EDT) Only the most recent of2 resultswithin the time period is included. Thyroid Stimulating Hormone <0.01(L) 0.32 - 4.0 uIU/mL [facility] Comment:TSH 3rd Generation ( [employer]) 08/15/2024 11:4 6 AM EDT 08/15/2024 11:46 AM EDT Generic External Data Provider LAB BLOOD ORDERAB LES Final Result Performing Organization Address [facility]/ZIP Co de Phone Number [facility] [address] [place] [phone] * T4, Free (08/15/2024 11:46 AM EDT) Only the most recent of2 resultswithin the time period is included. Free T4 (Free Thyroxine) 1.08 0.71 - 1.85 ng/dL [facility] 08/15/2024 11:4 6 AM EDT 08/15/2024 11:46 AM EDT Generic External Data Provider LAB BLOOD ORDERAB LES Final Result Performing Organization Address City/[facility]/ZIP Co de Phone Number [facility] [address] [place] [phone] * NM Thyroid Uptake (06/27/2024 10:26 AM EST) Anatomical Region Laterality Modality Head and Neck Nuclear Medicine 06/27/2024 10:2 6 AM EST Narrative 2024 3:12 PM EDT ? [facility] ?[address] ?[place] [address] ?Nuclear Medicine Report ? Signed ? Patient: Rene,Ilz ?MR#: [id number] ?? 24 ? : 1970 ?Acct:[id number] ? Age/Sex: 53 / F ?ADM Date: 03/06/25 ? Loc: HO.NUCMED ? Attending Dr: Aaron Riley MD ? Ordering Physician: Aaron Riley MD ?? Date of Service: 06/27/24 ?? Procedure(s): NM thyroid w uptake ?? Accession Number(s): [id number] ? cc: Aaron Riley MD ? EXAMINATION: [...] DD/ 1026 ? TD/TT: 06/28/24 1305 ? Thread Spooler: ? Procedure Note Nickolas, Image - [address] [address] Nuclear Medicine Report Signed Patient: Marycarmen López#: [id number] 24 : 1970Acct:[id number] Age/Sex: 53 / FADM Date: 06/27/24 Loc: [facility] Attending Dr: Aaron Riley MD Ordering Physician: Aaron Riley MD Date of Service: 06/27/24 Procedure(s): NM thyroid w uptake Accession Number(s): [id number] cc: Aaron Riley MD EXAMINATION: NM THYROID [...] 07/01/24 1509 DD/ 1026 TD/TT: 06/28/24 1305 Thread Spooler: us Aaron Riley MD IMG NM PROCEDURES Final Res ult * CTA Chest PE Protocal (06/01/2024 1:25 PM EST) Anatomical Region Laterality Modality Body, Chest Computed Tomogra phy 06/01/2024 1:25 PM EST Narrative 06/01/2024 1:26 PM EST ? [facility] ?[address] ?[place] [address] ? CT Scan Report ? Signed ? Patient: Rene,Liz ?MR#: [id number] ?? 24 ? : 1970 ?Acct:[id number] ? Age/Sex: 53 / F ?ADM Date: 06/01/ ? Loc: HO.ED ? Attending Dr: ? Ordering Physician: Cayetano Mitchell MD ?? Date of Service: 06/01/24 ?? Procedure(s): CT angio chest PE protocol ?? Accession Number(s): [id number] ? cc: Aaron Riley MD; Cayetano Mitchell MD ? Report Number: ?? [id number]: Total DLP = ??271.00 mGy-cm ? CLINICAL [...] document has been electronically signed by: Elinor Berumdez MD ?? on 06/01/2024 13:25:03 ? Dictated By: ?Elinor Aguayo MD ? Signed By: ?<Electronically signed by Elinor Aguayo MD in OV> ? 06/01/24 1326 ? DD/ 1325 ? TD/TT: 06/01/24 1325 ? Thread Spooler: ? Procedure Note Estiven Olmos - 06/01/2024 [facility] [address] [place] [address] CT Scan Report Signed Patient: Marycarmen López#: [id number] 24 : 1970Acct:[id number] Age/Sex: 53 / FADM Date: 06/01/24 Loc: HO.ED Attending Dr: Ordering Physician: Cayetano Mitchell MD Date of Service: 06/01/24 Procedure(s): CT angio chest PE protocol Accession Number(s): [id number] cc: Aaron Riley MD; Cayetano Mitchell MD Report Number: [id number]: Total DLP = 271.00 mGy-cm CLINICAL HISTORY: [...] 06/01/24 1326 DD/ 1325 TD/TT: 06/01/24 1325 Thread Spooler: [facility] External Provider IMG CT PROCEDURES Edited Result - Final * D Dimer High Sensitivity (06/01/2024 10:49 AM EST) D Dimer High Sensitivity 297 NG/ML [facility] Comment:D-DIMER HS REFERENCE RANGENote: Our [...] Final Result Performing Organization Address [facility] Phone Number [facility] [address] [place] [phone] * High Sensitivity Troponin I (06/01/2024 10:49 AM EST) Pathologist [facility] TROPONIN I HIGH SENSITIVITY <2.7 <3.5 - 17.0 ng/L [facility] Comment:The [employer] high sens itivity Troponin-I results should beused in conjunction with other diagnostic information suchas ECG, clinical observations and information, and patientsymptoms to aid in the diagnosis of NC. 06/01/2024 10:4 9 AM EST 06/01/2024 10:58 AM EST [employer] External Data Provider LAB BLOOD ORDERAB LES Final Result Performing Organization Address [facility] Phone Number [facility] [address] [place] [phone] * SARS-CoV-2 RNA, Influenza A/B, and RSV RNA, Ql NAAT (06/01/2024 10:49 AM EST) Influenza A PCR NEGATIVE Negative [facility] Influenza B PCR NEGATIVE Negative [facility] Resp Syncy Virus RNA Qual PCR NEGATIVE Negative [facility] SARS COV2 PCR NEGATIVE Negative [...] use by authorized laboratories.Testing performed on the [employer] GeneXpert utilizingreal-time RT-PCR.All SARS CoV2 and positive influenza A/B results arereported to [facility]. 06/01/2024 10:4 9 AM EST 06/01/2024 10:58 AM EST us Generic External Data Provider LAB MICROBIOLOGY - GENERAL ORDERABLES Final Result [facility] [address] [place] [phone] * (ABNORMAL) CBC auto differential (06/01/2024 10:49 AM EST) Only the most recent of2 resultswithin the time period is included. White Blood Count 11.0(H) 4.8 - 10.8 X10*3/uL [facility] Red Blood Count 4.62 4.20 - 5.50 X10*6/uL [facility] Hemoglobin 11.9(L) 12.0 - 16.0 g/dl [facility] Hematocrit 36.8(L) 37.0 - 47.0 % [facility] Mean Corpuscular Volume 79.7(L) 80.0 - 98.0 fL [facility] Mean Corpuscular Hemoglobin 25.8(L) 27.0 - 33.0 pg [facility] Mean Corpuscular HGB Conc 32.3 31.0 - 35.0 g/dl [facility] Red Cell Distribution Width 13.9 11.0 - 16.0 % [facility] Platelet Count 34(L) 160 - 400 X10*3/uL [facility] Neutrophils Percent Auto 50.2 45 - 73 % [facility] Imm Gran Pct Auto 0.3 0.0 - 0.4 % [facility] Lymphocytes Percent Auto 37.2 20 - 40 % [facility] Monocytes Percent Auto 8.2 2 - 11 % [facility] Eosinophils Percent Auto 3.6 0 - 4 % [facility] Basophils Percent Auto 0.5 0 - 2 % [facility] NRBC Pct Auto 0.0 0.0 - 0.2 /100WBC [facility] Neutrophils Absolute Auto 5.5 2.0 - 8.3 x10*3/uL [facility] Imm Gran Abs Auto 0.03 0.00 - 0.03 X10*3/uL [facility] Lymphocytes Absolute Auto 4.1 1.2 - 4.9 X10*3/uL [facility] Monocytes Absolute Auto 0.9 0.1 - 1.2 X10*3/uL [facility] Eosinophils Absolute Auto 0.4 0.0 - 0.4 X10*3/uL [facility] Basophils Absolute Auto 0.1 0.0 - 0.2 X10*3/uL [facility] NRBC Abs Auto 0.000 0.0 - 0.012 X10*3/uL [facility] 06/01/2024 10:4 9 AM EST 06/01/2024 10:58 AM EST us Generic External Data Provider LAB BLOOD ORDERAB LES Final Result Performing Organization Address [facility]/ZIP Co de Phone Number [facility] [address] [place] [phone] * (ABNORMAL) C-reactive Protein (06/01/2024 10:49 AM EST) C Reactive Protein 1.32(H) < or = 0.50 mg/dL [facility] 06/01/2024 10:4 9 AM EST 06/01/2024 10:58 AM EST us Generic External Data Provider LAB BLOOD ORDERAB LES Final Result Performing Organization Address City/[facility] Co de Phone Number [facility] [address] [place] [phone] * (ABNORMAL) B Type Natriuretic Peptide (BNP) (06/01/2024 10:49 AM EST) [facility] B Type Natriuretic Peptide 286(H) <100 pg/mL [facility] Comment:For those patients w ho are being treated with Natrecor(nesiritide, recombinant BNP), BNP testing should beperformed at least two hours post treatment in order toensure that only endogenous levels of BNP are detected. 06/01/2024 10:4 9 AM EST 06/01/2024 10:58 AM EST us Generic External Data Provider LAB BLOOD ORDERAB LES Final Result [facility] [address] [place] [phone] * Magnesium (06/01/2024 10:49 AM EST) [facility] Magnesium 1.9 1.6 - 2.6 mg/dL [facility] 06/01/2024 10:4 9 AM EST 06/01/2024 10:58 AM EST Generic External Data Provider LAB BLOOD ORDERAB LES Final Result Performing Organization Address City/[facility]/ZIP Co de Phone Number [facility] [address] [place] [phone] * Hepatic Function Panel (06/01/2024 10:49 AM EST) [facility] Bilirubin, Total 0.8 0.0 - 1.0 mg/dL [facility] Bilirubin, Direct 0.3 0.0 - 0.5 mg/dL [facility] Aspartate Amino Transferase 22 5 - 31 U/L [facility] Alanine Aminotransferase 24 0 - 31 U/L [facility] Total Protein 8.0 6.5 - 8.0 g/dL [facility] Albumin Level 3.7 3.5 - 5.0 g/dL [facility] Alkaline Phosphatase 102 39 - 117 U/L [facility] 06/01/2024 10:4 9 AM EST 06/01/2024 10:58 AM EST us Generic External Data Provider LAB BLOOD ORDERAB LES Final Result [facility] [address] [place] [phone] [phone] * (ABNORMAL) Basic Metabolic Panel (06/01/2024 10:49 AM EST) Sodium 143 135 - 145 mmol/L [facility] Potassium 3.6 3.3 - 5.1 mmol/L [facility] Chloride 112(H) 96 - 108 mmol/L [facility] Carbon Dioxide 23 22 - 29 mmol/L [facility] Anion Gap 12 12 - 20 [facility] Urea Nitrogen (BUN) 13 9 - 16 mg/dL [facility] Creatinine, Serum 0.47(L) 0.5 - 1.4 mg/dL [facility] Creatinine Clr Calc Pharmacy 130.0 [facility] Comment:Provided height and weight: 157.48 cm,77.111 kg.eGFR (calculated from the MDRD study equation) and eCrCl(calculated from the Cockcroft-Gault equation) are based ondifferent parameters and may not yield comparable results.If eCrCl result is absurd, please check patient'sheight/weight. Estimated Glomerular Filt Rate >60 [facility] Comment:Chronic Kidney Disea se: Estimated GFR < 60 mL/min/1.75m5Ytgucn Kidney Disease: Estimated GFR < 15 mL/min/1.73m2 Glucose 97 60 - 115 mg/dL [facility] Calcium 9.8 8.4 - 10.2 mg/dL [facility] 06/01/2024 10:4 9 AM EST 06/01/2024 10:58 AM EST us Generic External Data Provider LAB BLOOD ORDERAB LES Final Result Performing Organization Address [facility] Co de Phone Number [facility] [address] [place] [phone] * Urinalysis w/reflex microscopic (06/01/2024 10:45 AM EST) Color Urine Yellow [facility] Appearance Urine Clear [facility] PH 5.5 5.0 - 9.0 [facility] Glucose Urine UA Negative Negative mg/dL [facility] Urine Blood Negative Negative [facility] Specific Wever - Urine 1.025 1.005 - 1.025 [facility] Urine Protein Trace Neg-Trace mg/dL [facility] Urine Ketones Trace Negative mg/dL [facility] Nitrite Urine Negative Negative [facility] Leukocyte Esterase Urine Negative Negative [facility] 06/01/2024 10:4 5 AM EST 06/01/2024 11:08 AM EST Narrative [facility] - 06/01/2024 11:23 AM EST Urine, Clean Catch us Generic External Data Provider LAB URINE ORDERAB LES Final Result Performing Organization Address [facility] de Phone Number [facility] [address] [place] [phone] * (ABNORMAL) TSH W/Reflex to FT4 (05/28/2024 3:02 PM EST) TSH reflex Free T4 <0.01(L) 0.32 - 4.0 uIU/mL [facility] Blood Venous blood specimen / Unknown 05/28/2024 3:02 PM EST 05/28/2024 4:21 PM EST us Russell River MD LAB BLOOD ORDERABLES Final Resul t Performing Organization Address [facility] Co de Phone Number [facility] [address] [place] [phone] * (ABNORMAL) Lipid Panel, Standard (05/28/2024 3:02 PM EST) Triglycerides 154(H) <150 mg/dL [facility] Comment:Desirable Triglyceri de: less than 150 mg/dLBorderline High Triglyceride 150-199 mg/dLHigh Triglyceride: 200-499 mg/dLVery High Triglyceride: greater than or equal to 5OO mg/dL Cholesterol 145 <200 mg/dL [facility] Comment:Desirable Cholestero l: less than 200 mg/dLBorderline High Cholesterol: 200-239 mg/dLHigh Cholesterol: greater than 239 mg/dL LDL Cholesterol Calculated 92 <100 mg/dL [facility] Comment:Desirable LDL: less than 100 mg/dLNear Optimal/Above Optimal LDL: 110- 129 mg/dLBorderline High LDL: 130-159 mg/dLHigh LDL: 160-189 mg/dLVery High LDL: greater than or equal to 190 mg/dL HDL Cholesterol 23(L) >40 mg/dL [facility] Comment:Desirable HDL: great er than 40 mg/dL Note: This HDL assay may give artificially low results in patients with liver disease. Blood Venous blood specimen / Unknown 05/28/2024 3:02 PM EST 05/28/2024 4:21 PM EST us Aaron Riley MD LAB BLOOD ORDERABLES Final Result [facility] [address] [place] [phone] * (ABNORMAL) Comprehensive Metabolic Panel (05/28/2024 3:02 PM EST) Sodium 143 135 - 145 mmol/L [facility] Potassium 3.5 3.3 - 5.1 mmol/L [facility] Chloride 103 96 - 108 mmol/L [facility] Carbon Dioxide 25 22 - 29 mmol/L [facility] Anion Gap 19 12 - 20 [facility] Urea Nitrogen (BUN) 18(H) 9 - 16 mg/dL [facility] Creatinine, Serum 0.67 0.5 - 1.4 mg/dL [facility] Estimated Glomerular Filt Rate >60 [facility] Comment:Chronic Kidney Disea se: Estimated GFR < 60 mL/min/1.98s7Gndjdk Kidney Disease: Estimated GFR < 15 mL/min/1.73m2 Glucose 96 60 - 115 mg/dL [facility] Calcium 9.8 8.4 - 10.2 mg/dL [facility] Bilirubin, Total 0.8 0.0 - 1.0 mg/dL [facility] Aspartate Amino Transferase 24 5 - 31 U/L [facility] Alanine Aminotransferase 23 0 - 31 U/L [facility] Total Protein 8.5(H) 6.5 - 8.0 g/dL [facility] Albumin Level 3.9 3.5 - 5.0 g/dL [facility] Alkaline Phosphatase 107 39 - 117 U/L [facility] Blood Venous blood specimen / Unknown 05/28/2024 3:02 PM EST 05/28/2024 4:21 PM EST us Aaron Riley MD LAB BLOOD ORDERABLES Final Result [facility] [address] [place] [phone] * XR Chest 2 Views (05/27/2024 11:26 AM EST) Anatomical Region Laterality Modality Chest Radiographic Domi ging 05/27/2024 11:2 6 AM EST Narrative 05/27/2024 12:37 PM EST ? [facility] ?[address] ?[place] [address] ?XRay Report ? Signed ? Patient: Rene,Liz ?MR#: [id number] ?? 24 ? : 1970 ?Acct:[id number] ? Age/Sex: 53 / F ?ADM Date: 02/03/25 ? Loc: HO.HHCL ? Attending Dr: Walt Levy MD ? Ordering Physician: Russell River MD ?? Date of Service: 05/27/24 ?? Procedure(s): XR chest 2V ?? Accession Number(s): [id number] ? cc: Aleta,Russell DODGE ? EXAMINATION: ??XR [...] DD/ 1126 ? TD/TT: 05/27/24 1155 ? Thread Spooler: ? Procedure Note Donjavierter, Image - 05/27/[address] [address] XRay Report Signed Patient: Marycarmen López#: [id number] 24 : 1970Acct:[id number] Age/Sex: 53 / FADM Date: 05/27/24 Loc: .HHCL Attending Dr: Walt Levy MD Ordering Physician: Russell River MD Date of Service: 05/27/24 Procedure(s): XR chest 2V Accession Number(s): [id number] cc: Russell River MD EXAMINATION: XR CHEST [...] Jered Silva MD 05/27/2024 12:34 PM EST RP Dictated By: Jered Silva MD Signed By: <Electronically signed by Jered Silva MD in OV> 05/27/24 1234 DD/ 1126 TD/TT: 05/27/24 1155 Thread Spooler: us Russell Name IMG XR PROCEDURES Final Result * (ABNORMAL) POCT HGB A1C (05/25/2024 11:38 AM EST) Hemoglobin A1C 6.2(A) 4.0 - 6.0 % QC Media Lot # [id number] Lot# Expiration Date [id number] Swab 05/25/2024 11:3 8 AM EST us Russell Aleta DODGE POINT OF CARE TEST ENTER/EDIT OR DERABLES Final Result * BI Mammogram Screening Tomosynthesis Bilateral (08/28/2023 3:58 PM EDT) Anatomical Region Laterality Modality Breast Bilateral Mammography 08/28/2023 3:58 PM EDT Narrative 09/28/2023 12:01 AM EDT ? [facility] ? [address] ?[place] [address] ? Mammography Report ? Signed ? Patient: Rene,Liz ?MR#: [id number] ?? 24 ? : 1970 ?Acct:[id number] ? Age/Sex: 53 / F ?ADM Date: 05//24 ? Loc: HO.MAMMO ? Attending Dr: Aaron Riley MD ? Ordering Physician: Aaron Riley MD ?Results: 2 ?? Benign Findings ? Date of Service: 08/28/23 ?Follow Up: 1 Year From Orig ?? inal Mammogram ? Procedure(s): MM tomosynthesis screening BI ?? Accession Number(s): [id number] ? cc: Aaron Riley MD ? EXAMINATION: [...] Anastasia Goddard MD in OV> ? 09/27/23 5567 ? DD/ 1558 ? TD/TT: ? Thread Spooler: ? Procedure Note Donjavierter, Image - 09/28/2023 [facility] [address] [place], [place] [address] Mammography Report Signed Patient: Marycarmen López#: [id number] 24 : 1970Acct:[id number] Age/Sex: 53 / FADM Date: 08/28/23 Loc: SATYA Attending Dr: Aaron Riley MD Ordering Physician: Aaron Riley MDResults: 2 Benign Findings Date of Service: 08/28/23Follow Up: 1 Year From [facility] Mammogram Procedure(s): MM tomosynthesis screening BI Accession Number(s): [id number] cc: Aaron Riley MD EXAMINATION: MM SCREENING [...] by Anastasia Goddard MD in OV> 09/27/23 2357 DD/ 1558 TD/TT: Thread Spooler: Aaron Riley MD IMG BI PROCEDURES Edited Re sult - Final * Pap Smear (12/15/2020 12:00 AM EDT) Swab us Historical Provider LAB CYTOLOGY ORDERABLES F inal Result [facility] [address] [place] [address] from Last 3 Months or Most Recently Relevant to Health Maintenance Insurance [facility] [employer] [facility] Address: [address] [phone] Care Teams Strapper Operator Relationship Specialty Start Date End Date Aaron Riley MD [address] [place] [phone] PCP - General Internal Medicine 04/24/18
--- OUTSIDE RECORDS SUMMARY | 2024-08-23 10:58 | XMS_ITS | Encounter Summary ---
Author Organization [employer] Address [address] [place] [address] [facility] [place] [address] Care Team Providers Care Manager Of Health Name Role Phone Aaron Riley MD Primary Care Provider [phone]- [phone] Reason for Referral * Consultation (Urgent) - Closed Specialty Diagnoses / Procedures Referred By Contac t Referred To Contact Hematology and Oncology Diagnoses Immune thrombocytopenic purpura (CMS/HCC) Aaron Riley MD [address] [place] [address] Phone: tel: fax: Walt Levy MD [address] [place] [address] Phone: tel:[phone] fax:[phone] Referral ID Status Reason Start Date Expiration Date V isits Requested Visits Authorized [id number] Closed Specialty Services Required 09/01/2023 08/31/2024 1 1 Encounter Details Date Type Department Care Team (Late st Contact Info) Description 09/01/2023 Orders Only [facility] MED & PEDS [address] [place], [place] [phone] Aaron Riley MD [address] [place], [place] [phone] Immune thrombocytopenic purpura (CMS/HCC) (Primary Dx) Social [...] Upcoming Encounters Date Type Department Care Team ([facility] st Contact Info) Description 11/18/2024 1:45 PM EDT Office Visit [facility] MED & PEDS [address] [place] [address] Aaron Riley MD [address] [place] [address] Scheduled Referrals Name Type Priority Associated Diagnoses [...] as of this encounter Care Teams Manager Of Health Relationship Specialty Start Date End Date Aaron Riley MD [address] [place] [address] PCP - General Internal Medicine 04/24/18 documented as of this encounter
== END 2024-08-23 10:20 | disposition home or self-care (01) ==
LOC: HO.ENCR 10:00
PROVIDERS: PCP Internal Medicine; Visit Provider Student in an Organized Health Care Education/Training Program
DX: E05.90 Thyrotoxicosis, unspecified without thyrotoxic crisis or storm (principal)
CPT/HCPCS: 99213

== ENCOUNTER → 2024-08-23 09:59 | Outpatient (BNVA) | payer OTHER, SELFPAY | PROVIDERS: PCP Internal Medicine; Visit Provider Student in an Organized Health Care Education/Training Program | DX: E05.90 Thyrotoxicosis, unspecified without thyrotoxic crisis or storm (principal) | CPT/HCPCS: 99212 ==

== ENCOUNTER 2024-10-14 13:05 | Outpatient (REF) | payer OTHER, SELFPAY ==
--- NOTE | ~2024-10-14 | MM_ITS ---
EXAMINATION: MM SCREENING DIGITAL BREAST TOMOSYNTHESIS, BILATERAL CLINICAL INFORMATION: Screening. Asymptomatic. COMPARISON: Mammography: Comparison is made with available priors TECHNIQUE: Digital breast mammography with tomosynthesis is performed in both the craniocaudal and mediolateral oblique views along with computer-aided detection (CAD). FINDINGS: There are scattered areas of fibroglandular density (ACR BI-RADS breast composition Category b). There are no significant masses, abnormal calcifications, or other abnormalities. MM/MM tomosynthesis screening BI IMPRESSION: No mammographic evidence of malignancy. ASSESSMENT: BI-RADS BI-RADS 1 - Negative RECOMMENDATION: Routine annual mammography screening. 1 year F/U This examination should not preclude the clinical evaluation of a suspicious palpable abnormality. This patient's information was entered into a reminder system with a target due date for their next mammogram. Electronically signed by: Sasha Gomez DO 10/18/2024 03:06 PM EDDlilon
--- OUTSIDE RECORDS SUMMARY | 2024-10-14 14:29 | XMS_ITS | Encounter Summary ---
Author Organization [employer] Address [address] [place] [address] Care Team Providers Care Metallographer Name Role Phone Aaron Riley MD Primary Care Provider [phone] Reason for Referral * Consultation (Urgent) - Closed Specialty Diagnoses / Procedures Referred By Contac t Referred To Contact Hematology and Oncology Diagnoses Immune thrombocytopenic purpura (CMS/HCC) Aaron Riley MD [address] [place] [address] Phone: tel: fax: Walt Levy MD [address] [place] [address] Phone: tel:[phone] fax:[phone] Referral ID Status Reason Start Date Expiration Date V isits Requested Visits Authorized [id number] Closed Specialty Services Required 09/01/2023 08/31/2024 1 1 Encounter Details Date Type Department Care Team (Late st Contact Info) Description 09/01/2023 Orders Only [facility] CH[facility] MED & PEDS [address] [place], [place] [phone] Aaron Riley MD [address] [place], [place] [phone] Immune thrombocytopenic purpura (CMS/HCC) (Primary Dx) Social [...] Upcoming Encounters Date Type Department Care Team ([facility] st Contact Info) Description 11/18/2024 1:45 PM EDT Office Visit [facility] MED & PEDS [address] [place] [address] Aaron Riley MD [address] [place] [address] Scheduled Referrals Name Type Priority Associated Diagnoses [...] documented as of this encounter Care Teams Metallographer Relationship Specialty Start Date End Date Aaron Riley MD [address] [place] [address] PCP - General Internal Medicine 04/24/18 documented as of this encounter
== END 2024-10-14 13:06 | disposition home or self-care (01) ==
LOC: HO.MAMMO 13:05
PROVIDERS: PCP Internal Medicine; Visit Provider Internal Medicine
DX: Z12.31 Encounter for screening mammogram for malignant neoplasm of breast (principal)
CPT/HCPCS: 77063; 77067

== ENCOUNTER → 2024-10-14 13:15 | Outpatient (BNV) | payer OTHER, SELFPAY | PROVIDERS: PCP Internal Medicine; Visit Provider Internal Medicine | DX: Z12.31 Encounter for screening mammogram for malignant neoplasm of breast (principal) | CPT/HCPCS: 77063; 77067 ==

== ENCOUNTER 2024-12-20 08:53 | Outpatient (REF) | payer OTHER, SELFPAY ==
--- OUTSIDE RECORDS SUMMARY | 2024-12-20 09:44 | XMS_ITS | Clinical Summary ---
Author Organization [employer] Address [address] [place] [address] 7 [place] [address] Care Team Providers Care Director Building Name Role Phone Aaron Riley MD Primary Care Provider [phone] Allergies Active Allergy Reactions Criticality Noted Date [...] hemorrhoids. 28 g 1 05/15/19 24 Active fluticasone (Flonase) 50 MCG/ACT nasal [...] by mouth Once per day. 30 tablet 11 03/26/20 24 025 Active DULoxetine (Cymbalta) [address] capsuleIndications :Fibromyalgia Take 1 capsule (60 mg) by mouth Once per day. Do not crush or chew. 30 capsule 11 03/26/20 24 025 Active doxycycline (Vibra-Tabs) 100 MG tablet Take 1 tablet twice a day by oral route for 20 days. 09/28/19 24 Active hydroCHLOROthiazid e 12.5 MG tabletIndications: Primary hypertension Take 1 tablet (12.5 mg) by mouth Once per day. 30 tablet 11 11/19/19 25 026 Active sertraline (Zoloft) 50 MG tabletIndications: Other depression Take 1 tablet (50 mg) by mouth in the morning. 30 tablet 3 11/19/19 25 Active ibuprofen 800 MG tabletIndications: Fibromyalgia Take 1 tablet (800 mg) by mouth 3 times daily. 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 Chronic left maxillary sinusitis 09/08/2023 Chronic sinusitis 09/08/2023 Immune thrombocytopenia 09/08/2023 Immunodeficiency disorder 09/08/2023 Secondary immune deficiency disorder 09/08/2023 BENY (generalized anxiety disorder) 05/26/2023 Severe major depression 05/26/2023 Fibromyalgia 10/26/2016 Immune thrombocytopenic purpura 10/31/2011 Backache 10/19/2011 Female infertility 10/19/2011 Encounters Date Type Department Care Team Description 11/18/2024 1:45 PM EDT Office Visit [facility] MED & PEDS [address] [place] [address] Aaron Riley MD Primary hypertension (Primary Dx); Immune thrombocytopenic purpura (CMS/HCC); Dietary counseling; Exercise counseling; Class 1 obesity due to excess calories with serious comorbidity and body mass index (BMI) of 34.0 to 34.9 in adult; Fibromyalgia; Other depression 11/18/2024 Travel 10/14/2024 Orders Only [facility] [address] [facility] [place] [address] Aaron Riley MD from Last 3 Months Immunizations Immunization Administration Dates Next Due Influenza Injectable Quadriv [...] Sign Reading Time Taken Comments Blood Pressure 147/76 11/18/2024 1:52 PM EDT Pulse 96 11/18/2024 1:52 PM EDT Temperature 36.5 C (97.7 F) 11/18/2024 1:52 PM EDT Respiratory Rate 20 11/18/2024 1:52 PM EDT Oxygen Saturation 94% 11/18/2024 1:52 PM EDT Inhaled Oxygen Concentration - - Weight 84.8 kg (187 lb) 11/18/2024 1:52 PM EDT Height 157.5 cm (5' 2 ) 11/18/2024 1:52 PM EDT Body Mass Index 34.2 11/18/2024 1:52 PM EDT Plan of Treatment Upcoming Encounters Date Type Department Care Team (Late st Contact Info) Description 01/23/2025 2:30 PM EDT Office Visit [facility] [address] [place] [address] Aaron Riley MD [address] [place] [address] Health Maintenance Due Date Last Done Comments CT Colonography 1968 Colonoscopy 1968 Colorectal Cancer Screening 1968 FIT DNA/Cologuard 1968 FIT 1968 FOBT 1968 HIV Screening 1968 Sigmoidoscopy 1968 Disability Screening 1968 HIB Vaccines (1 of 1 - Risk 1-dose series) 10/01/1969 Meningococcal Vaccine (1 - Risk 2-dose series) 1970 Meningococcal B Vaccine (1 of 5 - Increased Risk) 1978 Alcohol/Substance Use Screening 1980 Hepatitis C Screening 1986 Hepatitis B Vaccines (1 of 3 - 19+ 3-dose series) 07/02/1987 Pneumococcal Vaccine: 50+ Years (1 of 2 - PCV) 07/02/1987 Zoster Vaccines (1 of 2) 07/02/1987 COVID-19 Vaccine (4 - season) 2023 07/12/2023, 02/22/2021, 08/01/2020 Depression Monitoring 04/03/2024 10/03/2023, 024 Influenza Vaccine (#1) 2024 , 02/15/2023, 03/29/2022, Additional history exists SDOH Screening 07/31/2025 07/31/2024 Diabetes: Hemoglobin A1C 11/18/2025 11/18/2024, 02/04/2024 Tobacco Screening 11/18/2025 11/18/2024 Cervical Cancer Screening 12/15/2025 HPV/Cotest 12/15/2025 Pap Smear 12/15/2025 12/15/2020 DTaP/Tdap/Td Vaccines (2 - Td or Tdap) 06/30/2026 06/30/2016 Mammogram 10/14/2026 10/14/2024, 05/0 09/2023, 08/22/2022, Additional history exists Lipid Panel 05/28/2029 05/28/2024 RSV Patients and Patients Aged 60 years or older (1 - 1-dose 75+ series) 07/02/2043 HPV Vaccines Aged Out No longer eligi [...] Name Priority Date/Time Associated Diagnosis Comments POCT GLUCOSE Routine 11/18/2024 2:35 PM EDT Class 1 obesity due to excess calories with serious comorbidity and body mass index (BMI) of 34.0 to 34.9 in adult POCT GLYCATED HEMOGLOBIN, TOTAL Routine 11/18/2024 2:34 PM EDT Class 1 obesity due to excess calories with serious comorbidity and body mass index (BMI) of 34.0 to 34.9 in adult BI MAMMOGRAM SCREENING TOMOSYNTHESIS BILATERAL Routine 10/14/2024 1:10 PM EDT LIPID PANEL, STANDARD Routine 05/28/2024 3:02 PM EST Primary hypertension PAP SMEAR Routine 12/15/2020 12:00 AM EDT from Last 3 Months or Most Recently Relevant to Health Maintenance Results * (ABNORMAL) POCT Glucose (11/18/2024 2:35 PM EDT) Glucose Blood, POC 134(A) 60 - 200 mg/dL QC Media Lot # [id number] Lot# Expiration Date Comment:random Blood Capillary blood specimen / Unknown 11/18/2024 2:35 PM EDT Aaron Riley MD POINT OF CARE TEST ENTER/ED IT ORDERABLES Final Result * (ABNORMAL) POCT HGB A1C (11/18/2024 2:34 PM EDT) Hemoglobin A1C 5.9(A) 4.0 - 5.7 % QC Media Lot # [id number] Lot# Expiration Date Blood 11/18/2024 2:34 PM EDT Aaron Riley MD POINT OF CARE TEST ENTER/ED IT ORDERABLES Final Result * BI Mammogram Screening Tomosynthesis Bilateral (10/14/2024 1:10 PM EDT) Anatomical Region Laterality Modality Breast Bilateral Mammography 10/14/2024 1:10 PM EDT Narrative 10/18/2024 3:09 PM EDT [facility] [address] [place], [place] [address] Mammography Report Signed Patient: Liz López MR#: [id number] 24 : 1970 Acct:[id number] Age/Sex: 54 / F ADM Date: 10/14/24 Loc: HODerrickINDY Attending Dr: Aaron Riley MD Ordering Physician: Aaron Riley MD Results: 1 Negative Date of Service: 10/14/24 Follow Up: 1 Year From Orig inal Mammogram Procedure(s): MM tomosynthesis screening BI Accession Number(s): [id number] cc: Aaron Riley MD EXAMINATION: MM SCREENING DIGITAL BREAST TOMOSYNTHESIS, BILATERAL CLINICAL INFORMATION: Screening. Asymptomatic. COMPARISON: Mammography: Comparison is made with available priors TECHNIQUE: Digital breast mammography with tomosynthesis is performed in both the craniocaudal and mediolateral oblique views along with computer-aided detection (CAD). FINDINGS: There are scattered areas of fibroglandular density (ACR BI-RADS breast composition Category b). There are no significant masses, abnormal calcifications, or other abnormalities. MM/MM tomosynthesis screening BI IMPRESSION: No mammographic evidence of malignancy. ASSESSMENT: BI-RADS BI-RADS 1 - Negative RECOMMENDATION: Routine annual mammography screening. 1 year F/U This examination should not preclude the clinical evaluation of a suspicious palpable abnormality. This patient's information was entered into a reminder system with a target due date for their next mammogram. Electronically signed by: Sasha Gomez DO 10/18/2024 03:06 PM EDT Dictated By: Sasha Gomez DO Signed By: <Electronically signed by Sasha Gomez DO in OV> 10/18/24 1506 DD/ 1310 TD/TT: 10/14/24 1329 Milieu Technician: Procedure Note Donotuseinterpreter, Image - 10/18/2024 [facility] [address] [place] [address] Dr. Montesinos, [place] [address] Mammography Report Signed Patient: Lorraine LpóezR#: [id number] 24 : 1970Acct:[id number] Age/Sex: 54 / FADM Date: 10/14/24 Loc: HO.MAMMO Attending Dr: Aaron Riley MD Ordering Physician: Aaron Riley MDResults: 1 Negative Date of Service: 10/14/24Follow Up: 1 Year From Orig ina Mammogram Procedure(s): MM tomosynthesis screening BI Accession Number(s): [id number] cc: Aaron Riley MD EXAMINATION: MM SCREENING DIGITAL BREAST TOMOSYNTHESIS, BILATERAL CLINICAL INFORMATION: Screening. Asymptomatic. COMPARISON: Mammography: Comparison is made with available priors TECHNIQUE: Digital breast mammography with tomosynthesis is performed in both the craniocaudal and mediolateral oblique views along with computer-aided detection (CAD). FINDINGS: There are scattered areas of fibroglandular density (ACR BI-RADS breast composition Category b). There are no significant masses, abnormal calcifications, or other abnormalities. MM/MM tomosynthesis screening BI IMPRESSION: No mammographic evidence of malignancy. ASSESSMENT: BI-RADS BI-RADS 1 - Negative RECOMMENDATION: Routine annual mammography screening. 1 year F/U This examination should not preclude the clinical evaluation of a suspicious palpable abnormality. This patient's information was entered into a reminder system with a target due date for their next mammogram. Electronically signed by: Sasha Gomez DO 10/18/2024 03:06 PM EDT Dictated By: Sasha Gomez DO Signed By: <Electronically signed by Sasha Gomez DO in OV> 10/18/24 1506 DD/ 1310 TD/TT: 10/14/24 1329 Milieu Technician: us Aaron Riley MD IMG BI PROCEDURES Final Res ult * (ABNORMAL) Lipid Panel, Standard (05/28/2024 3:02 PM EST) Triglycerides 154(H) <150 mg/dL [facility] Comment:Desirable Triglyceri de: less than 150 mg/dLBorderline High Triglyceride 150-199 mg/dLHigh Triglyceride: 200-499 mg/dLVery High Triglyceride: greater than or equal to 5OO mg/dL Cholesterol 145 <200 mg/dL [facility] Comment:Desirable Cholestero l: less than 200 mg/dLBorderline High Cholesterol: 200-239 mg/dLHigh Cholesterol: greater than 239 mg/dL LDL Cholesterol Calculated 92 <100 mg/dL [facility] Comment:Desirable LDL: less than 100 mg/dLNear Optimal/Above Optimal LDL: 110- 129 mg/dLBorderline High LDL: 130-159 mg/dLHigh LDL: 160-189 mg/dLVery High LDL: greater than or equal to 190 mg/dL HDL Cholesterol 23(L) >40 mg/dL [facility] Comment:Desirable HDL: great er than 40 mg/dL Note: This HDL assay may give artificially low results in patients with liver disease. Blood Venous blood specimen / Unknown 05/28/2024 3:02 PM EST 05/28/2024 4:21 PM EST Aaron Riley MD LAB BLOOD ORDERABLES Final Result [facility] [address] [place] [address] [phone] * Pap Smear (12/15/2020 12:00 AM EDT) Swab Historical Provider LAB CYTOLOGY ORDERABLES F inal Result Performing Organization Address City/[facility]/ZIP Co de Phone Number [facility] [address] [place] [phone] from Last 3 Months or Most Recently Relevant to Health Maintenance Insurance [facility] [place] [facility] [place] [address] [place] [address] Care Teams Director Building Relationship Specialty Start Date End Date Aaron Riley MD [address] [place] [address] PCP - General Internal Medicine 04/24/18
--- OUTSIDE RECORDS SUMMARY | 2024-12-20 09:44 | XMS_ITS | Encounter Summary ---
Author Organization [employer] Address [address] [place] [address] Care Team Providers Care Burglar Alarm Inspector Name Role Phone Aaron Riley MD Primary Care Provider [phone]- [phone] Reason for Visit * Reason Onset Date Comments Nurse Triage 01/10/2024 Encounter Details Date Type Department Care Team (Late st Contact Info) Description 01/10/2024 Telephone [facility] MED & PEDS [address] [place] [address] Aaron Riley MD [address] [place] [address] Nurse Triage Social History Tobacco Use Types [...] EDT Triage call returned to patient with [place] Seasonal Clerk [id number] Patient reports another small lesion / lump [...] Description 01/23/2025 2:30 PM EDT Office Visit [facility] MED & PEDS [address] [place] [address] Aaron Riley MD [address] [place] [address] documented as of this encounter Visit Diagnoses Not on filedocumented in this encounter Additional Health Concerns Assessment Noted Time PHQ-9 Depression Total Score: 21 024 1:11 PM EDT documented as of this encounter Care Teams Burglar Alarm Inspector Relationship Specialty Start Date End Date Aaron Riley MD [address] [place] [address] PCP - General Internal Medicine 04/24/18 documented as of this encounter
--- OUTSIDE RECORDS SUMMARY | 2024-12-20 09:44 | XMS_ITS | Encounter Summary ---
Author Organization [employer] Address [address] [place] [address] Care Team Providers Care Piece Meat Trimmer Name Role Phone Aaron Riley MD Primary Care Provider [phone] Reason for Referral * Imaging (Routine) - Closed Specialty Diagnoses / Procedures Referred By Contac t Referred To Contact Radiology Diagnoses Low TSH level Procedures NM THYROID W UPTAKE AND SCAN Aaron Riley MD [address] [place] [address] Phone: tel: fax: [address] Phone: tel: fax: Referral ID Status Reason Start Date Expiration Date Visits Re quested Visits Authorized [id number] Closed 06/27/2024 06/27/2025 3 3 Encounter Details Date Type Department Care Team (Late st Contact Info) Description 06/27/2024 Orders Only [facility] [address] [place] [address] Aaron Riley MD [address] [place], [place] [phone] Low TSH level (Primary Dx) Social History [...] Upcoming Encounters Date Type Department Care Team ([facility] st Contact Info) Description 01/23/2025 2:30 PM EDT Office Visit [facility] MED & PEDS [address] [place] [address] Aaron Riley MD [address] [place] [address] Scheduled Orders Name Type Priority Associated Diagnoses Orde r Schedule NM THYROID W UPTAKE AND SCAN Imaging Routine Low TSH level Expected: 06/27/2024, Expires: 06/27/2025 documented as of this encounter Visit Diagnoses Diagnosis Low TSH level- Primary documented in this encounter Additional Health Concerns Assessment Noted Time PHQ-9 Depression Total Score: 21 024 1:11 PM EDT documented as of this encounter Care Teams Piece Meat Trimmer Relationship Specialty Start Date End Date Aaron Riley MD [address] [place] [address] PCP - General Internal Medicine 04/24/18 documented as of this encounter
--- OUTSIDE RECORDS SUMMARY | 2024-12-20 09:44 | XMS_ITS | Encounter Summary ---
Author Organization [employer] Address [address] [place] [address] Care Team Providers Care Homeworker Name Role Phone Aaron Riley MD Primary Care Provider [phone]- [phone] Reason for Visit * Reason Onset Date Comments Nurse Triage 12/28/2022 Encounter Details Date Type Department Care Team (Late st Contact Info) Description 12/28/2022 Telephone [facility] CHC MED & PEDS [address] [place], [place] [phone] Aaron Riley MD [address] [place] [address] Nurse Triage Social History Tobacco Use Types [...] 12/28/2022 1:53 PM EDT Triage call with [place] Duplicator Punch Set Up Operator ID [id number] Pt reports a few days ago, bent down to shredder picker a beach chair and immediately had [...] accepted this outcome Please contact pt at [phone] Peruvian Speaker documented in this encounter Plan of Treatment Upcoming Encounters Date Type Department Care Team (Late st Contact Info) Description 01/23/2025 2:30 PM EDT Office Visit [facility] MED & PEDS [address] [place] [address] Aaron Riley MD [address] [place] [address] documented as of this encounter Visit Diagnoses Not on filedocumented in this encounter Care Teams Homeworker Relationship Specialty Start Date End Date Aaron Riley MD [address] [place] [address] PCP - General Internal Medicine 04/24/18 documented as of this encounter
--- OUTSIDE RECORDS SUMMARY | 2024-12-20 09:44 | XMS_ITS | Encounter Summary ---
Author Organization [employer] Address [address] [place] [address] Care Team Providers Care Real Property Appraiser Name Role Phone Aaron Riley MD Primary Care Provider [phone] Reason for Referral * Consultation (Urgent) - Closed Specialty Diagnoses / Procedures Referred By Contac t Referred To Contact Hematology and Oncology Diagnoses Immune thrombocytopenic purpura (CMS/HCC) Aaron Riley MD [address] [place] [address] Phone: tel: fax: Walt Levy MD [address] [place] [address] Phone: tel:[phone] fax:[phone] Referral ID Status Reason Start Date Expiration Date V isits Requested Visits Authorized [id number] Closed Specialty Services Required 09/01/2023 08/31/2024 1 1 Encounter Details Date Type Department Care Team (Late st Contact Info) Description 09/01/2023 Orders Only [facility] MED & PEDS [address] [place], [place] [phone] Aaron Riley MD [address] [place], [place] [phone] Immune thrombocytopenic purpura (CMS/HCC) (Primary Dx) Social [...] ([facility] st Contact Info) Description 01/23/2025 2:30 PM EDT Office Visit [facility] MED & PEDS [address] [place] [address] Aaron Riley MD [address] [place] [address] Scheduled Referrals Name Type Priority Associated Diagnoses [...] documented as of this encounter Care Teams Real Property Appraiser Relationship Specialty Start Date End Date Aaron Riley MD [address] [place] [address] PCP - General Internal Medicine 04/24/18 documented as of this encounter
--- OUTSIDE RECORDS SUMMARY | 2024-12-20 09:44 | XMS_ITS | Encounter Summary ---
Author Organization [employer] Address [address] [place] [address] Care Team Providers Care Real Estate Assessor Name Role Phone Aaron Riley MD Primary Care Provider [phone] Reason for Referral * Imaging (Routine) - Closed Specialty Diagnoses / Procedures Referred By Reji stearns Referred To Contact Radiology Diagnoses Other thyrotoxicosis without thyrotoxic crisis or storm Procedures NM Thyroid Uptake Aaron Riley MD [address] [place] [address] Phone: tel: fax: [address] Phone: tel: fax: Referral ID Status Reason Start Date Expiration Date Visits Re quested Visits Authorized [id number] Closed 05/29/2024 05/29/2025 3 3 * Consultation (Routine) - Closed Specialty Diagnoses / Procedures Referred By Contgretel t Referred To Contact Endocrinology Diagnoses Other thyrotoxicosis without thyrotoxic crisis or storm Aaron Riley MD [address] [place] [address] Phone: tel: fax: [facility] [place]ocrinology [address] [place], [place] Phone: tel: fax: Referral ID Status Reason Start Date Expiration Date V isits Requested Visits Authorized [id number] Closed Specialty Services Required 05/29/2024 05/29/2025 1 1 Encounter Details Date Type Department Care Team ([facility] st Contact Info) Description 05/29/2024 Orders Only [facility] CHC MED & PEDS [address] [place] [address] Aaron Riley MD [address] [place] [address] Other thyrotoxicosis without thyrotoxic crisis or storm [...] Description 01/23/2025 2:30 PM EDT Office Visit [facility] CHC MED & PEDS [address] [place] [address] Aaron Riley MD [address] [place] [address] Scheduled Orders Name Type Priority Associated Diagnoses [...] AM EST Narrative 2024 3:12 PM EDT [address] [address] Nuclear Medicine Report Signed Patient: Liz López MR#: [id number] 24 : 1970 Acct:[id number] Age/Sex: 53 / F ADM Date: 06/27/24 Loc: [facility] Attending Dr: Aaron Riley MD Ordering Physician: Aaron Riley MD Date of Service: 06/27/24 Procedure(s): NM thyroid w uptake Accession Number(s): [id number] cc: Aaron Riley MD EXAMINATION: NM THYROID [...] 07/01/24 1509 DD/ 1026 TD/TT: 06/28/24 1305 Staple Fiber Washer: Procedure Note Donotuseinterpreter, Image - [address] [place] [address] Nuclear Medicine Report Signed Patient: Marycarmen López#: [id number] [birth year] : 1970Acct:[id number] Age/Sex: 53 / FADM Date: 06/27/24 Loc: [facility] Attending Dr: Aaron Riley MD Ordering Physician: Aaron Riley MD Date of Service: 06/27/24 Procedure(s): NM thyroid w uptake Accession Number(s): [id number] cc: Aaron Riley MD EXAMINATION: NM THYROID [...] 07/01/24 1509 DD/ 1026 TD/TT: 06/28/24 1305 Staple Fiber Washer: us Aaron Riley MD IMG NM PROCEDURES Final Res ult documented in this encounter Visit Diagnoses Diagnosis 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
[2024-12-20 13:16] LABS: Free T4 (Free Thyroxine) 0.90 ng/dL (0.71-1.85); Thyroid Stimulating Hormone 1.11 uIU/mL (0.32-4.0)
== END 2024-12-20 08:54 | disposition home or self-care (01) ==
LOC: HO.10HDL 08:53
PROVIDERS: Visit Provider Student in an Organized Health Care Education/Training Program
DX: E05.90 Thyrotoxicosis, unspecified without thyrotoxic crisis or storm (principal)
CPT/HCPCS: 36415; 84439; 84443; 84480

== ENCOUNTER 2024-12-31 15:00 | Outpatient (AMB) | payer OTHER, SELFPAY ==
[2024-12-31 15:02] VITALS: BP 104/58; PULSE 82; O2SAT 96; BMI 34.4
--- NOTE | 2024-12-31 15:02 | A.OFFVIS_ITS ---
Vital Signs 12/31/24 15:02 Height 5 ft 2 in Weight 187 lb 13.341 oz BMI 34.4 BP 104/58 L Blood Pressure Location Lt brachial Position Sitting Pulse 82 Pulse Source Pulse Oximeter Pulse Oximetry (%) 96 Oxygen Delivery Method Room Air Intake Visit Reasons: Hyperthyroidism Intake Note: Patient present today for Hyperthyroidism office visit. Business Analytics Intern Required: No Accompanied by: Spouse Allergies melatonin (MELATONIN) Allergy (Unknown, Verified 12/31/24 15:08) FACIAL REDNESS & EDEMA ASPERGILLUS Allergy (Unknown, Uncoded 12/31/24 15:08) HIVES Medication List - Last Reconciled 12/31/24 by Barbara Neal MD acetaminophen (Tylenol) 650 mg (2 x 325 mg) PO Q6H PRN duloxetine 20 mg PO DAILY duloxetine 20 mg PO BID ibuprofen 1 tab PO TID lisinopril-hydrochlorothiazide 10-12.5 mg 10 tabs PO DAILY omeprazole 20 mg PO DAILY omeprazole magnesium (Prilosec OTC) 20 mg PO DAILY polyethylene glycol 3350 (Miralax) 17 grams PO DAILY prednisone 5 mg PO DIRECTED prednisone 40 mg (2 x 20 mg) PO DAILY sertraline 25 mg PO QAM HPI Comments Details: 54-year-old female here today for follow up of hyperthyroidism secondary to Graves disease. 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 HPI Labs from May 2024 showed suppressed TSH with elevated free T4 of 2.26. Thyroid uptake and scan done 06/27/2024 showed elevated diffuse uptake consistent with Graves disease. No antibody levels done. Reports palpitations, tremors for the past month. Lost 15 lbs in May and then gained it back in June 2024 Feels tired Bowel movements are regular now , just two days ago had some loose stools and vomiting Reports heat intolerance, and excessive diaphoresis Reports excessive anxiety and hair loss Post menopausal since age 51 Blurry vision since 1 month, saw eye doctor 2 months ago no issues No exophthalmos, no dryness or teariness, no painful eye movements Denies preceding viral illness. Had CT scan of the chest the same day the labs were done not perceding it Patient denies any difficulty swallowing, pain on swallowing or voice changes or difficulty breathing. Patient denies any history of childhood neck radiation. Denies having ever used lithium, amiodarone or biotin supplements. Patient denies any family history of thyroid cancer or thyroid disease. 07/12/2024: TSH less than 0.01, free T4 1.46, total T3 141, TSI antibodies elevated at 393, TSH receptor antibodies elevated at 6.41 We had initially planned to start methimazole 5 mg daily but looking at how her free T4 improved without medication, did not proceed with starting the medication. 08/15/2024: TSH less than 0.01, free T4 improved even more to 1.08, total T3 88 Interval history Most recent labs 12/20/2024 showed normal TSH of 1.11, normal free T4 0.90, normal total T3 of 103 Palpitations and tremors improved Denies loose stools , heat intolerance, mild anxiety, overall feeling better and weight is stable No history of CAD, no fractures Physical exam General: sitting comfortably in no acute distress HEENT: normocephalic/atraumatic, moist oral mucosa, no lid lag Neck: supple, symmetrical, no thyromegaly , Cardiac: normal heart sounds Pulm: normal breath sounds B/L, no added breath sounds Abd: not distended, no tenderness Extremities: no edema, no signs of myxedema, does have fine tremors very mild though Laboratory Tests 08/31/23 05/28/24 06/01/24 15:03 15:02 10:49 TSH 1.76 < 0.01 L < 0.01 L Free T4 2.26 H Laboratory Tests 07/12/24 08/15/24 11:05 11:46 TSH < 0.01 L < 0.01 L Free T4 1.46 1.08 Total T3 141 88 Thyroid Stim Immunoglob 393 H TSH Receptor Ab 6.41 H Laboratory Tests 12/20/24 09:00 TSH 1.11 Free T4 0.90 Total T3 103 EXAMINATION: NM THYROID UPTAKE AND SCAN 06/27/24 CLINICAL INFORMATION: Thyrotoxicosis COMPARISON: None available. TECHNIQUE: Following the oral administration of 204 microcuries of I-123 sodium iodide, thyroid uptake was performed and expressed as a percentage of the administrated dose. Gamma scintillation camera images of the thyroid in the anterior and right and left anterior oblique views were obtained using a pinhole collimator following the administration of 8.2 mCi Tc-99m pertechnetate. FINDINGS: No hot or cold defects are seen on the thyroid scans. The uptake is 20.33% at 4 hours and 48.69% at 24 hours. NM/NM thyroid w uptake IMPRESSION: Elevated 24 hour uptake, suggestive of Graves' disease or early Alexandre's thyroiditis. Electronically signed by: Jered Silva MD 07/01/2024 03:09 PM EDT [facility] Medical History Hyperthyroidism Fibromyalgia Depression Surgical History History of surgery Family History Father Tonsillar cancer Hypertension Paternal Grandmother Hypertension Social History Household Members: Spouse and Family Alcohol intake: never Patient Tobacco Use Status: Never used Tobacco service: No Current occupational status: employed Physical Exam Vital Signs: Last Vital Signs Pulse 82 12/31/24 15:02 BP 104/58 L 12/31/24 15:02 Pulse Ox 96 12/31/24 15:02 Oxygen Delivery Method Room Air 12/31/24 15:02 BMI result Body Mass Index 34.4 Assessment & Plan Assessment & Plan (1) Hyperthyroidism: Code(s): E05.90 - Thyrotoxicosis, unspecified without thyrotoxic crisis or storm Category: Medical Plan: 54-year-old female here today for follow up of hyperthyroidism secondary to Graves disease. Labs from May 2024 showed suppressed TSH with elevated free T4 of 2.26. Patient had been symptomatic for about a month. Thyroid uptake and scan done 06/27/2024 showed elevated diffuse uptake consistent with Graves disease. Labs repeated in June 2024 showed improved free T4 levels without any medication with TSH continues to be suppressed. Antibody levels of both TSI and TSH receptor elevated consistent with Graves disease. Given history of ITP she is also at risk of developing other autoimmune diseases. I had initially plan to start her on methimazole 5 mg daily however improvement in labs noted without any medication. Repeat labs done most recently on 08/12/2024 again showed improvement in free T4 and total T3 levels. TSH was still suppressed. Now with most recent blood work from November 2024 shows completely normal TSH, free T4 and total T3. Overall she has improved a lot symptomatically, heart rate is normal today. It could possibly be that she is on prednisone and has been on a taper and could that have improved her thyroid disease. It is possible. I discussed with the her symptoms of hyperthyroidism and that if those occur again she can reach out to us and we can do blood work sooner. Otherwise at this time she is biochemically euthyroid and we will plan to repeat blood work in 1 year prior to follow up. Plan: -ordered TSH, free T4, total T3 a week prior to appointment in 1 year -follow up in 1 year Plan see above Orders: Orders Thyroid Stimulating Hormone 12/08/25 E05.90 - Thyrotoxicosis, unspecified without thyrotoxic crisis or storm Triiodothyronine T3 Total 12/08/25 E05.90 - Thyrotoxicosis, unspecified without thyrotoxic crisis or storm Free T4 (Free Thyroxine) 12/08/25 E05.90 - Thyrotoxicosis, unspecified without thyrotoxic crisis or storm Coding Level of Care Code Est Pt Level 3 (76534) Diagnoses Hyperthyroidism E0590
--- OUTSIDE RECORDS SUMMARY | 2024-12-31 17:25 | XMS_ITS | Encounter Summary ---
Author Organization [employer] Address [address] [place] [address] Care Team Providers Care Flue Lining Dipper Name Role Phone Aaron Riley MD Primary Care Provider [phone] Reason for Referral * Consultation (Urgent) - Closed Specialty Diagnoses / Procedures Referred By Contac t Referred To Contact Hematology and Oncology Diagnoses Immune thrombocytopenic purpura (CMS/HCC) Aaron Riley MD [address] [place] [address] Phone: tel: fax: Walt Levy MD [address] [place] [address] Phone: tel:[phone] fax: Referral ID Status Reason Start Date Expiration Date V isits Requested Visits Authorized [id number] Closed Specialty Services Required 09/01/2023 08/31/2024 1 1 Encounter Details Date Type Department Care Team (Late st Contact Info) Description 09/01/2023 Orders Only [facility] CHC MED & PEDS [address] [place], [place] [phone] Aaron Riley MD [address] [place], [place] [phone] Immune thrombocytopenic purpura (CMS/HCC) (Primary Dx) Social [...] Upcoming Encounters Date Type Department Care Team ([facility] st Contact Info) Description 01/23/2025 2:30 PM EDT Office Visit [facility] MED & PEDS [address] [place] [address] Aaron Riley MD [address] [place] [address] Scheduled Referrals Name Type Priority Associated Diagnoses [...] documented as of this encounter Care Teams Flue Lining Dipper Relationship Specialty Start Date End Date Aaron Riley MD [address] [place] [address] PCP - General Internal Medicine 04/24/18 documented as of this encounter
--- OUTSIDE RECORDS SUMMARY | 2024-12-31 17:25 | XMS_ITS | Encounter Summary ---
Author Organization [employer] Address [address] [place] [address] Care Team Providers Care Horseback Riding Instructor Name Role Phone Aaron Riley MD Primary Care Provider [phone] Reason for Referral * Imaging (Routine) - Closed Specialty Diagnoses / Procedures Referred By Contac t Referred To Contact Radiology Diagnoses Low TSH level Procedures NM THYROID W UPTAKE AND SCAN Aaron Riley MD [address] [place] [address] Phone: tel: fax: [address] Phone: tel: fax: Referral ID Status Reason Start Date Expiration Date Visits Re quested Visits Authorized [id number] Closed 06/27/2024 06/27/2025 3 3 Encounter Details Date Type Department Care Team (Late st Contact Info) Description 06/27/2024 Orders Only [facility] MEDICINE [address] [place] [address] Aaron Riley MD [address] [place], [place] [phone] Low TSH level (Primary Dx) Social History [...] Upcoming Encounters Date Type Department Care Team ([facility] st Contact Info) Description 01/23/2025 2:30 PM EDT Office Visit [facility] CHC MED & PEDS [address] [place] [address] Aaron Riley MD [address] [place] [address] Scheduled Orders Name Type Priority Associated Diagnoses Orde r Schedule NM THYROID W UPTAKE AND SCAN Imaging Routine Low TSH level Expected: 06/27/2024, Expires: 06/27/2025 documented as of this encounter Visit Diagnoses Diagnosis Low TSH level- Primary documented in this encounter Additional Health Concerns Assessment Noted Time PHQ-9 Depression Total Score: 21 024 1:11 PM EDT documented as of this encounter Care Teams Horseback Riding Instructor Relationship Specialty Start Date End Date Aaron Riley MD [address] [place] [address] PCP - General Internal Medicine 04/24/18 documented as of this encounter
--- OUTSIDE RECORDS SUMMARY | 2024-12-31 17:25 | XMS_ITS | Encounter Summary ---
Author Organization [employer] Address [address] [place] [address] Care Team Providers Care Electrical Mechanical Technician Name Role Phone Aaron Riley MD Primary Care Provider [phone] Reason for Visit * Reason Onset Date Comments Nurse Triage 01/10/2024 Encounter Details Date Type Department Care Team (Late st Contact Info) Description 01/10/2024 Telephone [facility] CHC MED & PEDS [address] [place] [address] Aaron Riley MD [address] [place] [address] Nurse Triage Social History Tobacco Use Types [...] EDT Triage call returned to patient with [employer] [id number] Patient reports another small lesion / lump [...] Description 01/23/2025 2:30 PM EDT Office Visit [facility] MED & PEDS [address] [place] [address] Aaron Riley MD [address] [place] [address] documented as of this encounter Visit Diagnoses Not on filedocumented in this encounter Additional Health Concerns Assessment Noted Time PHQ-9 Depression Total Score: 21 024 1:11 PM EDT documented as of this encounter Care Teams Electrical Mechanical Technician Relationship Specialty Start Date End Date Aaron Riley MD [address] [place] [address] PCP - General Internal Medicine 04/24/18 documented as of this encounter
--- OUTSIDE RECORDS SUMMARY | 2024-12-31 17:25 | XMS_ITS | Encounter Summary ---
Author Organization [employer] Address [address] [place] [address] Care Team Providers Care Radar Operator Name Role Phone Aaron Riley MD Primary Care Provider [phone] Reason for Referral * Imaging (Routine) - Closed Specialty Diagnoses / Procedures Referred By Reji stearns Referred To Contact Radiology Diagnoses Other thyrotoxicosis without thyrotoxic crisis or storm Procedures NM Thyroid Uptake Aaron Riley MD [address] [place] [address] Phone: tel: fax: [address] Phone: tel: fax: Referral ID Status Reason Start Date Expiration Date Visits Re quested Visits Authorized [id number] Closed 05/29/2024 05/29/2025 3 3 * Consultation (Routine) - Closed Specialty Diagnoses / Procedures Referred By Contgretel t Referred To Contact Endocrinology Diagnoses Other thyrotoxicosis without thyrotoxic crisis or storm Aaron Riley MD [address] [place] [address] Phone: tel: fax: [facility] Endocrinology [address] [place], [place] Phone: tel: fax: Referral ID Status Reason Start Date Expiration Date V isits Requested Visits Authorized [id number] Closed Specialty Services Required 05/29/2024 05/29/2025 1 1 Encounter Details Date Type Department Care Team ([facility] st Contact Info) Description 05/29/2024 Orders Only [facility] CHC MED & PEDS [address] [place] [address] Aaron Riley MD [address] [place] [address] Other thyrotoxicosis without thyrotoxic crisis or storm [...] 01/23/2025 2:30 PM EDT Office Visit [facility] CHC MED & PEDS [address] [place] [address] Aaron Riley MD [address] [place] [address] Scheduled Orders Name Type Priority Associated Diagnoses [...] AM EST Narrative 2024 3:12 PM EDT [address] [address] Nuclear Medicine Report Signed Patient: Liz López MR#: [id number] 24 : 1970 Acct:[id number] Age/Sex: 53 / F ADM Date: 06/27/24 Loc: [facility] Attending Dr: Aaron Riley MD Ordering Physician: Aaron Riley MD Date of Service: 06/27/24 Procedure(s): NM thyroid w uptake Accession Number(s): [id number] cc: Aaron Riley MD EXAMINATION: NM THYROID [...] 07/01/24 1509 DD/ 1026 TD/TT: 06/28/24 1305 Mold Filler Plastic Dolls: Procedure Note Donotuseinterpreter, Image - [address] [place] [address] Nuclear Medicine Report Signed Patient: Marycarmen López#: [id number] 24 : 1970Acct:[id number] Age/Sex: 53 / FADM Date: 06/27/24 Loc: [facility] Attending Dr: Aaron Riley MD Ordering Physician: Aaron Riley MD Date of Service: 06/27/24 Procedure(s): NM thyroid w uptake Accession Number(s): [id number] cc: Aaron Riley MD EXAMINATION: NM THYROID [...] 07/01/24 1509 DD/ 1026 TD/TT: 06/28/24 1305 Mold Filler Plastic Dolls: us Aaron Riley MD IMG NM PROCEDURES Final Res ult documented in this encounter Visit Diagnoses Diagnosis Other thyrotoxicosis without thyrotoxic crisis or storm- Primary 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
--- OUTSIDE RECORDS SUMMARY | 2024-12-31 17:25 | XMS_ITS | Clinical Summary ---
Author Organization [employer] Address [address] [place] [address] 7 [place] [address] Care Team Providers Care Industrial Renderer Name Role Phone Aaron Riley MD Primary Care Provider [phone] Allergies Active Allergy Reactions Criticality Noted Date [...] 1:45 PM EDT Office Visit [facility] MED & PEDS [address] [place] [address] Aaron Riley MD Primary hypertension (Primary Dx); Immune thrombocytopenic purpura (CMS/HCC); Dietary counseling; Exercise counseling; Class 1 obesity due to excess calories with serious comorbidity and body mass index (BMI) of 34.0 to 34.9 in adult; Fibromyalgia; Other depression 11/18/2024 Travel 10/14/2024 Orders Only [facility] MED & PEDS [address] [facility] [place] [place] [address] Aaron Riley MD from Last 3 Months [...] Description 01/23/2025 2:30 PM EDT Office Visit [facility] MED & PEDS [address] [place] [address] Aaron Riley MD [address] [place] [address] Health Maintenance Due Date Last Done Comments [...] 07/02/1987 Zoster Vaccines (1 of 2) 07/02/1987 Depression Monitoring 04/03/2024 10/03/2023, 024 COVID-19 Vaccine ( - season) 2024 07/12/2023, 02/22/2021, 08/01/2020 Influenza Vaccine (#1) 2024 , 02/15/2023, 03/29/2022, Additional history exists SDOH Screening 07/31/2025 07/31/2024 Diabetes: Hemoglobin A1C 11/18/2025 11/18/2024, 02/0 04/2024 Tobacco Screening 11/18/2025 11/18/2024 Cervical Cancer Screening [...] PM EDT Narrative 10/18/2024 3:09 PM EDT [facility] [address] Montes[place], [place] [address] Mammography Report Signed Patient: Liz López MR#: [id number] [birth year] : 1970 Acct:[id number] Age/Sex: 54 / F ADM Date: 10/14/24 Loc: [facility] Attending Dr: Aaron Riley MD Ordering Physician: Aaron Riley MD Results: 1 Negative Date of Service: 10/14/24 Follow Up: 1 Year From Orig inal Mammogram Procedure(s): MM tomosynthesis screening BI Accession Number(s): [id number] cc: Aaron Riley MD EXAMINATION: MM SCREENING [...] 10/18/24 1506 DD/ 1310 TD/TT: 10/14/24 1329 Manager Distribution Center: Procedure Note Donotuseinterpreter, Image - 10/18/2024 [facility] [address] [place] [address] Dr. Montesinos, [place] [address] Mammography Report Signed Patient: Lorraine LópezR#: [id number] [birth year] : 1970Acct:[id number] Age/Sex: 54 / FADM Date: 10/14/24 Loc: HO.MAMMO Attending Dr: Aaron Riley MD Ordering Physician: Aaron Riley MDResults: 1 Negative Date of Service: 10/14/24Follow Up: 1 Year From Orig ina Mammogram Procedure(s): MM tomosynthesis screening BI Accession Number(s): [id number] cc: Aaron Riley MD EXAMINATION: MM SCREENING [...] 10/18/24 1506 DD/ 1310 TD/TT: 10/14/24 1329 Manager Distribution Center: us Aaron Riley MD IMG BI PROCEDURES Final Res ult * (ABNORMAL) Lipid Panel, Standard (05/28/2024 3:02 PM EST) Triglycerides 154(H) <150 mg/dL [facility] Comment:Desirable Triglyceri de: less than 150 mg/dLBorderline High Triglyceride 150-199 mg/dLHigh Triglyceride: 200-499 mg/dLVery High Triglyceride: greater than or equal to 5OO mg/dL Cholesterol 145 <200 mg/dL [facility] Comment:Desirable Cholestero l: less than 200 mg/dLBorderline High Cholesterol: 200-239 mg/dLHigh Cholesterol: greater than 239 mg/dL LDL Cholesterol Calculated 92 <100 mg/dL [facility] Comment:Desirable LDL: less than 100 mg/dLNear Optimal/Above Optimal LDL: 110- 129 mg/dLBorderline High LDL: 130-159 mg/dLHigh LDL: 160-189 mg/dLVery High LDL: greater than or equal to 190 mg/dL HDL Cholesterol 23(L) >40 mg/dL [facility] Comment:Desirable HDL: great er than 40 mg/dL Note: This HDL assay may give artificially low results in patients with liver disease. Blood Venous blood specimen / Unknown 05/28/2024 3:02 PM EST 05/28/2024 4:21 PM EST Aaron Riley MD LAB BLOOD ORDERABLES Final Result [facility] [address] [place] [address] [phone] * Pap Smear (12/15/2020 12:00 AM EDT) Swab Historical Provider LAB CYTOLOGY ORDERABLES F inal Result Performing Organization Address City/[facility]/ZIP Co de Phone Number [facility] [address] [place] [phone] from Last 3 Months or Most Recently Relevant to Health Maintenance Insurance [facility] [employer] [facility] 3 Care Teams Industrial Renderer Relationship Specialty Start Date End Date Aaron Riley MD [address] [place] [address] PCP - General Internal Medicine 04/24/18
--- OUTSIDE RECORDS SUMMARY | 2024-12-31 17:25 | XMS_ITS | Encounter Summary ---
Author Organization [employer] Address [address] [place] [address] Care Team Providers Care Assessment Coordinator Name Role Phone Aaron Riley MD Primary Care Provider [phone] Reason for Visit * Reason Onset Date Comments Nurse Triage 12/28/2022 Encounter Details Date Type Department Care Team (Late st Contact Info) Description 12/28/2022 Telephone [facility] [address] [place], [place] [phone] Aaron Riley MD [address] [place] [address] Nurse Triage Social History Tobacco Use Types [...] 12/28/2022 1:53 PM EDT Triage call with [place] Machine Operator [place] [id number] Pt reports a few days ago, bent down to sisal picker a beach chair and immediately had [...] accepted this outcome Please contact pt at [phone] Macanese Speaker documented in this encounter Plan of Treatment Upcoming Encounters Date Type Department Care Team (Late st Contact Info) Description 01/23/2025 2:30 PM EDT Office Visit [facility] [address] [place] [address] Aaron Riley MD [address] [place] [address] documented as of this encounter Visit Diagnoses Not on filedocumented in this encounter Care Teams Assessment Coordinator Relationship Specialty Start Date End Date Aaron Riley MD [address] [place] [address] PCP - General Internal Medicine 04/24/18 documented as of this encounter
== END 2024-12-31 15:20 | disposition home or self-care (01) ==
LOC: HO.ENCR 15:00
PROVIDERS: PCP Internal Medicine; Visit Provider Student in an Organized Health Care Education/Training Program
DX: E05.90 Thyrotoxicosis, unspecified without thyrotoxic crisis or storm (principal)
CPT/HCPCS: 99213

== ENCOUNTER → 2024-12-31 15:00 | Outpatient (BNVA) | payer OTHER, SELFPAY | PROVIDERS: PCP Internal Medicine; Visit Provider Student in an Organized Health Care Education/Training Program | DX: E05.90 Thyrotoxicosis, unspecified without thyrotoxic crisis or storm (principal) | CPT/HCPCS: 99212 ==

== ENCOUNTER 2025-03-21 06:14 | Emergency (ER) | payer OTHER, SELFPAY ==
--- NOTE | ~2025-03-21 | US_ITS ---
EXAMINATION: US ABDOMEN LIMITED HISTORY: gallbladder and CBD only, RUQ pain TECHNIQUE: Real-time grayscale ultrasound imaging of the gallbladder was performed and images were reviewed. COMPARISON: There are no prior studies available for comparison. FINDINGS: There is cholelithiasis. Ring down artifact from the gallbladder wall is compatible with adenomyomatosis. There is no gallbladder wall thickening. There is no sonographic Phillip sign. The common bile duct is normal in caliber measuring 2 mm. US/US abdomen limited IMPRESSION: Cholelithiasis and adenomyomatosis. No evidence of acute cholecystitis. Electronically signed by: Jered Silva MD 03/21/2025 08:02 AM [facility]
[2025-03-21 06:19] VITALS: BP 131/63; PULSE 87; RESP 18; TEMP 36.7; O2SAT 94; BMI 33.8
[2025-03-21 07:09] VITALS: BP 126/76; PULSE 81; RESP 16; TEMP 36.7; O2SAT 93
[2025-03-21 07:23] LABS: MANUAL DIFF FLAG NO
[2025-03-21 07:28] LABS: Hematocrit 35.8 % (37.0-47.0); Hemoglobin 11.3 g/dl (12.0-16.0); Imm Gran Abs Auto 0.04 X10*3/uL (0.00-0.03); Imm Gran Pct Auto 0.4 % (0.0-0.4); Lymphocytes Absolute Auto 3.8 X10*3/uL (1.2-4.9); Mean Corpuscular HGB Conc 31.6 g/dl (31.0-35.0); Mean Corpuscular Hemoglobin 28.4 pg (27.0-33.0); Mean Corpuscular Volume 89.9 fL (80.0-98.0); NRBC Abs Auto 0.020 X10*3/uL (0.0-0.012); NRBC Pct Auto 0.2 /100WBC (0.0-0.2); Platelet Count 319 X10*3/uL (160-400); Red Blood Count 3.98 X10*6/uL (4.20-5.50); White Blood Count 10.8 X10*3/uL (4.8-10.8)
--- OUTSIDE RECORDS SUMMARY | 2025-03-21 07:28 | XMS_ITS | Encounter Summary ---
Author Organization [employer] Address [address] [place] [address] Care Team Providers Care Pain Management Physician Name Role Phone Aaron Riley MD Primary Care Provider [phone] Reason for Referral * Consultation (Urgent) - Closed Specialty Diagnoses / Procedures Referred By Contac t Referred To Contact Hematology and Oncology Diagnoses Immune thrombocytopenic purpura (CMS/HCC) (HCC) Aaron Riley MD [address] [place] [address] Phone: tel: fax: Walt Levy MD [address] [place] [address] Phone: tel:[phone] fax:[phone] Referral ID Status Reason Start Date Expiration Date V isits Requested Visits Authorized [id number] Closed Specialty Services Required 09/01/2023 08/31/2024 1 1 Encounter Details Date Type Department Care Team (Late st Contact Info) Description 09/01/2023 Orders Only [facility] [address] [place], [place] [phone] Aaron Riley MD [address] [place], [place] [phone] Immune thrombocytopenic purpura (CMS/HCC) (Primary Dx) Social [...] Upcoming Encounters Date Type Department Care Team ([facility] st Contact Info) Description 03/24/2025 11:00 AM EST Office Visit [facility] [address] [place] [address] Aaron Riley MD [address] [place] [address] Scheduled Referrals Name Type Priority Associated Diagnoses Orde r Schedule Referral to Hematology / Oncology Outpatient Referral Urgent Immune thrombocytopenic purpura (CMS/HCC) Expected: 09/01/2023 (Approximate), Expires: 08/31/2024 documented as of this encounter Visit Diagnoses Diagnosis Immune thrombocytopenic purpura (CMS/HCC) (HCC)- Primary Immune thrombocytopenic purpura documented in this encounter Additional Health Concerns Assessment Noted Time PHQ-9 Depression Total Score: 14 024 10:24 AM EDT documented as of this encounter Care Teams Pain Management Physician Relationship Specialty Start Date End Date Aaron Riley MD [address] [place] [address] PCP - General Internal Medicine 04/24/18 documented as of this encounter
--- OUTSIDE RECORDS SUMMARY | 2025-03-21 07:29 | XMS_ITS | Encounter Summary ---
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 Name Role Phone Aaron Riley MD Primary Care Provider [phone] Reason for Referral * Imaging (Routine) - Closed Specialty Diagnoses / Procedures Referred By Reji stearns Referred To Contact Radiology Diagnoses Other thyrotoxicosis without thyrotoxic crisis or storm Procedures NM Thyroid Uptake Aaron Riley MD [address] [place] [address] Phone: tel: fax: [address] [phone] Phone: tel: fax: Referral ID Status Reason Start Date Expiration Date Visits Re quested Visits Authorized [id number] Closed 05/29/2024 05/29/2025 3 3 * Consultation (Routine) - Closed Specialty Diagnoses / Procedures Referred By Reji stearns Referred To Contact Endocrinology Diagnoses Other thyrotoxicosis without thyrotoxic crisis or storm Aaron Riley MD [address] [place] [address] Phone: tel: fax: [facility] Endocrinology [address] [place] [address] Phone: tel: fax: Referral ID Status Reason Start Date Expiration Date V isits Requested Visits Authorized [id number] Closed Specialty Services Required 05/29/2024 05/29/2025 1 1 Encounter Details Date Type Department Care Team (Late st Contact Info) Description 05/29/2024 Orders Only [facility] [address] [place] [address] Aaron Riley MD [address] [place] [address] Other thyrotoxicosis without thyrotoxic crisis or storm [...] Care Team (Late st Contact Info) Description 03/24/2025 11:00 AM EST Office Visit [facility] [address] [place] [address] Aaron Riley MD [address] [place] [address] Scheduled Orders Name Type Priority Associated Diagnoses [...] AM EST Narrative 2024 3:12 PM EDT [address] [address] Nuclear Medicine Report Signed Patient: Liz López MR#: [id number] 24 : 1970 Acct:[id number] Age/Sex: 53 / F ADM Date: 06/27/24 Loc: [facility] Attending Dr: Aaron Riley MD Ordering Physician: Aaron Riley MD Date of Service: 06/27/24 Procedure(s): NM thyroid w uptake Accession Number(s): [id number] cc: Aaron Riley MD EXAMINATION: NM THYROID [...] 07/01/24 1509 DD/ 1026 TD/TT: 06/28/24 1305 Application Integration Engineer: Procedure Note Donotuseinterpreter, Image - [address] [place] [address] Nuclear Medicine Report Signed Patient: Marycarmen López#: [id number] [birth year] : 1970Acct:[id number] Age/Sex: 53 / FADM Date: 06/27/24 Loc: [facility] Attending Dr: Aaron Riley MD Ordering Physician: Aaron Riley MD Date of Service: 06/27/24 Procedure(s): NM thyroid w uptake Accession Number(s): [id number] cc: Aaron Riley MD EXAMINATION: NM THYROID [...] 07/01/24 1509 DD/ 1026 TD/TT: 06/28/24 1305 Application Integration Engineer: us Aaron Riley MD IMG NM PROCEDURES Final Res ult documented in this encounter Visit Diagnoses Diagnosis 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
--- OUTSIDE RECORDS SUMMARY | 2025-03-21 07:29 | XMS_ITS | Data Portability ---
Author Organization [place] - [facility], Allergy Address [address] [place] [id number] Care Team Providers Care Film Editor Name Role Phone PILO DINH Primary Care Provider Assessment Encounter Date Assessment Date Assessment LastModified by Organization Details LastModified Time 09/18/2024 09/18/2024 Patient with history of ITP status post splenectomy presented with more than 6 months of foul-smelling nasal discharge from the left nasal cavity. Her symptoms are now resolved. Endoscopy shows resolution of the bulging of the left lateral nasal wall without evidence of polyps or colored nasal discharge. Suggest consistent use of saline nasal spray, fluticasone as needed and contact me if her sinus symptoms return [email or web address] Not available 09/18/2024 15:11:42 Plan of Treatment Reminders Order Date Submit Date Provider Last Modified By Organization Details Last Modified Time Details Appointments None record ed. Lab CBC w/ auto diff 2023 024 RAJ [facility] (Centralized Electronic Ordering - All Locations), Patient Can Go To The Location Of Their Choice, [id number] 4 03:18:39 Referral None record ed. Procedures None record ed. Surgeries endosc opy, nasal/ sinus, w/ maxill jacoby antros stephanie & tissue remova l (SURG) 2023 024 [email or web address] Not available 14:47:02 nasal/ sinus endosc opy, surgic al with ethmoi dectom y, total, includ ing spheno idotom y, with remova l of tissue from the spheno id sinus (SURG) 2023 024 [email or web address] Not available 4 14:47:02 stereo tactic comput er-ass isted naviga tion (SURG) 2023 024 [email or web address] Not available 4 14:47:02 endosc opy, nasal and sinus (SURG) 2023 024 [email or web address] Not available 4 14:47:03 Imaging XR, sinuse s, parana jasvir, 3 or more view 2024 025 [email or web address] [facility], [address] [place] [address], [address], 5 13:27:40 CT, sinuse s, w/o contra st 2023 024 [email or web address] [facility], [address] [place] [address], [address], 4 14:37:36 Medication Orders doxycy scruggs hyclat e 100 mg tablet 2024 025 [email or web address] [id number], [address] [place], [address], 5 14:59:08 flutic asone propio matthew 50 mcg/ac tuatio n nasal spray, suspen marco 2024 025 RAJ [id number], [address] [place], [address], 5 13:24:55 Patient TargetsNo targets recorded. Patient InstructionsNo instructions recorded. Reason for Referral None Reported. Results Created Date Observation Date Name Description Value Unit Range Abnormal Flag Note LastModifiedBy Organization Detail LastModifiedTime 09/08/19 24 09/14/2023 PNEUM OCOCC AL AB (23 SEROT YPE) pneumo Ab type 1* 3.7 ug/mL >1.3 Not Available [facility] [address] [place], [address], 09/14/2023 00:47:32 09/08/19 24 09/14/2023 PNEUM OCOCC AL AB (23 SEROT YPE) pneumo Ab type 3* 0.5 ug/mL >1.3 below low normal Not Available [facility] [place], [address], 09/14/2023 00:47:32 09/08/19 24 09/14/2023 PNEUM OCOCC AL AB (23 SEROT YPE) pneumo Ab type 4* 1.0 ug/mL >1.3 below low normal Not Available [facility] [place], [address], 09/14/2023 00:47:32 09/08/19 24 09/14/2023 PNEUM OCOCC AL AB (23 SEROT YPE) pneumo Ab type 8* 4.6 ug/mL >1.3 Not Available [facility] [place], [address], 09/14/2023 00:47:32 09/08/19 24 09/14/2023 PNEUM OCOCC AL AB (23 SEROT YPE) pneumo Ab type 9 (9N)* 2.2 ug/mL >1.3 Not Available [facility] [place], [address], 09/14/2023 00:47:32 09/08/19 24 09/14/2023 PNEUM OCOCC AL AB (23 SEROT YPE) pneumo Ab type 12 (12F)* <0.1 ug/mL >1.3 below low normal Not Available [facility] [place], [address], 09/14/2023 00:47:32 09/08/19 24 09/14/2023 PNEUM OCOCC AL AB (23 SEROT YPE) pneumo Ab type 14* 12.0 ug/mL >1.3 Not Available [facility] [place], [address], 09/14/2023 00:47:32 09/08/19 24 09/14/2023 PNEUM OCOCC AL AB (23 SEROT YPE) pneumo Ab type 17 (17F)* 5.3 ug/mL >1.3 Not Available [facility] [place], [address], 09/14/2023 00:47:32 09/08/19 24 09/14/2023 PNEUM OCOCC AL AB (23 SEROT YPE) pneumo Ab type 19 (19F)* 3.0 ug/mL >1.3 Not Available [facility] [place], [address], 09/14/2023 00:47:32 09/08/19 24 09/14/2023 PNEUM OCOCC AL AB (23 SEROT YPE) pneumo Ab type 2* 10.8 ug/mL >1.3 Not Available [facility] [place], [address], 09/14/2023 00:47:32 09/08/19 24 09/14/2023 PNEUM OCOCC AL AB (23 SEROT YPE) pneumo Ab type 20* 3.0 ug/mL >1.3 Not Available [facility] [address] [place] [address] [place], [address], 09/14/2023 00:47:32 09/08/19 24 09/14/2023 PNEUM OCOCC AL AB (23 SEROT YPE) pneumo Ab type 22 (22F)* 1.7 ug/mL >1.3 Not Available [facility] [address] [place] [address] [place], [address], 09/14/2023 00:47:32 09/08/19 24 09/14/2023 PNEUM OCOCC AL AB (23 SEROT YPE) pneumo Ab type 23 (23F)* 3.6 ug/mL >1.3 Not Available [facility] [place], [address], 09/14/2023 00:47:32 09/08/19 24 09/14/2023 PNEUM OCOCC AL AB (23 SEROT YPE) pneumo Ab type 26 (6B)* 1.9 ug/mL >1.3 Not Available [facility] [address] [place] [address] [place], [address], 09/14/2023 00:47:32 09/08/19 24 09/14/2023 PNEUM OCOCC AL AB (23 SEROT YPE) pneumo Ab type 34 (10A)* 8.3 ug/mL >1.3 Not Available [facility] [place] [address] [place], [address], 09/14/2023 00:47:32 09/08/19 24 09/14/2023 PNEUM OCOCC AL AB (23 SEROT YPE) pneumo Ab type 43 (11A)* 2.9 ug/mL >1.3 Not Available [facility] [place], [address], 09/14/2023 00:47:32 09/08/19 24 09/14/2023 PNEUM OCOCC AL AB (23 SEROT YPE) pneumo Ab type 5* 0.6 ug/mL >1.3 below low normal Not Available [facility] [place] [address] [place], [address], 09/14/2023 00:47:32 09/08/19 24 09/14/2023 PNEUM OCOCC AL AB (23 SEROT YPE) pneumo Ab type 51 (7F)* 4.2 ug/mL >1.3 Not Available [facility] [address] [place], [address], 09/14/2023 00:47:32 09/08/19 24 09/14/2023 PNEUM OCOCC AL AB (23 SEROT YPE) pneumo Ab type 54 (15B)* 5.9 ug/mL >1.3 Not Available [facility] [address] [place], [address], 09/14/2023 00:47:32 09/08/19 24 09/14/2023 PNEUM OCOCC AL AB (23 SEROT YPE) pneumo Ab type 56 (18C)* 2.3 ug/mL >1.3 Not Available [facility] [address] [place], [address], 09/14/2023 00:47:32 09/08/19 24 09/14/2023 PNEUM OCOCC AL AB (23 SEROT YPE) pneumo Ab type 57 (19A)* 5.1 ug/mL >1.3 Not Available [facility] [address] [place], [address], 09/14/2023 00:47:32 09/08/19 24 09/14/2023 PNEUM OCOCC AL AB (23 SEROT YPE) pneumo Ab type 68 (9V)* 1.6 ug/mL >1.3 Not Available [facility] [address] [place], [address], 09/14/2023 00:47:32 09/08/19 24 09/14/2023 PNEUM OCOCC [...] [facility] [address] [place], [address], 09/14/2023 00:47:32 12/06/19 24 12/07/2023 CBC WITH DIFFE RENTI AL/PL ATELE T WBC 14.5 x10e3 /uL 3.4-10 .8 above high normal Not Available [facility] ([facility]) [address] [facility], [place], [address], 12/07/2023 03:18:36 12/06/19 24 12/07/2023 CBC WITH DIFFE RENTI AL/PL ATELE T RBC 4.54 x10e6 /uL 3.77-5 .28 normal Not Available [facility] ([facility]) [address] [place], [address], 12/07/2023 03:18:36 12/06/19 24 12/07/2023 CBC WITH DIFFE RENTI AL/PL ATELE T hemoglobin 12.9 g/dL 11.1-1 5.9 normal Not Available [facility] ([facility]) [address] [place], [address], 12/07/2023 03:18:36 12/06/19 24 12/07/2023 CBC WITH DIFFE RENTI AL/PL ATELE T hematocrit 39.6 % 34.0-4 6.6 normal Not Available [facility] ([facility]) [address] [place], [address], 12/07/2023 03:18:36 12/06/1912/07/2023 CBC WITH DIFFE RENTI AL/PL ATELE T MCV 87 fL 79-97 normal Not Available [facility] ([facility]) [address] [place], [address], 12/07/2023 03:18:36 12/06/19 24 12/07/2023 CBC WITH DIFFE RENTI AL/PL ATELE T MCH 28.4 pg 26.6-3 3.0 normal Not Available [facility] ([facility]) [address] [place], [address], 12/07/2023 03:18:36 12/06/19 24 12/07/2023 CBC WITH DIFFE RENTI AL/PL ATELE T MCHC 32.6 g/dL 31.5-3 5.7 normal Not Available [facility] ([facility]) [address] [facility], [place], [address], 12/07/2023 03:18:36 12/06/19 24 12/07/2023 CBC WITH DIFFE RENTI AL/PL ATELE T RDW 13.3 % 11.7-1 5.4 Not Available [facility] ([facility]) [address] [facility], [place], [address], 12/07/2023 03:18:36 12/06/19 24 12/07/2023 CBC WITH DIFFE RENTI AL/PL ATELE T platelets 58 x10e3 /uL 150-45 0 alert low Not Available [facility] ([facility]) [address] [facility], [place], [address], 12/07/2023 03:18:36 12/06/19 24 12/07/2023 CBC WITH DIFFE RENTI AL/PL ATELE T neutrophils 55 % not estab. normal Not Available [facility] ([facility]) [address] [facility], [place], [address], 12/07/2023 03:18:36 12/06/19 24 12/07/2023 CBC WITH DIFFE RENTI AL/PL ATELE T lymphs 35 % not estab. normal Not Available [facility] ([facility]) [address] [facility], [place], [address], 12/07/2023 03:18:36 12/06/19 24 12/07/2023 CBC WITH DIFFE RENTI AL/PL ATELE T monocytes 6 % not estab. normal Not Available [facility] ([facility]) [address] [facility], [place], [address], 12/07/2023 03:18:36 12/06/19 24 12/07/2023 CBC WITH DIFFE RENTI AL/PL ATELE T eos 2 % not estab. normal Not Available [facility] ([facility]) [address] [facility], [place], [address], 12/07/2023 03:18:36 12/06/19 24 12/07/2023 CBC WITH DIFFE RENTI AL/PL ATELE T basos 1 % not estab. normal Not Available [facility] ([facility]) [address] [facility], [place], [address], 12/07/2023 03:18:36 12/06/19 24 12/07/2023 CBC WITH DIFFE RENTI AL/PL ATELE T immature cells DAIRY INSPECTOR Not Available [facility]) [address] [facility], [place], [address], 12/07/2023 03:18:36 12/06/19 24 12/07/2023 CBC WITH DIFFE RENTI AL/PL ATELE T neutrophils (absolute) 8.0 x10e3 /uL 1.4-7. 0 above high normal Not Available [facility] ([facility]) [address] [place], [address], 12/07/2023 03:18:36 12/06/19 24 12/07/2023 CBC WITH DIFFE RENTI AL/PL ATELE T lymphs (absolute) 5.1 x10e3 /uL 0.7-3. 1 above high normal Not Available [facility] ([facility]) [address] [place], [address], 12/07/2023 03:18:36 12/06/19 24 12/07/2023 CBC WITH DIFFE RENTI AL/PL ATELE T monocytes(ab solute) 0.9 x10e3 /uL 0.1-0. 9 normal Not Available [facility] ([facility]) [address] [place], [address], 12/07/2023 03:18:36 08/14/12/07/2023 CBC WITH DIFFE RENTI AL/PL ATELE T eos (absolute) 0.3 x10e3 /uL 0.0-0. 4 normal Not Available [facility] ([facility]) [address] [facility], [place], [address], 12/07/2023 03:18:36 12/06/19 24 12/07/2023 CBC WITH DIFFE RENTI AL/PL ATELE T baso (absolute) 0.1 x10e3 /uL 0.0-0. 2 normal Not Available [facility] ([facility]) [address] [facility], [place], [address], 12/07/2023 03:18:36 12/06/19 24 12/07/2023 CBC WITH DIFFE RENTI AL/PL ATELE T immature granulocytes 1 % not estab. Not Available [facility]) [address] [facility], [place], [address], 12/07/2023 03:18:36 12/06/19 24 12/07/2023 CBC WITH DIFFE RENTI AL/PL ATELE T immature grans (abs) 0.1 x10e3 /uL 0.0-0. 1 Not Available [facility] ([facility]) [address] [facility], [place], [address], 12/07/2023 03:18:36 12/06/19 24 12/07/2023 CBC WITH DIFFE RENTI AL/PL ATELE T NRBC DAIRY INSPECTOR Not Available [facility] ([facility]) [address] [facility], [place], [address], 12/07/2023 03:18:36 12/06/19 24 12/07/2023 CBC WITH DIFFE RENTI AL/PL ATELE T hematology comments: Note: Verif ied by hernan segal n. Not Available [facility] ([facility]) [address] [facility], [place], [address], 12/07/2023 03:18:36 12/06/[address], sinus es, w/o contr ast No observ ation record ed. [facility] [address], [address], 12/06/2023 14:37:32 12/07/19 24 12/06/2023 CT, sinus es, w/o contr ast No observ ation record ed. [facility] Of [address], [address], 12/08/2023 08:26:47 04/29/19 25 XR, sinus es, paran koby, 3 or more view No observ ation record ed. [facility] [address], [address], 04/29/2024 13:26:24 Result Notes None recorded. Problems Name Problem SNOMED Code Status Onset Date Resolution Date Notes Provider Name and Address Organization Details Recorded Time Chronic left maxillary sinusitis 4248964712347 9101 Active 2023 LUCINDA ROD MD [address] [place] [address], [place], [address], [facility] - 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 LUCINDA ROD MD [address] [place] [address], [place], [address], [place] [facility] [place] 4 14:50:44 Immunodefic iency disorder 120834651 Active 2023 LUCINDA ROD MD [address] [facility], [place], [address], [place] [facility] [place] 4 14:51:05 Chronic rhinitis 50118503 Active 2024 LUCINDA ROD MD [address] [facility],[place] [address], [place], [address], [place] [facility] [place] 5 13:24:33 Chronic maxillary sinusitis 31667073 Active 2024 LUCINDA ROD MD [address] [facility],[place] [address], [place], [address], [place] [facility] [place] 5 15:10:28 Problem Notes None recorded. Procedures Surgical History Date Name Laterality Status Provider Name and Address Organization Details Recorded Time 5 JMSNasal/Sinus Endoscopy completed LUCINDA SPANGLER MD [address] [facility],[address], [address], [place] - [facility] [place] 09/18/2024 15:10:19 5 JMSNasal/Sinus Endoscopy completed LUCINDA SPANGLER MD [address] [facility],[address], [address], [place] [facility] [place] 04/29/2024 13:25:10 4 JMSNasal/Sinus Endoscopy completed LUCINDA SPANGLER MD [address] [facility],[address], [address], [place] [facility] [place] 09/08/2023 14:50:15 7 dilation and curettage of uterus completed LUCINDA SPANGLER MD [address] [facility],[address], [address], [place] [facility] [place] 09/08/2023 16:09:45 Removal of spleen total completed LUCINDA SPANGLER MD [address] [place] [address], [place], [address], [facility] - [facility] 09/08/2023 16:07:25 Imaging Results None recorded. Procedure Notes None recorded. Medical Equipment None Reported. Allergies No known drug allergies Medications Name Sig Start Date Stop Date Status Note LastModified by Organization Details LastModified Time prednisone 10 mg tablet TAKE 1 TABLET BY MOUTH EVERY DAY WITH 50 MG TABS 09/18 completed Not Available Not Available Not Available ibuprofen 800 mg tablet TAKE 1 TABLET BY MOUTH 3 TIMES DAILY. 09/18 completed Not Available Not Available Not Available fluconazole 150 mg tablet TAKE 1 TABLET BY MOUTH ONCE PER WEEK FOR 2 WEEKS 09/18 completed Not Available Not Available Not Available metronidazo le 0.75 % (37.5 mg/5 gram) vaginal gel INSERT ONE APPLICATO RFUL NIGHTLY X 5 NIGHTS. 09/18 completed Not Available Not Available Not Available prednisone 20 mg tablet TAKE 2 TABLETS BY MOUTH EVERY DAY active Not Available Not Available No t Available hydrocortis one 2.5 % topical cream with perineal applicator INSERT RECTALLY EVERY MORNING & AT BEDTIME NEEDED FOR HEMORRHOI DS 09/18 completed Not Available Not Available Not Available benzonatate 100 mg capsule TAKE 1 CAPSULE BY MOUTH IF NEEDED EVERY MORNING, AT NOON, & AT BEDTIME FOR COUGH UP TO 7 DAYS 09/18 completed Not Available Not Available Not Available econazole nitrate 1 % topical cream APPLY TOPICALLY ONCE PER DAY. 09/18 completed Not Available Not Available Not Available prednisone 50 mg tablet TAKE 1 TABLET BY MOUTH EVERY DAY 09/18 completed Not Available Not Available Not Available methimazole 5 mg tablet TAKE 1 TABLET BY MOUTH EVERY DAY 09/18 completed Not Available Not Available Not Available sertraline 25 mg tablet TAKE 1 TABLET BY MOUTH EVERY DAY IN THE MORNING 09/18 completed Not Available Not Available Not Available omeprazole 20 mg capsule,del ayed release TAKE 1 CAPSULE BY MOUTH EVERY DAY active Not Available Not Available No t Available lisinopril 5 mg tablet TAKE 1 TABLET (5 MG) BY MOUTH ONCE PER DAY. 09/18 completed Not Available Not Available Not Available lisinopril 10 mg-hydrochl orothiazide 12.5 mg tablet TAKE 1 TABLET BY MOUTH EVERY DAY active Not Available Not Available No t Available estradiol 0.01% (0.1 mg/gram) vaginal cream INSERT 1 GRAM INTO VAGINA IN THE MORNING X14 DAYS, THEN TWICE WEEKLY THEREAFTE R ONGOING 09/18 completed Not Available Not Available Not Available levofloxaci n 750 mg tablet TAKE 1 TABLET BY MOUTH EVERY MORNING FOR 7 DAYS 09/18 completed Not Available Not Available Not Available fluticasone propionate 50 mcg/actuati on nasal spray,suspe nsion [place] 2 sprays twice a day by intranasa l route for 30 days. 2024 active Not Available Not Available Not Avai lable doxycycline hyclate 100 mg tablet Take 1 tablet twice a day by oral route for 20 days. 09/18 completed Not Available Not Available Not Available amoxicillin 875 mg-potassiu m clavulanate 125 mg tablet TAKE 1 TABLET BY MOUTH TWICE A DAY FOR 7 DAYS 09/18 completed Not Available Not Available Not Available duloxetine 20 mg capsule,del ayed release TAKE 1 CAPSULE BY MOUTH TWICE A DAY *DO NOT CRUSH CHEW* 09/18 completed Not Available Not Available Not Available duloxetine 60 mg capsule,del ayed release TAKE 1 CAPSULE (60 MG) BY MOUTH ONCE PER DAY. DO NOT CRUSH OR CHEW. active Not Available Not Available No t Available blood pressure test kit-large cuff USE TO check blood pressure EVERY DAY 09/18 completed Not Available Not Available Not Available Vitals None Recorded Social History None recorded. Functional Status Question Answer Note LastModified by Organizat ion Details LastModified Time Do you use any illicit or recreational drugs? No [email or web address] Information not available 09/08/2023 Do you or have you ever used any other forms of tobacco or nicotine? No [email or web address] Information not available 09/08/2023 What is your level of alcohol consumption? None [email or web address] Information not available 09/08/2023 Mental Status None recorded. Family History Nothing Reported. Medical History Condition Response Bleeding Disorder Y Gynecological HistoryNo gynecological history recorded. Obstetrics History GPAL:G 0 P 0 0 0 0 Past Encounters Encounter ID Performer Location Encounter Start Date Encounter Closed Date Diagnosis/Indication Diagnosis SNOMED-CT Code Diagnosis ICD10 Code Diagnosis IMO Codes Diagnosis Note [id number] LUCINDA CEBALLOS MD [facility] [address] [place] [address] 09/08/2023 14:01:25 09/08/2023 16:43:49 Chronic sinusitis 83174742 J32.9 Patient with history of ITP status [...] in 6 to 8 weeks Immune thrombocytopenia 0414878 D69.3 Immunodefi ciency disorder 029373329 D84.9 [id number] LUCINDA CEBALLOS MD [facility] [address] [place] [address] 12/06/2023 13:51:06 12/06/2023 14:39:48 Chronic sinusitis 65519467 J32.9 Patient with history of ITP status [...] gave her a sinus surgery brochure in Icelandic. All questions answeredco ntinue flonase and saline spray Please contact my surgical first assistant, Melony, at to schedule the procedure. [...] scheduled in the near future. Immune thrombocytopenia 5720204 D69.3 Immunodefi ciency disorder 119055399 D84.9 [id number] LUCINDA CEBALLOS MD [facility] [address] [address] 04/29/2024 13:01:15 04/29/2024 13:27:40 Chronic sinusitis 19369718 J32.9 Patient with history of ITP status [...] another course of doxycyclin e. Immune thrombocytopenia 8879367 D69.3 Chronic rhinitis 2418050 6 J31.0 [id number] LUCINDA CEBALLOS MD [facility] [address] [address] 09/18/2024 14:55:24 09/19/2024 13:18:16 Chronic maxillary sinusitis 99543459 J32.0 2493 History of immune thrombocytopenia 314643756 Z86.2 2936692 History of splenectomy 544293340 Z90.81 795402 Health Concerns Section Related Observation LastModified by Organization Detai ls LastModified Time None Recorded Concern Status LastModified by Organization Details LastModified Time None Recorded Advance Directives Directive None Recorded Payers Insurance Date Sequence Insurance Name Policy Number Policy Morales Covered Member ID Morales Member ID Guarantor Name 09/18/2024 1 [facility] - HEALTH NET PLAN (MEDICAID HMO) [id number] Liz López [id number] Liz López 02/08/2024 1 [place] [facility] Liz López [id number] Liz López 12/06/2023 1 [place] [facility] [place]ICAID) Liz López [id number] Liz López 09/08/2023 1 [place] [facility] Liz López [id number] Liz López 12/06/2023 1 [place] [facility] [facility] [place] [place]ID) Liz López [id number] Liz López Notes Date Note Type Note Provider Name and Address Organization Details Recorded Time 09/08/2023 text/html Patient with history of splenectomy for ITP presents with greater [...] platelet count of 44,000. LUCINDA SPANGLER MD [address] [facility],[address], [address], [facility] - [facility] 09/08/2023 16:10:21 12/06/2023 text/html ROS as noted in the HPI Patient seen in follow-up for chronic sinusitis. [...] to 8 weeks LUCINDA SPANGLER MD [address] [facility], [place], [address], [facility] - [facility] 12/06/2023 15:06:12 04/29/2024 text/html Patient with chronic sinusitis and history of ITP. When I last saw her over the summer her platelet count was 58,000. She reports having a normal platelet count recently in [place]. Unfortunately I do not have access to their system. She notes persistent congestion and pressure especially in the frontal region. She is followed by Dr. Walt LevyPrevious CT scan showed maxillary sinus disease with hypoplastic frontal sinusesDeclines knitting machine fixer head and is able to discuss everything in [place] LUCINDA SPANGLER MD [address] [facility],[address], [address], [place] - [facility] 04/29/2024 13:26:38 09/18/2024 text/html Patient with history of chronic sinusitis and persistent foul smell. She feels the last course of antibiotics I gave her in April and consistent use of Flonase have improved things. No more foul odor or sinus pressure LUCINDA SPANGLER MD [address] [facility],[place] [address], [place], [address], [place] [facility] 09/18/2024 15:12:01 OBGyn Episode No OBEpisode recorded.
--- OUTSIDE RECORDS SUMMARY | 2025-03-21 07:29 | XMS_ITS | Encounter Summary ---
Author Organization [employer] Address [address] [place] [address] Care Team Providers Care Industrial Gas Production Operator Name Role Phone Aaron Riley MD Primary Care Provider [phone] Reason for Referral * Imaging (Routine) - Closed Specialty Diagnoses / Procedures Referred By Contac t Referred To Contact Radiology Diagnoses Low TSH level Procedures NM THYROID W UPTAKE AND SCAN Aaron Riley MD [address] [place] [address] Phone: tel: fax: [facility] [address] [place] [phone] Phone: tel: fax: Referral ID Status Reason Start Date Expiration Date Visits Re quested Visits Authorized [id number] Closed 06/27/2024 06/27/2025 3 3 Encounter Details Date Type Department Care Team (Late st Contact Info) Description 06/27/2024 Orders Only [facility] [address] [place] [address] Aaron Riley MD [address] [place], [place] [phone] Low TSH level (Primary Dx) Social History [...] Upcoming Encounters Date Type Department Care Team ([facility] Contact Info) Description 03/24/2025 11:00 AM EST Office Visit [facility] [address] [place] [address] Aaron Riley MD [address] [place] [address] Scheduled Orders Name Type Priority Associated Diagnoses Orde r Schedule NM THYROID W UPTAKE AND SCAN Imaging Routine Low TSH level Expected: 06/27/2024, Expires: 06/27/2025 documented as of this encounter Visit Diagnoses Diagnosis Low TSH level- Primary documented in this encounter Additional Health Concerns Assessment Noted Time PHQ-9 Depression Total Score: 21 024 1:11 PM EDT documented as of this encounter Care Teams Industrial Gas Production Operator Relationship Specialty Start Date End Date Aaron Riley MD [address] [place] [address] PCP - General Internal Medicine 04/24/18 documented as of this encounter
--- OUTSIDE RECORDS SUMMARY | 2025-03-21 07:29 | XMS_ITS | Encounter Summary ---
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 [phone] Patient reports another small lesion / lump [...] Description 03/24/2025 11:00 AM EST Office Visit [facility] MED [facility] PEDS [address] [place] [address] Aaron Riley MD [address] [place] [address] documented as of this encounter Visit Diagnoses Not on filedocumented in this encounter Additional Health Concerns Assessment Noted Time PHQ-9 Depression Total Score: 21 024 1:11 PM EDT documented as of this encounter Care Teams Vocal Performer Relationship Specialty Start Date End Date Aaron Riley MD [address] [place] [address] PCP - General Internal Medicine 04/24/18 documented as of this encounter
--- OUTSIDE RECORDS SUMMARY | 2025-03-21 07:29 | XMS_ITS | Clinical Summary ---
Author Organization [employer] Address [address] [place] [address] 7 [place] [address] Care Team Providers Care Insurance Representative Name Role Phone Aaron Riley MD Primary Care Provider [phone]- [phone] Allergies Active Allergy Reactions Criticality Noted Date [...] BP daily 1 kit 10/17/19 24 Active lisinopril-hydroCH LOROthiazide 10-12.5 MG tabletIndications: Primary [...] morning. 30 tablet 3 11/19/19 25 Active sertraline (Zoloft) 100 MG tabletIndications: Severe major depression (CMS/HCC) (HCC) Take 1 tablet (100 mg) by mouth Once per day. 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 Chronic left maxillary sinusitis 09/08/2023 Chronic sinusitis 09/08/2023 Immune thrombocytopenia (CMS/HCC) 09/08/2023 Immunodeficiency disorder 09/08/2023 Secondary immune deficiency disorder 09/08/2023 BENY (generalized anxiety disorder) 05/26/2023 Severe major depression (CMS/HCC) 05/26/2023 Fibromyalgia 10/26/2016 Immune thrombocytopenic purpura (CMS/HCC) 2011 Backache 10/19/2011 Female infertility 10/19/2011 Encounters Date Type Department Care Team Description 01/23/2025 2:30 PM EDT Office Visit [facility] MED & PEDS [address] [place] [address] Aaron Riley MD Graves' disease (Primary Dx); Fibromyalgia; Severe major depression (CMS/HCC) (HCC); Primary hypertension; Encounter for immunization; Colon cancer screening 01/23/2025 Travel 01/22/2025 Telephone [facility] MED & PEDS [address] [place] [address] Aaron Riley MD Chart Prep from Last 3 Months Immunizations Immunization Administration Dates Next Due Influenza Injectable Quadriv alant Preservative Free IIV4 MDCK 03/29/2022,02/19/2020 Influenza injectable quadriv alent IIV4 with preservative 03/23/2018,02/22/2017 Influenza injectable quadriv alent preservative free 02/15/2023,02/22/2021,06/30/2016 Influenza, seasonal, injecta ble, preservative free 01/23/2025,01/23/2024 Antonia SARS-CoV-2 Vaccination 08/01/2020 Moderna Covid-19 Vaccine 12+ 02/22/2021 Pfizer Covid-19 Vaccine 12+ 07/12/2023 Tdap 06/30/2016 Social History Tobacco Use Types Packs/Day Years Used Date Smoking Tobacco: Never Smokeless Tobacco: Never Tobacco Cessation:Counseling Given: Not Answered Depression Answer Date Recorded Patient Health Questionnaire-9 Score 16 01/23/2025 Patient Health Questionnaire-9 Score 16 01/23/2025 Last PHQ-9: Questionnaire Data Not on file 1 Housing Stability Answer Date Recorded What is [...] Date Recorded Patient Health Questionnaire-2 Score 6 01/23/2025 Internet Access Answer Date Recorded Internet Access [...] Sign Reading Time Taken Comments Blood Pressure 133/71 01/23/2025 2:32 PM EDT Pulse 81 01/23/2025 2:32 PM EDT Temperature 36.5 C (97.7 F) 11/18/2024 1:52 PM EDT Respiratory Rate 20 01/23/2025 2:32 PM EDT Oxygen Saturation 98% 01/23/2025 2:32 PM EDT Inhaled Oxygen Concentration - - Weight 84.8 kg (187 lb) 01/23/2025 2:32 PM EDT Height 157.5 cm (5' 2 ) 01/23/2025 2:32 PM EDT Body Mass Index 34.2 01/23/2025 2:32 PM EDT Plan of Treatment Upcoming Encounters Date Type Department Care Team (Late st Contact Info) Description 03/24/2025 11:00 AM EST Office Visit [facility] MED & PEDS [address] [place] [address] Aaron Riley MD [address] [place] [address] Health Maintenance Due Date Last Done Comments CT Colonography 1968 Colonoscopy 1968 Colorectal Cancer Screening 1968 FIT DNA/Cologuard 1968 FIT 1968 FOBT 1968 HIV Screening 1968 Sigmoidoscopy 1968 HIB Vaccines (1 of 1 - Risk 1-dose series) 10/01/1969 Meningococcal Vaccine (1 - Risk 2-dose series) 1970 Meningococcal B Vaccine (1 of 4 - Increased Risk) 1978 Hepatitis C Screening 1986 Hepatitis B Vaccines (1 of 3 - 19+ 3-dose series) 07/02/1987 Pneumococcal Vaccine: 50+ Years (1 of 2 - PCV) 07/02/1987 Zoster Vaccines (1 of 2) 07/02/1987 RSV Patients and Patients Aged 60 years or older (1 - Risk 50-74 years 1-dose series) 2018 COVID-19 Vaccine ( season) 2024 07/12/2023, 02/22/2021, 08/01/2020 Depression Monitoring 07/24/2025 01/23/2025, 025 SDOH Screening 07/31/2025 07/31/2024 Diabetes: Hemoglobin A1C 11/18/2025 11/18/2024, 02/04/2024 Cervical Cancer Screening 12/15/2025 HPV/Cotest 12/15/2025 Pap Smear 12/15/2025 12/15/2020 Alcohol/Substance Use Screening 01/23/2026 01/23/2025 Disability Screening 01/23/2026 01/23/2025 Tobacco Screening 01/23/2026 01/23/2025 DTaP/Tdap/Td Vaccines (2 - Td or Tdap) 06/30/2026 06/30/2016 Mammogram 10/14/2026 10/14/2024, 05/0 09/2023, 08/22/2022, Additional history exists Lipid Panel 05/28/2029 05/28/2024 Influenza Vaccine Completed 01/23/2025, , 02/15/2023, Additional history exists HPV Vaccines Aged Out No longer eligi [...] Diagnosis Comments POCT GLYCATED HEMOGLOBIN, TOTAL Routine 11/18/2024 2:34 [...] Maintenance Results * (ABNORMAL) POCT HGB A1C (11/18/2024 2:34 [...] PM EDT Narrative 10/18/2024 3:09 PM EDT [facility] [address] [place] [address] Mammography Report Signed Patient: Liz López MR#: [id number] 24 : 1970 Acct:[id number] Age/Sex: 54 / F ADM Date: 10/14/24 Loc: HO.MAMMO Attending Dr: Aaron Riley MD Ordering Physician: Aaron Riley MD Results: 1 Negative Date of Service: 10/14/24 Follow Up: 1 Year From Orig ina Mammogram Procedure(s): MM tomosynthesis screening BI Accession Number(s): [id number] cc: Aaron Riley MD EXAMINATION: MM SCREENING [...] Sasha Gomez DO 10/18/2024 03:06 PM EDT RP Dictated By: Sasha Gomez DO Signed By: <Electronically signed by Sasha Gomez DO in OV> 10/18/24 1506 DD/ 1310 TD/TT: 10/14/24 1329 Latent Print Examiner: Procedure Note Donotuseinterpreter, Image - 10/18/2024 [facility] [address] [place] [address] Mammography Report Signed Patient: Marycarmen López#: [id number] [birth year] : 1970Acct:[id number] Age/Sex: 54 / FADM Date: 10/14/24 Loc: SATYA Attending Dr: Aaron Riley MD Ordering Physician: Aaron Riley MDResults: 1 Negative Date of Service: 10/14/24Follow Up: 1 Year From [facility] Mammogram Procedure(s): MM tomosynthesis screening BI Accession Number(s): [id number] cc: Aaron Riley MD EXAMINATION: MM SCREENING [...] Sasha Gomez DO 10/18/2024 03:06 PM EDT RP Dictated By: Sasha Gomez DO Signed By: <Electronically signed by Sasha Gomez DO in OV> 10/18/24 1506 DD/ 1310 TD/TT: 10/14/24 1329 Latent Print Examiner: us Aaron Riley MD IMG BI PROCEDURES Final Res ult * (ABNORMAL) Lipid Panel, Standard (05/28/2024 3:02 PM EST) Triglycerides 154(H) <150 mg/dL [facility] Comment:Desirable Triglyceri de: less than 150 mg/dLBorderline High Triglyceride 150-199 mg/dLHigh Triglyceride: 200-499 mg/dLVery High Triglyceride: greater than or equal to 5OO mg/dL Cholesterol 145 <200 mg/dL [facility] Comment:Desirable Cholestero l: less than 200 mg/dLBorderline High Cholesterol: 200-239 mg/dLHigh Cholesterol: greater than 239 mg/dL LDL Cholesterol Calculated 92 <100 mg/dL [facility] Comment:Desirable LDL: less than 100 mg/dLNear Optimal/Above Optimal LDL: 110- 129 mg/dLBorderline High LDL: 130-159 mg/dLHigh LDL: 160-189 mg/dLVery High LDL: greater than or equal to 190 mg/dL HDL Cholesterol 23(L) >40 mg/dL [facility] Comment:Desirable HDL: great er than 40 mg/dL Note: This HDL assay may give artificially low results in patients with liver disease. Blood Venous blood specimen / Unknown 05/28/2024 3:02 PM EST 05/28/2024 4:21 PM EST Aaron Riley MD LAB BLOOD ORDERABLES Final Result [facility] [address] [place] [address] [phone] * Pap Smear (12/15/2020 12:00 AM EDT) Swab Historical Provider LAB CYTOLOGY ORDERABLES F inal Result [facility] [address] [place] [address] from Last 3 Months or Most Recently Relevant to Health Maintenance Insurance [facility] 3 Care Teams Insurance Representative Relationship Specialty Start Date End Date Aaron Riley MD [address] [place] [address] PCP - General Internal Medicine 04/24/18
--- OUTSIDE RECORDS SUMMARY | 2025-03-21 07:29 | XMS_ITS | Encounter Summary ---
Author Organization [employer] Address [address] [place] [address] Care Team Providers Care Painter And Decorator Apprentice Name Role Phone Aaron Riley MD Primary Care Provider [phone]- [phone] Reason for Visit * Reason Onset Date Comments Nurse Triage 12/28/2022 Encounter Details Date Type Department Care Team (Late st Contact Info) Description 12/28/[address] 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 and [...] accepted this outcome Please contact pt at [phone] Ecuadorean Speaker documented in this encounter Plan of Treatment Upcoming Encounters Date Type Department Care Team (Late st Contact Info) Description 03/24/2025 11:00 AM EST Office Visit [facility] MED & PEDS [address] [place] [address] Aaron Riley MD [address] [place] [address] documented as of this encounter Visit Diagnoses Not on filedocumented in this encounter Care Teams Painter And Decorator Apprentice Relationship Specialty Start Date End Date Aaron Riley MD [address] [place] [address] PCP - General Internal Medicine 04/24/18 documented as of this encounter
--- NOTE | 2025-03-21 07:42 | ED.ABDPAIN ---
HPI - Abdominal Pain General Chief Complaint: Abdominal Pain Stated Complaint: gallstones? 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 Mode of arrival: ambulatory Limitations: language barrier History of Present Illness ED Provider: HPI narrative: 54-year-old [place]an speaking woman, states was not [place] developed some nausea abdominal pain is a sharp right upper quadrant x3 times this was proximal week ago, had workup done and was told that her gallbladder inflamed and she has a gallstone, she states she did not want to have any procedures done in [place] and so when she presented to [facility] she came to the ER, no fevers or chills reported but she is also reported an episodes of diarrhea no chest pain or shortness of breath. Related Data Home Medications ?Medication ?Instructions ?Recorded ?Confirmed ibuprofen 800 mg tablet 1 tab PO TID 09/07/20 03/28/25 sertraline 25 mg tablet 25 mg PO QAM 09/14/23 03/28/25 lisinopril 10 10 tab PO DAILY 07/12/24 03/28/25 mg-hydrochlorothiazide 12.5 mg tablet Previous Rx's ?Medication ?Instructions ?Recorded acetaminophen 325 mg tablet 650 mg (2 x 325 mg) PO Q6H PRN 01/08/21 (Tylenol) fever or pain #10 tabs polyethylene glycol 3350 17 gram 17 g PO DAILY #14 ea 06/01/24 oral powder packet (Miralax) Allergies Allergy/AdvReac Type Severity Reaction Status Date / Time melatonin (MELATONIN) Allergy Unknown FACIAL Verified 03/28/25 08:45 REDNESS & EDEMA ASPERGILLUS Allergy Unknown HIVES Uncoded 03/28/25 08:45 Review of Systems Constitutional: Reports as per HPI [facility] Past Medical History Medical History Hyperthyroidism Fibromyalgia Depression Surgical History History of surgery Family History Family History Father Tonsillar cancer Hypertension Paternal Grandmother Hypertension Social History Social History Household Members: Spouse and Family Alcohol intake: never Patient Tobacco Use Status: Never used Tobacco service: No Current occupational status: employed Physical Exam ED Exam Exam: ?General: ??looks age appropriate ?PERRLA, EOMI, MMM, Neck: Supple, no LAD ?CV: RRR, no obvious murmurs appreciated ?Resp: ?No wheezing rales rhonchi no stridor moving air well Abd: ?Bowel sounds are present, no tenderness no rebound no rigidity, negative Phillip's sign that this time MSK: FROM, strength 5/5 all extremities Skin: Warm, dry, intact, ?Neuro: ?Alert and oriented x3, moving upper and lower extremities symmetrically, no obvious facial asymmetry noted, cranial nerves 2-12 intact Vital Signs: Vital Signs - 24 hr 03/21/25 06:19 03/21/25 07:09 Temperature 98.1 F 98.0 F Pulse Rate 87 81 Respiratory Rate 18 16 Blood Pressure 131/63 126/76 Pulse Oximetry 94 93 Oxygen Delivery Method Room Air Room Air BMI result Body Mass Index 33.8 Medical Decision Making Medical Decision Making [facility] Narrative: 7:44 AM 03/21/2025 (Dr. Jam Phillip): Fairly benign abdominal exam and negative Phillip's sign at this time but she does report history of workup in [place] the paperwork she had with her was not [place] and I will repeat blood work and ultrasound to evaluate for cholecystitis. Differential Diagnosis Differential Diagnoses: The differential diagnosis associated with the presentation includes (Cholecystitis, pancreatitis, hepatitis, gastritis, cholangitis, choledocholithiasis, SBO, ACS) Admission/Observation Consideration of admission/observation: Escalation of care including admission/observation considered Lab Data [facility] Lab Attestation statement: I reviewed the patient's lab results. 03/21/25 07:00 03/21/25 07:00 Labs: Lab Results 03/21/25 Range/Units 07:00 WBC 10.8 (4.8-10.8) X10*3/uL RBC 3.98 L (4.20-5.50) X10*6/uL Hgb 11.3 L (12.0-16.0) g/dl Hct 35.8 L (37.0-47.0) % MCV 89.9 (80.0-98.0) fL MCH 28.4 (27.0-33.0) pg MCHC 31.6 (31.0-35.0) g/dl RDW 14.7 (11.0-16.0) % Plt Count 319 (160-400) X10*3/uL MPV 11.0 (9.4-12.3) fL Immature Gran % (Auto) 0.4 (0.0-0.4) % Neut % (Auto) 54.3 (45-73) % Lymph % (Auto) 34.9 (20-40) % Braxton % (Auto) 6.3 (2-11) % Eos % (Auto) 3.5 (0-4) % Baso % (Auto) 0.6 (0-2) % Lymph # (Auto) 3.8 (1.2-4.9) X10*3/uL Braxton # (Auto) 0.7 (0.1-1.2) X10*3/uL Eos # (Auto) 0.4 (0.0-0.4) X10*3/uL Baso # (Auto) 0.1 (0.0-0.2) X10*3/uL Abs Immat Gran (auto) 0.04 H (0.00-0.03) X10*3/uL Absolute Neuts (auto) 5.9 (2.0-8.3) x10*3/uL Absolute Nucleated RBC 0.020 H (0.0-0.012) X10*3/uL Nucleated RBC % (auto) 0.2 (0.0-0.2) /100WBC Sodium 143 (135-145) mmol/L Potassium 3.8 (3.3-5.1) mmol/L Chloride 115 H (96-108) mmol/L Carbon Dioxide 22 (22-29) mmol/L Anion Gap 10 L (12-20) BUN 15 (9-16) mg/dL Creatinine 0.77 (0.5-1.4) mg/dL Estim Creat Clear Calc 81.9 Estimated GFR > 60 Random Glucose 98 (60-115) mg/dL Calcium 8.8 (8.4-10.2) mg/dL Magnesium 2.3 (1.6-2.6) mg/dL Total Bilirubin 0.4 (0.0-1.0) mg/dL Direct Bilirubin 0.1 (0.0-0.5) mg/dL AST 36 H (5-31) U/L ALT 30 (0-31) U/L Alkaline Phosphatase 124 H (39-117) U/L Total Protein 7.1 (6.5-8.0) g/dL Albumin 3.9 (3.5-5.0) g/dL Lipase 24 (8-78) U/L Radiology Impression Discussion of test interpretation with radiology: I have reviewed the radiologist's reading. ( US/US abdomen limited IMPRESSION: Cholelithiasis and adenomyomatosis. No evidence of acute cholecystitis) Discharge Plan Discharge Clinical Impression: Biliary colic symptom Patient Disposition: Home, Self-Care Additional Instructions: La ecograf?a mostr? que tiene c?lculos biliares, lo cual es un hallazgo com?n, no hubo evidencia de arthur infecci?n real de la ves?cula biliar, le recomiendo abstenerse de alimentos grasosos ya que esto puede exacerbar raegan s?ntomas de c?brianna biliar, tambi?n le estoy proporcionando un n?simone de cirujano general, llame para hacer arthur jana para chinedu a los cirujanos, puede optar por arthur colecistectom?a electiva, el cody de los an?lisis de nestor oswald sido tranquilizadores, siempre que tenga dolor y malestar puede alex Tylenol 975 mg seg?n sea necesario, compresas tibias, si el dolor persiste regrese a urgencias. Ultrasound did show that you have gallstone, which is a common finding, there was no evidence for an actual gallbladder infection, I recommend abstaining from fatty/greasy foods as this can exacerbate your symptoms of biliary colic, I am also providing you with a number for general surgeon, please call make an appointment to see surgeons you may choose to have an elective cholecystectomy, the rest of the blood work has been reassuring, whenever you have pain and discomfort you can take Tylenol 975 mg as needed, warm compresses, if pain persists come back to the ER. Prescriptions: No Action ibuprofen 800 mg tablet 1 tab PO TID acetaminophen [Tylenol] 325 mg tablet 650 mg PO Q6H PRN (Reason: fever or pain) Qty: 10 0RF sertraline 25 mg tablet 25 mg PO QAM polyethylene glycol 3350 [Miralax] 17 gram powder in packet 17 g PO DAILY Qty: 14 0RF lisinopril-hydrochlorothiazide 10-12.5 mg tablet 10 tab PO DAILY Referrals: [facility] General Surgeons [Provider Group, General Surgery] - 1 week Clinical Impression: Biliary colic symptom Interventions: ED Discharge Assessment Last Done: 03/21/25 08:51 Discharge Date/Time: 03/21/25 08:52 Print Language: [place] Leonean
[2025-03-21 07:43] LABS: Alanine Aminotransferase 30 U/L (0-31); Albumin Level 3.9 g/dL (3.5-5.0); Alkaline Phosphatase 124 U/L (39-117); Anion Gap 10 (12-20); Aspartate Amino Transferase 36 U/L (5-31); Blood Urea Nitrogen 15 mg/dL (9-16); Calcium 8.8 mg/dL (8.4-10.2); Carbon Dioxide 22 mmol/L (22-29); Chloride 115 mmol/L (96-108); Creatinine Clr Calc Pharmacy 81.9; Estimated Glomerular Filt Rate > 60; Lipase 24 U/L (8-78); Magnesium 2.3 mg/dL (1.6-2.6); Potassium 3.8 mmol/L (3.3-5.1); Sodium 143 mmol/L (135-145); Total Protein 7.1 g/dL (6.5-8.0)
[2025-03-21 08:51] VITALS: BP 126/76; PULSE 81; RESP 16; TEMP 36.7; O2SAT 93
== END 2025-03-21 08:52 | disposition home or self-care (01) ==
PROVIDERS: Emergency Medicine; Emergency Provider Emergency Medicine; PCP Internal Medicine
DX: K80.50 Calculus of bile duct without cholangitis or cholecystitis without obstruction (principal); R10.11 Right upper quadrant pain; Z79.899 Other long term (current) drug therapy
CPT/HCPCS: 36415; 76705; 80048; 80076; 83690; 83735; 85025; 99284

== ENCOUNTER → 2025-03-21 06:53 | Outpatient (BNV) | payer OTHER, SELFPAY | PROVIDERS: Emergency Provider Emergency Medicine; PCP Internal Medicine; Visit Provider Radiology Diagnostic Radiology | DX: K80.20 Calculus of gallbladder without cholecystitis without obstruction (principal); K82.8 Other specified diseases of gallbladder | CPT/HCPCS: 76705 ==